=== PATIENT | female | born 1945 | race Caucasian/White ===

== ENCOUNTER 2017-08-03 21:43 | Emergency (ER) | payer MEDICARE ==
[2017-08-03] MEDS: IV NORMAL SALINE 1000ML BAG 1,000 ML IV (22:00)
[2017-08-03] MEDS: IV NORMAL SALINE 500ML BAG 500 ML IV ×2 (22:16→23:00)
[2017-08-03 22:29] LABS: ADD MAN DIFF? NO
[2017-08-03 22:31] LABS: BASO # 0.1 x10^3/uL (0.0-0.2); BASO % 1 % (0-3); EOS # 0.3 x10^3/uL (0.0-0.7); EOS % 2 % (0-3); HEMATOCRIT 39.5 % (36.0-47.0); HEMOGLOBIN 12.9 g/dL (12.0-15.5); LYMPH # 2.1 x10^3/uL (1.0-4.8); LYMPH % 16 % (24-48); MEAN CORPUSCULAR HEMOGLOBIN 28 pg (25-35); MEAN CORPUSCULAR HGB CONC 33 g/dL (31-37); MEAN CORPUSCULAR VOLUME 85 fL (79-100); MONO # 1.2 x10^3/uL (0.0-1.1); MONO % 9 % (0-9); NEUT # 9.3 x10^3uL (1.8-7.7); NEUT % 71 % (31-73); PLATELET COUNT 353 x10^3/uL (140-400); RED BLOOD COUNT 4.65 x10^6/uL (3.50-5.40); RED CELL DISTRIBUTION WIDTH 16.8 % (11.5-14.5)
[2017-08-03 22:47] LABS: ANION GAP 9 (6-14); BLOOD UREA NITROGEN 43 mg/dL (7-20); BUN/CREATININE RATIO 17 (6-20); CALCIUM 9.1 mg/dL (8.5-10.1); CARBON DIOXIDE 31 mmol/L (21-32); CHLORIDE 98 mmol/L (98-107); CREATININE 2.5 mg/dL (0.6-1.0); GLUCOSE 273 mg/dL (70-99); POTASSIUM 4.9 mmol/L (3.5-5.1); SODIUM 138 mmol/L (136-145)
[2017-08-03 22:54] LABS: ALBUMIN 3.1 g/dL (3.4-5.0); ALBUMIN/GLOBULIN RATIO 0.9 (1.0-1.7); ALK PHOS 128 U/L (46-116); ALT (SGPT) 27 U/L (14-59); AST (SGOT) 21 U/L (15-37); TOTAL BILIRUBIN 0.3 mg/dL (0.2-1.0); TOTAL PROTEIN 6.5 g/dL (6.4-8.2)
[2017-08-03 23:00] LABS: TROPONINI < 0.017 ng/mL (0.000-0.055)
[2017-08-03 23:01] LABS: NT-PRO BNP 580 pg/mL (0-124)
[2017-08-03 23:01] LABS: CKMB MASS 0.9 ng/mL (0.0-3.6); CREATINE KINASE 29 U/L (26-192)
[2017-08-03 23:43] LABS: BILIRUBIN,URINE NEGATIVE (NEG); CLARITY,URINE CLEAR; COLOR,URINE YELLOW; GLUCOSE,URINE NEGATIVE (NEG); NITRITE,URINE NEGATIVE (NEG); PROTEIN,URINE NEGATIVE (NEG-TRACE); UROBILINOGEN,URINE 0.2 mg/dL (0.2 mg/dL)
[2017-08-03 23:52] LABS: BACTERIA,URINE 0 /HPF (0-FEW); HYALINE CASTS, URINE MODERATE /HPF; RBC,URINE 0 /HPF (0-2); WBC,URINE 0 /HPF (0-4)
[2017-08-04 00:30] LABS: INFLUENZA A PATIENT NEGATIVE (NEGATIVE); INFLUENZA B PATIENT NEGATIVE (NEGATIVE); OBC FLU VALID
== END 2017-08-04 00:50 | disposition home or self-care (01) ==
LOC: ER 08-04 00:50
DX: I95.1 Orthostatic hypotension (principal); I12.9 Hypertensive chronic kidney disease with stage 1 through stage 4 chronic kidney disease, or unspecified chronic kidney disease; E11.22 Type 2 diabetes mellitus with diabetic chronic kidney disease; N18.9 Chronic kidney disease, unspecified; E78.00 Pure hypercholesterolemia, unspecified; I25.10 Atherosclerotic heart disease of native coronary artery without angina pectoris; K21.9 Gastro-esophageal reflux disease without esophagitis; E03.9 Hypothyroidism, unspecified; Z90.710 Acquired absence of both cervix and uterus; Z90.49 Acquired absence of other specified parts of digestive tract; Z88.1 Allergy status to other antibiotic agents; Z88.2 Allergy status to sulfonamides; Z88.5 Allergy status to narcotic agent; Z88.8 Allergy status to other drugs, medicaments and biological substances; Z91.011 Allergy to milk products
CPT/HCPCS: 36415; 70450; 71045; 80053; 81001; 82553; 83880; 84484; 85025; 87804; 87804-59; 93005; 96360; 96361; 99285-25; J7040

== ENCOUNTER → 2019-05-21 | Day surgery (SDC) | payer MEDICARE ==
[~2019-05-21] MED LIST: ALLO300T PO; ASPI-630 PO; ATOR20TA58 PO; BREO ELLIPTA 11 EACH IH; BUDE10.2 IH; CARV12.511 PO; CHOL200074 PO; CLON2TAB PO; CLON2TAB16 PO; CYAN10002 IJ; DESV100T8 PO; DIPH1TAB5 PO; ERYT250C8 PO; FERR240T2 PO; FOLI1TAB16 PO; INSU100C4 SQ; INSU100V13 SQ; INSU100V8 SQ; IV NORMAL SALINE 1000ML BAG 1,000 ML IV SCH; IV RINGERS,LACTATED 1000ML 1,000 ML IV SCH; LEVO75TA5 PO; LEVO80CA PO; LIDOCAINE 2% PF 5 ML VIAL. ONE; LINA5TAB PO; MAGN400C PO; MIRT15TA3 PO; NIAC10002 PO; NPH,100V5 SQ; OMEP20CA10 PO; POTA10TA17 PO; POTA10TA4 PO; PROPOFOL 40 ML IV ONE; RANI150C PO; TRAM50TA PO; UMEC62.5 IH; VERA240C2 PO
[2019-05-21 09:28] VITALS: BP 170/70
== END ==
LOC: ENDOS 07:01
PROVIDERS: ATTEND Internal Medicine Gastroenterology
DX: Z12.11 Encounter for screening for malignant neoplasm of colon (principal); K57.30 Diverticulosis of large intestine without perforation or abscess without bleeding; K64.0 First degree hemorrhoids; F32.9 Major depressive disorder, single episode, unspecified; D64.9 Anemia, unspecified; I10 Essential (primary) hypertension; K21.9 Gastro-esophageal reflux disease without esophagitis; E11.43 Type 2 diabetes mellitus with diabetic autonomic (poly)neuropathy; K31.84 Gastroparesis; Z86.010 Personal history of colon polyps; Z88.6 Allergy status to analgesic agent; Z88.3 Allergy status to other anti-infective agents; Z88.5 Allergy status to narcotic agent; Z88.8 Allergy status to other drugs, medicaments and biological substances; Z72.89 Other problems related to lifestyle; Z87.891 Personal history of nicotine dependence; Z79.82 Long term (current) use of aspirin; Z90.49 Acquired absence of other specified parts of digestive tract; Z98.890 Other specified postprocedural states; Z90.710 Acquired absence of both cervix and uterus; Z98.49 Cataract extraction status, unspecified eye; Z79.84 Long term (current) use of oral hypoglycemic drugs; Z96.1 Presence of intraocular lens
CPT/HCPCS: 82962; G0105; J2001; J2704; 45378

== ENCOUNTER 2020-02-11 15:24 | Inpatient (IN) | payer MEDICARE ==
[~2020-02-11] VITALS: Ht 162.6 cm; Wt 92.3 kg
[~2020-02-11 15:24] MED LIST changes: +ERYT250C33 PO; -ERYT250C8 PO; -IV NORMAL SALINE 1000ML BAG 1,000 ML IV SCH; -IV RINGERS,LACTATED 1000ML 1,000 ML IV SCH; -LIDOCAINE 2% PF 5 ML VIAL. ONE; -OMEP20CA10 PO; +OMEP20CA16 PO; -PROPOFOL 40 ML IV ONE
[2020-02-11 15:30] VITALS: BP 145/64
[2020-02-11] MEDS ORDERED: LEVO100T5 PO (16:05)
[2020-02-11] MEDS ORDERED: BIOT1CAP3 PO (16:05)
[2020-02-11] MEDS ORDERED: FURO-68 PO (16:05)
[2020-02-11] MEDS ORDERED: FERR236T2 PO (16:05)
[2020-02-11] MEDS ORDERED: B 6 PO (16:05)
[2020-02-11] MEDS ORDERED: ACETAMINOPHEN 650 MG/20.3 ML SOLUTION. PEG PRN (16:15)
[2020-02-11] MEDS: MORPHINE SULFATE 2 MG/ML VIAL. IV PRN (16:26)
[2020-02-11] MEDS ORDERED: traMADol 50 MG TABLET PO PRN (17:30)
[2020-02-11] MEDS ORDERED: DEXTROSE 50% 25 GM / 50ML DISP.SYRIN. IV PRN (17:30)
--- NOTE | 2020-02-11 17:32 | PDOC1 ---
History and Physical Date of Admission Date of Admission DATE: 02/11/20 TIME: 17:20 Identification/Chief Complaint Chief Complaint fall History of Present Illness History of Present Illness 74 year old hx of CAD status post cardiac catheterization, diabetes type 2, hypertension, COPD chronically on 2 liters of 02, hypercholesterolemia, chronic renal disease stage 4, prior tobacco use, hypothyroidism, breast cancer status post left mastectomy, , hysterectomy, knee replacements bilaterally, tonsillectomy, and carpal tunnel surgery who presented to [facility] after suffering a mechanical fall. no syncope or presyncope. couldn't not get up and was experiencing severe left leg pain so came to ER. imaging showed dustal femur fracture. [facility] operative [facility] patient has no complaints besides leg pain. no chest pain sob. no GI symptoms. no urinary symptoms. asking for pain meds. family at bedside. Past Medical History Cardiovascular: HTN, Hyperlipidemia GI: Constipation, GERD Heme/Onc: Anemia NOS Renal/: Chronic renal insuff Endocrine: Diabetes Past Surgical History Past Surgical History: Total knee replacement Family History Family History reviewed and denies Social History Smoke: No ALCOHOL: none Drugs: None Current Medications Current Medications Current Medications Morphine Sulfate (Morphine Sulfate) 2 mg PRN Q2HR PRN IV PAIN Last administered on 02/11/20at 16:26; Start 02/11/20 at 16:15 Acetaminophen (Tylenol) 650 mg PRN Q6HRS PRN PEG MILD PAIN / TEMP > 100.3'F; Start 02/11/20 at 16:15 Active Scripts Active Reported Lasix (Furosemide) 40 Mg Tablet 1 Tab PO DAILY 30 Days Iron (Ferrous Gluconate) 236 Mg Tablet 65 Mg PO DAILY Biotin 1 Mg Capsule 1 Cap PO DAILY 30 Days [B 6] 1 Tab PO DAILY Levothyroxine Sodium 100 Mcg Tablet 1 Tab PO DAILY Levemir (Insulin Detemir) 100 Unit/1 Ml Vial 30 Unit SQ HS Ranitidine Hcl 150 Mg Capsule 1 Cap PO BID Verapamil Er (Verapamil Hcl) 240 Mg Cap24h.pel 120 Mg PO DAILY Magnesium (Magnesium Oxide) 400 Mg Capsule 1 Cap PO DAILY 30 Days Fetzima (Levomilnacipran Hydrochloride) 80 Mg Cap.sa.24h 80 Mg PO DAILY Tramadol Hcl 50 Mg Tablet 50 Mg PO DAILY PRN Novolog (Insulin Aspart) 100 Unit/1 Ml Cartridge 2 Unit SQ BIDACLD Allopurinol 300 Mg Tablet 1 Tab PO DAILY Potassium Citrate 10 Meq Tablet.er 1 Tab PO BID Incruse Ellipta (Umeclidinium [place]) 62.5 Mcg Blst.w.dev 62.5 Mcg IH DAILY Breo Ellipta 100-25 Mcg Inh (Fluticasone/Vilanterol) 1 Each Aer.pow.ba 1 Puff IH DAILY Klonopin (Clonazepam) 2 Mg Tablet 2 Mg PO HS Mirtazapine 15 Mg Tablet 30 Mg PO HS Erythromycin (Erythromycin Base) 250 Mg Capsule.dr 250 Mg PO BID Diphenoxylate-Atropine Tablet (Diphenoxylate Hcl/Atropine) 1 Each Tablet 1 Each PO DAILY PRN Cyanocobalamin Injection (Cyanocobalamin (Vitamin B-12)) 1,000 Mcg/1 Ml Vial 1,000 Mcg IJ QMONTH Vitamin D-3 (Cholecalciferol (Vitamin D3)) 2,000 Unit Capsule 2,000 Unit PO DAILY Atorvastatin Calcium 20 Mg Tablet 20 Mg PO DAILY Aspirin 81 Mg Tab.chew 81 Mg PO DAILY Allergies Allergies: Coded Allergies: Sulfa (Sulfonamide Antibiotics) (Verified Allergy, Intermediate, Hives, 05/21/19) ciprofloxacin (Unverified Allergy, Intermediate, 05/21/19) diclofenac (Verified Allergy, Intermediate, Hives, 05/21/19) hydrochlorothiazide (Verified Allergy, Intermediate, Rash, 05/21/19) lactose (Verified Allergy, Intermediate, 05/21/19) misoprostol (Verified Allergy, Intermediate, Hives, 05/21/19) sulfamethoxazole (Verified Allergy, Intermediate, 05/21/19) trimethoprim (Verified Allergy, Intermediate, 05/21/19) codeine (Verified Adverse Reaction, Intermediate, Nausea and Vomiting, 05/21/19) ROS Review of System CONSTITUTIONAL: No fever or chills EYES: No recent changes SKIN: No rash or itching CARDIOVASCULAR: No chest pain, syncope, palpitations, or edema RESPIRATORY: No SOB or cough GASTROINTESTINAL: No nausea, vomiting or abdominal pain NEUROLOGICAL: No headaches or weakness ENDOCRINE: No cold or heat intolerance GENITOURINARY: No urgency or frequency of urination MUSCULOSKELETAL: No back pain or joint pain LYMPHATICS: No enlarged lymph nodes PSYCHIATRIC: No anxiety or depression Physical Exam Physical Exam GENERAL: No apparent distress. Alert and oriented. HEENT: Head normocephalic, atraumatic. NECK: Supple LUNGS: Clear to auscultation. HEART: RRR, S1, S2 present, pulses intact ABDOMEN: Soft, positive bowel sounds. EXTREMITIES: No cyanosis or edema. left knee immobilized. echymosis on left arm from fall NEUROLOGIC: Normal speech, normal tone PSYCHIATRIC: Normal affect, normal mood. SKIN: No ulceration. Vitals Vitals Vital Signs Date Time Temp Pulse Resp B/P (MAP) Pulse Ox O2 Delivery O2 Flow Rate FiO2 02/11/20 17:02 BiPAP/CPAP 2.0 02/11/20 15:30 97.9 85 18 145/64 (91) 97 97.9 Labs Labs Laboratory Tests Test 02/11/20 16:53 Glucose (Fingerstick) 140 mg/dL (70-99) Laboratory Tests Test 02/11/20 16:53 Glucose (Fingerstick) 140 mg/dL (70-99) VTE Prophylaxis Ordered VTE Prophylaxis Devices: Yes VTE Pharmacological Prophylaxi: Yes Assessment/Plan Assessment/Plan ASSESSMENT Left Distal Femur Fracture following Mechanical Fall CAD status post cardiac catheterization COPD Chronic Hypoxic Resp Failure on 2 liters at home Previous Tobacco Use diabetes type 2 HTN HLD, CKD stage 4 hypothyroidism breast cancer status post left mastectomy Plan admit to medical floor plan for operative intervention jillian by ortho ortho consult pain control with IV morphine baseline labs continue supplemental 02 known cardiac hx, no active chest pain or symptoms at present. med rec reviewed. hold lasix resume home insulin SSI FULL CODE DVT PPX: hold for AM prior to sx Justicifation of Admission Dx: Justifications for Admission: Justification of Admission Dx: Yes OSBALDO PAIZ MD Feb 11, 2020 17:32
[2020-02-11] MEDS: INSULIN LISPRO 300 UNITS/3 ML VIAL. SQ SCH (17:38)
[2020-02-11] MEDS: MORPHINE SULFATE 4 MG/ML VIAL. IV PRN ×2 (17:43→20:11)
--- NOTE | 2020-02-11 17:52 | PDOC2 ---
CONSULT Date of Consult Date of Consult DATE: 02/11/20 TIME: 17:47 Reason for Consult Reason for Consult: Periprosthetic femur fracture above a total knee Identification/Chief Complaint Chief Complaint Left leg pain Source Source: Chart review History of Present Illness Reason for Visit: 74 year old hx of CAD status post cardiac catheterization, diabetes type 2, hypertension, COPD chronically on 2 liters of 02, hypercholesterolemia, chronic renal disease stage 4, prior tobacco use, hypothyroidism, breast cancer status post left mastectomy, , hysterectomy, knee replacements bilaterally, tonsillectomy, and carpal tunnel surgery who presented to [facility] after suffering a mechanical fall. no syncope or presyncope. couldn't not get up and was experiencing severe left leg pain so came to ER. imaging showed distal femur fracture. sent to [facility] for operative intervention. She lives in her own home with her . She does not use a walker. She st ill drives. She had left total knee arthroplasty by Dr. Roland Altman August 08, 2016 and the total knee had been doing well. She said she does not walk with a limp and wasn't having any issues with the knee prior to the fall. The injury occurred when she was taking a quilting class, and had placed her lunch box under the table. She tripped over the lunch box strap and landed on both knees, causing the left femur fracture. She has been reasonably comfortable now in a brace and with pain medications. 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 Past Medical History Past Medical History CAD status post cardiac catheterization, diabetes type 2, hypertension, COPD chronically on 2 liters of 02, hypercholesterolemia, chronic renal disease stage 4, prior tobacco use, hypothyroidism, She is a remote smoker and quit smoking in 1991. She has CKD 4 but is not on dialysis. She says she is tries to stay hydrated but her kidney function is about 25% of normal. She reports 3 heart attacks, but says she does not have any stents. She can go up and down a flight of stairs without any severe shortness of breath. She had mastectomy in 1988, without chemotherapy or radiation, and has been disease-free from that. Cardiovascular: CAD, HTN, Hyperlipidemia Pulmonary: COPD GI: Constipation, GERD Heme/Onc: Anemia NOS Renal/: Chronic renal insuff Endocrine: Diabetes Past Surgical History Past Surgical History Both knees have been replaced. 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 Lives in her own home with her . Quit ALCOHOL: none Drugs: None Lives: with Family Current Medications Current Medications Current Medications Morphine Sulfate (Morphine Sulfate) 2 mg PRN Q2HR PRN IV PAIN Last administered on 02/11/20at 16:26; Start 02/11/20 at 16:15 Acetaminophen (Tylenol) 650 mg PRN Q6HRS PRN PEG MILD PAIN / TEMP > 100.3'F; Start 02/11/20 at 16:15 Morphine Sulfate (Morphine Sulfate) 4 mg PRN Q4HRS PRN IV PAIN Last administered on 02/11/20at 17:43; Start 02/11/20 at 17:30 Insulin Human Lispro (HumaLOG) 0-5 UNITS TIDWMEALS SQ ; Start 02/11/20 at 18:00 Dextrose (Dextrose 50%-Water Syringe) 12.5 gm PRN Q15MIN PRN IV SEE COMMENTS; Start 02/11/20 at 17:30 Sodium Chloride 1,000 ml @ 75 mls/hr [id number] IV ; Start 02/12/20 at 07:00 Allopurinol (Zyloprim) 300 mg DAILY PO ; Start 02/12/20 at 09:00 Aspirin (Aspirin Chewable) 81 mg DAILY PO ; Start 02/12/20 at 09:00 Atorvastatin Calcium (Lipitor) 20 mg QHS PO ; Start 02/11/20 at 21:00 Levothyroxine Sodium (Synthroid) 100 mcg DAILY06 PO ; Start 02/12/20 at 06:00 Mirtazapine (Remeron) 30 mg HS PO ; Start 02/11/20 at 21:00 Tramadol HCl (Ultram) 50 mg PRN DAILY PRN PO MILD PAIN 1-3; Start 02/11/20 at 17:30 Clonazepam (KlonoPIN) 2 mg QHS PO ; Start 02/11/20 at 21:00 Ferrous Sulfate (Feosol) 325 mg DAILYWBKFT PO ; Start 02/12/20 at 08:00 Non-Formulary Medication (Fluticasone/ Vilanterol (Breo Ellipta 100-25 Mcg Inh)) 1 puff DAILY IH ; Start 02/12/20 at 09:00; Status UNV Non-Formulary Medication (Insulin Aspart (Novolog)) 2 unit BIDACLD SQ ; Start 02/12/20 at 11:30; Status UNV Insulin Glargine (Lantus Syringe) 30 unit QHS SQ ; Start 02/11/20 at 21:00 Non-Formulary Medication (Levomilnacipran Hydrochloride (Fetzima)) 80 mg DAILY PO ; Start 02/12/20 at 09:00; Status UNV Magnesium Oxide (Magnesium Oxide) 400 mg DAILY PO ; Start 02/12/20 at 09:00 Non-Formulary Medication (Ranitidine Hcl ) 1 cap BID PO ; Start 02/11/20 at 21:00; Status UNV Non-Formulary Medication (Umeclidinium [place] (Incruse Ellipta)) 62.5 mcg DAILY IH ; Start 02/12/20 at 09:00; Status UNV Verapamil HCl (Calan Sr) 120 mg DAILY PO ; Start 02/12/20 at 09:00 Active Scripts Active Reported Lasix (Furosemide) 40 Mg Tablet 1 Tab PO DAILY 30 Days Iron (Ferrous Gluconate) 236 Mg Tablet 65 Mg PO DAILY Biotin 1 Mg Capsule 1 Cap PO DAILY 30 Days [B 6] 1 Tab PO DAILY Levothyroxine Sodium 100 Mcg Tablet 1 Tab PO DAILY Levemir (Insulin Detemir) 100 Unit/1 Ml Vial 30 Unit SQ HS Ranitidine Hcl 150 Mg Capsule 1 Cap PO BID Verapamil Er (Verapamil Hcl) 240 Mg Cap24h.pel 120 Mg PO DAILY Magnesium (Magnesium Oxide) 400 Mg Capsule 1 Cap PO DAILY 30 Days Fetzima (Levomilnacipran Hydrochloride) 80 Mg Cap.sa.24h 80 Mg PO DAILY Tramadol Hcl 50 Mg Tablet 50 Mg PO DAILY PRN Novolog (Insulin Aspart) 100 Unit/1 Ml Cartridge 2 Unit SQ BIDACLD Allopurinol 300 Mg Tablet 1 Tab PO DAILY Potassium Citrate 10 Meq Tablet.er 1 Tab PO BID Incruse Ellipta (Umeclidinium [place]) 62.5 Mcg Blst.w.dev 62.5 Mcg IH DAILY Breo Ellipta 100-25 Mcg Inh (Fluticasone/Vilanterol) 1 Each Aer.pow.ba 1 Puff IH DAILY Klonopin (Clonazepam) 2 Mg Tablet 2 Mg PO HS Mirtazapine 15 Mg Tablet 30 Mg PO HS Erythromycin (Erythromycin Base) 250 Mg Capsule.dr 250 Mg PO BID Diphenoxylate-Atropine Tablet (Diphenoxylate Hcl/Atropine) 1 Each Tablet 1 Each PO DAILY PRN Cyanocobalamin Injection (Cyanocobalamin (Vitamin B-12)) 1,000 Mcg/1 Ml Vial 1,000 Mcg IJ QMONTH Vitamin D-3 (Cholecalciferol (Vitamin D3)) 2,000 Unit Capsule 2,000 Unit PO DAILY Atorvastatin Calcium 20 Mg Tablet 20 Mg PO DAILY Aspirin 81 Mg Tab.chew 81 Mg PO DAILY Allergies Allergies: Coded Allergies: Sulfa (Sulfonamide Antibiotics) (Verified Allergy, Intermediate, Hives, 05/21/19) ciprofloxacin (Unverified Allergy, Intermediate, 05/21/19) diclofenac (Verified Allergy, Intermediate, Hives, 05/21/19) hydrochlorothiazide (Verified Allergy, Intermediate, Rash, 05/21/19) lactose (Verified Allergy, Intermediate, 05/21/19) misoprostol (Verified Allergy, Intermediate, Hives, 05/21/19) sulfamethoxazole (Verified Allergy, Intermediate, 05/21/19) trimethoprim (Verified Allergy, Intermediate, 05/21/19) codeine (Verified Adverse Reaction, Intermediate, Nausea and Vomiting, 05/21/19) ROS Review of System Multisystem review was obtained and was negative for shortness of breath, chest pain, melena, hematuria, seizures, headaches, cough, shortness of breath, abdominal pain. She does admit to some diabetic neuropathy but has some preservation of sensation in her feet. She had GERD symptoms while in the hospital today. General: No: Chills, Night Sweats Eyes: No Double vision HEENT: No: Heacaches Respiratory: No: Cough, Shortness of breath, SOB with excertion Cardiovascular: No Chest Pain Gastrointestinal: Yes Other (GERD symptoms today); No Nausea, No Vomiting, No Diarrhea Genitourinary: No Dysuria, No Hematuria Musculoskeletal: Yes Gait Disturbance, Yes Joint Pain Physical Exam General: Alert, Cooperative HEENT: Atraumatic Lungs: Normal air movement Heart: Regular rate Abdomen: Soft Extremities: Other (The left leg is in a knee immobilizer. There is tenderness from the mid thigh to the knee. There is quite a bit of swelling so alignment is difficult to determine but no gross malalignment on examination. The skin is intact and was reported intact. She has slight decrease sensation in the toes related to diabetic neuropathy but no acute change with the fracture. She can dorsiflex and plantarflex the foot and the capillary refill appears normal. She denies hip pain.) Neuro: Normal speech, Other (Slight decrease in both feet sensation) Psych/Mental Status: Mental status NL, Mood NL MUSCULOSKELETAL: Abnormal exam of left (Femur and knee as above. Both knees have well-healed surgical scars from total knee arthroplasty.) Vitals VITALS Vital Signs Date Time Temp Pulse Resp B/P (MAP) Pulse Ox O2 Delivery O2 Flow Rate FiO2 02/11/20 17:43 Nasal Cannula 2.0 02/11/20 15:30 97.9 85 18 145/64 (91) 97 97.9 Labs Labs Laboratory Tests Test 02/11/20 16:53 Glucose (Fingerstick) 140 mg/dL (70-99) Laboratory Tests Test 02/11/20 16:53 Glucose (Fingerstick) 140 mg/dL (70-99) Images Images Report reviewed and images independently reviewed. There is only a single view of the femur which does show a supracondylar and shaft periprosthetic femur fracture above a total knee arthroplasty. She will need additional imaging, including x-rays of the entire femur. [place] [id number] IMAGING REPORT Signed PATIENT: MÓNICA CASTELLANO ACCOUNT: [id number] : 1945 LOCATION: ER AGE: 74 SEX: F EXAM STATUS: REG ER ORD. PHYSICIAN: ESPERANZA DOUGHERTY DO REASON: fall with injury PROCEDURE: KNEE LEFT 2V KNEE LEFT 2V History: Reason: fall with injury / Spl. Instructions: ONLY 1 VIEW PER RN, PATIENT IMMOBILE / History: Technique: Lateral view of the knee. Comparison: None. Findings: Acute comminuted left distal femur fracture with posterior displacement and angulation of the distal fracture fragments. Left total knee arthroplasty. There is adjacent soft tissue swelling. Impression: 1. Acute comminuted displaced left distal femur fracture. Electronically signed by: Rehan Macario DO (02/11/2020 11:23 AM) [id number] DICTATED AND SIGNED BY: REHAN MACARIO DO DATE: 02/11/20 1123 CC: BEBE MALDONADO MD; ESPERANZA DOUGHERTY DO The additional imaging of the entire femur that I ordered is now reviewed and the report is reviewed. [facility] [address] [place] [address] IMAGING REPORT Signed PATIENT: MÓNICA CASTELLANO ACCOUNT: [id number] : 1945 LOCATION: [address] [place] [address] AGE: 74 SEX: F EXAM STATUS: ADM IN ORD. PHYSICIAN: ILSA CLEANING MD REASON: evaluate entire femur for fracture surgery planning PROCEDURE: LEFT FEMUR XRAY LEFT FEMUR XRAY 02/11/2020 12:00 AM INDICATION: Femoral fracture COMPARISON: None available. TECHNIQUE: 4 views of the left femur are provided. FINDINGS/ IMPRESSION: 1. There is a comminuted fracture of the distal femoral diaphysis with 2 large displaced fragments measuring 6.5 cm and 7.7 cm. Fracture is obliquely oriented extending from the medial distal femoral diaphyseal cortex laterally immediately superior to the left femoral condylar portion of the total knee arthroplasty. There is apex ventral angulation of the fracture with suggestion of a knee joint effusion. Extensive soft tissue swelling is present. Tibial component of the total knee arthroplasty appears intact. Fibula is intact. No proximal femoral fracture or dislocation is identified. Electronically signed by: Lori Willis MD (02/12/2020 8:55 AM) [facility] DICTATED and SIGNED BY: LORI WILLIS MD DATE: 02/12/20 0855 Assessment/Plan Assessment/Plan Surgical planning. I will order COVID testing STAT. Due to her medical comorbidities, and the timing of the COVID testing results, surgery will probably need to occur on Friday rather than Friday. I discussed her fracture and reviewed her x-rays with her in detail. I gave her copies of her x-rays, and a copy of an x-ray from the Internet showing supracondylar femur fracture above a total knee, fixated with a lateral locking plate and screws. This would be my recommendation for surgery. Nonoperative treatment is not a good consideration. I discussed the potential risks with her, and she is higher risk for complications due to her diabetes, COPD, and c hronic kidney disease. I explained that she has quite a few higher risks of poor wound healing, infection, nonunion, or other healing problems. Despite that I still recommend surgery because nonoperative treatment would be miserable and likely worse regarding bedsores, and unlikely return to walking. Assuming surgery heals without major complications, she would likely use a walk er for about 3 months and then probably can return to her usual walking status without a walker. We discussed the potential risks of surgery such as bleeding, blood clots, infection, malunion or nonunion, plate breakage, wound healing problems etc. I would hope to do most of the proximal screws percutaneously which should decrease some of those risks and preserve blood flow to the femur. I do not believe there is any evidence of loosening of the total knee, and I described with her other surgeries which are sometimes used such as distal femoral replacement if there was evidence of disruption of the total knee. All of her questions about surgery were answered. I called [facility] and her COVID testing is negative so we can proceed with surgery tomorrow morning. The surgical plan is CPT 93361 Open treatment of femoral supracondylar or trans condylar fracture without intercondylar extension, includes internal fixation, when performed for S72.452A Displaced supracondylar fracture without intracondylar extension of lower end of left femur, initial encounter for closed fracture ILSA CLEANING MD Feb 11, 2020 17:52
--- NOTE | 2020-02-11 17:59 | NUR ---
Spoke with Betty in lab. She stated pt's records say Covid swab was received at [facility].
[2020-02-11] MEDS ORDERED: oxyCODONE/APAP 5/325 1 TAB TABLET PO PRN (18:00)
[2020-02-11 19:00] VITALS: BP 140/64
[2020-02-11] MEDS: clonazePAM 0.5 MG TABLET PO SCH (20:12)
[2020-02-11] MEDS: MIRTAZAPINE 15 MG TABLET PO SCH (20:12)
[2020-02-11] MEDS: FAMOTIDINE 20 MG TABLET. PO SCH (20:12)
[2020-02-11] MEDS: ATORVASTATIN CALCIUM 20 MG TABLET PO SCH (20:12)
[2020-02-11] MEDS: IPRATRPIUM/ALBUTEROL 0.5/2.5MG 3 ML NEBU. NEB SCH ×2 (20:22→20:23)
[2020-02-11] MEDS: BUDESONIDE 0.5 MG/2 ML NEBU. NEB SCH (20:22)
[2020-02-11] MEDS: INSULIN GLARGINE SYRINGE. SQ SCH (21:44)
[2020-02-11 21:56] LABS: BASO # 0.1 x10^3/uL (0.0-0.2); BASO % 1 % (0-3); EOS # 0.2 x10^3/uL (0.0-0.7); EOS % 2 % (0-3); HEMATOCRIT 32.3 % (36.0-47.0); HEMOGLOBIN 10.6 g/dL (12.0-15.5); LYMPH # 1.6 x10^3/uL (1.0-4.8); LYMPH % 12 % (24-48); MEAN CORPUSCULAR HEMOGLOBIN 29 pg (25-35); MEAN CORPUSCULAR HGB CONC 33 g/dL (31-37); MEAN CORPUSCULAR VOLUME 88 fL (79-100); MONO # 1.5 x10^3/uL (0.0-1.1); MONO % 11 % (0-9); NEUT # 10.2 x10^3/uL (1.8-7.7); NEUT % 75 % (31-73); PLATELET COUNT 253 x10^3/uL (140-400); RED BLOOD COUNT 3.68 x10^6/uL (3.50-5.40); RED CELL DISTRIBUTION WIDTH 17.3 % (11.5-14.5); WHITE BLOOD COUNT 13.6 x10^3/uL (4.0-11.0)
[2020-02-11] MEDS: oxyCODONE/APAP 5/325 1 TAB TABLET PO PRN (21:58)
[2020-02-11 22:06] LABS: PROTHROMBIN TIME PATIENT 12.7 SEC (11.7-14.0)
[2020-02-11 22:08] LABS: CALCIUM 8.8 mg/dL (8.5-10.1); CREATININE 2.3 mg/dL (0.6-1.0); GFR 20.7; POTASSIUM 3.8 mmol/L (3.5-5.1)
--- NOTE | 2020-02-11 22:30 | NUR ---
Call to Dr. Eduardo regarding order for femur xray and Patients question on using [facility] xray. Call returned from Dr. Eduardo, per Dr. Eduardo need for further xray to evaluate surgical needs. Informed Dr. Eduardo that xray department busy and request to do xray in am. Dr. Eduardo stated xray could be done in am. Xray notified they could do in am. Patient informed on need for xray here.
[2020-02-11 23:00] VITALS: BP 99/39
[2020-02-12] MEDS: oxyCODONE/APAP 5/325 1 TAB TABLET PO PRN ×4 (01:54→19:08)
[2020-02-12 03:00] VITALS: BP 133/63
[2020-02-12] MEDS: LEVOTHYROXINE 100 MCG TABLET PO SCH (06:26)
[2020-02-12] MEDS: IV NORMAL SALINE 1000ML BAG 1,000 ML IV SCH ×2 (06:27→21:16)
[2020-02-12 07:00] VITALS: BP 95/56
[2020-02-12] MEDS: BUDESONIDE 0.5 MG/2 ML NEBU. NEB SCH ×2 (07:35→20:52)
[2020-02-12] MEDS: IPRATRPIUM/ALBUTEROL 0.5/2.5MG 3 ML NEBU. NEB SCH ×4 (07:35→20:52)
[2020-02-12] MEDS: FERROUS SULFATE 325 MG TABLET. PO SCH (08:00)
[2020-02-12] MEDS: INSULIN LISPRO 300 UNITS/3 ML VIAL. SQ SCH ×5 (08:00→17:58)
[2020-02-12] MEDS: ALLOPURINOL 300 MG TABLET. PO SCH (08:46)
[2020-02-12] MEDS: MAGNESIUM OXIDE 400 MG TABLET PO SCH (08:46)
[2020-02-12] MEDS: LEVOMILNACIPRAN 80 MG PO SCH (08:50)
[2020-02-12] MEDS: ASPIRIN CHEWABLE 81 MG TABLET. PO SCH (08:51)
[2020-02-12] MEDS: MORPHINE SULFATE 4 MG/ML VIAL. IV PRN (08:54)
--- NOTE | 2020-02-12 08:58 | RAD ---
LEFT FEMUR XRAY 02/11/2020 12:00 AM INDICATION: Femoral fracture COMPARISON: None available. TECHNIQUE: 4 views of the left femur are provided. FINDINGS/ IMPRESSION: 1. There is a comminuted fracture of the distal femoral diaphysis with 2 large displaced fragments measuring 6.5 cm and 7.7 cm. Fracture is obliquely oriented extending from the medial distal femoral diaphyseal cortex laterally immediately superior to the left femoral condylar portion of the total knee arthroplasty. There is apex ventral angulation of the fracture with suggestion of a knee joint effusion. Extensive soft tissue swelling is present. Tibial component of the total knee arthroplasty appears intact. Fibula is intact. No proximal femoral fracture or dislocation is identified. Electronically signed by: Rubi Alfaro MD (02/12/2020 8:55 AM) [facility]
[2020-02-12] MEDS ORDERED: NON FORMULARY ITEM (Fluticasone/Vilanterol (Breo Ellipta 100-25 Mcg Inh) 1 PUFF) IH SCH (09:00)
[2020-02-12] MEDS: VERAPAMIL SR 120 MG TABLET.ER. PO SCH (09:00)
[2020-02-12] MEDS ORDERED: NON FORMULARY ITEM (Umeclidinium Bromide (Incruse Ellipta) 62.5 MCG) IH SCH (09:00)
[2020-02-12 11:00] VITALS: BP 128/57
--- NOTE | 2020-02-12 12:06 | PDOC ---
PROGRESS NOTES History of Present Illness History of Present Illness VTE Prophylaxis Ordered VTE Prophylaxis Devices: Yes VTE Pharmacological Prophylaxi: Yes impression Assessment/Plan ASSESSMENT Left Distal Femur Fracture following Mechanical Fall There is a comminuted fracture of the distal femoral diaphysis with 2 large displaced fragments measuring 6.5 cm and 7.7 cm. Fracture is obliquely oriented extending from the medial distal femoral diaphyseal cortex laterally immediately superior to the left femoral condylar portion of the total knee arthroplasty. CAD status post cardiac catheterization COPD Chronic Hypoxic Resp Failure on 2 liters at home Previous Tobacco Use diabetes type 2 HTN HLD, CKD stage 4 hypothyroidism breast cancer status post left mastectomy Plan===== admit to medical floor plan for operative intervention jillian by ortho ortho consult pain control with IV morphine baseline labs continue supplemental 02 known cardiac hx, no active chest pain or symptoms at present. med rec reviewed. hold lasix resume home insulin SSI FULL CODE DVT PPX: hold for AM prior to sx D/W RN Justicifation of Admission Dx: Justicifation of Admission Dx: Justifications for Admission: Justification of Admission Dx: Yes Vitals Vitals Vital Signs Date Time Temp Pulse Resp B/P (MAP) Pulse Ox O2 Delivery O2 Flow Rate FiO2 02/12/20 11:37 94 Nasal Cannula 2.0 02/12/20 11:00 97.9 95 18 128/57 (80) 97.9 Physical Exam General: Alert, Oriented X3, Cooperative, No acute distress Heart: Regular rate, Other (GR 3/6 LAST LSB) Lungs: Clear Abdomen: Normal bowel sounds, Soft Extremities: No cyanosis Skin: No significant lesion Labs LABS LEFT FEMUR XRAY 02/11/2020 12:00 AM INDICATION: Femoral fracture COMPARISON: None available. TECHNIQUE: 4 views of the left femur are provided. FINDINGS/ IMPRESSION: 1. There is a comminuted fracture of the distal femoral diaphysis with 2 large displaced fragments measuring 6.5 cm and 7.7 cm. Fracture is obliquely oriented extending from the medial distal femoral diaphyseal cortex laterally immediately superior to the left femoral condylar portion of the total knee arthroplasty. There is apex ventral angulation of the fracture with suggestion of a knee joint effusion. Extensive soft tissue swelling is present. Tibial component of the total knee arthroplasty appears intact. Fibula is intact. No proximal femoral fracture or dislocation is identified. Electronically signed by: Lori Alfaro MD (02/12/2020 8:55 AM) [facility] DICTATED and SIGNED BY: LORI ALFARO MD Laboratory Tests Test 02/11/20 16:53 02/11/20 20:48 02/11/20 21:30 Glucose (Fingerstick) 140 mg/dL (70-99) 246 mg/dL (70-99) White Blood Count 13.6 x10^3/uL (4.0-11.0) Red Blood Count 3.68 x10^6/uL (3.50-5.40) Hemoglobin 10.6 g/dL (12.0-15.5) Hematocrit 32.3 % (36.0-47.0) Mean Corpuscular Volume 88 fL (79-100) Mean Corpuscular Hemoglobin 29 pg (25-35) Mean Corpuscular Hemoglobin Concent 33 g/dL (31-37) Red Cell Distribution Width 17.3 % (11.5-14.5) Platelet Count 253 x10^3/uL (140-400) Neutrophils (%) (Auto) 75 % (31-73) Lymphocytes (%) (Auto) 12 % (24-48) Monocytes (%) (Auto) 11 % (0-9) Eosinophils (%) (Auto) 2 % (0-3) Basophils (%) (Auto) 1 % (0-3) Neutrophils # (Auto) 10.2 x10^3/uL (1.8-7.7) Lymphocytes # (Auto) 1.6 x10^3/uL (1.0-4.8) Monocytes # (Auto) 1.5 x10^3/uL (0.0-1.1) Eosinophils # (Auto) 0.2 x10^3/uL (0.0-0.7) Basophils # (Auto) 0.1 x10^3/uL (0.0-0.2) Prothrombin Time 12.7 SEC (11.7-14.0) Prothromb Time International Ratio 1.0 (0.8-1.1) Sodium Level 140 mmol/L (136-145) Potassium Level 3.8 mmol/L (3.5-5.1) Chloride Level 100 mmol/L (98-107) Carbon Dioxide Level 35 mmol/L (21-32) Anion Gap 5 (6-14) Blood Urea Nitrogen 44 mg/dL (7-20) Creatinine 2.3 mg/dL (0.6-1.0) Estimated GFR (Cockcroft-Gault) 20.7 Glucose Level 247 mg/dL (70-99) Calcium Level 8.8 mg/dL (8.5-10.1) Comment Review of Relevant I have reviewed the following items cristian (where applicable) has been applied. Labs Laboratory Tests Test 02/11/20 16:53 02/11/20 20:48 02/11/20 21:30 Glucose (Fingerstick) 140 mg/dL (70-99) 246 mg/dL (70-99) White Blood Count 13.6 x10^3/uL (4.0-11.0) Red Blood Count 3.68 x10^6/uL (3.50-5.40) Hemoglobin 10.6 g/dL (12.0-15.5) Hematocrit 32.3 % (36.0-47.0) Mean Corpuscular Volume 88 fL (79-100) Mean Corpuscular Hemoglobin 29 pg (25-35) Mean Corpuscular Hemoglobin Concent 33 g/dL (31-37) Red Cell Distribution Width 17.3 % (11.5-14.5) Platelet Count 253 x10^3/uL (140-400) Neutrophils (%) (Auto) 75 % (31-73) Lymphocytes (%) (Auto) 12 % (24-48) Monocytes (%) (Auto) 11 % (0-9) Eosinophils (%) (Auto) 2 % (0-3) Basophils (%) (Auto) 1 % (0-3) Neutrophils # (Auto) 10.2 x10^3/uL (1.8-7.7) Lymphocytes # (Auto) 1.6 x10^3/uL (1.0-4.8) Monocytes # (Auto) 1.5 x10^3/uL (0.0-1.1) Eosinophils # (Auto) 0.2 x10^3/uL (0.0-0.7) Basophils # (Auto) 0.1 x10^3/uL (0.0-0.2) Prothrombin Time 12.7 SEC (11.7-14.0) Prothromb Time International Ratio 1.0 (0.8-1.1) Sodium Level 140 mmol/L (136-145) Potassium Level 3.8 mmol/L (3.5-5.1) Chloride Level 100 mmol/L (98-107) Carbon Dioxide Level 35 mmol/L (21-32) Anion Gap 5 (6-14) Blood Urea Nitrogen 44 mg/dL (7-20) Creatinine 2.3 mg/dL (0.6-1.0) Estimated GFR (Cockcroft-Gault) 20.7 Glucose Level 247 mg/dL (70-99) Calcium Level 8.8 mg/dL (8.5-10.1) Laboratory Tests Test 02/11/20 16:53 02/11/20 20:48 02/11/20 21:30 Glucose (Fingerstick) 140 mg/dL (70-99) 246 mg/dL (70-99) White Blood Count 13.6 x10^3/uL (4.0-11.0) Red Blood Count 3.68 x10^6/uL (3.50-5.40) Hemoglobin 10.6 g/dL (12.0-15.5) Hematocrit 32.3 % (36.0-47.0) Mean Corpuscular Volume 88 fL (79-100) Mean Corpuscular Hemoglobin 29 pg (25-35) Mean Corpuscular Hemoglobin Concent 33 g/dL (31-37) Red Cell Distribution Width 17.3 % (11.5-14.5) Platelet Count 253 x10^3/uL (140-400) Neutrophils (%) (Auto) 75 % (31-73) Lymphocytes (%) (Auto) 12 % (24-48) Monocytes (%) (Auto) 11 % (0-9) Eosinophils (%) (Auto) 2 % (0-3) Basophils (%) (Auto) 1 % (0-3) Neutrophils # (Auto) 10.2 x10^3/uL (1.8-7.7) Lymphocytes # (Auto) 1.6 x10^3/uL (1.0-4.8) Monocytes # (Auto) 1.5 x10^3/uL (0.0-1.1) Eosinophils # (Auto) 0.2 x10^3/uL (0.0-0.7) Basophils # (Auto) 0.1 x10^3/uL (0.0-0.2) Prothrombin Time 12.7 SEC (11.7-14.0) Prothromb Time International Ratio 1.0 (0.8-1.1) Sodium Level 140 mmol/L (136-145) Potassium Level 3.8 mmol/L (3.5-5.1) Chloride Level 100 mmol/L (98-107) Carbon Dioxide Level 35 mmol/L (21-32) Anion Gap 5 (6-14) Blood Urea Nitrogen 44 mg/dL (7-20) Creatinine 2.3 mg/dL (0.6-1.0) Estimated GFR (Cockcroft-Gault) 20.7 Glucose Level 247 mg/dL (70-99) Calcium Level 8.8 mg/dL (8.5-10.1) Medications Current Medications Morphine Sulfate (Morphine Sulfate) 2 mg PRN Q2HR PRN IV MODERATE PAIN Last administered on 02/11/20at 16:26; Start 02/11/20 at 16:15 Acetaminophen (Tylenol) 650 mg PRN Q6HRS PRN PEG TEMP > 100.3'F; Start at 16:15 Morphine Sulfate (Morphine Sulfate) 4 mg PRN Q4HRS PRN IV SEVERE PAIN Last administered on 02/12/20at 08:54; Start 02/11/20 at 17:30 Insulin Human Lispro (HumaLOG) 0-5 UNITS TIDWMEALS SQ ; Start 02/11/20 at 18:00 Dextrose (Dextrose 50%-Water Syringe) 12.5 gm PRN Q15MIN PRN IV SEE COMMENTS; Start 02/11/20 at 17:30 Sodium Chloride 1,000 ml @ 75 mls/hr [id number] IV Last administered on 02/12/20at 06:27; Start 02/12/20 at 07:00 Allopurinol (Zyloprim) 300 mg DAILY PO Last administered on 02/12/20at 08:46; Start 02/12/20 at 09:00 Aspirin (Aspirin Chewable) 81 mg DAILY PO ; Start 02/12/20 at 09:00 Atorvastatin Calcium (Lipitor) 20 mg QHS PO Last administered on 02/11/20at 20:12; Start 02/11/20 at 21:00 Levothyroxine Sodium (Synthroid) 100 mcg DAILY06 PO Last administered on 02/12/20at 06:26; Start 02/12/20 at 06:00 Mirtazapine (Remeron) 30 mg HS PO Last administered on 02/11/20at 20:12; Start 02/11/20 at 21:00 Tramadol HCl (Ultram) 50 mg PRN DAILY PRN PO MILD PAIN 1-3; Start 02/11/20 at 17:30 Clonazepam (KlonoPIN) 2 mg QHS PO Last administered on 02/11/20at 20:12; Start 02/11/20 at 21:00 Ferrous Sulfate (Feosol) 325 mg DAILYWBKFT PO ; Start 02/12/20 at 08:00 Non-Formulary Medication (Fluticasone/ Vilanterol (Breo Ellipta 100-25 Mcg Inh)) 1 puff DAILY IH ; Start 02/12/20 at 09:00; Stop 02/11/20 at 18:04; Status DC Insulin Human Lispro (HumaLOG) 2 units BIDACLD SQ ; Start 02/12/20 at 11:30 Insulin Glargine (Lantus Syringe) 30 unit QHS SQ Last administered on 02/11/20at 21:44; Start 02/11/20 at 21:00 Non-Formulary Medication (Levomilnacipran Hydrochloride (Fetzima)) 80 mg DAILY PO ; Start 02/12/20 at 09:00; Status UNV Magnesium Oxide (Magnesium Oxide) 400 mg DAILY PO Last administered on 02/12/20at 08:46; Start 02/12/20 at 09:00 Famotidine (Pepcid) 20 mg QHS PO Last administered on 02/11/20at 20:12; Start 02/11/20 at 21:00 Non-Formulary Medication (Umeclidinium [place] (Incruse Ellipta)) 62.5 mcg DAILY IH ; Start 02/12/20 at 09:00; Stop 02/11/20 at 18:07; Status DC Verapamil HCl (Calan Sr) 120 mg DAILY PO ; Start 02/12/20 at 09:00 Oxycodone/ Acetaminophen (Percocet 5/325) 1 tab PRN Q4HRS PRN PO MODERATE PAIN; Start 02/11/20 at 18:00 Oxycodone/ Acetaminophen (Percocet 5/325) 2 tab PRN Q4HRS PRN PO SEVERE PAIN Last administered on 02/12/20at 06:26; Start 02/11/20 at 18:00 Albuterol/ Ipratropium (Duoneb) 3 ml QID NEB Last administered on 02/12/20at 11:37; Start 02/11/20 at 20:00 Budesonide (Pulmicort) 0.5 mg BID NEB Last administered on 02/12/20at 07:35; Start 02/11/20 at 21:00 Active Scripts Active Reported Lasix (Furosemide) 40 Mg Tablet 1 Tab PO DAILY 30 Days Iron (Ferrous Gluconate) 236 Mg Tablet 65 Mg PO DAILY Biotin 1 Mg Capsule 1 Cap PO DAILY 30 Days [B 6] 1 Tab PO DAILY Levothyroxine Sodium 100 Mcg Tablet 1 Tab PO DAILY Levemir (Insulin Detemir) 100 Unit/1 Ml Vial 30 Unit SQ HS Ranitidine Hcl 150 Mg Capsule 1 Cap PO BID Verapamil Er (Verapamil Hcl) 240 Mg Cap24h.pel 120 Mg PO DAILY Magnesium (Magnesium Oxide) 400 Mg Capsule 1 Cap PO DAILY 30 Days Fetzima (Levomilnacipran Hydrochloride) 80 Mg Cap.sa.24h 80 Mg PO DAILY Tramadol Hcl 50 Mg Tablet 50 Mg PO DAILY PRN Novolog (Insulin Aspart) 100 Unit/1 Ml Cartridge 2 Unit SQ BIDACLD Allopurinol 300 Mg Tablet 1 Tab PO DAILY Potassium Citrate 10 Meq Tablet.er 1 Tab PO BID Incruse Ellipta (Umeclidinium [place]) 62.5 Mcg Blst.w.dev 62.5 Mcg IH DAILY Breo Ellipta 100-25 Mcg Inh (Fluticasone/Vilanterol) 1 Each Aer.pow.ba 1 Puff IH DAILY Klonopin (Clonazepam) 2 Mg Tablet 2 Mg PO HS Mirtazapine 15 Mg Tablet 30 Mg PO HS Erythromycin (Erythromycin Base) 250 Mg Capsule.dr 250 Mg PO BID Diphenoxylate-Atropine Tablet (Diphenoxylate Hcl/Atropine) 1 Each Tablet 1 Each PO DAILY PRN Cyanocobalamin Injection (Cyanocobalamin (Vitamin B-12)) 1,000 Mcg/1 Ml Vial 1,000 Mcg IJ QMONTH Vitamin D-3 (Cholecalciferol (Vitamin D3)) 2,000 Unit Capsule 2,000 Unit PO DAILY Atorvastatin Calcium 20 Mg Tablet 20 Mg PO DAILY Aspirin 81 Mg Tab.chew 81 Mg PO DAILY Vitals/I & O Vital Sign - Last 24 Hours 02/11/20 02/11/20 02/11/20 02/11/20 15:15 15:30 17:02 17:43 Temp 97.9 97.9 Pulse 85 Resp 18 B/P (MAP) 145/64 (91) Pulse Ox 97 O2 Delivery Nasal Cannula Room Air BiPAP/CPAP Nasal Cannula O2 Flow Rate 2.0 2.0 2.0 02/11/20 02/11/20 02/11/20 02/11/20 19:00 20:11 20:11 20:26 Temp 98.0 98.0 Pulse 97 Resp 18 18 B/P (MAP) 140/64 (89) Pulse Ox 94 94 98 O2 Delivery Nasal Cannula Nasal Cannula Nasal Cannula Nasal Cannula O2 Flow Rate 2.0 2.0 2.0 2.0 02/11/20 02/11/20 02/11/20 02/11/20 20:41 21:58 22:58 23:00 Temp 98.3 98.3 Pulse 94 Resp 18 18 18 B/P (MAP) 99/39 (59) Pulse Ox 98 95 O2 Delivery Nasal Cannula Nasal Cannula Nasal Cannula Room Air O2 Flow Rate 2.0 2.0 2.0 02/12/20 02/12/20 02/12/20 02/12/20 01:54 02:54 03:00 06:26 Temp 98.5 98.5 Pulse 91 Resp 20 18 20 B/P (MAP) 133/63 (86) Pulse Ox 95 91 91 O2 Delivery Nasal Cannula Nasal Cannula Nasal Cannula Nasal Cannula O2 Flow Rate 2.0 2.0 2.0 2.0 02/12/20 02/12/20 02/12/20 02/12/20 07:00 07:26 07:35 08:05 Temp 98.5 98.5 Pulse 98 Resp 16 B/P (MAP) 95/56 (69) Pulse Ox 94 91 96 O2 Delivery Room Air Nasal Cannula Nasal Cannula Nasal Cannula O2 Flow Rate 2.0 2.0 2.0 02/12/20 02/12/20 02/12/20 02/12/20 08:54 09:00 09:30 11:00 Temp 97.9 97.9 Pulse 98 95 Resp 18 B/P (MAP) 95/56 128/57 (80) Pulse Ox 98 O2 Delivery Nasal Cannula Nasal Cannula Room Air O2 Flow Rate 2.0 2.0 02/12/20 11:37 Pulse Ox 94 O2 Delivery Nasal Cannula O2 Flow Rate 2.0 Intake and Output 02/11/20 02/11/20 02/12/20 15:00 23:00 07:00 Output Total 1000 ml 200 ml Balance -1000 ml -200 ml Justicifation of Admission Dx: Justifications for Admission: Justification of Admission Dx: Yes MARILIA BAKER MD Feb 12, 2020 12:06
[2020-02-12 15:00] VITALS: BP 138/62
[2020-02-12] MEDS ORDERED: OMEP20CA16 PO (16:19)
--- NOTE | 2020-02-12 17:15 | EKG ---
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
[2020-02-12] MEDS: CALCIUM CARBONATE 500 MG TAB.CHEW PO PRN ×2 (17:59→21:22)
[2020-02-12 19:00] VITALS: BP 149/63
[2020-02-12] MEDS: ATORVASTATIN CALCIUM 20 MG TABLET PO SCH (20:18)
[2020-02-12] MEDS: clonazePAM 0.5 MG TABLET PO SCH (20:18)
[2020-02-12] MEDS: MIRTAZAPINE 15 MG TABLET PO SCH (20:18)
[2020-02-12] MEDS: FAMOTIDINE 20 MG TABLET. PO SCH (20:18)
[2020-02-12] MEDS: INSULIN GLARGINE SYRINGE. SQ SCH (20:23)
[2020-02-12 23:00] VITALS: BP 139/64
[2020-02-13] VITALS (14 sets, daily range): BP systolic 80–145; BP diastolic 30–74
[2020-02-13] MEDS: MORPHINE SULFATE 2 MG/ML VIAL. IV PRN ×3 (02:15→11:50)
[2020-02-13] MEDS: oxyCODONE/APAP 5/325 1 TAB TABLET PO PRN (03:37)
[2020-02-13] MEDS: CALCIUM CARBONATE 500 MG TAB.CHEW PO PRN (03:38)
[2020-02-13 03:48] LABS: BASO # 0.2 x10^3/uL (0.0-0.2); BASO % 1 % (0-3); EOS # 0.2 x10^3/uL (0.0-0.7); EOS % 1 % (0-3); HEMATOCRIT 33.5 % (36.0-47.0); HEMOGLOBIN 10.5 g/dL (12.0-15.5); LYMPH # 0.8 x10^3/uL (1.0-4.8); LYMPH % 4 % (24-48); MEAN CORPUSCULAR HEMOGLOBIN 29 pg (25-35); MEAN CORPUSCULAR HGB CONC 32 g/dL (31-37); MEAN CORPUSCULAR VOLUME 91 fL (79-100); MONO # 1.4 x10^3/uL (0.0-1.1); MONO % 7 % (0-9); NEUT # 18.1 x10^3/uL (1.8-7.7); NEUT % 88 % (31-73); PLATELET COUNT 245 x10^3/uL (140-400); RED BLOOD COUNT 3.69 x10^6/uL (3.50-5.40); RED CELL DISTRIBUTION WIDTH 17.5 % (11.5-14.5); WHITE BLOOD COUNT 20.7 x10^3/uL (4.0-11.0)
[2020-02-13 03:54] LABS: BILIRUBIN,URINE NEGATIVE (NEG); CLARITY,URINE CLOUDY; COLOR,URINE YELLOW; NITRITE,URINE NEGATIVE (NEG); PH,URINE 5.5 (<5.0-8.0); PROTEIN,URINE NEGATIVE (NEG-TRACE); UROBILINOGEN,URINE 0.2 mg/dL (0.2 mg/dL)
[2020-02-13 04:19] LABS: ALBUMIN 2.9 g/dL (3.4-5.0); ALBUMIN/GLOBULIN RATIO 0.9 (1.0-1.7); CALCIUM 9.1 mg/dL (8.5-10.1); CREATININE 2.1 mg/dL (0.6-1.0); POTASSIUM 4.3 mmol/L (3.5-5.1); TOTAL BILIRUBIN 0.8 mg/dL (0.2-1.0); TOTAL PROTEIN 6.3 g/dL (6.4-8.2)
[2020-02-13 04:29] LABS: BACTERIA,URINE MODERATE /HPF (0-FEW); RBC,URINE TNTC /HPF (0-2); SQUAMOUS EPITHELIAL CELL,UR FEW /LPF; WBC,URINE >40 /HPF (0-4)
[2020-02-13 05:32] LABS: % BANDS 7 % (0-9)
[2020-02-13 05:33] LABS: % LYMPHS 3 % (24-48); % SEGS 90 % (35-66)
[2020-02-13] MEDS ORDERED: ROPIVacaine 0.75% PF 53.3 ML, EPINEPHrine 0.6 MG, MORPHINE PF 5 MG in IV NORMAL SALINE ... INT ART ONE (06:00)
[2020-02-13] MEDS: LEVOTHYROXINE 100 MCG TABLET PO SCH (06:09)
[2020-02-13] MEDS ORDERED: HYDROmorphone 2 MG/ML VIAL IV PRN (07:00)
[2020-02-13] MEDS ORDERED: LIDOCAINE 1% PF 2 ML VIAL. ID PRN (07:00)
[2020-02-13] MEDS ORDERED: MORPHINE SULFATE 2 MG/ML VIAL. IV PRN (07:00)
[2020-02-13] MEDS ORDERED: fentaNYL PF VIAL 100 MCG/2 ML VIAL IV PRN ×2 (07:00)
[2020-02-13] MEDS ORDERED: ONDANSETRON PF 4 MG/2 ML VIAL. IV PRN (07:00)
[2020-02-13] MEDS ORDERED: PROCHLORPERAZINE 10 MG/2 ML VIAL. IV PRN (07:00)
[2020-02-13] MEDS ORDERED: IV RINGERS,LACTATED 1000ML 1,000 ML IV SCH (07:00)
[2020-02-13] MEDS ORDERED: BUPIVACAINE-EPI 0.25%-1:200000 MPF 30 ML VIAL. ONE (07:11)
[2020-02-13] MEDS: BUDESONIDE 0.5 MG/2 ML NEBU. NEB SCH ×2 (07:52→19:32)
[2020-02-13] MEDS: IPRATRPIUM/ALBUTEROL 0.5/2.5MG 3 ML NEBU. NEB SCH ×4 (07:52→19:31)
[2020-02-13 07:59] LABS: PLT ESTIMATE ADEQUATE (ADEQUATE)
[2020-02-13] MEDS: FERROUS SULFATE 325 MG TABLET. PO SCH (08:00)
[2020-02-13] MEDS: INSULIN LISPRO 300 UNITS/3 ML VIAL. SQ SCH ×5 (08:00→17:59)
[2020-02-13] MEDS ORDERED: cefTRIAXone IV Push 1 GM VIAL. IVP SCH (08:00)
[2020-02-13] MEDS: LEVOMILNACIPRAN 80 MG PO SCH (08:47)
[2020-02-13] MEDS: VERAPAMIL SR 120 MG TABLET.ER. PO SCH (08:48)
[2020-02-13] MEDS: MAGNESIUM OXIDE 400 MG TABLET PO SCH (08:48)
[2020-02-13] MEDS: ALLOPURINOL 300 MG TABLET. PO SCH (08:48)
[2020-02-13] MEDS: ASPIRIN CHEWABLE 81 MG TABLET. PO SCH (08:48)
[2020-02-13] MEDS: IV NORMAL SALINE 1000ML BAG 1,000 ML IV SCH ×2 (10:59→23:00)
--- NOTE | 2020-02-13 11:04 | PDOC ---
PROGRESS NOTES History of Present Illness History of Present Illness VTE Prophylaxis Ordered VTE Prophylaxis Devices: Yes VTE Pharmacological Prophylaxi: Yes impression Assessment/Plan ASSESSMENT Left Distal Femur Fracture following Mechanical Fall Left femur open treatment of femoral supracondylar or transcondylar fracture without intercondylar extension, includes internal fixation 02/12 There is a comminuted fracture of the distal femoral diaphysis with 2 large displaced fragments measuring 6.5 cm and 7.7 cm. Fracture is obliquely oriented extending from the medial distal femoral diaphyseal cortex laterally immediately superior to the left femoral condylar portion of the total knee arthroplasty. CAD status post cardiac catheterization COPD Chronic Hypoxic Resp Failure on 2 liters at home Previous Tobacco Use diabetes type 2 HTN HLD, CKD stage 4 hypothyroidism breast cancer status post left mastectomy echo 02/11 left ventrticular outflow obstruction with a resting velocity of 47 mmHg that does not increase with valsalva manuever. Plan===== admit to medical floor plan for operative intervention jillian by ortho ortho consult pain control with IV morphine baseline labs continue supplemental 02 known cardiac hx, no active chest pain or symptoms at present. med rec reviewed. hold lasix resume home insulin SSI FULL CODE DVT PPX: hold for AM prior to sx Check SPEP, serum free k/l chains Check MRI spin+pelvis or PET CT when patient is able to for evaluation of bone lesions 39 MIN pt exam, chart review, > 50% of time spent with exam, chart review, pt care coordination Justicifation of Admission Dx: Justicifation of Admission Dx: Justifications for Admission: Justification of Admission Dx: Yes Vitals Vitals Vital Signs Date Time Temp Pulse Resp B/P (MAP) Pulse Ox O2 Delivery O2 Flow Rate FiO2 02/13/20 08:26 Nasal Cannula 2.0 02/13/20 07:55 93 02/13/20 07:00 98.3 108 16 118/74 (89) 98.3 Physical Exam General: Alert, Cooperative Heart: Regular rate Lungs: Clear Abdomen: Soft Extremities: Other (The left leg is in a knee immobilizer. There is tenderness from the mid thigh to the knee. There is quite a bit of swelling so alignment is difficult to determine but no gross malalignment on examination. The skin is intact and was reported intact. She has slight decrease sensation in the toes related to diabetic neuropathy but no acute change with the fracture. She can dorsiflex and plantarflex the foot and the capillary refill appears normal. She denies hip pain.) Skin: No significant lesion Labs LABS Date of Procedure: February 13, 2020 Pre-Op Diagnosis: * Displaced supracondylar fracture without intracondylar extension of lower end of left femur, initial encounter for closed fracture S72.452A * Periprosthetic fracture around internal prosthetic left knee joint, initial M97.12XA Post-Op Diagnosis: * Displaced supracondylar fracture without intracondylar extension of lower end of left femur, initial encounter for closed fracture S72.452A * Periprosthetic fracture around internal prosthetic left knee joint, initial M97.12XA Procedure: Left femur open treatment of femoral supracondylar or transcondylar fracture without intercondylar extension, includes internal fixation CPT 51179 Surgeon: Edwin Eduardo MD Muffle Operator: Rohit DIAS Anesthesia: Femoral block plus spinal EBL: 200 mL Specimens Obtained: none Complications: none Drains: none Implants: [employer] Janelle-Loc Periarticular Locked Plating System 4.5 mm Distal Femur Locking Plate, 13 hole left, with 4.5 mm locking screws PATIENT: MÓNICA CASTELLANO ACCOUNT: [id number] : 1945 LOCATION: [address] [place] [address] AGE: 74 SEX: F EXAM STATUS: ADM IN ORD. PHYSICIAN: MARILIA BAKER MD REASON: VALVULAR HEART DISEASE PROCEDURE: 27532 ECHOCARDIOGRAM MR#: [id number] [facility] Date of Study: 02/13/2020 Ordering Physician: MARILIA BAKER Referring Physician: MARILIA BAKER, Tech: Rhiannon Mae RDCS APPROVED REPORT EXAM: Two-dimensional and M-mode echocardiogram with Doppler and color Doppler. Other Information Quality : Average HR: 109bpm Rhythm : NSR INDICATION RISK FACTORS Hypertension Obesity Hyperlipidemia Diabetes 2D DIMENSIONS Left Atrium(2D) 3.8 (1.6-4.0cm) IVSd 1.3 (0.7-1.1cm) LVDd 3.7 (3.9-5.9cm) PWd 1.4 (0.7-1.1cm) LA Volume 22 (18-58mL) LVEF(%) 65.0 (>50%) LEFT VENTRICLE The left ventricle is normal size. There is mild to moderate concentric left ventricular hypertrophy. The left ventricular systolic function is normal and the ejection fraction is within normal range. Ejection fraction 60-65 %. There is normal LV segmental wall motion. RIGHT VENTRICLE The right ventricle is normal size. There is normal right ventricular wall thickness. The right ventricular systolic function is normal. ATRIA The left atrium size is normal. The right atrium size is normal. The interatrial septum is intact with no evidence for an atrial septal defect or patent foramen ovale as noted on 2-D or Doppler imaging. AORTIC VALVE The aortic valve is normal in structure and function. There is a left ventrticular outflow obstruction with a resting velocity of 47 mmHg that does not increase with valsalva manuever. Doppler and Color Flow revealed no significant aortic regurgitation. There is no significant aortic valvular stenosis. MITRAL VALVE The mitral valve is mildly thickened. There is evidence of systolic anterior motion. There is no mitral valve stenosis. Doppler and Color-flow revealed mild mitral regurgitation. TRICUSPID VALVE The tricuspid valve is normal in structure and function. Doppler and Color Flow revealed no tricuspid valve regurgitation noted. PULMONIC VALVE The pulmonary valve is normal in structure and function. Doppler and Color Flow revealed no pulmonic valvular regurgitation. GREAT VESSELS The aortic root is normal in size. The IVC is normal in size and collapses >50% with inspiration. PERICARDIAL EFFUSION There is no evidence of significant pericardial effusion. Critical Notification Critical Value: No <Conclusion> The left ventricle is normal size. The left ventricular systolic function is normal and the ejection fraction is within normal range. Ejection fraction 60-65 %. There is mild to moderate concentric left ventricular hypertrophy. The aortic valve is normal in structure and function. There is a left ventrticular outflow obstruction with a resting velocity of 47 mmHg that does not increase with valsalva manuever. There is no significant aortic valvular stenosis. Doppler and Color Flow revealed no significant aortic regurgitation. Doppler and Color-flow revealed mild mitral regurgitation. Doppler and Color Flow revealed no tricuspid valve regurgitation noted. Signed by : Harshal Carney MD Electronically Approved : 02/13/2020 11:46:33 DICTATED and SIGNED BY: HARSHAL CARNEY MD DATE: 02/13/20 1101 Laboratory Tests Test 02/12/20 12:06 02/12/20 17:16 02/12/20 20:15 02/13/20 03:00 Glucose (Fingerstick) 168 mg/dL (70-99) 161 mg/dL (70-99) 169 mg/dL (70-99) White Blood Count 20.7 x10^3/uL (4.0-11.0) Red Blood Count 3.69 x10^6/uL (3.50-5.40) Hemoglobin 10.5 g/dL (12.0-15.5) Hematocrit 33.5 % (36.0-47.0) Mean Corpuscular Volume 91 fL (79-100) Mean Corpuscular Hemoglobin 29 pg (25-35) Mean Corpuscular Hemoglobin Concent 32 g/dL (31-37) Red Cell Distribution Width 17.5 % (11.5-14.5) Platelet Count 245 x10^3/uL (140-400) Neutrophils (%) (Auto) 88 % (31-73) Lymphocytes (%) (Auto) 4 % (24-48) Monocytes (%) (Auto) 7 % (0-9) Eosinophils (%) (Auto) 1 % (0-3) Basophils (%) (Auto) 1 % (0-3) Neutrophils # (Auto) 18.1 x10^3/uL (1.8-7.7) Lymphocytes # (Auto) 0.8 x10^3/uL (1.0-4.8) Monocytes # (Auto) 1.4 x10^3/uL (0.0-1.1) Eosinophils # (Auto) 0.2 x10^3/uL (0.0-0.7) Basophils # (Auto) 0.2 x10^3/uL (0.0-0.2) Segmented Neutrophils % 90 % (35-66) Band Neutrophils % 7 % (0-9) Lymphocytes % 3 % (24-48) Platelet Estimate Adequate (ADEQUATE) Macrocytosis Slight Sodium Level 138 mmol/L (136-145) Potassium Level 4.3 mmol/L (3.5-5.1) Chloride Level 99 mmol/L (98-107) Carbon Dioxide Level 33 mmol/L (21-32) Anion Gap 6 (6-14) Blood Urea Nitrogen 39 mg/dL (7-20) Creatinine 2.1 mg/dL (0.6-1.0) Estimated GFR (Cockcroft-Gault) 23.0 BUN/Creatinine Ratio 19 (6-20) Glucose Level 197 mg/dL (70-99) Calcium Level 9.1 mg/dL (8.5-10.1) Total Bilirubin 0.8 mg/dL (0.2-1.0) Aspartate Amino Transf (AST/SGOT) 38 U/L (15-37) Alanine Aminotransferase (ALT/SGPT) 64 U/L (14-59) Alkaline Phosphatase 123 U/L (46-116) Total Protein 6.3 g/dL (6.4-8.2) Albumin 2.9 g/dL (3.4-5.0) Albumin/Globulin Ratio 0.9 (1.0-1.7) Test 02/13/20 03:30 02/13/20 07:45 02/13/20 10:58 Urine Collection Type Unknown Urine Color Yellow Urine Clarity Cloudy Urine pH 5.5 (<5.0-8.0) Urine Specific Cook Sta 1.015 (1.000-1.030) Urine Protein Negative mg/dL (NEG-TRACE) Urine Glucose (UA) Negative mg/dL (NEG) Urine Ketones (Stick) Negative mg/dL (NEG) Urine Blood Large (NEG) Urine Nitrite Negative (NEG) Urine Bilirubin Negative (NEG) Urine Urobilinogen Dipstick 0.2 mg/dL (0.2 mg/dL) Urine Leukocyte Esterase Moderate (NEG) Urine RBC Tntc /HPF (0-2) Urine WBC >40 /HPF (0-4) Urine Squamous Epithelial Cells Few /LPF Urine Bacteria Moderate /HPF (0-FEW) Glucose (Fingerstick) 163 mg/dL (70-99) 159 mg/dL (70-99) Comment Review of Relevant I have reviewed the following items cristian (where applicable) has been applied. Labs Laboratory Tests Test 02/11/20 16:53 02/11/20 20:48 02/11/20 21:30 02/12/20 12:06 Glucose (Fingerstick) 140 mg/dL (70-99) 246 mg/dL (70-99) 168 mg/dL (70-99) White Blood Count 13.6 x10^3/uL (4.0-11.0) Red Blood Count 3.68 x10^6/uL (3.50-5.40) Hemoglobin 10.6 g/dL (12.0-15.5) Hematocrit 32.3 % (36.0-47.0) Mean Corpuscular Volume 88 fL (79-100) Mean Corpuscular Hemoglobin 29 pg (25-35) Mean Corpuscular Hemoglobin Concent 33 g/dL (31-37) Red Cell Distribution Width 17.3 % (11.5-14.5) Platelet Count 253 x10^3/uL (140-400) Neutrophils (%) (Auto) 75 % (31-73) Lymphocytes (%) (Auto) 12 % (24-48) Monocytes (%) (Auto) 11 % (0-9) Eosinophils (%) (Auto) 2 % (0-3) Basophils (%) (Auto) 1 % (0-3) Neutrophils # (Auto) 10.2 x10^3/uL (1.8-7.7) Lymphocytes # (Auto) 1.6 x10^3/uL (1.0-4.8) Monocytes # (Auto) 1.5 x10^3/uL (0.0-1.1) Eosinophils # (Auto) 0.2 x10^3/uL (0.0-0.7) Basophils # (Auto) 0.1 x10^3/uL (0.0-0.2) Prothrombin Time 12.7 SEC (11.7-14.0) Prothromb Time International Ratio 1.0 (0.8-1.1) Sodium Level 140 mmol/L (136-145) Potassium Level 3.8 mmol/L (3.5-5.1) Chloride Level 100 mmol/L (98-107) Carbon Dioxide Level 35 mmol/L (21-32) Anion Gap 5 (6-14) Blood Urea Nitrogen 44 mg/dL (7-20) Creatinine 2.3 mg/dL (0.6-1.0) Estimated GFR (Cockcroft-Gault) 20.7 Glucose Level 247 mg/dL (70-99) Calcium Level 8.8 mg/dL (8.5-10.1) Test 02/12/20 17:16 02/12/20 20:15 02/13/20 03:00 02/13/20 03:30 Glucose (Fingerstick) 161 mg/dL (70-99) 169 mg/dL (70-99) White Blood Count 20.7 x10^3/uL (4.0-11.0) Red Blood Count 3.69 x10^6/uL (3.50-5.40) Hemoglobin 10.5 g/dL (12.0-15.5) Hematocrit 33.5 % (36.0-47.0) Mean Corpuscular Volume 91 fL (79-100) Mean Corpuscular Hemoglobin 29 pg (25-35) Mean Corpuscular Hemoglobin Concent 32 g/dL (31-37) Red Cell Distribution Width 17.5 % (11.5-14.5) Platelet Count 245 x10^3/uL (140-400) Neutrophils (%) (Auto) 88 % (31-73) Lymphocytes (%) (Auto) 4 % (24-48) Monocytes (%) (Auto) 7 % (0-9) Eosinophils (%) (Auto) 1 % (0-3) Basophils (%) (Auto) 1 % (0-3) Neutrophils # (Auto) 18.1 x10^3/uL (1.8-7.7) Lymphocytes # (Auto) 0.8 x10^3/uL (1.0-4.8) Monocytes # (Auto) 1.4 x10^3/uL (0.0-1.1) Eosinophils # (Auto) 0.2 x10^3/uL (0.0-0.7) Basophils # (Auto) 0.2 x10^3/uL (0.0-0.2) Segmented Neutrophils % 90 % (35-66) Band Neutrophils % 7 % (0-9) Lymphocytes % 3 % (24-48) Platelet Estimate Adequate (ADEQUATE) Macrocytosis Slight Sodium Level 138 mmol/L (136-145) Potassium Level 4.3 mmol/L (3.5-5.1) Chloride Level 99 mmol/L (98-107) Carbon Dioxide Level 33 mmol/L (21-32) Anion Gap 6 (6-14) Blood Urea Nitrogen 39 mg/dL (7-20) Creatinine 2.1 mg/dL (0.6-1.0) Estimated GFR (Cockcroft-Gault) 23.0 BUN/Creatinine Ratio 19 (6-20) Glucose Level 197 mg/dL (70-99) Calcium Level 9.1 mg/dL (8.5-10.1) Total Bilirubin 0.8 mg/dL (0.2-1.0) Aspartate Amino Transf (AST/SGOT) 38 U/L (15-37) Alanine Aminotransferase (ALT/SGPT) 64 U/L (14-59) Alkaline Phosphatase 123 U/L (46-116) Total Protein 6.3 g/dL (6.4-8.2) Albumin 2.9 g/dL (3.4-5.0) Albumin/Globulin Ratio 0.9 (1.0-1.7) Urine Collection Type Unknown Urine Color Yellow Urine Clarity Cloudy Urine pH 5.5 (<5.0-8.0) Urine Specific Cook Sta 1.015 (1.000-1.030) Urine Protein Negative mg/dL (NEG-TRACE) Urine Glucose (UA) Negative mg/dL (NEG) Urine Ketones (Stick) Negative mg/dL (NEG) Urine Blood Large (NEG) Urine Nitrite Negative (NEG) Urine Bilirubin Negative (NEG) Urine Urobilinogen Dipstick 0.2 mg/dL (0.2 mg/dL) Urine Leukocyte Esterase Moderate (NEG) Urine RBC Tntc /HPF (0-2) Urine WBC >40 /HPF (0-4) Urine Squamous Epithelial Cells Few /LPF Urine Bacteria Moderate /HPF (0-FEW) Test 02/13/20 07:45 02/13/20 10:58 Glucose (Fingerstick) 163 mg/dL (70-99) 159 mg/dL (70-99) Laboratory Tests Test 02/12/20 12:06 02/12/20 17:16 02/12/20 20:15 02/13/20 03:00 Glucose (Fingerstick) 168 mg/dL (70-99) 161 mg/dL (70-99) 169 mg/dL (70-99) White Blood Count 20.7 x10^3/uL (4.0-11.0) Red Blood Count 3.69 x10^6/uL (3.50-5.40) Hemoglobin 10.5 g/dL (12.0-15.5) Hematocrit 33.5 % (36.0-47.0) Mean Corpuscular Volume 91 fL (79-100) Mean Corpuscular Hemoglobin 29 pg (25-35) Mean Corpuscular Hemoglobin Concent 32 g/dL (31-37) Red Cell Distribution Width 17.5 % (11.5-14.5) Platelet Count 245 x10^3/uL (140-400) Neutrophils (%) (Auto) 88 % (31-73) Lymphocytes (%) (Auto) 4 % (24-48) Monocytes (%) (Auto) 7 % (0-9) Eosinophils (%) (Auto) 1 % (0-3) Basophils (%) (Auto) 1 % (0-3) Neutrophils # (Auto) 18.1 x10^3/uL (1.8-7.7) Lymphocytes # (Auto) 0.8 x10^3/uL (1.0-4.8) Monocytes # (Auto) 1.4 x10^3/uL (0.0-1.1) Eosinophils # (Auto) 0.2 x10^3/uL (0.0-0.7) Basophils # (Auto) 0.2 x10^3/uL (0.0-0.2) Segmented Neutrophils % 90 % (35-66) Band Neutrophils % 7 % (0-9) Lymphocytes % 3 % (24-48) Platelet Estimate Adequate (ADEQUATE) Macrocytosis Slight Sodium Level 138 mmol/L (136-145) Potassium Level 4.3 mmol/L (3.5-5.1) Chloride Level 99 mmol/L (98-107) Carbon Dioxide Level 33 mmol/L (21-32) Anion Gap 6 (6-14) Blood Urea Nitrogen 39 mg/dL (7-20) Creatinine 2.1 mg/dL (0.6-1.0) Estimated GFR (Cockcroft-Gault) 23.0 BUN/Creatinine Ratio 19 (6-20) Glucose Level 197 mg/dL (70-99) Calcium Level 9.1 mg/dL (8.5-10.1) Total Bilirubin 0.8 mg/dL (0.2-1.0) Aspartate Amino Transf (AST/SGOT) 38 U/L (15-37) Alanine Aminotransferase (ALT/SGPT) 64 U/L (14-59) Alkaline Phosphatase 123 U/L (46-116) Total Protein 6.3 g/dL (6.4-8.2) Albumin 2.9 g/dL (3.4-5.0) Albumin/Globulin Ratio 0.9 (1.0-1.7) Test 02/13/20 03:30 02/13/20 07:45 02/13/20 10:58 Urine Collection Type Unknown Urine Color Yellow Urine Clarity Cloudy Urine pH 5.5 (<5.0-8.0) Urine Specific Cook Sta 1.015 (1.000-1.030) Urine Protein Negative mg/dL (NEG-TRACE) Urine Glucose (UA) Negative mg/dL (NEG) Urine Ketones (Stick) Negative mg/dL (NEG) Urine Blood Large (NEG) Urine Nitrite Negative (NEG) Urine Bilirubin Negative (NEG) Urine Urobilinogen Dipstick 0.2 mg/dL (0.2 mg/dL) Urine Leukocyte Esterase Moderate (NEG) Urine RBC Tntc /HPF (0-2) Urine WBC >40 /HPF (0-4) Urine Squamous Epithelial Cells Few /LPF Urine Bacteria Moderate /HPF (0-FEW) Glucose (Fingerstick) 163 mg/dL (70-99) 159 mg/dL (70-99) Medications Current Medications Morphine Sulfate (Morphine Sulfate) 2 mg PRN Q2HR PRN IV MODERATE PAIN Last administered on 02/13/20at 08:26; Start 02/11/20 at 16:15 Acetaminophen (Tylenol) 650 mg PRN Q6HRS PRN PEG TEMP > 100.3'F; Start 02/11/20 at 16:15 Morphine Sulfate (Morphine Sulfate) 4 mg PRN Q4HRS PRN IV SEVERE PAIN Last administered on 02/12/20at 08:54; Start 02/11/20 at 17:30 Insulin Human Lispro (HumaLOG) 0-5 UNITS TIDWMEALS SQ Last administered on 02/12/20at 17:58; Start 02/11/20 at 18:00 Dextrose (Dextrose 50%-Water Syringe) 12.5 gm PRN Q15MIN PRN IV SEE COMMENTS; Start 02/11/20 at 17:30 Sodium Chloride 1,000 ml @ 75 mls/hr [id number] IV Last administered on 02/13/20at 10:59; Start 02/12/20 at 07:00 Allopurinol (Zyloprim) 300 mg DAILY PO Last administered on 02/12/20at 08:46; Start 02/12/20 at 09:00 Aspirin (Aspirin Chewable) 81 mg DAILY PO ; Start 02/12/20 at 09:00 Atorvastatin Calcium (Lipitor) 20 mg QHS PO Last administered on 02/12/20at 20:18; Start 02/11/20 at 21:00 Levothyroxine Sodium (Synthroid) 100 mcg DAILY06 PO Last administered on 02/13/20at 06:09; Start 02/12/20 at 06:00 Mirtazapine (Remeron) 30 mg HS PO Last administered on 02/12/20at 20:18; Start 02/11/20 at 21:00 Tramadol HCl (Ultram) 50 mg PRN DAILY PRN PO MILD PAIN 1-3 Last administered on 02/12/20at 21:22; Start 02/11/20 at 17:30 Clonazepam (KlonoPIN) 2 mg QHS PO Last administered on 02/12/20 20:18; Start 02/11/20 at 21:00 Ferrous Sulfate (Feosol) 325 mg DAILYWBKFT PO ; Start 02/12/20 at 08:00 Non-Formulary Medication (Fluticasone/ Vilanterol (Breo Ellipta 100-25 Mcg Inh)) 1 puff DAILY IH ; Start 02/12/20 at 09:00; Stop 02/11/20 at 18:04; Status DC Insulin Human Lispro (HumaLOG) 2 units BIDACLD SQ Last administered on 02/12/20at 17:58; Start 02/12/20 at 11:30 Insulin Glargine (Lantus Syringe) 30 unit QHS SQ Last administered on 02/12/20at 20:23; Start 02/11/20 at 21:00 Non-Formulary Medication (Levomilnacipran Hydrochloride (Fetzima)) 80 mg DAILY PO ; Start 02/12/20 at 09:00 Magnesium Oxide (Magnesium Oxide) 400 mg DAILY PO Last administered on 02/12/20at 08:46; Start 02/12/20 at 09:00 Famotidine (Pepcid) 20 mg QHS PO Last administered on 02/12/20at 20:18; Start 02/11/20 at 21:00 Non-Formulary Medication (Umeclidinium [place] (Incruse Ellipta)) 62.5 mcg DAILY IH ; Start 02/12/20 at 09:00; Stop 02/11/20 at 18:07; Status DC Verapamil HCl (Calan Sr) 120 mg DAILY PO ; Start 02/12/20 at 09:00 Oxycodone/ Acetaminophen (Percocet 5/325) 1 tab PRN Q4HRS PRN PO MODERATE PAIN; Start 02/11/20 at 18:00 Oxycodone/ Acetaminophen (Percocet 5/325) 2 tab PRN Q4HRS PRN PO SEVERE PAIN Last administered on 02/13/20at 03:37; Start 02/11/20 at 18:00 Albuterol/ Ipratropium (Duoneb) 3 ml QID NEB Last administered on 02/13/20at 07:52; Start 02/11/20 at 20:00 Budesonide (Pulmicort) 0.5 mg BID NEB Last administered on 02/13/20at 07:52; Start 02/11/20 at 21:00 Calcium Carbonate/ Glycine (Tums) 500 mg PRN AFTMEALHC PRN PO INDIGESTION Last administered on 02/13/20at 03:38; Start 02/12/20 at 16:30 Ropivacaine 53.3 ml/Epinephrine HCl 0.6 mg/ Morphine Sulfate 5 mg/Sodium Chloride 100 ml @ 100 mls/hr 1X ONCE INT ART ; Start 02/13/20 at 06:00; Stop 02/13/20 at 06:59; Status DC Ondansetron HCl (Zofran) 4 mg PRN Q6HRS PRN IV NAUSEA/VOMITING Last administered on 02/13/20at 08:26; Start 02/13/20 at 07:00; Stop 02/14/20 at 06:59 Fentanyl Citrate (Fentanyl 2ml Vial) 25 mcg PRN Q5MIN PRN IV MILD PAIN 1-3; Start 02/13/20 at 07:00; Stop 02/14/20 at 06:59 Fentanyl Citrate (Fentanyl 2ml Vial) 50 mcg PRN Q5MIN PRN IV MODERATE TO SEVERE PAIN; Start 02/13/20 at 07:00; Stop 02/14/20 at 06:59 Morphine Sulfate (Morphine Sulfate) 1 mg PRN Q10MIN PRN IV SEVERE PAIN 7-10; Start 02/13/20 at 07:00; Stop 02/14/20 at 06:59 Ringer's Solution 1,000 ml @ 30 mls/hr Q24H IV ; Start 02/13/20 at 07:00; Stop 02/13/20 at 18:59 Lidocaine HCl (Xylocaine-Mpf 1% 2ml Vial) 2 ml PRN 1X PRN ID PRIOR TO IV START; Start 02/13/20 at 07:00; Stop 02/14/20 at 06:59 Hydromorphone HCl (Dilaudid) 0.5 mg PRN Q10MIN PRN IV SEV PAIN, Second choice; Start 02/13/20 at 07:00; Stop 02/14/20 at 06:59 Prochlorperazine Edisylate (Compazine) 5 mg PACU PRN PRN IV NAUSEA, MRX1; Start 02/13/20 at 07:00; Stop 02/14/20 at 06:59 Bupivacaine HCl/ Epinephrine Bitart (Sensorcaine-Epi 0.25%-1:[id number] Mpf) 30 ml STK-MED ONCE .ROUTE ; Start 02/13/20 at 07:11; Stop 02/13/20 at 07:12; Status DC Ceftriaxone Sodium (Rocephin) 1 gm Q24H IVP Last administered on 02/13/20at 08:25; Start 02/13/20 at 08:00 Active Scripts Active Reported Omeprazole 20 Mg Capsule.dr 1 Cap PO DAILY Lasix (Furosemide) 40 Mg Tablet 1 Tab PO DAILY 30 Days Iron (Ferrous Gluconate) 236 Mg Tablet 65 Mg PO DAILY Biotin 1 Mg Capsule 1 Cap PO DAILY 30 Days [B 6] 1 Tab PO DAILY Levothyroxine Sodium 100 Mcg Tablet 1 Tab PO DAILY Levemir (Insulin Detemir) 100 Unit/1 Ml Vial 30 Unit SQ HS Ranitidine Hcl 150 Mg Capsule 1 Cap PO BID Verapamil Er (Verapamil Hcl) 240 Mg Cap24h.pel 120 Mg PO DAILY Magnesium (Magnesium Oxide) 400 Mg Capsule 1 Cap PO DAILY 30 Days Fetzima (Levomilnacipran Hydrochloride) 80 Mg Cap.sa.24h 80 Mg PO DAILY Tramadol Hcl 50 Mg Tablet 50 Mg PO DAILY PRN Novolog (Insulin Aspart) 100 Unit/1 Ml Cartridge 2 Unit SQ BIDACLD Allopurinol 300 Mg Tablet 1 Tab PO DAILY Potassium Citrate 10 Meq Tablet.er 1 Tab PO BID Incruse Ellipta (Umeclidinium [place]) 62.5 Mcg Blst.w.dev 62.5 Mcg IH DAILY Breo Ellipta 100-25 Mcg Inh (Fluticasone/Vilanterol) 1 Each Aer.pow.ba 1 Puff IH DAILY Klonopin (Clonazepam) 2 Mg Tablet 2 Mg PO HS Mirtazapine 15 Mg Tablet 30 Mg PO HS Erythromycin (Erythromycin Base) 250 Mg Capsule.dr 250 Mg PO BID Diphenoxylate-Atropine Tablet (Diphenoxylate Hcl/Atropine) 1 Each Tablet 1 Each PO DAILY PRN Cyanocobalamin Injection (Cyanocobalamin (Vitamin B-12)) 1,000 Mcg/1 Ml Vial 1,000 Mcg IJ QMONTH Vitamin D-3 (Cholecalciferol (Vitamin D3)) 2,000 Unit Capsule 2,000 Unit PO DAILY Atorvastatin Calcium 20 Mg Tablet 20 Mg PO DAILY Aspirin 81 Mg Tab.chew 81 Mg PO DAILY Vitals/I & O Vital Sign - Last 24 Hours 02/12/20 02/12/20 02/12/20 02/12/20 11:37 12:18 13:30 15:00 Temp 98.8 98.8 Pulse 87 Resp 16 B/P (MAP) 138/62 (87) Pulse Ox 94 92 O2 Delivery Nasal Cannula Nasal Cannula Nasal Cannula Room Air O2 Flow Rate 2.0 2.0 2.0 02/12/20 02/12/20 02/12/20 02/12/20 15:35 19:00 19:08 20:00 Temp 98.1 98.1 Pulse 93 Resp 16 20 B/P (MAP) 149/63 (91) Pulse Ox 96 97 96 O2 Delivery Nasal Cannula Nasal Cannula Nasal Cannula Nasal Cannula O2 Flow Rate 2.0 2.0 2.0 2.0 02/12/20 02/12/20 02/12/20 02/12/20 20:08 20:53 21:22 22:22 Resp 18 20 18 Pulse Ox 96 96 96 93 O2 Delivery Nasal Cannula Nasal Cannula Nasal Cannula Nasal Cannula O2 Flow Rate 2.0 2.0 2.0 2.0 02/12/20 02/13/20 02/13/20 02/13/20 23:00 02:15 02:45 03:00 Temp 98.1 98.3 98.1 98.3 Pulse 106 106 Resp 16 16 20 16 B/P (MAP) 139/64 (89) 126/73 (90) Pulse Ox 93 93 93 90 O2 Delivery Nasal Cannula Nasal Cannula Nasal Cannula Nasal Cannula O2 Flow Rate 2.0 2.0 2.0 2.0 02/13/20 02/13/20 02/13/20 02/13/20 03:37 04:37 07:00 07:55 Temp 98.3 98.3 Pulse 108 Resp 18 18 16 B/P (MAP) 118/74 (89) Pulse Ox 93 93 90 93 O2 Delivery Nasal Cannula Nasal Cannula Room Air Nasal Cannula O2 Flow Rate 2.0 2.0 02/13/20 02/13/20 08:02 08:26 O2 Delivery Nasal Cannula Nasal Cannula O2 Flow Rate 2.0 2.0 Intake and Output 02/12/20 02/12/20 02/13/20 15:00 23:00 07:00 Intake Total 240 ml 200 ml 50 ml Output Total 300 ml 525 ml Balance 240 ml -100 ml -475 ml Justicifation of Admission Dx: Justifications for Admission: Justification of Admission Dx: Yes MARILIA BAKER MD Feb 13, 2020 11:03
--- NOTE | 2020-02-13 11:38 | PDOC ---
FOLLOW UP Brief Hem-Onc Note: Patient is a 74 year old female with hx of CAD status post cardiac catheterization, diabetes type 2, hypertension, COPD chronically on 2 liters of 02, hypercholesterolemia, chronic renal disease stage 4, prior tobacco use, hypothyroidism, breast cancer status post left mastectomy, , hysterectomy, knee replacements bilaterally, tonsillectomy, and carpal tunnel surgery who presented to [facility] after suffering a mechanical fall. She also experienced severe left leg pain and imaging showed distal femur fracture. She was transfered to [facility] [place] for surgical management. Hem-Onc has been consulted due to hx of MGUS and breast cancer. Reviewed lab studies showing Normocytic anemia, neutrophilic leucocytosis and CKD3. Reviewed radiology. No lytic lesions noted on XR A/P: MGUS Hx of breast cancer Left femur fracture Recommendations: Check SPEP, serum free k/l chains Check MRI spin+pelvis or PET CT when patient is able to for evaluation of bone lesions Full consult to follow Andrei Lopez MD Hem-Onc Ph: [phone] WESLEY LOPEZ MD Feb 13, 2020 11:38
[2020-02-13] MEDS ORDERED: PROPOFOL 10 MG/ML (20ML) VIAL. IV ONE (11:42)
[2020-02-13] MEDS ORDERED: LIDOCAINE 2% PF 5 ML VIAL. ONE (11:42)
--- NOTE | 2020-02-13 11:47 | CARD ---
MR#: [id number] Date of Study: 02/13/2020 Ordering Physician: MARILIA BAKER, Referring Physician: MARILIA BAKER Tech: Rhiannon Mae [facility] APPROVED REPORT EXAM: Two-dimensional and M-mode echocardiogram with Doppler and color Doppler. Other Information Quality : AverageHR: 109bpm Rhythm : NSR INDICATION RISK FACTORS Hypertension Obesity Hyperlipidemia Diabetes 2D DIMENSIONS Left Atrium(2D)3.8 (1.6-4.0cm)IVSd1.3 (0.7-1.1cm) LVDd3.7 (3.9-5.9cm)PWd1.4 (0.7-1.1cm) LA Bphmlv60 (18-58mL)LVEF(%)65.0 (>50%) LEFT VENTRICLE The left ventricle is normal size. There is mild to moderate concentric left ventricular hypertrophy. The left ventricular systolic function is normal and the ejection fraction is within normal range. E jection fraction 60-65 %. There is normal LV segmental wall motion. RIGHT VENTRICLE The right ventricle is normal size. There is normal right ventricular wall thickness. The right ventr icular systolic function is normal. ATRIA The left atrium size is normal. The right atrium size is normal. The interatrial septum is intact wit h no evidence for an atrial septal defect or patent foramen ovale as noted on 2-D or Doppler imaging. AORTIC VALVE The aortic valve is normal in structure and function. There is a left ventrticular outflow obstructio n with a resting velocity of 47 mmHg that does not increase with valsalva manuever. Doppler and Color Flow revealed no significant aortic regurgitation. There is no significant aortic valvular stenosis. MITRAL VALVE The mitral valve is mildly thickened. There is evidence of systolic anterior motion. There is no mitr al valve stenosis. Doppler and Color-flow revealed mild mitral regurgitation. TRICUSPID VALVE The tricuspid valve is normal in structure and function. Doppler and Color Flow revealed no tricuspid valve regurgitation noted. PULMONIC VALVE The pulmonary valve is normal in structure and function. Doppler and Color Flow revealed no pulmonic valvular regurgitation. GREAT VESSELS The aortic root is normal in size. The IVC is normal in size and collapses >50% with inspiration. PERICARDIAL EFFUSION There is no evidence of significant pericardial effusion. Critical Notification Critical Value: No <Conclusion> The left ventricle is normal size. The left ventricular systolic function is normal and the ejection fraction is within normal range. E jection fraction 60-65 %. There is mild to moderate concentric left ventricular hypertrophy. The aortic valve is normal in structure and function. There is a left ventrticular outflow obstructi on with a resting velocity of 47 mmHg that does not increase with valsalva manuever. There is no significant aortic valvular stenosis. Doppler and Color Flow revealed no significant aortic regurgitation. Doppler and Color-flow revealed mild mitral regurgitation. Doppler and Color Flow revealed no tricuspid valve regurgitation noted. Signed by : Stone Carney MD Electronically Approved : 02/13/2020 11:46:33
--- NOTE | 2020-02-13 11:59 | PDOC ---
Infectious Disease Note Vital Sign Vital Signs Vital Signs Date Time Temp Pulse Resp B/P (MAP) Pulse Ox O2 Delivery O2 Flow Rate FiO2 02/13/20 11:43 93 Nasal Cannula 2.0 02/13/20 11:00 97.9 106 18 145/61 (89) 97.9 Labs Lab Laboratory Tests Test 02/12/20 12:06 02/12/20 17:16 02/12/20 20:15 02/13/20 03:00 Glucose (Fingerstick) 168 mg/dL (70-99) 161 mg/dL (70-99) 169 mg/dL (70-99) White Blood Count 20.7 x10^3/uL (4.0-11.0) Red Blood Count 3.69 x10^6/uL (3.50-5.40) Hemoglobin 10.5 g/dL (12.0-15.5) Hematocrit 33.5 % (36.0-47.0) Mean Corpuscular Volume 91 fL (79-100) Mean Corpuscular Hemoglobin 29 pg (25-35) Mean Corpuscular Hemoglobin Concent 32 g/dL (31-37) Red Cell Distribution Width 17.5 % (11.5-14.5) Platelet Count 245 x10^3/uL (140-400) Neutrophils (%) (Auto) 88 % (31-73) Lymphocytes (%) (Auto) 4 % (24-48) Monocytes (%) (Auto) 7 % (0-9) Eosinophils (%) (Auto) 1 % (0-3) Basophils (%) (Auto) 1 % (0-3) Neutrophils # (Auto) 18.1 x10^3/uL (1.8-7.7) Lymphocytes # (Auto) 0.8 x10^3/uL (1.0-4.8) Monocytes # (Auto) 1.4 x10^3/uL (0.0-1.1) Eosinophils # (Auto) 0.2 x10^3/uL (0.0-0.7) Basophils # (Auto) 0.2 x10^3/uL (0.0-0.2) Segmented Neutrophils % 90 % (35-66) Band Neutrophils % 7 % (0-9) Lymphocytes % 3 % (24-48) Platelet Estimate Adequate (ADEQUATE) Macrocytosis Slight Sodium Level 138 mmol/L (136-145) Potassium Level 4.3 mmol/L (3.5-5.1) Chloride Level 99 mmol/L (98-107) Carbon Dioxide Level 33 mmol/L (21-32) Anion Gap 6 (6-14) Blood Urea Nitrogen 39 mg/dL (7-20) Creatinine 2.1 mg/dL (0.6-1.0) Estimated GFR (Cockcroft-Gault) 23.0 BUN/Creatinine Ratio 19 (6-20) Glucose Level 197 mg/dL (70-99) Calcium Level 9.1 mg/dL (8.5-10.1) Total Bilirubin 0.8 mg/dL (0.2-1.0) Aspartate Amino Transf (AST/SGOT) 38 U/L (15-37) Alanine Aminotransferase (ALT/SGPT) 64 U/L (14-59) Alkaline Phosphatase 123 U/L (46-116) Total Protein 6.3 g/dL (6.4-8.2) Albumin 2.9 g/dL (3.4-5.0) Albumin/Globulin Ratio 0.9 (1.0-1.7) Test 02/13/20 03:30 02/13/20 07:45 02/13/20 10:58 Urine Collection Type Unknown Urine Color Yellow Urine Clarity Cloudy Urine pH 5.5 (<5.0-8.0) Urine Specific [place] 1.015 (1.000-1.030) Urine Protein Negative mg/dL (NEG-TRACE) Urine Glucose (UA) Negative mg/dL (NEG) Urine Ketones (Stick) Negative mg/dL (NEG) Urine Blood Large (NEG) Urine Nitrite Negative (NEG) Urine Bilirubin Negative (NEG) Urine Urobilinogen Dipstick 0.2 mg/dL (0.2 mg/dL) Urine Leukocyte Esterase Moderate (NEG) Urine RBC Tntc /HPF (0-2) Urine WBC >40 /HPF (0-4) Urine Squamous Epithelial Cells Few /LPF Urine Bacteria Moderate /HPF (0-FEW) Glucose (Fingerstick) 163 mg/dL (70-99) 159 mg/dL (70-99) Objective Assessment pt seen, consult dictated Plan Plan of Care / ARY HOUSTON MD Feb 13, 2020 11:59
[2020-02-13] MEDS ORDERED: PIPERACILLIN/TAZOBACTAM 3.375 GM in IV NORMAL SALINE 50ML 50 ML IV SCH (12:00)
--- NOTE | 2020-02-13 12:10 | PDOC2 ---
CONSULT Date of Consult Date of Consult DATE: 02/13/20 TIME: 12:05 Reason for Consult Reason for Consult: Preop evaluation Referring Physician Referring Physician: Dr. Muir Identification/Chief Complaint Chief Complaint Mechanical fall and left leg pain Source Source: Chart review, Patient History of Present Illness Reason for Visit: The patient is a 74-year-old female male who suffered a mechanical fall with resulting left leg pain. Work-up is shown a distal femoral fracture which is scheduled to be repaired by the orthopedic surgery service. We have been asked to see the patient for preop evaluation. She denies any chest pain or shortness of breath. However she does have a history of coronary artery disease, hypertension and hyperlipidemia as well as diabetes COPD and chronic kidney disease. EKG shows no acute ischemic changes. Other than the patient's leg pain she is feeling well. Past Medical History Cardiovascular: CAD, HTN, Hyperlipidemia Pulmonary: COPD GI: Constipation, GERD Heme/Onc: Anemia NOS Renal/: Chronic renal insuff Endocrine: Diabetes Past Surgical History Past Surgical History: , Mastectomy, Total knee replacement, Tonsillectomy, Other (Mastectomy) Family History Family History: Hypertension Social History Quit ALCOHOL: none Drugs: None Lives: with Family Current Medications Current Medications Current Medications Morphine Sulfate (Morphine Sulfate) 2 mg PRN Q2HR PRN IV MODERATE PAIN Last administered on 02/13/20at 11:50; Start 02/11/20 at 16:15 Acetaminophen (Tylenol) 650 mg PRN Q6HRS PRN PEG TEMP > 100.3'F; Start 02/11/20 at 16:15 Morphine Sulfate (Morphine Sulfate) 4 mg PRN Q4HRS PRN IV SEVERE PAIN Last administered on 02/12/20at 08:54; Start 02/11/20 at 17:30 Insulin Human Lispro (HumaLOG) 0-5 UNITS TIDWMEALS SQ Last administered on 02/12/20at 17:58; Start 02/11/20 at 18:00 Dextrose (Dextrose 50%-Water Syringe) 12.5 gm PRN Q15MIN PRN IV SEE COMMENTS; Start 02/11/20 at 17:30 Sodium Chloride 1,000 ml @ 75 mls/hr [id number] IV Last administered on 02/13/20at 10:59; Start 02/12/20 at 07:00 Allopurinol (Zyloprim) 300 mg DAILY PO Last administered on 02/12/20 08:46; Start 02/12/20 at 09:00 Aspirin (Aspirin Chewable) 81 mg DAILY PO ; Start 02/12/20 at 09:00 Atorvastatin Calcium (Lipitor) 20 mg QHS PO Last administered on 02/12/20at 20:18; Start 02/11/20 at 21:00 Levothyroxine Sodium (Synthroid) 100 mcg DAILY06 PO Last administered on 02/13/20at 06:09; Start 02/12/20 at 06:00 Mirtazapine (Remeron) 30 mg HS PO Last administered on 02/12/20 20:18; Start 02/11/20 at 21:00 Tramadol HCl (Ultram) 50 mg PRN DAILY PRN PO MILD PAIN 1-3 Last administered on 02/12/20at 21:22; Start 02/11/20 at 17:30 Clonazepam (KlonoPIN) 2 mg QHS PO Last administered on 02/12/20 20:18; Start 02/11/20 at 21:00 Ferrous Sulfate (Feosol) 325 mg DAILYWBKFT PO ; Start 02/12/20 at 08:00 Non-Formulary Medication (Fluticasone/ Vilanterol (Breo Ellipta 100-25 Mcg Inh)) 1 puff DAILY IH ; Start 02/12/20 at 09:00; Stop 02/11/20 at 18:04; Status DC Insulin Human Lispro (HumaLOG) 2 units BIDACLD SQ Last administered on 02/12/20at 17:58; Start 02/12/20 at 11:30 Insulin Glargine (Lantus Syringe) 30 unit QHS SQ Last administered on 02/12/20at 20:23; Start 02/11/20 at 21:00 Non-Formulary Medication (Levomilnacipran Hydrochloride (Fetzima)) 80 mg DAILY PO ; Start 02/12/20 at 09:00 Magnesium Oxide (Magnesium Oxide) 400 mg DAILY PO Last administered on 02/12/20at 08:46; Start 02/12/20 at 09:00 Famotidine (Pepcid) 20 mg QHS PO Last administered on 02/12/20at 20:18; Start 02/11/20 at 21:00 Non-Formulary Medication (Umeclidinium Atlantic (Incruse Ellipta)) 62.5 mcg DAILY IH ; Start 02/12/20 at 09:00; Stop 02/11/20 at 18:07; Status DC Verapamil HCl (Calan Sr) 120 mg DAILY PO ; Start 02/12/20 at 09:00 Oxycodone/ Acetaminophen (Percocet 5/325) 1 tab PRN Q4HRS PRN PO MODERATE PAIN; Start 02/11/20 at 18:00 Oxycodone/ Acetaminophen (Percocet 5/325) 2 tab PRN Q4HRS PRN PO SEVERE PAIN Last administered on 02/13/20at 03:37; Start 02/11/20 at 18:00 Albuterol/ Ipratropium (Duoneb) 3 ml QID NEB Last administered on 02/13/20at 11:42; Start 02/11/20 at 20:00 Budesonide (Pulmicort) 0.5 mg BID NEB Last administered on 02/13/20at 07:52; Start 02/11/20 at 21:00 Calcium Carbonate/ Glycine (Tums) 500 mg PRN AFTMEALHC PRN PO INDIGESTION Last administered on 02/13/20at 03:38; Start 02/12/20 at 16:30 Ropivacaine 53.3 ml/Epinephrine HCl 0.6 mg/ Morphine Sulfate 5 mg/Sodium Chloride 100 ml @ 100 mls/hr 1X ONCE INT ART ; Start 02/13/20 at 06:00; Stop 02/13/20 at 06:59; Status DC Ondansetron HCl (Zofran) 4 mg PRN Q6HRS PRN IV NAUSEA/VOMITING Last administered on 02/13/20at 08:26; Start 02/13/20 at 07:00; Stop 02/14/20 at 06:59 Fentanyl Citrate (Fentanyl 2ml Vial) 25 mcg PRN Q5MIN PRN IV MILD PAIN 1-3; Start 02/13/20 at 07:00; Stop 02/14/20 at 06:59 Fentanyl Citrate (Fentanyl 2ml Vial) 50 mcg PRN Q5MIN PRN IV MODERATE TO SEVERE PAIN; Start 02/13/20 at 07:00; Stop 02/14/20 at 06:59 Morphine Sulfate (Morphine Sulfate) 1 mg PRN Q10MIN PRN IV SEVERE PAIN 7-10; Start 02/13/20 at 07:00; Stop 02/14/20 at 06:59 Ringer's Solution 1,000 ml @ 30 mls/hr Q24H IV ; Start 02/13/20 at 07:00; Stop 02/13/20 at 18:59 Lidocaine HCl (Xylocaine-Mpf 1% 2ml Vial) 2 ml PRN 1X PRN ID PRIOR TO IV START; Start 02/13/20 at 07:00; Stop 02/14/20 at 06:59 Hydromorphone HCl (Dilaudid) 0.5 mg PRN Q10MIN PRN IV SEV PAIN, Second choice; Start 02/13/20 at 07:00; Stop 02/14/20 at 06:59 Prochlorperazine Edisylate (Compazine) 5 mg PACU PRN PRN IV NAUSEA, MRX1; Start 02/13/20 at 07:00; Stop 02/14/20 at 06:59 Bupivacaine HCl/ Epinephrine Bitart (Sensorcaine-Epi 0.25%-1:[id number] Mpf) 30 ml STK-MED ONCE .ROUTE ; Start 02/13/20 at 07:11; Stop 02/13/20 at 07:12; Status DC Ceftriaxone Sodium (Rocephin) 1 gm Q24H IVP Last administered on 02/13/20at 08:25; Start 02/13/20 at 08:00; Stop 02/13/20 at 11:07; Status DC Piperacillin Sod/ Tazobactam Sod 3.375 gm/Sodium Chloride 50 ml @ 100 mls/hr Q6HRS IV ; Start 02/13/20 at 12:00; Status Cancel Piperacillin Sod/ Tazobactam Sod 2.25 gm/Sodium Chloride 50 ml @ 100 mls/hr Q6HRS IV ; Start 02/13/20 at 12:00 Propofol (Diprivan) 200 mg STK-MED ONCE IV ; Start 02/13/20 at 11:42; Stop 02/13/20 at 11:42; Status DC Lidocaine HCl (Lidocaine Pf 2% Vial) 5 ml STK-MED ONCE .ROUTE ; Start 02/13/20 at 11:42; Stop 02/13/20 at 11:42; Status DC Active Scripts Active Reported Omeprazole 20 Mg Capsule.dr 1 Cap PO DAILY Lasix (Furosemide) 40 Mg Tablet 1 Tab PO DAILY 30 Days Iron (Ferrous Gluconate) 236 Mg Tablet 65 Mg PO DAILY Biotin 1 Mg Capsule 1 Cap PO DAILY 30 Days [B 6] 1 Tab PO DAILY Levothyroxine Sodium 100 Mcg Tablet 1 Tab PO DAILY Levemir (Insulin Detemir) 100 Unit/1 Ml Vial 30 Unit SQ HS Ranitidine Hcl 150 Mg Capsule 1 Cap PO BID Verapamil Er (Verapamil Hcl) 240 Mg Cap24h.pel 120 Mg PO DAILY Magnesium (Magnesium Oxide) 400 Mg Capsule 1 Cap PO DAILY 30 Days Fetzima (Levomilnacipran Hydrochloride) 80 Mg Cap.sa.24h 80 Mg PO DAILY Tramadol Hcl 50 Mg Tablet 50 Mg PO DAILY PRN Novolog (Insulin Aspart) 100 Unit/1 Ml Cartridge 2 Unit SQ BIDACLD Allopurinol 300 Mg Tablet 1 Tab PO DAILY Potassium Citrate 10 Meq Tablet.er 1 Tab PO BID Incruse Ellipta (Umeclidinium Atlantic) 62.5 Mcg Blst.w.dev 62.5 Mcg IH DAILY Breo Ellipta 100-25 Mcg Inh (Fluticasone/Vilanterol) 1 Each Aer.pow.ba 1 Puff IH DAILY Klonopin (Clonazepam) 2 Mg Tablet 2 Mg PO HS Mirtazapine 15 Mg Tablet 30 Mg PO HS Erythromycin (Erythromycin Base) 250 Mg Capsule.dr 250 Mg PO BID Diphenoxylate-Atropine Tablet (Diphenoxylate Hcl/Atropine) 1 Each Tablet 1 Each PO DAILY PRN Cyanocobalamin Injection (Cyanocobalamin (Vitamin B-12)) 1,000 Mcg/1 Ml Vial 1,000 Mcg IJ QMONTH Vitamin D-3 (Cholecalciferol (Vitamin D3)) 2,000 Unit Capsule 2,000 Unit PO DAILY Atorvastatin Calcium 20 Mg Tablet 20 Mg PO DAILY Aspirin 81 Mg Tab.chew 81 Mg PO DAILY Allergies Allergies: Coded Allergies: Sulfa (Sulfonamide Antibiotics) (Verified Allergy, Intermediate, Hives, 05/21/19) ciprofloxacin (Unverified Allergy, Intermediate, 05/21/19) diclofenac (Verified Allergy, Intermediate, Hives, 05/21/19) hydrochlorothiazide (Verified Allergy, Intermediate, Rash, 05/21/19) lactose (Verified Allergy, Intermediate, 05/21/19) misoprostol (Verified Allergy, Intermediate, Hives, 05/21/19) sulfamethoxazole (Verified Allergy, Intermediate, 05/21/19) trimethoprim (Verified Allergy, Intermediate, 05/21/19) codeine (Verified Adverse Reaction, Intermediate, Nausea and Vomiting, 05/21/19) Physical Exam General: mild distress HEENT: Atraumatic Lungs: Clear to auscultation Heart: Regular rate Abdomen: Normal bowel sounds Vitals VITALS Vital Signs Date Time Temp Pulse Resp B/P (MAP) Pulse Ox O2 Delivery O2 Flow Rate FiO2 02/13/20 11:50 Nasal Cannula 2.0 02/13/20 11:43 93 02/13/20 11:00 97.9 106 18 145/61 (89) 97.9 Labs Labs Laboratory Tests Test 02/11/20 16:53 02/11/20 20:48 02/11/20 21:30 02/12/20 12:06 Glucose (Fingerstick) 140 mg/dL (70-99) 246 mg/dL (70-99) 168 mg/dL (70-99) White Blood Count 13.6 x10^3/uL (4.0-11.0) Red Blood Count 3.68 x10^6/uL (3.50-5.40) Hemoglobin 10.6 g/dL (12.0-15.5) Hematocrit 32.3 % (36.0-47.0) Mean Corpuscular Volume 88 fL (79-100) Mean Corpuscular Hemoglobin 29 pg (25-35) Mean Corpuscular Hemoglobin Concent 33 g/dL (31-37) Red Cell Distribution Width 17.3 % (11.5-14.5) Platelet Count 253 x10^3/uL (140-400) Neutrophils (%) (Auto) 75 % (31-73) Lymphocytes (%) (Auto) 12 % (24-48) Monocytes (%) (Auto) 11 % (0-9) Eosinophils (%) (Auto) 2 % (0-3) Basophils (%) (Auto) 1 % (0-3) Neutrophils # (Auto) 10.2 x10^3/uL (1.8-7.7) Lymphocytes # (Auto) 1.6 x10^3/uL (1.0-4.8) Monocytes # (Auto) 1.5 x10^3/uL (0.0-1.1) Eosinophils # (Auto) 0.2 x10^3/uL (0.0-0.7) Basophils # (Auto) 0.1 x10^3/uL (0.0-0.2) Prothrombin Time 12.7 SEC (11.7-14.0) Prothromb Time International Ratio 1.0 (0.8-1.1) Sodium Level 140 mmol/L (136-145) Potassium Level 3.8 mmol/L (3.5-5.1) Chloride Level 100 mmol/L (98-107) Carbon Dioxide Level 35 mmol/L (21-32) Anion Gap 5 (6-14) Blood Urea Nitrogen 44 mg/dL (7-20) Creatinine 2.3 mg/dL (0.6-1.0) Estimated GFR (Cockcroft-Gault) 20.7 Glucose Level 247 mg/dL (70-99) Calcium Level 8.8 mg/dL (8.5-10.1) Test 02/12/20 17:16 02/12/20 20:15 02/13/20 03:00 02/13/20 03:30 Glucose (Fingerstick) 161 mg/dL (70-99) 169 mg/dL (70-99) White Blood Count 20.7 x10^3/uL (4.0-11.0) Red Blood Count 3.69 x10^6/uL (3.50-5.40) Hemoglobin 10.5 g/dL (12.0-15.5) Hematocrit 33.5 % (36.0-47.0) Mean Corpuscular Volume 91 fL (79-100) Mean Corpuscular Hemoglobin 29 pg (25-35) Mean Corpuscular Hemoglobin Concent 32 g/dL (31-37) Red Cell Distribution Width 17.5 % (11.5-14.5) Platelet Count 245 x10^3/uL (140-400) Neutrophils (%) (Auto) 88 % (31-73) Lymphocytes (%) (Auto) 4 % (24-48) Monocytes (%) (Auto) 7 % (0-9) Eosinophils (%) (Auto) 1 % (0-3) Basophils (%) (Auto) 1 % (0-3) Neutrophils # (Auto) 18.1 x10^3/uL (1.8-7.7) Lymphocytes # (Auto) 0.8 x10^3/uL (1.0-4.8) Monocytes # (Auto) 1.4 x10^3/uL (0.0-1.1) Eosinophils # (Auto) 0.2 x10^3/uL (0.0-0.7) Basophils # (Auto) 0.2 x10^3/uL (0.0-0.2) Segmented Neutrophils % 90 % (35-66) Band Neutrophils % 7 % (0-9) Lymphocytes % 3 % (24-48) Platelet Estimate Adequate (ADEQUATE) Macrocytosis Slight Sodium Level 138 mmol/L (136-145) Potassium Level 4.3 mmol/L (3.5-5.1) Chloride Level 99 mmol/L (98-107) Carbon Dioxide Level 33 mmol/L (21-32) Anion Gap 6 (6-14) Blood Urea Nitrogen 39 mg/dL (7-20) Creatinine 2.1 mg/dL (0.6-1.0) Estimated GFR (Cockcroft-Gault) 23.0 BUN/Creatinine Ratio 19 (6-20) Glucose Level 197 mg/dL (70-99) Calcium Level 9.1 mg/dL (8.5-10.1) Total Bilirubin 0.8 mg/dL (0.2-1.0) Aspartate Amino Transf (AST/SGOT) 38 U/L (15-37) Alanine Aminotransferase (ALT/SGPT) 64 U/L (14-59) Alkaline Phosphatase 123 U/L (46-116) Total Protein 6.3 g/dL (6.4-8.2) Albumin 2.9 g/dL (3.4-5.0) Albumin/Globulin Ratio 0.9 (1.0-1.7) Urine Collection Type Unknown Urine Color Yellow Urine Clarity Cloudy Urine pH 5.5 (<5.0-8.0) Urine Specific [place] 1.015 (1.000-1.030) Urine Protein Negative mg/dL (NEG-TRACE) Urine Glucose (UA) Negative mg/dL (NEG) Urine Ketones (Stick) Negative mg/dL (NEG) Urine Blood Large (NEG) Urine Nitrite Negative (NEG) Urine Bilirubin Negative (NEG) Urine Urobilinogen Dipstick 0.2 mg/dL (0.2 mg/dL) Urine Leukocyte Esterase Moderate (NEG) Urine RBC Tntc /HPF (0-2) Urine WBC >40 /HPF (0-4) Urine Squamous Epithelial Cells Few /LPF Urine Bacteria Moderate /HPF (0-FEW) Test 02/13/20 07:45 02/13/20 10:58 Glucose (Fingerstick) 163 mg/dL (70-99) 159 mg/dL (70-99) Laboratory Tests Test 02/12/20 12:06 02/12/20 17:16 02/12/20 20:15 02/13/20 03:00 Glucose (Fingerstick) 168 mg/dL (70-99) 161 mg/dL (70-99) 169 mg/dL (70-99) White Blood Count 20.7 x10^3/uL (4.0-11.0) Red Blood Count 3.69 x10^6/uL (3.50-5.40) Hemoglobin 10.5 g/dL (12.0-15.5) Hematocrit 33.5 % (36.0-47.0) Mean Corpuscular Volume 91 fL (79-100) Mean Corpuscular Hemoglobin 29 pg (25-35) Mean Corpuscular Hemoglobin Concent 32 g/dL (31-37) Red Cell Distribution Width 17.5 % (11.5-14.5) Platelet Count 245 x10^3/uL (140-400) Neutrophils (%) (Auto) 88 % (31-73) Lymphocytes (%) (Auto) 4 % (24-48) Monocytes (%) (Auto) 7 % (0-9) Eosinophils (%) (Auto) 1 % (0-3) Basophils (%) (Auto) 1 % (0-3) Neutrophils # (Auto) 18.1 x10^3/uL (1.8-7.7) Lymphocytes # (Auto) 0.8 x10^3/uL (1.0-4.8) Monocytes # (Auto) 1.4 x10^3/uL (0.0-1.1) Eosinophils # (Auto) 0.2 x10^3/uL (0.0-0.7) Basophils # (Auto) 0.2 x10^3/uL (0.0-0.2) Segmented Neutrophils % 90 % (35-66) Band Neutrophils % 7 % (0-9) Lymphocytes % 3 % (24-48) Platelet Estimate Adequate (ADEQUATE) Macrocytosis Slight Sodium Level 138 mmol/L (136-145) Potassium Level 4.3 mmol/L (3.5-5.1) Chloride Level 99 mmol/L (98-107) Carbon Dioxide Level 33 mmol/L (21-32) Anion Gap 6 (6-14) Blood Urea Nitrogen 39 mg/dL (7-20) Creatinine 2.1 mg/dL (0.6-1.0) Estimated GFR (Cockcroft-Gault) 23.0 BUN/Creatinine Ratio 19 (6-20) Glucose Level 197 mg/dL (70-99) Calcium Level 9.1 mg/dL (8.5-10.1) Total Bilirubin 0.8 mg/dL (0.2-1.0) Aspartate Amino Transf (AST/SGOT) 38 U/L (15-37) Alanine Aminotransferase (ALT/SGPT) 64 U/L (14-59) Alkaline Phosphatase 123 U/L (46-116) Total Protein 6.3 g/dL (6.4-8.2) Albumin 2.9 g/dL (3.4-5.0) Albumin/Globulin Ratio 0.9 (1.0-1.7) Test 02/13/20 03:30 02/13/20 07:45 02/13/20 10:58 Urine Collection Type Unknown Urine Color Yellow Urine Clarity Cloudy Urine pH 5.5 (<5.0-8.0) Urine Specific [place] 1.015 (1.000-1.030) Urine Protein Negative mg/dL (NEG-TRACE) Urine Glucose (UA) Negative mg/dL (NEG) Urine Ketones (Stick) Negative mg/dL (NEG) Urine Blood Large (NEG) Urine Nitrite Negative (NEG) Urine Bilirubin Negative (NEG) Urine Urobilinogen Dipstick 0.2 mg/dL (0.2 mg/dL) Urine Leukocyte Esterase Moderate (NEG) Urine RBC Tntc /HPF (0-2) Urine WBC >40 /HPF (0-4) Urine Squamous Epithelial Cells Few /LPF Urine Bacteria Moderate /HPF (0-FEW) Glucose (Fingerstick) 163 mg/dL (70-99) 159 mg/dL (70-99) Assessment/Plan Assessment/Plan 1. Mechanical fall with left distal femoral fracture. Patient is been seen by the orthopedic surgery service and is being scheduled for repair. She has a history of coronary disease hypertension and hyperlipidemia but denies any chest pain or shortness of breath. EKG shows no acute ischemic changes. We will check an echocardiogram for LV function. In this setting pending echo report the patient would be at moderate risk for noncardiac surgery. 2. Coronary artery disease. Continue baseline medications. No chest pain. 3. Hypertension. Blood pressure under reasonable control. Continue present medications and monitor. 4. Hyperlipidemia. Continue present treatment. 5. COPD. Controlled. No wheezing. 6. Chronic kidney disease. Monitoring lab. Thank you for allowing us to participate in the care of your patient. HARSHAL HENDRIX MD Feb 13, 2020 12:10
[2020-02-13] MEDS ORDERED: MIDAZOLAM HCL/PF 2 MG/2 ML VIAL. ONE (12:19)
--- NOTE | 2020-02-13 12:45 | CONS ---
DATE OF CONSULTATION: 02/13/2020 REQUESTING PHYSICIAN: Dr. Sanchez. REASON FOR CONSULTATION: Possible sepsis. HISTORY OF PRESENT ILLNESS: This is a 74-year-old female who fell and came with pain in the left knee. The patient was found to have a left distal femur fracture. The patient also has a prosthesis there as a complicating factor. The patient denied any sickness before this fall. The patient denied any fever, chills, nausea, vomiting, diarrhea, sore throat, cough, shortness of breath, urinary symptoms at all. The patient was found to also have a white count of 13,000 and it went up to 20,000. The patient is supposed to go for surgery. She does have multiple medical problems. The patient does not have any urinary symptoms either. PAST MEDICAL HISTORY: Positive for morbid obesity, coronary artery disease, sleep apnea, has had cholecystectomy, gastroesophageal reflux disease, history of breast cancer, mastectomy done, renal insufficiency, history of kidney stones, osteoarthritis, anemia, bilateral knee replacement done in the past, and MGUS syndrome. SOCIAL HISTORY: Negative for smoking, alcohol or illicit drug use. ALLERGIES: SHE IS LISTED ALLERGIC TO CIPRO, BUT SHE IS NOT TRULY ALLERGIC. SHE HAS HAD YEAST INFECTION HENCE SHE WAS TOLD NOT TO TAKE IT. THE PATIENT ALSO IS ALLERGIC TO SULFA. CURRENT MEDICATIONS: Reviewed. The patient received Rocephin before and now she is on Zosyn with the white count elevation. REVIEW OF SYSTEMS: As per HPI, all other systems reviewed are negative. PHYSICAL EXAMINATION: GENERAL: Alert, oriented female, not in distress. VITAL SIGNS: Stable, afebrile. HEENT: Both pupils are round and reacting. No conjunctival lesion, no lesion in the mouth. NECK: Supple, no JVP, no lymphadenopathy. LUNGS: Clear. HEART: S1, S2 regular. ABDOMEN: Benign. EXTREMITIES: No edema, cyanosis. SKIN: Unremarkable. The patient has a brace in the left leg for immobilization and she just going to surgery as I also discussed with Dr. Eduardo her case. NEUROLOGIC: The patient is alert, awake and appropriate. No focal neurologic deficit. LABORATORY DATA: White count is 20.7, hemoglobin 10.5, platelets are normal. BUN and creatinine is 39 and 2.1. Her AST 38, ALT 64, alkaline phosphatase is 123. Albumin is 2.9. Urinalysis showed too numerous to count rbc's, more than 40 wbc's. Femur x-ray showed a comminuted fracture of the distal femur, a large displaced fragment. Chest x-ray is old. IMPRESSION: 1. Leukocytosis, most likely to be reactive secondary to the fracture. There is no evidence for infection other than abnormal urinalysis, although asymptomatic. 2. Status post fall with a left distal femur fracture, comminuted. 3. History of monoclonal gammopathy of undetermined significance. 4. History of breast cancer. 5. Coronary artery disease. 6. Renal insufficiency. 7. Obesity. RECOMMENDATIONS: Agree with Zosyn. The patient is not high risk for MRSA as she has not had any antibiotics for the past 6 months, other than she does take erythromycin for gastric motility. The patient's supportive care and discussion with Dr. Eduardo done as well as discussed with the patient's and son done at the bedside. Thank you very much, Dr. Sanchez, for giving me the opportunity to participate in this patient's care. ARY HOUSTON MD DR: RADHA/karlee JOB#: [id number] / [id number]
--- NOTE | 2020-02-13 13:44 | PDOC ---
PROGRESS NOTES Objective Objective Vital Signs Date Time Temp Pulse Resp B/P (MAP) Pulse Ox O2 Delivery O2 Flow Rate FiO2 02/13/20 12:08 100.0 109 16 132/56 93 Nasal Cannula 2 100.0 Intake and Output 02/13/20 07:00 Intake Total 490 ml Output Total 825 ml Balance -335 ml Intake Oral 490 ml Output Urine Total 825 ml # Voids 2 Plan Plan of Care PATENT IN OR. WILL FOLLOW UP TOMORROW. CALL IF URGENT ISSUES Comment Review of Relevant I have reviewed the following items cristian (where applicable) has been applied. Labs Laboratory Tests Test 02/11/20 16:53 02/11/20 20:48 02/11/20 21:30 02/12/20 12:06 Glucose (Fingerstick) 140 mg/dL (70-99) 246 mg/dL (70-99) 168 mg/dL (70-99) White Blood Count 13.6 x10^3/uL (4.0-11.0) Red Blood Count 3.68 x10^6/uL (3.50-5.40) Hemoglobin 10.6 g/dL (12.0-15.5) Hematocrit 32.3 % (36.0-47.0) Mean Corpuscular Volume 88 fL (79-100) Mean Corpuscular Hemoglobin 29 pg (25-35) Mean Corpuscular Hemoglobin Concent 33 g/dL (31-37) Red Cell Distribution Width 17.3 % (11.5-14.5) Platelet Count 253 x10^3/uL (140-400) Neutrophils (%) (Auto) 75 % (31-73) Lymphocytes (%) (Auto) 12 % (24-48) Monocytes (%) (Auto) 11 % (0-9) Eosinophils (%) (Auto) 2 % (0-3) Basophils (%) (Auto) 1 % (0-3) Neutrophils # (Auto) 10.2 x10^3/uL (1.8-7.7) Lymphocytes # (Auto) 1.6 x10^3/uL (1.0-4.8) Monocytes # (Auto) 1.5 x10^3/uL (0.0-1.1) Eosinophils # (Auto) 0.2 x10^3/uL (0.0-0.7) Basophils # (Auto) 0.1 x10^3/uL (0.0-0.2) Prothrombin Time 12.7 SEC (11.7-14.0) Prothromb Time International Ratio 1.0 (0.8-1.1) Sodium Level 140 mmol/L (136-145) Potassium Level 3.8 mmol/L (3.5-5.1) Chloride Level 100 mmol/L (98-107) Carbon Dioxide Level 35 mmol/L (21-32) Anion Gap 5 (6-14) Blood Urea Nitrogen 44 mg/dL (7-20) Creatinine 2.3 mg/dL (0.6-1.0) Estimated GFR (Cockcroft-Gault) 20.7 Glucose Level 247 mg/dL (70-99) Calcium Level 8.8 mg/dL (8.5-10.1) Test 02/12/20 17:16 02/12/20 20:15 02/13/20 03:00 02/13/20 03:30 Glucose (Fingerstick) 161 mg/dL (70-99) 169 mg/dL (70-99) White Blood Count 20.7 x10^3/uL (4.0-11.0) Red Blood Count 3.69 x10^6/uL (3.50-5.40) Hemoglobin 10.5 g/dL (12.0-15.5) Hematocrit 33.5 % (36.0-47.0) Mean Corpuscular Volume 91 fL (79-100) Mean Corpuscular Hemoglobin 29 pg (25-35) Mean Corpuscular Hemoglobin Concent 32 g/dL (31-37) Red Cell Distribution Width 17.5 % (11.5-14.5) Platelet Count 245 x10^3/uL (140-400) Neutrophils (%) (Auto) 88 % (31-73) Lymphocytes (%) (Auto) 4 % (24-48) Monocytes (%) (Auto) 7 % (0-9) Eosinophils (%) (Auto) 1 % (0-3) Basophils (%) (Auto) 1 % (0-3) Neutrophils # (Auto) 18.1 x10^3/uL (1.8-7.7) Lymphocytes # (Auto) 0.8 x10^3/uL (1.0-4.8) Monocytes # (Auto) 1.4 x10^3/uL (0.0-1.1) Eosinophils # (Auto) 0.2 x10^3/uL (0.0-0.7) Basophils # (Auto) 0.2 x10^3/uL (0.0-0.2) Segmented Neutrophils % 90 % (35-66) Band Neutrophils % 7 % (0-9) Lymphocytes % 3 % (24-48) Platelet Estimate Adequate (ADEQUATE) Macrocytosis Slight Sodium Level 138 mmol/L (136-145) Potassium Level 4.3 mmol/L (3.5-5.1) Chloride Level 99 mmol/L (98-107) Carbon Dioxide Level 33 mmol/L (21-32) Anion Gap 6 (6-14) Blood Urea Nitrogen 39 mg/dL (7-20) Creatinine 2.1 mg/dL (0.6-1.0) Estimated GFR (Cockcroft-Gault) 23.0 BUN/Creatinine Ratio 19 (6-20) Glucose Level 197 mg/dL (70-99) Calcium Level 9.1 mg/dL (8.5-10.1) Total Bilirubin 0.8 mg/dL (0.2-1.0) Aspartate Amino Transf (AST/SGOT) 38 U/L (15-37) Alanine Aminotransferase (ALT/SGPT) 64 U/L (14-59) Alkaline Phosphatase 123 U/L (46-116) Total Protein 6.3 g/dL (6.4-8.2) Albumin 2.9 g/dL (3.4-5.0) Albumin/Globulin Ratio 0.9 (1.0-1.7) Urine Collection Type Unknown Urine Color Yellow Urine Clarity Cloudy Urine pH 5.5 (<5.0-8.0) Urine Specific [place] 1.015 (1.000-1.030) Urine Protein Negative mg/dL (NEG-TRACE) Urine Glucose (UA) Negative mg/dL (NEG) Urine Ketones (Stick) Negative mg/dL (NEG) Urine Blood Large (NEG) Urine Nitrite Negative (NEG) Urine Bilirubin Negative (NEG) Urine Urobilinogen Dipstick 0.2 mg/dL (0.2 mg/dL) Urine Leukocyte Esterase Moderate (NEG) Urine RBC Tntc /HPF (0-2) Urine WBC >40 /HPF (0-4) Urine Squamous Epithelial Cells Few /LPF Urine Bacteria Moderate /HPF (0-FEW) Test 02/13/20 07:45 02/13/20 10:58 02/13/20 11:35 Glucose (Fingerstick) 163 mg/dL (70-99) 159 mg/dL (70-99) Lactic Acid Level 1.0 mmol/L (0.4-2.0) Laboratory Tests Test 02/12/20 17:16 02/12/20 20:15 02/13/20 03:00 02/13/20 03:30 Glucose (Fingerstick) 161 mg/dL (70-99) 169 mg/dL (70-99) White Blood Count 20.7 x10^3/uL (4.0-11.0) Red Blood Count 3.69 x10^6/uL (3.50-5.40) Hemoglobin 10.5 g/dL (12.0-15.5) Hematocrit 33.5 % (36.0-47.0) Mean Corpuscular Volume 91 fL (79-100) Mean Corpuscular Hemoglobin 29 pg (25-35) Mean Corpuscular Hemoglobin Concent 32 g/dL (31-37) Red Cell Distribution Width 17.5 % (11.5-14.5) Platelet Count 245 x10^3/uL (140-400) Neutrophils (%) (Auto) 88 % (31-73) Lymphocytes (%) (Auto) 4 % (24-48) Monocytes (%) (Auto) 7 % (0-9) Eosinophils (%) (Auto) 1 % (0-3) Basophils (%) (Auto) 1 % (0-3) Neutrophils # (Auto) 18.1 x10^3/uL (1.8-7.7) Lymphocytes # (Auto) 0.8 x10^3/uL (1.0-4.8) Monocytes # (Auto) 1.4 x10^3/uL (0.0-1.1) Eosinophils # (Auto) 0.2 x10^3/uL (0.0-0.7) Basophils # (Auto) 0.2 x10^3/uL (0.0-0.2) Segmented Neutrophils % 90 % (35-66) Band Neutrophils % 7 % (0-9) Lymphocytes % 3 % (24-48) Platelet Estimate Adequate (ADEQUATE) Macrocytosis Slight Sodium Level 138 mmol/L (136-145) Potassium Level 4.3 mmol/L (3.5-5.1) Chloride Level 99 mmol/L (98-107) Carbon Dioxide Level 33 mmol/L (21-32) Anion Gap 6 (6-14) Blood Urea Nitrogen 39 mg/dL (7-20) Creatinine 2.1 mg/dL (0.6-1.0) Estimated GFR (Cockcroft-Gault) 23.0 BUN/Creatinine Ratio 19 (6-20) Glucose Level 197 mg/dL (70-99) Calcium Level 9.1 mg/dL (8.5-10.1) Total Bilirubin 0.8 mg/dL (0.2-1.0) Aspartate Amino Transf (AST/SGOT) 38 U/L (15-37) Alanine Aminotransferase (ALT/SGPT) 64 U/L (14-59) Alkaline Phosphatase 123 U/L (46-116) Total Protein 6.3 g/dL (6.4-8.2) Albumin 2.9 g/dL (3.4-5.0) Albumin/Globulin Ratio 0.9 (1.0-1.7) Urine Collection Type Unknown Urine Color Yellow Urine Clarity Cloudy Urine pH 5.5 (<5.0-8.0) Urine Specific [place] 1.015 (1.000-1.030) Urine Protein Negative mg/dL (NEG-TRACE) Urine Glucose (UA) Negative mg/dL (NEG) Urine Ketones (Stick) Negative mg/dL (NEG) Urine Blood Large (NEG) Urine Nitrite Negative (NEG) Urine Bilirubin Negative (NEG) Urine Urobilinogen Dipstick 0.2 mg/dL (0.2 mg/dL) Urine Leukocyte Esterase Moderate (NEG) Urine RBC Tntc /HPF (0-2) Urine WBC >40 /HPF (0-4) Urine Squamous Epithelial Cells Few /LPF Urine Bacteria Moderate /HPF (0-FEW) Test 02/13/20 07:45 02/13/20 10:58 02/13/20 11:35 Glucose (Fingerstick) 163 mg/dL (70-99) 159 mg/dL (70-99) Lactic Acid Level 1.0 mmol/L (0.4-2.0) Medications Current Medications Morphine Sulfate (Morphine Sulfate) 2 mg PRN Q2HR PRN IV MODERATE PAIN Last administered on 02/13/20at 11:50; Start 02/11/20 at 16:15 Acetaminophen (Tylenol) 650 mg PRN Q6HRS PRN PEG TEMP > 100.3'F; Start 02/11/20 at 16:15 Morphine Sulfate (Morphine Sulfate) 4 mg PRN Q4HRS PRN IV SEVERE PAIN Last administered on 02/12/20at 08:54; Start 02/11/20 at 17:30 Insulin Human Lispro (HumaLOG) 0-5 UNITS TIDWMEALS SQ Last administered on at 17:58; Start 02/11/20 at 18:00 Dextrose (Dextrose 50%-Water Syringe) 12.5 gm PRN Q15MIN PRN IV SEE COMMENTS; Start 02/11/20 at 17:30 Sodium Chloride 1,000 ml @ 75 mls/hr [id number] IV Last administered on 02/13/20at 10:59; Start 02/12/20 at 07:00 Allopurinol (Zyloprim) 300 mg DAILY PO Last administered on 02/12/20at 08:46; Start 02/12/20 at 09:00 Aspirin (Aspirin Chewable) 81 mg DAILY PO ; Start 02/12/20 at 09:00 Atorvastatin Calcium (Lipitor) 20 mg QHS PO Last administered on 02/12/20at 20:18; Start 02/11/20 at 21:00 Levothyroxine Sodium (Synthroid) 100 mcg DAILY06 PO Last administered on 02/13/20at 06:09; Start 02/12/20 at 06:00 Mirtazapine (Remeron) 30 mg HS PO Last administered on 02/12/20at 20:18; Start 02/11/20 at 21:00 Tramadol HCl (Ultram) 50 mg PRN DAILY PRN PO MILD PAIN 1-3 Last administered on 02/12/20at 21:22; Start 02/11/20 at 17:30 Clonazepam (KlonoPIN) 2 mg QHS PO Last administered on 02/12/20at 20:18; Start 02/11/20 at 21:00 Ferrous Sulfate (Feosol) 325 mg DAILYWBKFT PO ; Start 02/12/20 at 08:00 Non-Formulary Medication (Fluticasone/ Vilanterol (Breo Ellipta 100-25 Mcg Inh)) 1 puff DAILY IH ; Start 02/12/20 at 09:00; Stop 02/11/20 at 18:04; Status DC Insulin Human Lispro (HumaLOG) 2 units BIDACLD SQ Last administered on 02/12/20at 17:58; Start 02/12/20 at 11:30 Insulin Glargine (Lantus Syringe) 30 unit QHS SQ Last administered on 02/12/20at 20:23; Start 02/11/20 at 21:00 Non-Formulary Medication (Levomilnacipran Hydrochloride (Fetzima)) 80 mg DAILY PO ; Start 02/12/20 at 09:00 Magnesium Oxide (Magnesium Oxide) 400 mg DAILY PO Last administered on 02/12/20at 08:46; Start 02/12/20 at 09:00 Famotidine (Pepcid) 20 mg QHS PO Last administered on 02/12/20at 20:18; Start 02/11/20 at 21:00 Non-Formulary Medication (Umeclidinium Batchelor (Incruse Ellipta)) 62.5 mcg DAILY IH ; Start 02/12/20 at 09:00; Stop 02/11/20 at 18:07; Status DC Verapamil HCl (Calan Sr) 120 mg DAILY PO ; Start 02/12/20 at 09:00 Oxycodone/ Acetaminophen (Percocet 5/325) 1 tab PRN Q4HRS PRN PO MODERATE PAIN; Start 02/11/20 at 18:00 Oxycodone/ Acetaminophen (Percocet 5/325) 2 tab PRN Q4HRS PRN PO SEVERE PAIN Last administered on 02/13/20at 03:37; Start 02/11/20 at 18:00 Albuterol/ Ipratropium (Duoneb) 3 ml QID NEB Last administered on 02/13/20at 11:42; Start 02/11/20 at 20:00 Budesonide (Pulmicort) 0.5 mg BID NEB Last administered on 02/13/20at 07:52; Start 02/11/20 at 21:00 Calcium Carbonate/ Glycine (Tums) 500 mg PRN AFTMEALHC PRN PO INDIGESTION Last administered on 02/13/20at 03:38; Start 02/12/20 at 16:30 Ropivacaine 53.3 ml/Epinephrine HCl 0.6 mg/ Morphine Sulfate 5 mg/Sodium Chloride 100 ml @ 100 mls/hr 1X ONCE INT ART ; Start 02/13/20 at 06:00; Stop 02/13/20 at 06:59; Status DC Ondansetron HCl (Zofran) 4 mg PRN Q6HRS PRN IV NAUSEA/VOMITING Last administered on 02/13/20at 08:26; Start 02/13/20 at 07:00; Stop 02/14/20 at 06:59 Fentanyl Citrate (Fentanyl 2ml Vial) 25 mcg PRN Q5MIN PRN IV MILD PAIN 1-3; Start 02/13/20 at 07:00; Stop 02/14/20 at 06:59 Fentanyl Citrate (Fentanyl 2ml Vial) 50 mcg PRN Q5MIN PRN IV MODERATE TO SEVERE PAIN; Start 02/13/20 at 07:00; Stop 02/14/20 at 06:59 Morphine Sulfate (Morphine Sulfate) 1 mg PRN Q10MIN PRN IV SEVERE PAIN 7-10; Start 02/13/20 at 07:00; Stop 02/14/20 at 06:59 Ringer's Solution 1,000 ml @ 30 mls/hr Q24H IV ; Start 02/13/20 at 07:00; Stop 02/13/20 at 18:59 Lidocaine HCl (Xylocaine-Mpf 1% 2ml Vial) 2 ml PRN 1X PRN ID PRIOR TO IV START; Start 02/13/20 at 07:00; Stop 02/14/20 at 06:59 Hydromorphone HCl (Dilaudid) 0.5 mg PRN Q10MIN PRN IV SEV PAIN, Second choice; Start 02/13/20 at 07:00; Stop 02/14/20 at 06:59 Prochlorperazine Edisylate (Compazine) 5 mg PACU PRN PRN IV NAUSEA, MRX1; Start 02/13/20 at 07:00; Stop 02/14/20 at 06:59 Bupivacaine HCl/ Epinephrine Bitart (Sensorcaine-Epi 0.25%-1:271011 Mpf) 30 ml STK-MED ONCE .ROUTE ; Start 02/13/20 at 07:11; Stop 02/13/20 at 07:12; Status DC Ceftriaxone Sodium (Rocephin) 1 gm Q24H IVP Last administered on 02/13/20at 08:25; Start 02/13/20 at 08:00; Stop 02/13/20 at 11:07; Status DC Piperacillin Sod/ Tazobactam Sod 3.375 gm/Sodium Chloride 50 ml @ 100 mls/hr Q6HRS IV ; Start 02/13/20 at 12:00; Status Cancel Piperacillin Sod/ Tazobactam Sod 2.25 gm/Sodium Chloride 50 ml @ 100 mls/hr Q6HRS IV ; Start 02/13/20 at 12:00 Propofol (Diprivan) 200 mg STK-MED ONCE IV ; Start 02/13/20 at 11:42; Stop 02/13/20 at 11:42; Status DC Lidocaine HCl (Lidocaine Pf 2% Vial) 5 ml STK-MED ONCE .ROUTE ; Start 02/13/20 at 11:42; Stop 02/13/20 at 11:42; Status DC Midazolam HCl (Versed) 2 mg STK-MED ONCE .ROUTE ; Start 02/13/20 at 12:19; Stop 02/13/20 at 12:19; Status DC Active Scripts Active Reported Omeprazole 20 Mg Capsule.dr 1 Cap PO DAILY Lasix (Furosemide) 40 Mg Tablet 1 Tab PO DAILY 30 Days Iron (Ferrous Gluconate) 236 Mg Tablet 65 Mg PO DAILY Biotin 1 Mg Capsule 1 Cap PO DAILY 30 Days [B 6] 1 Tab PO DAILY Levothyroxine Sodium 100 Mcg Tablet 1 Tab PO DAILY Levemir (Insulin Detemir) 100 Unit/1 Ml Vial 30 Unit SQ HS Ranitidine Hcl 150 Mg Capsule 1 Cap PO BID Verapamil Er (Verapamil Hcl) 240 Mg Cap24h.pel 120 Mg PO DAILY Magnesium (Magnesium Oxide) 400 Mg Capsule 1 Cap PO DAILY 30 Days Fetzima (Levomilnacipran Hydrochloride) 80 Mg Cap.sa.24h 80 Mg PO DAILY Tramadol Hcl 50 Mg Tablet 50 Mg PO DAILY PRN Novolog (Insulin Aspart) 100 Unit/1 Ml Cartridge 2 Unit SQ BIDACLD Allopurinol 300 Mg Tablet 1 Tab PO DAILY Potassium Citrate 10 Meq Tablet.er 1 Tab PO BID Incruse Ellipta (Umeclidinium Batchelor) 62.5 Mcg Blst.w.dev 62.5 Mcg IH DAILY Breo Ellipta 100-25 Mcg Inh (Fluticasone/Vilanterol) 1 Each Aer.pow.ba 1 Puff IH DAILY Klonopin (Clonazepam) 2 Mg Tablet 2 Mg PO HS Mirtazapine 15 Mg Tablet 30 Mg PO HS Erythromycin (Erythromycin Base) 250 Mg Capsule.dr 250 Mg PO BID Diphenoxylate-Atropine Tablet (Diphenoxylate Hcl/Atropine) 1 Each Tablet 1 Each PO DAILY PRN Cyanocobalamin Injection (Cyanocobalamin (Vitamin B-12)) 1,000 Mcg/1 Ml Vial 1,000 Mcg IJ QMONTH Vitamin D-3 (Cholecalciferol (Vitamin D3)) 2,000 Unit Capsule 2,000 Unit PO DAILY Atorvastatin Calcium 20 Mg Tablet 20 Mg PO DAILY Aspirin 81 Mg Tab.chew 81 Mg PO DAILY Vitals/I & O Vital Sign - Last 24 Hours 02/12/20 02/12/20 02/12/20 02/12/20 15:00 15:35 19:00 19:08 Temp 98.8 98.1 98.8 98.1 Pulse 87 93 Resp 16 16 20 B/P (MAP) 138/62 (87) 149/63 (91) Pulse Ox 92 96 97 96 O2 Delivery Room Air Nasal Cannula Nasal Cannula Nasal Cannula O2 Flow Rate 2.0 2.0 2.0 02/12/20 02/12/20 02/12/20 02/12/20 20:00 20:08 20:53 21:22 Resp 18 20 Pulse Ox 96 96 96 O2 Delivery Nasal Cannula Nasal Cannula Nasal Cannula Nasal Cannula O2 Flow Rate 2.0 2.0 2.0 2.0 02/12/20 02/12/20 02/13/20 02/13/20 22:22 23:00 02:15 02:45 Temp 98.1 98.1 Pulse 106 Resp 18 16 16 20 B/P (MAP) 139/64 (89) Pulse Ox 93 93 93 93 O2 Delivery Nasal Cannula Nasal Cannula Nasal Cannula Nasal Cannula O2 Flow Rate 2.0 2.0 2.0 2.0 02/13/20 02/13/20 02/13/20 02/13/20 03:00 03:37 04:37 07:00 Temp 98.3 98.3 98.3 98.3 Pulse 106 108 Resp 16 18 18 16 B/P (MAP) 126/73 (90) 118/74 (89) Pulse Ox 90 93 93 90 O2 Delivery Nasal Cannula Nasal Cannula Nasal Cannula Room Air O2 Flow Rate 2.0 2.0 02/13/20 02/13/20 02/13/20 02/13/20 07:55 08:02 08:26 08:56 Pulse Ox 93 O2 Delivery Nasal Cannula Nasal Cannula Nasal Cannula Nasal Cannula O2 Flow Rate 2.0 2.0 2.0 2.0 02/13/20 02/13/20 02/13/20 02/13/20 11:00 11:43 11:50 12:08 Temp 97.9 100.0 97.9 100.0 Pulse 106 109 Resp 18 16 B/P (MAP) 145/61 (89) 132/56 Pulse Ox 91 93 93 O2 Delivery Nasal Cannula Nasal Cannula Nasal Cannula Nasal Cannula O2 Flow Rate 2.0 2.0 2.0 2 Intake and Output 02/12/20 02/12/20 02/13/20 15:00 23:00 07:00 Intake Total 240 ml 200 ml 50 ml Output Total 300 ml 525 ml Balance 240 ml -100 ml -475 ml Justicifation of Admission Dx: Justifications for Admission: Justification of Admission Dx: Yes KARY BENITEZ MD Feb 13, 2020 13:44
--- NOTE | 2020-02-13 14:41 | PDOC4 ---
Operative Note Operative Note Date of Procedure: February 13, 2020 Pre-Op Diagnosis: * Displaced supracondylar fracture without intracondylar extension of lower end of left femur, initial encounter for closed fracture S72.452A * Periprosthetic fracture around internal prosthetic left knee joint, initial M97.12XA Post-Op Diagnosis: * Displaced supracondylar fracture without intracondylar extension of lower end of left femur, initial encounter for closed fracture S72.452A * Periprosthetic fracture around internal prosthetic left knee joint, initial M97.12XA Procedure: Left femur open treatment of femoral supracondylar or transcondylar fracture without intercondylar extension, includes internal fixation CPT 05796 Surgeon: Ilsa Eduardo MD Trailer Assembler: Rohit DIAS Anesthesia: Femoral block plus spinal EBL: 200 mL Specimens Obtained: none Complications: none Drains: none Implants: [employer] Janelle-Loc Periarticular Locked Plating System 4.5 mm Distal Femur Locking Plate, 13 hole left, with 4.5 mm locking screws Indications for Procedure: This patient is a 74-year-old woman who fell fracturing her left femur above her total knee arthroplasty. There is no evidence of prior underlying infection or lucency at the total knee. The total knee arthroplasty has been performed by Dr. Roland Blanc in 2017 and was functioning well until she fell. There is adequate distal femoral bone at the total knee for stabilization. I spoke to her about the risks benefits and alternatives of surgery. We discussed the alternative of intramedullary nail treatment although I feel intramedullary fixation is not as good as with a locked plate for this fracture. I did recommend surgery rather than nonoperative treatment and we discussed my reasoning. We discussed the potential risks of infection, malunion or nonunion, hardware failure, hardware removal, bleeding, blood clots, neurovascular injury, or other potential surgical or anesthetic complications. We discussed increased risks of infection, nonunion, wound healing problems, delayed healing or other complications due to her end-stage renal disease, COPD and diabetes. All of her questions about surgery were answered and she desired to proceed. Written consent was obtained. Procedure in Detail: The patient was identified in the preoperative holding area. The correct left femur was marked by me. The patient was taken to the operating room where spinal and regional block anesthesia was used. The patient was positioned supine on the operating table. Preoperative antibiotics were given intravenously, in this case Zosyn which was discussed with the Infectious Disease technology consultant Dr. Silva as adequate coverage for everything covered by Cefazolin plus coverage for additional organisms. A timeout procedure was performed. No tourniquet was used. The limb was then prepared in sterile fashion with surgical ChloraPrep solution from the hip to the toes. Sterile drapes were applied. An impervious stockinette was used over the lower limb, covering the foot and lower leg entirely. The large image intensifier was used, and the position of the fracture was confirmed. A lateral incision was used over the distal lateral femur. Sharp dissection was used. The IT band was divided. The vastus lateralis was divided. Bovie electrocautery was used for hemostasis. The fracture was reduced. My recovery assistant held the reduction with traction. A 13 hole plate was chosen for stable fixation. This was placed subcutaneously up the thigh using the radiolucent targeting device. This was provisionally attached at the distal femur using a K wire from the lateral epicondyle to the medial epicondyle. The provisional fixation proximally was with another K wire. The reduction was held by my recovery assistant, and I used nonlocking screws initially to help with additional translation reduction by bringing the plate down to the shaft of the bone I then placed locking shaft screws proximally again using the targeter and the drill sleeves. I then locked the distal cluster using the targeting drill sleeves, drilled, measured, and placed locking screws in the distal cluster. Satisfactory reduction and fixation was noted on the image intensifier. All of the images were interpreted intraoperatively by me. Copious saline irrigation was used. Ropivacaine with epinephrine and morphine was injected into the skin edges and around the fracture site. Bovie electrocautery was used for hemostasis. I repaired the vastus lateralis fascia with #0 Vicryl interrupted sutures. My recovery assistant closed the subcutaneous tissues with #2-0 Vicryl inverted interrupted sutures. He then approximated the skin with polo. Xeroform and a sterile dressing were applied. Needle and sponge counts were correct. There were no apparent complications. CC: Roland Blanc M.D. Fax to Medical Records: [phone] ILSA DEUARDO MD Feb 13, 2020 14:41
[2020-02-13] MEDS: IV 1/2 NORMAL SALINE 1,000 ML IV SCH (14:46)
--- NOTE | 2020-02-13 14:52 | RAD ---
Left femur fluoroscopy 02/13/2020 12:20 PM INDICATION: ORIF left femur COMPARISON: Left femur radiograph 02/12/2020 TECHNIQUE: 7 fluoroscopic spot views are provided. Fluoroscopy time: 1.0 minutes FINDINGS: Fluoroscopy is provided for intraoperative use. Plate and screw fixation of the distal femur is present. Left total knee arthroplasty changes are present. IMPRESSION: 1. ORIF of the left femur from distal femoral fracture. 2. Please refer to the separate operative report for further details. Electronically signed by: Rubi Alfaro MD (02/13/2020 2:49 PM) IDA
[2020-02-13] MEDS ORDERED: MORPHINE SULFATE 2 MG/ML VIAL. IVP PRN (15:00)
[2020-02-13] MEDS ORDERED: fentaNYL PF VIAL 100 MCG/2 ML VIAL IVP PRN (15:00)
[2020-02-13] MEDS ORDERED: MORPHINE SULFATE 4 MG/ML VIAL. IVP PRN (15:00)
[2020-02-13] MEDS ORDERED: HYDROcodone/APAP 7.5/325MG 1 TAB TABLET PO PRN (15:00)
[2020-02-13] MEDS ORDERED: oxyCODONE/APAP 5/325 1 TAB TABLET PO PRN (15:00)
[2020-02-13] MEDS ORDERED: POLYETHYLENE GLYCOL 3350 17 GM PACKET. PO PRN (15:00)
[2020-02-13] MEDS ORDERED: oxyCODONE IR 5 MG TABLET PO PRN (15:00)
[2020-02-13] MEDS ORDERED: ONDANSETRON PF 4 MG/2 ML VIAL. IVP PRN (15:00)
[2020-02-13] MEDS ORDERED: DEXTROSE 50% 25 GM / 50ML DISP.SYRIN. IV PRN (15:00)
[2020-02-13] MEDS ORDERED: PHENYLEPHRINE in 0.9% NACL PF 1 MG/10 ML SYRINGE. IV ONE (15:13)
[2020-02-13] MEDS ORDERED: PHENYLEPHRINE 10 MG/ML VIAL. ONE (15:14)
[2020-02-13] MEDS ORDERED: ePHEDrine PF IN SALINE 50 MG/10 ML SYRINGE. IV ONE (15:14)
--- NOTE | 2020-02-13 15:27 | RAD ---
LEFT FEMUR XRAY 02/13/2020 2:50 PM INDICATION: Postop left distal femur COMPARISON: None available. TECHNIQUE: 2 views left femur are provided. FINDINGS/ IMPRESSION: Suspect postoperative changes from open reduction and internal fixation of the femur. There is lateral plate and screw fixation with 5 proximal screws and at least 3 distal screws. There is a persistent fracture fragment which measures 6.5 cm which is moderately displaced. Electronically signed by: Rubi Alfaro MD (02/13/2020 3:24 PM) IDA
[2020-02-13] MEDS: PIPERACILLIN/TAZOBACTAM 2.25 GM in IV NORMAL SALINE 50ML 50 ML IV SCH ×2 (17:52→18:00)
[2020-02-13] MEDS: FAMOTIDINE 20 MG TABLET. PO SCH (21:00)
[2020-02-13] MEDS: ASPIRIN ENTERIC COATED 325 MG TABLET.DR. PO SCH (21:00)
[2020-02-13] MEDS: clonazePAM 0.5 MG TABLET PO SCH (21:00)
[2020-02-13] MEDS: INSULIN GLARGINE SYRINGE. SQ SCH (21:00)
[2020-02-13] MEDS: ATORVASTATIN CALCIUM 20 MG TABLET PO SCH (21:00)
[2020-02-13] MEDS: MIRTAZAPINE 15 MG TABLET PO SCH (21:00)
[2020-02-13 21:31] LABS: BASO # 0.1 x10^3/uL (0.0-0.2); BASO % 1 % (0-3); EOS % 0 % (0-3); HEMATOCRIT 26.5 % (36.0-47.0); HEMOGLOBIN 8.5 g/dL (12.0-15.5); LYMPH # 0.7 x10^3/uL (1.0-4.8); LYMPH % 4 % (24-48); MEAN CORPUSCULAR HEMOGLOBIN 29 pg (25-35); MEAN CORPUSCULAR HGB CONC 32 g/dL (31-37); MEAN CORPUSCULAR VOLUME 90 fL (79-100); MONO # 1.5 x10^3/uL (0.0-1.1); MONO % 7 % (0-9); NEUT # 18.7 x10^3/uL (1.8-7.7); NEUT % 89 % (31-73); PLATELET COUNT 209 x10^3/uL (140-400); RED BLOOD COUNT 2.94 x10^6/uL (3.50-5.40); WHITE BLOOD COUNT 21.1 x10^3/uL (4.0-11.0)
--- NOTE | 2020-02-13 21:55 | NUR ---
Rapid Response Note: Rapid response called by patient's RN for decrease Oxygen saturation and somnolence, RN states she was unable to get a saturation on patient while on 2L/NC and patient is very sleepy but does arouse to her name. Patient did have surgery today for Left Femur repair, per RN patient returned to the floor at ~1500 and had bee A/Ox4. Patient does have CPOD and SHAYLA per patient's history. Upon arrival, patient is sleeping--opens eyes to name, able to state her birthday correctly but states she is in [place] and is unable to state the date--patient immediately returns to sleep. She does again arouse and is able to follow commands--squeezing hand, moves finger, and is able to raise arms slightly after encouragement then she returns to sleep. Patient initially on 2L/NC and unable to obtain O2 sat, changed to 6L/Simple mask which did bring saturation up to 83% so patient placed on 100% Nonrebreather at 15L and saturation increased to 100% but patient remained somnolent. O2 was titrated down to 10L/Simple mask with oxygen saturation 96%. Lungs sounds coarse and decreased to auscultation anteriorly and decreased posteriorly with RR18 and shallow, Heart tones S1S2 with loud murmur/tachycardic, radial/pedal pulses +1 to palpation, patient is pale and does have generalized +2 pitting edema; Left leg in an immobilizer from hip to knee--Velcro removed to assess surgical site--dressing D/I. Initial vital signs BP 115/52, HR 105 RR 18. FSBS, ABGs and H/H obtained, FSBS 190, ABG pH 7.16, pCO2 81, pO2 205 (while on 100% NRB), H/H 8.5/26.5. Repeat vital signs at 2114 BP 126/25, HR 103, RR 18, O2 Sat 100% (on 100% NRB). Jaelyn Sanchez, returned page at [phone], notified of above and discussed transfer to [facility] for BiPap placement. Orders received to transfer to [facility] and consult Dr Pratt. Dr Terence cadet, returned page at [phone], notified of above and orders received to start BiPap I/E 16/6, rate 20 and titrate FiO2 to keep O2 saturation at 90%, Duoneb breathing treatments QID, give one now. Dr Alesha cadet, returned page at 2144, notified of above to include H/H--no further orders at this time. Vital signs prior to transfer at 2149 BP 106/30, HR 107, RR 16, O2 Sat 95% on 10L/Simple mask--O2 decreased to 6L/Simple mask. Patient notified of conversations with physicians and need to transfer to [facility], patient opened her eyes but did not respond. Patient transferred to room 201 via bed accompanied by Parag supervisor floor assembly and this RN at 2154. See vital signs, lab results and orders. Addendum: 02/13/20 at 4593 by USHA CAPELLAN RN Amended: Links added.
[2020-02-13] MEDS ORDERED: IPRATRPIUM/ALBUTEROL 0.5/2.5MG 3 ML NEBU. NEB ONE (22:00)
[2020-02-13 23:13] LABS: BASE EXCESS ABG 1 mmol/L (-3-3); HCO3 ABG 30 mmol/L (21-28); PO2 ABG 206 mmHg (65-108); SAT O2 ABG 98 % (92-99)
[2020-02-13 23:19] LABS: FIO2 ABG 100; PCO2 ABG 81 mmHg (35-46)
[2020-02-14] VITALS (16 sets, daily range): BP systolic 81–158; BP diastolic 53–76
--- NOTE | 2020-02-14 00:07 | NUR ---
O2 desaturation noted by RT prior to administration of breathing treatment at approximately 2000. Patient placed on 4L NC and O2 saturation maintained at >92%. Continuous pulse oximetry placed after RT treatment completion. Rapid response called d/t change in patient's LOC and oxygen desaturation at approximately 2100.
[2020-02-14] MEDS: PIPERACILLIN/TAZOBACTAM 2.25 GM in IV NORMAL SALINE 50ML 50 ML IV SCH ×4 (00:27→19:06)
[2020-02-14 01:08] LABS: HEMOGLOBIN A1C 6.6 % (4.8-5.6)
--- NOTE | 2020-02-14 02:19 | NUR ---
transfer from [address] [place] [address], patient arrived to unit at approx 2145. pt placed on BIPAP, pt is somnolent, but will open eye to name. Assessment complete. Bed in low locked position, call light in reach. bed alarm on. Will continue to monitor.
[2020-02-14 03:10] LABS: BASO # 0.1 x10^3/uL (0.0-0.2); BASO % 0 % (0-3); EOS % 0 % (0-3); HEMATOCRIT 24.8 % (36.0-47.0); HEMOGLOBIN 8.2 g/dL (12.0-15.5); LYMPH # 0.7 x10^3/uL (1.0-4.8); LYMPH % 3 % (24-48); MEAN CORPUSCULAR HEMOGLOBIN 29 pg (25-35); MEAN CORPUSCULAR HGB CONC 33 g/dL (31-37); MEAN CORPUSCULAR VOLUME 89 fL (79-100); MONO # 1.5 x10^3/uL (0.0-1.1); MONO % 7 % (0-9); NEUT # 17.7 x10^3/uL (1.8-7.7); NEUT % 89 % (31-73); PLATELET COUNT 216 x10^3/uL (140-400); RED BLOOD COUNT 2.78 x10^6/uL (3.50-5.40); RED CELL DISTRIBUTION WIDTH 17.1 % (11.5-14.5); WHITE BLOOD COUNT 19.9 x10^3/uL (4.0-11.0)
[2020-02-14 03:38] LABS: ALBUMIN 2.4 g/dL (3.4-5.0); ALBUMIN/GLOBULIN RATIO 0.8 (1.0-1.7); CALCIUM 9.3 mg/dL (8.5-10.1); CREATININE 2.8 mg/dL (0.6-1.0); GFR 16.5; POTASSIUM 5.1 mmol/L (3.5-5.1); TOTAL BILIRUBIN 0.6 mg/dL (0.2-1.0); TOTAL PROTEIN 5.6 g/dL (6.4-8.2)
--- NOTE | 2020-02-14 03:41 | RAD ---
EXAM: CHEST AP ONLY INDICATION: Reason: O2 DESAT RM#[id number] EXT#[id number] WITH ANY URGENT RESULTS / Spl. Instructions: / History: . TECHNIQUE: Single view COMPARISON: 08/04/2017 chest x-ray FINDINGS: The heart size is normal. The great vessels appear unremarkable. There is no hilar or mediastinal mass. The lungs are clear. There is no pleural effusion or pneumothorax. There are no significant osseous abnormalities. IMPRESSION: No active cardiopulmonary disease. Electronically signed by: Trini Noyola MD (02/14/2020 3:38 AM) [facility] [place]
[2020-02-14] MEDS: IV 1/2 NORMAL SALINE 1,000 ML IV SCH (04:06)
[2020-02-14] MEDS ORDERED: methylPREDNISolone SOD SUCC PF 125 MG/2 ML VIAL. IV ONE (05:30)
[2020-02-14 05:41] LABS: BASE EXCESS ABG 1 mmol/L (-3-3); HCO3 ABG 29 mmol/L (21-28); PO2 ABG 85 mmHg (65-108); SAT O2 ABG 94 % (92-99)
--- NOTE | 2020-02-14 05:45 | NUR ---
Patient transferred to room 103 via bed accompanied by [employer] and RN--belongings include clothing, purse, cell phone, tablet and charging cables/plug in; all left inpatient's room. Patient somnolent but does arouse to name, oriented to self only and states 'No' when asked if she is having any pain. Patient oriented to ICU routine, nursing call light, TV/Bed controls, and importance of wearing BiPap. Patient states 'OK' and returns to sleep. Patient does trigger Sepsis but it is unchanged from previous assessments, dressing to left leg with reinforcement from previous RN is D/I with immobilizer on. See Nursing assessment interventions. ABG prior to transfer resulted pH 7.23, pCO2 70, pO2 85, HCO3 28.9--Dr Pratt called, notified of results, administration of Solu Medrol prior to transfer, lung sounds, reviewed AVAP settings, and patients somnolence but easy to arouse. Orders received to keep AVAP settings, FiO2 at lowest percentage to keep O2 Sat at 90%, increase DuoNeb breathing treatments to Q4HRS.
[2020-02-14] MEDS: LEVOTHYROXINE 100 MCG TABLET PO SCH (06:00)
[2020-02-14] MEDS ORDERED: MAGNESIUM HYDROXIDE 2,400 MG/30 ML ORAL.SUSP. PO PRN (06:00)
--- NOTE | 2020-02-14 06:05 | NUR ---
transfer patient to ICU 103, report given to LEE campoverde. Belongings with patient. Called patients to update on pt status.
[2020-02-14 06:52] LABS: FIO2 ABG 35; PCO2 ABG 71 mmHg (35-46)
[2020-02-14] MEDS: IPRATRPIUM/ALBUTEROL 0.5/2.5MG 3 ML NEBU. NEB SCH ×4 (07:26→19:59)
[2020-02-14] MEDS: BUDESONIDE 0.5 MG/2 ML NEBU. NEB SCH ×2 (07:28→19:59)
[2020-02-14] MEDS: ASPIRIN CHEWABLE 81 MG TABLET. PO SCH (07:33)
[2020-02-14] MEDS: INSULIN LISPRO 300 UNITS/3 ML VIAL. SQ SCH ×5 (08:00→16:46)
[2020-02-14] MEDS ORDERED: IPRATRPIUM/ALBUTEROL 0.5/2.5MG 3 ML NEBU. NEB SCH (08:00)
--- NOTE | 2020-02-14 08:19 | PDOC ---
Infectious Disease Note Subjective: Subjective Pt had resp distress after surgery so tx to icu on bipap ROS: ROS unable to obtain Vital Signs: Vital Signs Vital Signs Date Time Temp Pulse Resp B/P (MAP) Pulse Ox O2 Delivery O2 Flow Rate FiO2 02/14/20 07:28 96 BiPAP/CPAP 02/14/20 07:00 96 22 112/61 (78) 02/14/20 05:45 98.7 98.7 02/13/20 20:00 2.0 Physical Exam: PHYSICAL EXAM GENERAL: Alert, oriented female, on bipap HEENT: Both pupils are round and reacting. No conjunctival lesion, NECK: Supple, no JVP, no lymphadenopathy. LUNGS: clear anteriorly HEART: S1, S2 regular. ABDOMEN: soft bs + nontender EXTREMITIES: trace edema, no cyanosis.Brace in the LLE SKIN: bruise on bue, NEUROLOGIC: No focal neurologic deficit. Medications: Inpatient Meds: Current Medications Medications (Trade) Dose Ordered Sig/Stan Start Time Stop Time Status Last Admin Dose Admin Acetaminophen (Tylenol) 650 mg PRN Q6HRS PRN 02/11/20 16:15 Acetaminophen/ Hydrocodone Bitart (Lortab 7.5/325) 2 tab PRN Q4HRS PRN 02/13/20 15:00 Albuterol/ Ipratropium (Duoneb) 3 ml Q4HRS 02/14/20 08:00 02/14/20 07:26 3 ML Allopurinol (Zyloprim) 300 mg DAILY 02/12/20 09:00 02/12/20 08:46 300 MG Aspirin (Aspirin Chewable) 81 mg DAILY 02/12/20 09:00 Aspirin (Ecotrin) 325 mg BID 02/13/20 21:00 Atorvastatin Calcium (Lipitor) 20 mg QHS 02/11/20 21:00 02/12/20 20:18 20 MG Bisacodyl (Dulcolax Supp) 10 mg 1X PRN PRN 02/14/20 16:00 02/15/20 15:59 Budesonide (Pulmicort) 0.5 mg BID 02/11/20 21:00 02/14/20 07:28 0.5 MG Bupivacaine HCl/ Epinephrine Bitart (Sensorcaine-Epi 0.25%-1:[id number] Mpf) 30 ml STK-MED ONCE 02/13/20 07:11 02/13/20 07:12 DC Calcium Carbonate/ Glycine (Tums) 500 mg PRN AFTMEALHC PRN 02/12/20 16:30 02/13/20 03:38 500 MG Ceftriaxone Sodium (Rocephin) 1 gm Q24H 02/13/20 08:00 02/13/20 11:07 DC 02/13/20 08:25 1 GM Clonazepam (KlonoPIN) 2 mg QHS 02/11/20 21:00 02/12/20 20:18 2 MG Dextrose (Dextrose 50%-Water Syringe) 12.5 gm PRN Q15MIN PRN 02/13/20 15:00 Ephedrine Sulfate (ePHEDrine PF IN SALINE SYRINGE) 50 mg STK-MED ONCE 02/13/20 15:14 02/13/20 15:14 DC Famotidine (Pepcid) 20 mg QHS 02/11/20 21:00 02/12/20 20:18 20 MG Fentanyl Citrate (Fentanyl 2ml Vial) 25 mcg PRN Q1HR PRN 02/13/20 15:00 Ferrous Sulfate (Feosol) 325 mg DAILYWBKFT 02/12/20 08:00 Hydromorphone HCl (Dilaudid) 0.5 mg PRN Q10MIN PRN 02/13/20 07:00 02/14/20 06:59 DC Insulin Glargine (Lantus Syringe) 30 unit QHS 02/11/20 21:00 02/12/20 20:23 30 UNIT Insulin Human Lispro (HumaLOG) 2 units BIDACLD 02/12/20 11:30 02/13/20 17:58 2 UNITS Levothyroxine Sodium (Synthroid) 100 mcg DAILY06 02/12/20 06:00 02/13/20 06:09 100 MCG Lidocaine HCl (Lidocaine Pf 2% Vial) 5 ml STK-MED ONCE 02/13/20 11:42 02/13/20 11:42 DC Lidocaine HCl (Xylocaine-Mpf 1% 2ml Vial) 2 ml PRN 1X PRN 02/13/20 07:00 02/14/20 06:59 DC Magnesium Hydroxide (Milk Of Magnesia) 2,400 mg 1X PRN PRN 02/14/20 06:00 02/15/20 05:59 Magnesium Oxide (Magnesium Oxide) 400 mg DAILY 02/12/20 09:00 02/12/20 08:46 400 MG Methylprednisolone Sodium Succinate (SOLU-Medrol 125MG VIAL) 125 mg 1X ONCE 02/14/20 05:30 02/14/20 05:31 DC 02/14/20 05:19 125 MG Midazolam HCl (Versed) 2 mg STK-MED ONCE 02/13/20 12:19 02/13/20 12:19 DC Mirtazapine (Remeron) 30 mg HS 02/11/20 21:00 02/12/20 20:18 30 MG Morphine Sulfate (Morphine Sulfate) 4 mg PRN Q2HR PRN 02/13/20 15:00 Non-Formulary Medication (Fluticasone/ Vilanterol (Breo Ellipta 100-25 Mcg Inh)) 1 puff DAILY 02/12/20 09:00 02/11/20 18:04 DC Non-Formulary Medication (Levomilnacipran Hydrochloride (Fetzima)) 80 mg DAILY 02/12/20 09:00 Non-Formulary Medication (Umeclidinium [place] (Incruse Ellipta)) 62.5 mcg DAILY 02/12/20 09:00 02/11/20 18:07 DC Ondansetron HCl (Zofran) 4 mg PRN Q4HRS PRN 02/13/20 15:00 Oxycodone HCl (Roxicodone) 5 mg PRN Q3HRS PRN 02/13/20 15:00 Oxycodone/ Acetaminophen (Percocet 5/325) 1 tab PRN Q4HRS PRN 02/13/20 15:00 Phenylephrine HCl (Flako-Synephrine Inj) 10 mg STK-MED ONCE 02/13/20 15:14 02/13/20 15:14 DC Phenylephrine HCl (PHENYLEPHRINE in 0.9% NACL PF) 1 mg STK-MED ONCE 02/13/20 15:13 02/13/20 15:14 DC Piperacillin Sod/ Tazobactam Sod 2.25 gm/Sodium Chloride 50 ml @ 100 mls/hr Q6HRS 02/13/20 12:00 02/14/20 06:15 100 MLS/HR Piperacillin Sod/ Tazobactam Sod 3.375 gm/Sodium Chloride 50 ml @ 100 mls/hr Q6HRS 02/13/20 12:00 Cancel Polyethylene Glycol (miraLAX PACKET) 17 gm PRN DAILY PRN 02/13/20 15:00 Prochlorperazine Edisylate (Compazine) 5 mg PACU PRN PRN 02/13/20 07:00 02/14/20 06:59 DC Propofol (Diprivan) 200 mg STK-MED ONCE 02/13/20 11:42 02/13/20 11:42 DC Ringer's Solution 1,000 ml @ 30 mls/hr Q24H 02/13/20 07:00 02/13/20 19:00 DC Ropivacaine 53.3 ml/Epinephrine HCl 0.6 mg/ Morphine Sulfate 5 mg/Sodium Chloride 100 ml @ 100 mls/hr 1X ONCE 02/13/20 06:00 02/13/20 06:59 DC 02/13/20 13:35 Senna/Docusate Sodium (Senna Plus) 1 tab DAILY 02/14/20 09:00 Sodium Chloride 1,000 ml @ 75 mls/hr [id number] 02/13/20 14:46 02/14/20 04:26 DC Tramadol HCl (Ultram) 50 mg PRN DAILY PRN 02/11/20 17:30 02/12/20 21:22 50 MG Verapamil HCl (Calan Sr) 120 mg DAILY 02/12/20 09:00 Vitamin D (Vitamin D3) 1,000 unit DAILY 02/14/20 09:00 Labs: Lab Laboratory Tests Test 02/13/20 10:58 02/13/20 11:35 02/13/20 15:09 02/13/20 16:50 Glucose (Fingerstick) 159 mg/dL (70-99) 173 mg/dL (70-99) 230 mg/dL (70-99) Lactic Acid Level 1.0 mmol/L (0.4-2.0) Test 02/13/20 21:00 02/13/20 21:11 02/13/20 21:20 02/14/20 03:00 Glucose (Fingerstick) 190 mg/dL (70-99) O2 Saturation 98 % (92-99) Arterial Blood pH 7.19 (7.35-7.45) Arterial Blood pCO2 at Patient Temp 81 mmHg (35-46) Arterial Blood pO2 at Patient Temp 206 mmHg (65-108) Arterial Blood HCO3 30 mmol/L (21-28) Arterial Blood Base Excess 1 mmol/L (-3-3) FiO2 100 White Blood Count 21.1 x10^3/uL (4.0-11.0) 19.9 x10^3/uL (4.0-11.0) Red Blood Count 2.94 x10^6/uL (3.50-5.40) 2.78 x10^6/uL (3.50-5.40) Hemoglobin 8.5 g/dL (12.0-15.5) 8.2 g/dL (12.0-15.5) Hematocrit 26.5 % (36.0-47.0) 24.8 % (36.0-47.0) Mean Corpuscular Volume 90 fL (79-100) 89 fL (79-100) Mean Corpuscular Hemoglobin 29 pg (25-35) 29 pg (25-35) Mean Corpuscular Hemoglobin Concent 32 g/dL (31-37) 33 g/dL (31-37) Red Cell Distribution Width 17.0 % (11.5-14.5) 17.1 % (11.5-14.5) Platelet Count 209 x10^3/uL (140-400) 216 x10^3/uL (140-400) Neutrophils (%) (Auto) 89 % (31-73) 89 % (31-73) Lymphocytes (%) (Auto) 4 % (24-48) 3 % (24-48) Monocytes (%) (Auto) 7 % (0-9) 7 % (0-9) Eosinophils (%) (Auto) 0 % (0-3) 0 % (0-3) Basophils (%) (Auto) 1 % (0-3) 0 % (0-3) Neutrophils # (Auto) 18.7 x10^3/uL (1.8-7.7) 17.7 x10^3/uL (1.8-7.7) Lymphocytes # (Auto) 0.7 x10^3/uL (1.0-4.8) 0.7 x10^3/uL (1.0-4.8) Monocytes # (Auto) 1.5 x10^3/uL (0.0-1.1) 1.5 x10^3/uL (0.0-1.1) Eosinophils # (Auto) 0.0 x10^3/uL (0.0-0.7) 0.0 x10^3/uL (0.0-0.7) Basophils # (Auto) 0.1 x10^3/uL (0.0-0.2) 0.1 x10^3/uL (0.0-0.2) Sodium Level 137 mmol/L (136-145) Potassium Level 5.1 mmol/L (3.5-5.1) Chloride Level 102 mmol/L (98-107) Carbon Dioxide Level 30 mmol/L (21-32) Anion Gap 5 (6-14) Blood Urea Nitrogen 47 mg/dL (7-20) Creatinine 2.8 mg/dL (0.6-1.0) Estimated GFR (Cockcroft-Gault) 16.5 BUN/Creatinine Ratio 17 (6-20) Glucose Level 228 mg/dL (70-99) Calcium Level 9.3 mg/dL (8.5-10.1) Total Bilirubin 0.6 mg/dL (0.2-1.0) Aspartate Amino Transf (AST/SGOT) 68 U/L (15-37) Alanine Aminotransferase (ALT/SGPT) 83 U/L (14-59) Alkaline Phosphatase 109 U/L (46-116) JA-Dxh-T-Type Natriuretic Peptide 8387 pg/mL (0-124) Total Protein 5.6 g/dL (6.4-8.2) Albumin 2.4 g/dL (3.4-5.0) Albumin/Globulin Ratio 0.8 (1.0-1.7) Test 02/14/20 05:00 O2 Saturation 94 % (92-99) Arterial Blood pH 7.23 (7.35-7.45) Arterial Blood pCO2 at Patient Temp 71 mmHg (35-46) Arterial Blood pO2 at Patient Temp 85 mmHg (65-108) Arterial Blood HCO3 29 mmol/L (21-28) Arterial Blood Base Excess 1 mmol/L (-3-3) FiO2 35 Objective: Assessment: 1. Leukocytosis, most likely to be reactive secondary to the fracture. There is no evidence for infection other than abnormal urinalysis, although asymptomatic. 2. Status post fall with Displaced supracondylar fracture without intracondylar extension of lower end of left femur, initial encounter for closed fracture S72.452A and Periprosthetic fracture around internal prosthetic left knee joint, initial M97.12XA February 13 2020 S/P Left femur open treatment of femoral supracondylar or transcondylar fracture without intercondylar extension, includes internal fixation 3. History of monoclonal gammopathy of undetermined significance. 4. History of breast cancer. 5. Coronary artery disease. 6. Renal insufficiency. 7. Obesity. Plan: Plan of Care cont zosyn on erythromycin for gastric motility f/u labs and cults cont supportive care D/W D/W ASHELY PEÑA MD Feb 14, 2020 08:19
[2020-02-14 08:45] LABS: BASE EXCESS ABG 0 mmol/L (-3-3); HCO3 ABG 27 mmol/L (21-28); PO2 ABG 67 mmHg (65-108); SAT O2 ABG 91 % (92-99)
[2020-02-14 08:53] LABS: PCO2 ABG 62 mmHg (35-46)
[2020-02-14] MEDS: LEVOMILNACIPRAN 80 MG PO SCH (09:00)
[2020-02-14] MEDS: MAGNESIUM OXIDE 400 MG TABLET PO SCH (09:00)
[2020-02-14 09:07] LABS: FIO2 ABG 30%
[2020-02-14] MEDS: ALLOPURINOL 300 MG TABLET. PO SCH (09:09)
[2020-02-14] MEDS: SENNOSIDES/DOCUSATE 8.6/50MG TABLET. PO SCH (09:09)
[2020-02-14] MEDS: ASPIRIN ENTERIC COATED 325 MG TABLET.DR. PO SCH ×2 (09:09→20:39)
[2020-02-14] MEDS: FERROUS SULFATE 325 MG TABLET. PO SCH (09:09)
[2020-02-14] MEDS: CHOLECALCIFEROL (VITAMIN D3) 1,000 UNIT TABLET PO SCH (09:09)
--- NOTE | 2020-02-14 09:21 | PDOC ---
MATILDE STEPHENS LOAN REVIEWER 02/14/20 0921: CARDIO Progress Notes Date and Time Date of Service 02/14/20 Time of Evaluation 1045 Subjective Subjective: No Chest Pain, No Palpitations, No Dizziness, Other (on BiPAP) Comments: transferred to ICU overnight due to hypoxia. Vitals Vitals Vital Signs Date Time Temp Pulse Resp B/P (MAP) Pulse Ox O2 Delivery O2 Flow Rate FiO2 02/14/20 07:28 96 BiPAP/CPAP 02/14/20 07:00 96 22 112/61 (78) 02/14/20 05:45 98.7 98.7 02/13/20 20:00 2.0 Weight Weight [ ] Input and Output Intake and Output Intake and Output 02/14/20 06:59 Intake Total 225 ml Output Total 1825 ml Balance -1600 ml Intake Oral 125 ml IV Total 100 ml Output Urine Total 1625 ml Estimated Blood Loss 200 ml # Voids 2 Laboratory Labs Laboratory Tests Test 02/13/20 10:58 02/13/20 11:35 02/13/20 15:09 02/13/20 16:50 Glucose (Fingerstick) 159 mg/dL (70-99) 173 mg/dL (70-99) 230 mg/dL (70-99) Lactic Acid Level 1.0 mmol/L (0.4-2.0) Test 02/13/20 21:00 02/13/20 21:11 02/13/20 21:20 02/14/20 03:00 Glucose (Fingerstick) 190 mg/dL (70-99) O2 Saturation 98 % (92-99) Arterial Blood pH 7.19 (7.35-7.45) Arterial Blood pCO2 at Patient Temp 81 mmHg (35-46) Arterial Blood pO2 at Patient Temp 206 mmHg (65-108) Arterial Blood HCO3 30 mmol/L (21-28) Arterial Blood Base Excess 1 mmol/L (-3-3) FiO2 100 White Blood Count 21.1 x10^3/uL (4.0-11.0) 19.9 x10^3/uL (4.0-11.0) Red Blood Count 2.94 x10^6/uL (3.50-5.40) 2.78 x10^6/uL (3.50-5.40) Hemoglobin 8.5 g/dL (12.0-15.5) 8.2 g/dL (12.0-15.5) Hematocrit 26.5 % (36.0-47.0) 24.8 % (36.0-47.0) Mean Corpuscular Volume 90 fL (79-100) 89 fL (79-100) Mean Corpuscular Hemoglobin 29 pg (25-35) 29 pg (25-35) Mean Corpuscular Hemoglobin Concent 32 g/dL (31-37) 33 g/dL (31-37) Red Cell Distribution Width 17.0 % (11.5-14.5) 17.1 % (11.5-14.5) Platelet Count 209 x10^3/uL (140-400) 216 x10^3/uL (140-400) Neutrophils (%) (Auto) 89 % (31-73) 89 % (31-73) Lymphocytes (%) (Auto) 4 % (24-48) 3 % (24-48) Monocytes (%) (Auto) 7 % (0-9) 7 % (0-9) Eosinophils (%) (Auto) 0 % (0-3) 0 % (0-3) Basophils (%) (Auto) 1 % (0-3) 0 % (0-3) Neutrophils # (Auto) 18.7 x10^3/uL (1.8-7.7) 17.7 x10^3/uL (1.8-7.7) Lymphocytes # (Auto) 0.7 x10^3/uL (1.0-4.8) 0.7 x10^3/uL (1.0-4.8) Monocytes # (Auto) 1.5 x10^3/uL (0.0-1.1) 1.5 x10^3/uL (0.0-1.1) Eosinophils # (Auto) 0.0 x10^3/uL (0.0-0.7) 0.0 x10^3/uL (0.0-0.7) Basophils # (Auto) 0.1 x10^3/uL (0.0-0.2) 0.1 x10^3/uL (0.0-0.2) Sodium Level 137 mmol/L (136-145) Potassium Level 5.1 mmol/L (3.5-5.1) Chloride Level 102 mmol/L (98-107) Carbon Dioxide Level 30 mmol/L (21-32) Anion Gap 5 (6-14) Blood Urea Nitrogen 47 mg/dL (7-20) Creatinine 2.8 mg/dL (0.6-1.0) Estimated GFR (Cockcroft-Gault) 16.5 BUN/Creatinine Ratio 17 (6-20) Glucose Level 228 mg/dL (70-99) Calcium Level 9.3 mg/dL (8.5-10.1) Total Bilirubin 0.6 mg/dL (0.2-1.0) Aspartate Amino Transf (AST/SGOT) 68 U/L (15-37) Alanine Aminotransferase (ALT/SGPT) 83 U/L (14-59) Alkaline Phosphatase 109 U/L (46-116) RU-Vkb-P-Type Natriuretic Peptide 8387 pg/mL (0-124) Total Protein 5.6 g/dL (6.4-8.2) Albumin 2.4 g/dL (3.4-5.0) Albumin/Globulin Ratio 0.8 (1.0-1.7) Test 02/14/20 05:00 02/14/20 08:40 O2 Saturation 94 % (92-99) 91 % (92-99) Arterial Blood pH 7.23 (7.35-7.45) 7.26 (7.35-7.45) Arterial Blood pCO2 at Patient Temp 71 mmHg (35-46) 62 mmHg (35-46) Arterial Blood pO2 at Patient Temp 85 mmHg (65-108) 67 mmHg (65-108) Arterial Blood HCO3 29 mmol/L (21-28) 27 mmol/L (21-28) Arterial Blood Base Excess 1 mmol/L (-3-3) 0 mmol/L (-3-3) FiO2 35 30% Physical Exam HEENT: Neck Supple W Full Motion Chest: Symmetric LUNGS: Clear to Auscultation, Other (on BiPAP) Abdomen: Soft N/T Extremities: Other (trace bilateral LE edema ) Neurology: alert, follow commands Assessment Assessment 1. Mechanical fall with left distal femoral fracture s/p surgical repair. POD#1 2. CAD; distal LAD & a distal diag occlusion, treated medically. Follows with Dr. Shana AMBROCIO. 3. Hypertension; controlled 4. Hyperlipidemia; statin 5. COPD; on BiPAP. Pulm consulted 6. OLU on CKD; 7. Leukocytosis 8. Diabetes, II 9. H/o Takotsubo cardiomyopathy with LV recovery. Echo with preserved LV systolic function 10. H/o syncope with ILR; device checks did not revealed any contributing arrhythmias. 11. HOCM; echo with moderate LVH Recommendations Continue secondary prevention measures Lung optimization as per pulmonary Avoid nephrotoxins Supportive care from a CV standpoint Justicifation of Admission Dx: Justifications for Admission: Justification of Admission Dx: Yes HARSHAL HENDRIX MD 02/14/20 1654: CARDIO Progress Notes Assessment Assessment Patient seen and examined I agree with our nurse practitioners assessment and plan. Mechanical fall with left distal femoral fracture s/p surgical repair. POD#1 CAD; distal LAD & a distal diag occlusion, treated medically. Follows with Dr. Shana AMBROCIO. COPD; on BiPAP. Pulm consulted. Still short of breath today but improved. OLU on CKD; renal following H/o Takotsubo cardiomyopathy with LV recovery. Echo with preserved LV systolic function MATILDE STEPHENS APRN Feb 14, 2020 09:21 HARSHAL HENDRIX MD Feb 14, 2020 16:54
--- NOTE | 2020-02-14 09:38 | PDOC2 ---
CONSULT Date of Consult Date of Consult DATE: 02/14/20 TIME: 09:36 Reason for Consult Reason for Consult: Recent fracture, history of MGUS Referring Physician Referring Physician: Dr. Sanchez Identification/Chief Complaint Chief Complaint Fracture Problems: (1) Monoclonal gammopathy of unknown significance (MGUS) (2) History of breast cancer Source Source: Chart review, Patient History of Present Illness Reason for Visit: Guillermina Mckeon is a 74-year-old female who has been admitted to the hospital for further evaluation and management of a left femur fracture. She does have a complex medical history of CAD status post cardiac catheterization, diabetes type 2, hypertension, COPD chronically on 2 liters of 02, hypercholesterolemia, chronic renal disease stage 4, prior tobacco use, hypothyroidism, breast cancer status post left mastectomy, , hysterectomy, knee replacements bilaterally, tonsillectomy, and carpal tunnel surgery. She reports that she tripped over a wire and fell and subsequently experienced severe left leg pain. She presented to [facility]. She was found to have a distal femur fracture and was therefore transferred to [facility] for surgical management. Patient reports that she has followed with Dr. Wan for her history of breast cancer in the 90s and monoclonal gammopathy of unknown significance. At her last visit with Dr. Wan she reports that she was told that there was no evidence of disease recurrence for breast cancer and no therapy would be needed at this time for MGUS. She is currently postop day 1 after surgical fixation of femur fracture. She was transferred to the intensive care unit following her surgery due to acute hypoxic respiratory failure and is currently on BiPAP. We have been consulted for her history of MGUS and breast cancer given recent fracture. Past Medical History Cardiovascular: CAD, HTN, Hyperlipidemia Pulmonary: COPD GI: Constipation, GERD Heme/Onc: Anemia NOS Renal/: Chronic renal insuff Endocrine: Diabetes Past Surgical History Past Surgical History: , Mastectomy, Total knee replacement, Tonsillectomy, Other (Mastectomy) Family History Family History: Hypertension Social History Quit ALCOHOL: none Drugs: None Lives: with Family Current Medications Current Medications Current Medications Morphine Sulfate (Morphine Sulfate) 2 mg PRN Q2HR PRN IV MODERATE PAIN Last administered on 02/13/20at 11:50; Start 02/11/20 at 16:15 Acetaminophen (Tylenol) 650 mg PRN Q6HRS PRN PEG TEMP > 100.3'F; Start 02/11/20 at 16:15 Morphine Sulfate (Morphine Sulfate) 4 mg PRN Q4HRS PRN IV SEVERE PAIN Last administered on 02/12/20at 08:54; Start 02/11/20 at 17:30 Insulin Human Lispro (HumaLOG) 0-5 UNITS TIDWMEALS SQ Last administered on 02/13/20at 17:59; Start 02/11/20 at 18:00 Dextrose (Dextrose 50%-Water Syringe) 12.5 gm PRN Q15MIN PRN IV SEE COMMENTS; Start 02/11/20 at 17:30 Sodium Chloride 1,000 ml @ 75 mls/hr [id number] IV Last administered on 02/13/20at 10:59; Start 02/12/20 at 07:00; Stop 02/14/20 at 04:26; Status DC Allopurinol (Zyloprim) 300 mg DAILY PO Last administered on 02/14/20at 09:09; Start 02/12/20 at 09:00 Aspirin (Aspirin Chewable) 81 mg DAILY PO ; Start 02/12/20 at 09:00 Atorvastatin Calcium (Lipitor) 20 mg QHS PO Last administered on 02/12/20 20:18; Start 02/11/20 at 21:00 Levothyroxine Sodium (Synthroid) 100 mcg DAILY06 PO Last administered on 02/13/20at 06:09; Start 02/12/20 at 06:00 Mirtazapine (Remeron) 30 mg HS PO Last administered on 02/12/20at 20:18; Start 02/11/20 at 21:00 Tramadol HCl (Ultram) 50 mg PRN DAILY PRN PO MILD PAIN 1-3 Last administered on 02/12/20at 21:22; Start 02/11/20 at 17:30 Clonazepam (KlonoPIN) 2 mg QHS PO Last administered on 02/12/20 20:18; Start 02/11/20 at 21:00 Ferrous Sulfate (Feosol) 325 mg DAILYWBKFT PO Last administered on 02/14/20at 09:09; Start 02/12/20 at 08:00 Non-Formulary Medication (Fluticasone/ Vilanterol (Breo Ellipta 100-25 Mcg Inh)) 1 puff DAILY IH ; Start 02/12/20 at 09:00; Stop 02/11/20 at 18:04; Status DC Insulin Human Lispro (HumaLOG) 2 units BIDACLD SQ Last administered on 02/13/20at 17:58; Start 02/12/20 at 11:30 Insulin Glargine (Lantus Syringe) 30 unit QHS SQ Last administered on 02/12/20at 20:23; Start 02/11/20 at 21:00 Non-Formulary Medication (Levomilnacipran Hydrochloride (Fetzima)) 80 mg DAILY PO Last administered on 02/14/20at 09:00; Start 02/12/20 at 09:00 Magnesium Oxide (Magnesium Oxide) 400 mg DAILY PO Last administered on 02/14/20at 09:00; Start 02/12/20 at 09:00 Famotidine (Pepcid) 20 mg QHS PO Last administered on 02/12/20at 20:18; Start 02/11/20 at 21:00 Non-Formulary Medication (Umeclidinium [place] (Incruse Ellipta)) 62.5 mcg DAILY IH ; Start 02/12/20 at 09:00; Stop 02/11/20 at 18:07; Status DC Verapamil HCl (Calan Sr) 120 mg DAILY PO ; Start 02/12/20 at 09:00 Oxycodone/ Acetaminophen (Percocet 5/325) 1 tab PRN Q4HRS PRN PO MODERATE PAIN; Start 02/11/20 at 18:00 Oxycodone/ Acetaminophen (Percocet 5/325) 2 tab PRN Q4HRS PRN PO SEVERE PAIN Last administered on 02/13/20at 03:37; Start 02/11/20 at 18:00 Albuterol/ Ipratropium (Duoneb) 3 ml QID NEB Last administered on 02/13/20at 19:31; Start 02/11/20 at 20:00; Stop 02/13/20 at 21:51; Status DC Budesonide (Pulmicort) 0.5 mg BID NEB Last administered on 02/14/20at 07:28; Start 02/11/20 at 21:00 Calcium Carbonate/ Glycine (Tums) 500 mg PRN AFTMEALHC PRN PO INDIGESTION Last administered on 02/13/20at 03:38; Start 02/12/20 at 16:30 Ropivacaine 53.3 ml/Epinephrine HCl 0.6 mg/ Morphine Sulfate 5 mg/Sodium Chloride 100 ml @ 100 mls/hr 1X ONCE INT ART Last administered on 02/13/20at 13:35; Start 02/13/20 at 06:00; Stop 02/13/20 at 06:59; Status DC Ondansetron HCl (Zofran) 4 mg PRN Q6HRS PRN IV NAUSEA/VOMITING Last administered on 02/13/20at 08:26; Start 02/13/20 at 07:00; Stop 02/14/20 at 06 :59; Status DC Fentanyl Citrate (Fentanyl 2ml Vial) 25 mcg PRN Q5MIN PRN IV MILD PAIN 1-3; Start 02/13/20 at 07:00; Stop 02/14/20 at 06:59; Status DC Fentanyl Citrate (Fentanyl 2ml Vial) 50 mcg PRN Q5MIN PRN IV MODERATE TO SEVERE PAIN; Start 02/13/20 at 07:00; Stop 02/14/20 at 06:59; Status DC Morphine Sulfate (Morphine Sulfate) 1 mg PRN Q10MIN PRN IV SEVERE PAIN 7-10; Start 02/13/20 at 07:00; Stop 02/14/20 at 06:59; Status DC Ringer's Solution 1,000 ml @ 30 mls/hr Q24H IV ; Start 02/13/20 at 07:00; Stop 02/13/20 at 19:00; Status DC Lidocaine HCl (Xylocaine-Mpf 1% 2ml Vial) 2 ml PRN 1X PRN ID PRIOR TO IV START; Start 02/13/20 at 07:00; Stop 02/14/20 at 06:59; Status DC Hydromorphone HCl (Dilaudid) 0.5 mg PRN Q10MIN PRN IV SEV PAIN, Second choice; Start 02/13/20 at 07:00; Stop 02/14/20 at 06:59; Status DC Prochlorperazine Edisylate (Compazine) 5 mg PACU PRN PRN IV NAUSEA, MRX1; Start 02/13/20 at 07:00; Stop 02/14/20 at 06:59; Status DC Bupivacaine HCl/ Epinephrine Bitart (Sensorcaine-Epi 0.25%-1:[id number] Mpf) 30 ml STK-MED ONCE .ROUTE ; Start 02/13/20 at 07:11; Stop 02/13/20 at 07:12; Status DC Ceftriaxone Sodium (Rocephin) 1 gm Q24H IVP Last administered on 02/13/20at 08:25; Start 02/13/20 at 08:00; Stop 02/13/20 at 11:07; Status DC Piperacillin Sod/ Tazobactam Sod 3.375 gm/Sodium Chloride 50 ml @ 100 mls/hr Q6HRS IV ; Start 02/13/20 at 12:00; Status Cancel Piperacillin Sod/ Tazobactam Sod 2.25 gm/Sodium Chloride 50 ml @ 100 mls/hr Q6HRS IV Last administered on 02/14/20at 06:15; Start 02/13/20 at 12:00 Propofol (Diprivan) 200 mg STK-MED ONCE IV ; Start 02/13/20 at 11:42; Stop 02/13/20 at 11:42; Status DC Lidocaine HCl (Lidocaine Pf 2% Vial) 5 ml STK-MED ONCE .ROUTE ; Start 02/13/20 at 11:42; Stop 02/13/20 at 11:42; Status DC Midazolam HCl (Versed) 2 mg STK-MED ONCE .ROUTE ; Start 02/13/20 at 12:19; Stop 02/13/20 at 12:19; Status DC Oxycodone HCl (Roxicodone) 5 mg PRN Q3HRS PRN PO PAIN; Start 02/13/20 at 15:00 Morphine Sulfate (Morphine Sulfate) 2 mg PRN Q1HR PRN IVP PAIN; Start 02/13/20 at 15:00 Fentanyl Citrate (Fentanyl 2ml Vial) 25 mcg PRN Q1HR PRN IVP PAIN; Start 02/13/20 at 15:00 Senna/Docusate Sodium (Senna Plus) 1 tab DAILY PO Last administered on 02/14/20at 09:09; Start 02/14/20 at 09:00 Polyethylene Glycol (miraLAX PACKET) 17 gm PRN DAILY PRN PO CONSTIPATION; Start 02/13/20 at 15:00 Vitamin D (Vitamin D3) 1,000 unit DAILY PO Last administered on 02/14/20at 09:09; Start 02/14/20 at 09:00 Sodium Chloride 1,000 ml @ 75 mls/hr [id number] IV ; Start 02/13/20 at 14:46; Stop 02/14/20 at 04:26; Status DC Ondansetron HCl (Zofran) 4 mg PRN Q4HRS PRN IVP NAUSEA/VOMITING; Start 02/13/20 at 15:00 Magnesium Hydroxide (Milk Of Magnesia) 2,400 mg 1X PRN PRN PO CONSTIPATION; Start 02/14/20 at 06:00; Stop 02/15/20 at 05:59 Bisacodyl (Dulcolax Supp) 10 mg 1X PRN PRN IA CONSTIPATION; Start 02/14/20 at 16:00; Stop 02/15/20 at 15:59 Acetaminophen/ Hydrocodone Bitart (Lortab 7.5/325) 1 tab PRN Q4HRS PRN PO PAIN; Start 02/13/20 at 15:00 Morphine Sulfate (Morphine Sulfate) 4 mg PRN Q2HR PRN IVP PAIN; Start 02/13/20 at 15:00 Acetaminophen/ Hydrocodone Bitart (Lortab 7.5/325) 2 tab PRN Q4HRS PRN PO PAIN; Start 02/13/20 at 15:00 Dextrose (Dextrose 50%-Water Syringe) 12.5 gm PRN Q15MIN PRN IV SEE COMMENTS; Start 02/13/20 at 15:00 Aspirin (Ecotrin) 325 mg BID PO Last administered on 02/14/20at 09:09; Start 02/13/20 at 21:00 Oxycodone/ Acetaminophen (Percocet 5/325) 1 tab PRN Q4HRS PRN PO MODERATE PAIN; Start 02/13/20 at 15:00 Phenylephrine HCl (PHENYLEPHRINE in 0.9% NACL PF) 1 mg STK-MED ONCE IV ; Start 02/13/20 at 15:13; Stop 02/13/20 at 15:14; Status DC Ephedrine Sulfate (ePHEDrine PF IN SALINE SYRINGE) 50 mg STK-MED ONCE IV ; St art 02/13/20 at 15:14; Stop 02/13/20 at 15:14; Status DC Phenylephrine HCl (Flako-Synephrine Inj) 10 mg STK-MED ONCE .ROUTE ; Start 02/13/20 at 15:14; Stop 02/13/20 at 15:14; Status DC Albuterol/ Ipratropium (Duoneb) 3 ml 1X ONCE NEB Last administered on 02/13/20at 22:00; Start 02/13/20 at 22:00; Stop 02/13/20 at 22:01; Status DC Albuterol/ Ipratropium (Duoneb) 3 ml RTQID NEB ; Start 02/14/20 at 08:00; Stop 02/14/20 at 06:02; Status DC Methylprednisolone Sodium Succinate (SOLU-Medrol 125MG VIAL) 125 mg 1X ONCE IV Last administered on 02/14/20at 05:19; Start 02/14/20 at 05:30; Stop 02/14/20 at 05:31; Status DC Albuterol/ Ipratropium (Duoneb) 3 ml Q4HRS NEB Last administered on 02/14/20at 07:26; Start 02/14/20 at 08:00 Active Scripts Active Reported Omeprazole 20 Mg Capsule.dr 1 Cap PO DAILY Lasix (Furosemide) 40 Mg Tablet 1 Tab PO DAILY 30 Days Iron (Ferrous Gluconate) 236 Mg Tablet 65 Mg PO DAILY Biotin 1 Mg Capsule 1 Cap PO DAILY 30 Days [B 6] 1 Tab PO DAILY Levothyroxine Sodium 100 Mcg Tablet 1 Tab PO DAILY Levemir (Insulin Detemir) 100 Unit/1 Ml Vial 30 Unit SQ HS Ranitidine Hcl 150 Mg Capsule 1 Cap PO BID Verapamil Er (Verapamil Hcl) 240 Mg Cap24h.pel 120 Mg PO DAILY Magnesium (Magnesium Oxide) 400 Mg Capsule 1 Cap PO DAILY 30 Days Fetzima (Levomilnacipran Hydrochloride) 80 Mg Cap.sa.24h 80 Mg PO DAILY Tramadol Hcl 50 Mg Tablet 50 Mg PO DAILY PRN Novolog (Insulin Aspart) 100 Unit/1 Ml Cartridge 2 Unit SQ BIDACLD Allopurinol 300 Mg Tablet 1 Tab PO DAILY Potassium Citrate 10 Meq Tablet.er 1 Tab PO BID Incruse Ellipta (Umeclidinium [place]) 62.5 Mcg Blst.w.dev 62.5 Mcg IH DAILY Breo Ellipta 100-25 Mcg Inh (Fluticasone/Vilanterol) 1 Each Aer.pow.ba 1 Puff IH DAILY Klonopin (Clonazepam) 2 Mg Tablet 2 Mg PO HS Mirtazapine 15 Mg Tablet 30 Mg PO HS Erythromycin (Erythromycin Base) 250 Mg Capsule.dr 250 Mg PO BID Diphenoxylate-Atropine Tablet (Diphenoxylate Hcl/Atropine) 1 Each Tablet 1 Each PO DAILY PRN Cyanocobalamin Injection (Cyanocobalamin (Vitamin B-12)) 1,000 Mcg/1 Ml Vial 1,000 Mcg IJ QMONTH Vitamin D-3 (Cholecalciferol (Vitamin D3)) 2,000 Unit Capsule 2,000 Unit PO DAILY Atorvastatin Calcium 20 Mg Tablet 20 Mg PO DAILY Aspirin 81 Mg Tab.chew 81 Mg PO DAILY Allergies Allergies: Coded Allergies: Sulfa (Sulfonamide Antibiotics) (Verified Allergy, Intermediate, Hives, 05/21/19) ciprofloxacin (Unverified Allergy, Intermediate, 05/21/19) diclofenac (Verified Allergy, Intermediate, Hives, 05/21/19) hydrochlorothiazide (Verified Allergy, Intermediate, Rash, 05/21/19) lactose (Verified Allergy, Intermediate, 05/21/19) misoprostol (Verified Allergy, Intermediate, Hives, 05/21/19) sulfamethoxazole (Verified Allergy, Intermediate, 05/21/19) trimethoprim (Verified Allergy, Intermediate, 05/21/19) codeine (Verified Adverse Reaction, Intermediate, Nausea and Vomiting, 05/21/19) ROS Review of System Review of systems is limited due to the patient's inability to participate secondary to use of BiPAP General: No: Chills, Night Sweats, Fatigue Hematological and Lymphatic: No: Night Sweats, Swollen Lymph Nodes Breast: No New/Changing Breast Lumps, No Nipple discharge Respiratory: No: Cough, Pleuritic Pain Genitourinary: No Dysuria, No Flank Pain Neurological: No Seizures Skin: No Rash Physical Exam General: Alert, Oriented X3, Other (Wearing BiPAP) HEENT: Atraumatic Lungs: Clear to auscultation Heart: Regular rate, No murmurs Abdomen: Normal bowel sounds, Soft Extremities: No edema Skin: No rashes Psych/Mental Status: Mental status NL MUSCULOSKELETAL: No joint tenderness Vitals VITALS Vital Signs Date Time Temp Pulse Resp B/P (MAP) Pulse Ox O2 Delivery O2 Flow Rate FiO2 02/14/20 08:00 Bi-pap 02/14/20 07:28 96 02/14/20 07:00 96 22 112/61 (78) 02/14/20 05:45 98.7 98.7 02/13/20 20:00 2.0 Labs Labs Laboratory Tests Test 02/12/20 11:55 02/12/20 12:06 02/12/20 17:16 02/12/20 20:15 Glucose (Fingerstick) 175 mg/dL (70-99) 168 mg/dL (70-99) 161 mg/dL (70-99) 169 mg/dL (70-99) Test 02/13/20 03:00 02/13/20 03:30 02/13/20 07:45 02/13/20 10:58 White Blood Count 20.7 x10^3/uL (4.0-11.0) Red Blood Count 3.69 x10^6/uL (3.50-5.40) Hemoglobin 10.5 g/dL (12.0-15.5) Hematocrit 33.5 % (36.0-47.0) Mean Corpuscular Volume 91 fL (79-100) Mean Corpuscular Hemoglobin 29 pg (25-35) Mean Corpuscular Hemoglobin Concent 32 g/dL (31-37) Red Cell Distribution Width 17.5 % (11.5-14.5) Platelet Count 245 x10^3/uL (140-400) Neutrophils (%) (Auto) 88 % (31-73) Lymphocytes (%) (Auto) 4 % (24-48) Monocytes (%) (Auto) 7 % (0-9) Eosinophils (%) (Auto) 1 % (0-3) Basophils (%) (Auto) 1 % (0-3) Neutrophils # (Auto) 18.1 x10^3/uL (1.8-7.7) Lymphocytes # (Auto) 0.8 x10^3/uL (1.0-4.8) Monocytes # (Auto) 1.4 x10^3/uL (0.0-1.1) Eosinophils # (Auto) 0.2 x10^3/uL (0.0-0.7) Basophils # (Auto) 0.2 x10^3/uL (0.0-0.2) Segmented Neutrophils % 90 % (35-66) Band Neutrophils % 7 % (0-9) Lymphocytes % 3 % (24-48) Platelet Estimate Adequate (ADEQUATE) Macrocytosis Slight Sodium Level 138 mmol/L (136-145) Potassium Level 4.3 mmol/L (3.5-5.1) Chloride Level 99 mmol/L (98-107) Carbon Dioxide Level 33 mmol/L (21-32) Anion Gap 6 (6-14) Blood Urea Nitrogen 39 mg/dL (7-20) Creatinine 2.1 mg/dL (0.6-1.0) Estimated GFR (Cockcroft-Gault) 23.0 BUN/Creatinine Ratio 19 (6-20) Glucose Level 197 mg/dL (70-99) Hemoglobin A1c 6.6 % (4.8-5.6) Calcium Level 9.1 mg/dL (8.5-10.1) Total Bilirubin 0.8 mg/dL (0.2-1.0) Aspartate Amino Transf (AST/SGOT) 38 U/L (15-37) Alanine Aminotransferase (ALT/SGPT) 64 U/L (14-59) Alkaline Phosphatase 123 U/L (46-116) Total Protein 6.3 g/dL (6.4-8.2) Albumin 2.9 g/dL (3.4-5.0) Albumin/Globulin Ratio 0.9 (1.0-1.7) Urine Collection Type Unknown Urine Color Yellow Urine Clarity Cloudy Urine pH 5.5 (<5.0-8.0) Urine Specific [place] 1.015 (1.000-1.030) Urine Protein Negative mg/dL (NEG-TRACE) Urine Glucose (UA) Negative mg/dL (NEG) Urine Ketones (Stick) Negative mg/dL (NEG) Urine Blood Large (NEG) Urine Nitrite Negative (NEG) Urine Bilirubin Negative (NEG) Urine Urobilinogen Dipstick 0.2 mg/dL (0.2 mg/dL) Urine Leukocyte Esterase Moderate (NEG) Urine RBC Tntc /HPF (0-2) Urine WBC >40 /HPF (0-4) Urine Squamous Epithelial Cells Few /LPF Urine Bacteria Moderate /HPF (0-FEW) Glucose (Fingerstick) 163 mg/dL (70-99) 159 mg/dL (70-99) Test 02/13/20 11:35 02/13/20 15:09 02/13/20 16:50 02/13/20 21:00 Lactic Acid Level 1.0 mmol/L (0.4-2.0) Glucose (Fingerstick) 173 mg/dL (70-99) 230 mg/dL (70-99) 190 mg/dL (70-99) Test 02/13/20 21:11 02/13/20 21:20 02/14/20 03:00 02/14/20 05:00 O2 Saturation 98 % (92-99) 94 % (92-99) Arterial Blood pH 7.19 (7.35-7.45) 7.23 (7.35-7.45) Arterial Blood pCO2 at Patient Temp 81 mmHg (35-46) 71 mmHg (35-46) Arterial Blood pO2 at Patient Temp 206 mmHg (65-108) 85 mmHg (65-108) Arterial Blood HCO3 30 mmol/L (21-28) 29 mmol/L (21-28) Arterial Blood Base Excess 1 mmol/L (-3-3) 1 mmol/L (-3-3) FiO2 100 35 White Blood Count 21.1 x10^3/uL (4.0-11.0) 19.9 x10^3/uL (4.0-11.0) Red Blood Count 2.94 x10^6/uL (3.50-5.40) 2.78 x10^6/uL (3.50-5.40) Hemoglobin 8.5 g/dL (12.0-15.5) 8.2 g/dL (12.0-15.5) Hematocrit 26.5 % (36.0-47.0) 24.8 % (36.0-47.0) Mean Corpuscular Volume 90 fL (79-100) 89 fL (79-100) Mean Corpuscular Hemoglobin 29 pg (25-35) 29 pg (25-35) Mean Corpuscular Hemoglobin Concent 32 g/dL (31-37) 33 g/dL (31-37) Red Cell Distribution Width 17.0 % (11.5-14.5) 17.1 % (11.5-14.5) Platelet Count 209 x10^3/uL (140-400) 216 x10^3/uL (140-400) Neutrophils (%) (Auto) 89 % (31-73) 89 % (31-73) Lymphocytes (%) (Auto) 4 % (24-48) 3 % (24-48) Monocytes (%) (Auto) 7 % (0-9) 7 % (0-9) Eosinophils (%) (Auto) 0 % (0-3) 0 % (0-3) Basophils (%) (Auto) 1 % (0-3) 0 % (0-3) Neutrophils # (Auto) 18.7 x10^3/uL (1.8-7.7) 17.7 x10^3/uL (1.8-7.7) Lymphocytes # (Auto) 0.7 x10^3/uL (1.0-4.8) 0.7 x10^3/uL (1.0-4.8) Monocytes # (Auto) 1.5 x10^3/uL (0.0-1.1) 1.5 x10^3/uL (0.0-1.1) Eosinophils # (Auto) 0.0 x10^3/uL (0.0-0.7) 0.0 x10^3/uL (0.0-0.7) Basophils # (Auto) 0.1 x10^3/uL (0.0-0.2) 0.1 x10^3/uL (0.0-0.2) Sodium Level 137 mmol/L (136-145) Potassium Level 5.1 mmol/L (3.5-5.1) Chloride Level 102 mmol/L (98-107) Carbon Dioxide Level 30 mmol/L (21-32) Anion Gap 5 (6-14) Blood Urea Nitrogen 47 mg/dL (7-20) Creatinine 2.8 mg/dL (0.6-1.0) Estimated GFR (Cockcroft-Gault) 16.5 BUN/Creatinine Ratio 17 (6-20) Glucose Level 228 mg/dL (70-99) Calcium Level 9.3 mg/dL (8.5-10.1) Total Bilirubin 0.6 mg/dL (0.2-1.0) Aspartate Amino Transf (AST/SGOT) 68 U/L (15-37) Alanine Aminotransferase (ALT/SGPT) 83 U/L (14-59) Alkaline Phosphatase 109 U/L (46-116) SI-Ygc-P-Type Natriuretic Peptide 8387 pg/mL (0-124) Total Protein 5.6 g/dL (6.4-8.2) Albumin 2.4 g/dL (3.4-5.0) Albumin/Globulin Ratio 0.8 (1.0-1.7) Test 02/14/20 08:40 O2 Saturation 91 % (92-99) Arterial Blood pH 7.26 (7.35-7.45) Arterial Blood pCO2 at Patient Temp 62 mmHg (35-46) Arterial Blood pO2 at Patient Temp 67 mmHg (65-108) Arterial Blood HCO3 27 mmol/L (21-28) Arterial Blood Base Excess 0 mmol/L (-3-3) FiO2 30% Laboratory Tests Test 02/13/20 10:58 02/13/20 11:35 02/13/20 15:09 02/13/20 16:50 Glucose (Fingerstick) 159 mg/dL (70-99) 173 mg/dL (70-99) 230 mg/dL (70-99) Lactic Acid Level 1.0 mmol/L (0.4-2.0) Test 02/13/20 21:00 02/13/20 21:11 02/13/20 21:20 02/14/20 03:00 Glucose (Fingerstick) 190 mg/dL (70-99) O2 Saturation 98 % (92-99) Arterial Blood pH 7.19 (7.35-7.45) Arterial Blood pCO2 at Patient Temp 81 mmHg (35-46) Arterial Blood pO2 at Patient Temp 206 mmHg (65-108) Arterial Blood HCO3 30 mmol/L (21-28) Arterial Blood Base Excess 1 mmol/L (-3-3) FiO2 100 White Blood Count 21.1 x10^3/uL (4.0-11.0) 19.9 x10^3/uL (4.0-11.0) Red Blood Count 2.94 x10^6/uL (3.50-5.40) 2.78 x10^6/uL (3.50-5.40) Hemoglobin 8.5 g/dL (12.0-15.5) 8.2 g/dL (12.0-15.5) Hematocrit 26.5 % (36.0-47.0) 24.8 % (36.0-47.0) Mean Corpuscular Volume 90 fL (79-100) 89 fL (79-100) Mean Corpuscular Hemoglobin 29 pg (25-35) 29 pg (25-35) Mean Corpuscular Hemoglobin Concent 32 g/dL (31-37) 33 g/dL (31-37) Red Cell Distribution Width 17.0 % (11.5-14.5) 17.1 % (11.5-14.5) Platelet Count 209 x10^3/uL (140-400) 216 x10^3/uL (140-400) Neutrophils (%) (Auto) 89 % (31-73) 89 % (31-73) Lymphocytes (%) (Auto) 4 % (24-48) 3 % (24-48) Monocytes (%) (Auto) 7 % (0-9) 7 % (0-9) Eosinophils (%) (Auto) 0 % (0-3) 0 % (0-3) Basophils (%) (Auto) 1 % (0-3) 0 % (0-3) Neutrophils # (Auto) 18.7 x10^3/uL (1.8-7.7) 17.7 x10^3/uL (1.8-7.7) Lymphocytes # (Auto) 0.7 x10^3/uL (1.0-4.8) 0.7 x10^3/uL (1.0-4.8) Monocytes # (Auto) 1.5 x10^3/uL (0.0-1.1) 1.5 x10^3/uL (0.0-1.1) Eosinophils # (Auto) 0.0 x10^3/uL (0.0-0.7) 0.0 x10^3/uL (0.0-0.7) Basophils # (Auto) 0.1 x10^3/uL (0.0-0.2) 0.1 x10^3/uL (0.0-0.2) Sodium Level 137 mmol/L (136-145) Potassium Level 5.1 mmol/L (3.5-5.1) Chloride Level 102 mmol/L (98-107) Carbon Dioxide Level 30 mmol/L (21-32) Anion Gap 5 (6-14) Blood Urea Nitrogen 47 mg/dL (7-20) Creatinine 2.8 mg/dL (0.6-1.0) Estimated GFR (Cockcroft-Gault) 16.5 BUN/Creatinine Ratio 17 (6-20) Glucose Level 228 mg/dL (70-99) Calcium Level 9.3 mg/dL (8.5-10.1) Total Bilirubin 0.6 mg/dL (0.2-1.0) Aspartate Amino Transf (AST/SGOT) 68 U/L (15-37) Alanine Aminotransferase (ALT/SGPT) 83 U/L (14-59) Alkaline Phosphatase 109 U/L (46-116) LQ-Bya-J-Type Natriuretic Peptide 8387 pg/mL (0-124) Total Protein 5.6 g/dL (6.4-8.2) Albumin 2.4 g/dL (3.4-5.0) Albumin/Globulin Ratio 0.8 (1.0-1.7) Test 02/14/20 05:00 02/14/20 08:40 O2 Saturation 94 % (92-99) 91 % (92-99) Arterial Blood pH 7.23 (7.35-7.45) 7.26 (7.35-7.45) Arterial Blood pCO2 at Patient Temp 71 mmHg (35-46) 62 mmHg (35-46) Arterial Blood pO2 at Patient Temp 85 mmHg (65-108) 67 mmHg (65-108) Arterial Blood HCO3 29 mmol/L (21-28) 27 mmol/L (21-28) Arterial Blood Base Excess 1 mmol/L (-3-3) 0 mmol/L (-3-3) FiO2 35 30% Images Images I reviewed available radiological investigations Assessment/Plan Assessment/Plan Assessment: Left femur fracture History of breast cancer in the 1990s status post mastectomy Monoclonal gammopathy of undetermined significance Normocytic anemia Leukocytosis, likely reactive Coronary artery disease Type 2 diabetes Recommendations: Recommend checking serum protein electrophoresis, serum free kappa and lambda chains Would recommend evaluating for bone lesions with skeletal survey/PET CT/MRI of the spine and pelvis once patient is clinically stable. This may be pursued on an outpatient basis as well Continue with supportive care for acute respiratory failure per ICU Continue rehabilitation efforts Will arrange for follow-up in hematology oncology clinic for continuation of care Thank you for the consult Andrei Lopez MD Medical Oncology/Hematology Ph: [phone] WESLEY LOPEZ MD Feb 14, 2020 09:38
[2020-02-14] MEDS: VERAPAMIL SR 120 MG TABLET.ER. PO SCH (09:42)
[2020-02-14] MEDS: MULTIVITAMIN I-VITE TABLET. PO SCH (12:17)
[2020-02-14] MEDS: ASCORBIC ACID 500 MG TABLET PO SCH (12:18)
--- NOTE | 2020-02-14 13:33 | NUR ---
SS following for discharge planning. SS reviewed pt chart and discussed with pt RN. Pt is from home with spouse and is currently requiring oxygen. Pt is currently on IV Zosyn. Pt had surgery on 02/13/2020. Pt needing new PT/OT orders to evaluate discharge needs. SS will continue to follow for discharge planning.
--- NOTE | 2020-02-14 14:03 | PDOC ---
[facility] [facility] PROGRESS NOTE Chief Complaint Chief Complaint Distal left femur fracture (postop day 1) Respiratory failure History of Present Illness History of Present Illness 02/14/2020 Patient seen and examined in the ICU She is on BiPAP Her is present Discussed with case management Discussed with RN Chart reviewed Vitals/I&O Vitals/I&O: Vital Signs Date Time Temp Pulse Resp B/P (MAP) Pulse Ox O2 Delivery O2 Flow Rate FiO2 02/14/20 13:00 82 20 101/56 (71) 93 BiPAP/CPAP 02/14/20 08:00 98.2 98.2 02/13/20 20:00 2.0 I & O 02/13/20 02/13/20 02/14/20 15:00 23:00 07:00 Intake Total 125 ml 100 ml Output Total 200 ml 1425 ml 200 ml Balance -200 ml -1300 ml -100 ml Physical Exam Physical Exam: GENERAL: Alert, oriented female, on bipap HEENT: Both pupils are round and reacting. No conjunctival lesion, NECK: Supple, no JVP, no lymphadenopathy. LUNGS: clear anteriorly HEART: S1, S2 regular. ABDOMEN: soft bs + nontender EXTREMITIES: trace edema, no cyanosis.Brace in the LLE SKIN: bruise on bue, NEUROLOGIC: No focal neurologic deficit. General: Alert, Oriented X3, Other (Wearing BiPAP) Heart: Regular rate, No murmurs Lungs: Clear Abdomen: Normal bowel sounds, Soft Extremities: No edema Skin: No rashes Labs Labs: Laboratory Tests Test 02/13/20 15:09 02/13/20 16:50 02/13/20 21:00 02/13/20 21:11 Glucose (Fingerstick) 173 mg/dL (70-99) 230 mg/dL (70-99) 190 mg/dL (70-99) O2 Saturation 98 % (92-99) Arterial Blood pH 7.19 (7.35-7.45) Arterial Blood pCO2 at Patient Temp 81 mmHg (35-46) Arterial Blood pO2 at Patient Temp 206 mmHg (65-108) Arterial Blood HCO3 30 mmol/L (21-28) Arterial Blood Base Excess 1 mmol/L (-3-3) FiO2 100 Test 02/13/20 21:20 02/14/20 03:00 02/14/20 05:00 02/14/20 08:40 White Blood Count 21.1 x10^3/uL (4.0-11.0) 19.9 x10^3/uL (4.0-11.0) Red Blood Count 2.94 x10^6/uL (3.50-5.40) 2.78 x10^6/uL (3.50-5.40) Hemoglobin 8.5 g/dL (12.0-15.5) 8.2 g/dL (12.0-15.5) Hematocrit 26.5 % (36.0-47.0) 24.8 % (36.0-47.0) Mean Corpuscular Volume 90 fL (79-100) 89 fL (79-100) Mean Corpuscular Hemoglobin 29 pg (25-35) 29 pg (25-35) Mean Corpuscular Hemoglobin Concent 32 g/dL (31-37) 33 g/dL (31-37) Red Cell Distribution Width 17.0 % (11.5-14.5) 17.1 % (11.5-14.5) Platelet Count 209 x10^3/uL (140-400) 216 x10^3/uL (140-400) Neutrophils (%) (Auto) 89 % (31-73) 89 % (31-73) Lymphocytes (%) (Auto) 4 % (24-48) 3 % (24-48) Monocytes (%) (Auto) 7 % (0-9) 7 % (0-9) Eosinophils (%) (Auto) 0 % (0-3) 0 % (0-3) Basophils (%) (Auto) 1 % (0-3) 0 % (0-3) Neutrophils # (Auto) 18.7 x10^3/uL (1.8-7.7) 17.7 x10^3/uL (1.8-7.7) Lymphocytes # (Auto) 0.7 x10^3/uL (1.0-4.8) 0.7 x10^3/uL (1.0-4.8) Monocytes # (Auto) 1.5 x10^3/uL (0.0-1.1) 1.5 x10^3/uL (0.0-1.1) Eosinophils # (Auto) 0.0 x10^3/uL (0.0-0.7) 0.0 x10^3/uL (0.0-0.7) Basophils # (Auto) 0.1 x10^3/uL (0.0-0.2) 0.1 x10^3/uL (0.0-0.2) Sodium Level 137 mmol/L (136-145) Potassium Level 5.1 mmol/L (3.5-5.1) Chloride Level 102 mmol/L (98-107) Carbon Dioxide Level 30 mmol/L (21-32) Anion Gap 5 (6-14) Blood Urea Nitrogen 47 mg/dL (7-20) Creatinine 2.8 mg/dL (0.6-1.0) Estimated GFR (Cockcroft-Gault) 16.5 BUN/Creatinine Ratio 17 (6-20) Glucose Level 228 mg/dL (70-99) Calcium Level 9.3 mg/dL (8.5-10.1) Total Bilirubin 0.6 mg/dL (0.2-1.0) Aspartate Amino Transf (AST/SGOT) 68 U/L (15-37) Alanine Aminotransferase (ALT/SGPT) 83 U/L (14-59) Alkaline Phosphatase 109 U/L (46-116) CA-Lvs-O-Type Natriuretic Peptide 8387 pg/mL (0-124) Total Protein 5.6 g/dL (6.4-8.2) Albumin 2.4 g/dL (3.4-5.0) Albumin/Globulin Ratio 0.8 (1.0-1.7) O2 Saturation 94 % (92-99) 91 % (92-99) Arterial Blood pH 7.23 (7.35-7.45) 7.26 (7.35-7.45) Arterial Blood pCO2 at Patient Temp 71 mmHg (35-46) 62 mmHg (35-46) Arterial Blood pO2 at Patient Temp 85 mmHg (65-108) 67 mmHg (65-108) Arterial Blood HCO3 29 mmol/L (21-28) 27 mmol/L (21-28) Arterial Blood Base Excess 1 mmol/L (-3-3) 0 mmol/L (-3-3) FiO2 35 30% Assessment and Plan Assessmemt and Plan Left Distal Femur Fracture following Mechanical Fall Left femur open treatment of femoral supracondylar or transcondylar fracture without intercondylar extension, includes internal fixation 02/12 There is a comminuted fracture of the distal femoral diaphysis with 2 large displaced fragments measuring 6.5 cm and 7.7 cm. Fracture is obliquely oriented extending from the medial distal femoral diaphyseal cortex laterally immediately superior to the left femoral condylar portion of the total knee arthroplasty. CAD status post cardiac catheterization COPD Chronic Hypoxic Resp Failure on 2 liters at home Previous Tobacco Use diabetes type 2 HTN HLD, CKD stage 4 hypothyroidism breast cancer status post left mastectomy echo 02/11 left ventrticular outflow obstruction with a resting velocity of 47 mmHg that does not increase with valsalva manuever. Plan Wound care ICU monitoring BiPAP Home meds ortho consult pain control with IV morphine baseline labs continue supplemental 02 known cardiac hx, no active chest pain or symptoms at present. med rec reviewed. hold lasix resume home insulin SSI FULL CODE DVT PPX: hold for AM prior to sx Comment Review of Relevant I have reviewed the following items cristian (where applicable) has been applied. Medications: Current Medications Medications (Trade) Dose Ordered Sig/Stan Route PRN Reason Start Time Stop Time Status Last Admin Dose Admin Senna/Docusate Sodium (Senna Plus) 1 tab DAILY PO 02/14/20 09:00 02/14/20 09:09 Vitamin D (Vitamin D3) 1,000 unit DAILY PO 02/14/20 09:00 02/14/20 09:09 Ondansetron HCl (Zofran) 4 mg PRN Q4HRS PRN IVP NAUSEA/VOMITING 02/13/20 15:00 02/14/20 10:19 Aspirin (Ecotrin) 325 mg BID PO 02/13/20 21:00 02/14/20 09:09 Albuterol/ Ipratropium (Duoneb) 3 ml 1X ONCE NEB 02/13/20 22:00 02/13/20 22:01 DC 02/13/20 22:00 Methylprednisolone Sodium Succinate (SOLU-Medrol 125MG VIAL) 125 mg 1X ONCE IV 02/14/20 05:30 02/14/20 05:31 DC 02/14/20 05:19 Albuterol/ Ipratropium (Duoneb) 3 ml Q4HRS NEB 02/14/20 08:00 02/14/20 11:24 Multivitamins/ Minerals (I-Jennifer) 1 tab DAILY PO 02/14/20 11:00 02/14/20 12:17 Ascorbic Acid (Vitamin C) 500 mg DAILY PO 02/14/20 11:00 02/14/20 12:18 Justicifation of Admission Dx: Justifications for Admission: Justification of Admission Dx: Yes RICHARD GUALLPA III DO Feb 14, 2020 14:03
--- NOTE | 2020-02-14 14:37 | CONS ---
DATE OF CONSULTATION: 02/14/2020 ATTENDING PHYSICIAN: Dr. Sy REASON FOR CONSULTATION: The patient seen in pulmonary consultation at the request of Dr. Sanchez for acute hypercapnic hypoxemic respiratory failure requiring noninvasive ventilation with BiPAP. HISTORY OF PRESENT ILLNESS: The patient is a 74-year-old with multiple comorbidities, underlying coronary artery disease, previous cardiac catheterization, type 2 diabetes, hypertension, COPD, chronic respiratory failure, hyperlipidemia, whom tripped over a wire at home subsequently experience a distal femur fracture. She underwent surgical repair on the . Yesterday, she became acutely more short of air. She underwent an arterial blood gas, which revealed a pH of 7.19, PaCO2 of 81, pO2 of 206. The patient was placed on BiPAP. This morning, arterial blood gas revealed a pH of 7.26, PaCO2 of 62, PaO2 of 67. The patient is currently awake, alert, following command. She has been on oxygen for quite some time. She has underlying COPD, no frequent acute exacerbations of COPD. There is no history of DVT or pulmonary embolism. PAST MEDICAL HISTORY: She has a history of breast cancer, monoclonal gammopathy of unknown significance, chronic respiratory failure, coronary artery disease, hypertension, hyperlipidemia, chronic renal insufficiency, tobacco dependence in remission, hyperthyroidism. PAST SURGICAL HISTORY: Previous , hysterectomy. She had a left mastectomy, knee replacement. ALLERGIES: Multiple allergies, please see the list. REVIEW OF SYSTEMS: Unobtainable secondary to the patient's condition. She has been seen by Infectious Disease Service yesterday and was started on some antibiotics for leukocytosis. SOCIAL HISTORY: She quit tobacco. Denies any alcohol intake. CURRENT MEDICATIONS: List was reviewed. PHYSICAL EXAMINATION: VITAL SIGNS: Stable. O2 saturation was greater than 92%. She is currently on BiPAP. HEENT: Eyes, the sclerae were nonicteric. NECK: Jugular venous distention was not elevated. No lymphadenopathy. CHEST: Full expansion. LUNGS: Adequate flow with no wheezes. CARDIOVASCULAR: Regular rate and rhythm with S1, S2, no S3. 3/4 systolic ejection murmur compatible with aortic stenosis. ABDOMEN: Soft, nontender, nondistended. EXTREMITIES: No clubbing, cyanosis or edema. NEUROLOGICAL: The patient was awake, alert, following commands. A detailed neuro exam was not performed. LABORATORY DATA: Reviewed. Arterial blood as indicated above. Electrolytes were noted. BUN and creatinine were elevated. White count was elevated. INR was 1.0. Chest x-ray: No acute cardiopulmonary process. IMPRESSION: 1. Acute on chronic hypoxemic hypercapnic respiratory failure in a patient with underlying chronic obstructive pulmonary disease, obesity and recent surgery. 2. Leukocytosis, per Infectious Disease. 3. Coronary artery disease. 4. Multiple drug ALLERGIES INCLUDING SULFA, CIPROFLOXACIN, CODEINE, HYDROCHLOROTHIAZIDE, SULFAMETHOXAZOLE AND TRIMETHOPRIM. 5. Morbid obesity. 6. Suspect obstructive sleep apnea. 7. Acute exacerbation of chronic obstructive pulmonary disease. 8. Hypertension. 9. Hyperlipidemia. 10. Status post repair of a distal femoral fracture. DISCUSSION: Suspect the patient's hypercapnia was multifactorial. Her underlying COPD, morbid obesity and recent surgery with the effects of anesthesia and pain medication. Chest x-ray was reviewed, no acute infiltrates, for now, we will continue support with BiPAP, empiric antibiotics, nebulized treatments, DVT and GI prophylaxis. 1. As above. BiPAP p.r.n. 2. Empiric antibiotics. 3. Follow Cardiology input. 4. DVT and GI prophylaxis. 5. Nebulized treatments. Total cumulative critical care time of 50 minutes reviewing data, chest x-ray, labs, and formulating a plan. MARY THOMAS MD DR: CORINNE/karlee JOB#: [id number] / [id number]
--- NOTE | 2020-02-14 14:47 | PDOC ---
Renal-Progress Notes Subjective Notes Notes FEELS OK History of Present Illness Hx of present illness STABLE Vitals Vitals Vital Signs Date Time Temp Pulse Resp B/P (MAP) Pulse Ox O2 Delivery O2 Flow Rate FiO2 02/14/20 14:10 98.6 82 18 104/53 (70) 92 Nasal Cannula 3.0 98.6 Weight Weight [ ] I.O. Intake and Output Intake and Output 02/14/20 07:00 Intake Total 225 ml Output Total 1825 ml Balance -1600 ml Intake Oral 125 ml IV Total 100 ml Output Urine Total 1625 ml Estimated Blood Loss 200 ml # Voids 2 Labs Labs Laboratory Tests Test 02/13/20 15:09 02/13/20 16:50 02/13/20 21:00 02/13/20 21:11 Glucose (Fingerstick) 173 mg/dL (70-99) 230 mg/dL (70-99) 190 mg/dL (70-99) O2 Saturation 98 % (92-99) Arterial Blood pH 7.19 (7.35-7.45) Arterial Blood pCO2 at Patient Temp 81 mmHg (35-46) Arterial Blood pO2 at Patient Temp 206 mmHg (65-108) Arterial Blood HCO3 30 mmol/L (21-28) Arterial Blood Base Excess 1 mmol/L (-3-3) FiO2 100 Test 02/13/20 21:20 02/14/20 03:00 02/14/20 05:00 02/14/20 08:40 White Blood Count 21.1 x10^3/uL (4.0-11.0) 19.9 x10^3/uL (4.0-11.0) Red Blood Count 2.94 x10^6/uL (3.50-5.40) 2.78 x10^6/uL (3.50-5.40) Hemoglobin 8.5 g/dL (12.0-15.5) 8.2 g/dL (12.0-15.5) Hematocrit 26.5 % (36.0-47.0) 24.8 % (36.0-47.0) Mean Corpuscular Volume 90 fL (79-100) 89 fL (79-100) Mean Corpuscular Hemoglobin 29 pg (25-35) 29 pg (25-35) Mean Corpuscular Hemoglobin Concent 32 g/dL (31-37) 33 g/dL (31-37) Red Cell Distribution Width 17.0 % (11.5-14.5) 17.1 % (11.5-14.5) Platelet Count 209 x10^3/uL (140-400) 216 x10^3/uL (140-400) Neutrophils (%) (Auto) 89 % (31-73) 89 % (31-73) Lymphocytes (%) (Auto) 4 % (24-48) 3 % (24-48) Monocytes (%) (Auto) 7 % (0-9) 7 % (0-9) Eosinophils (%) (Auto) 0 % (0-3) 0 % (0-3) Basophils (%) (Auto) 1 % (0-3) 0 % (0-3) Neutrophils # (Auto) 18.7 x10^3/uL (1.8-7.7) 17.7 x10^3/uL (1.8-7.7) Lymphocytes # (Auto) 0.7 x10^3/uL (1.0-4.8) 0.7 x10^3/uL (1.0-4.8) Monocytes # (Auto) 1.5 x10^3/uL (0.0-1.1) 1.5 x10^3/uL (0.0-1.1) Eosinophils # (Auto) 0.0 x10^3/uL (0.0-0.7) 0.0 x10^3/uL (0.0-0.7) Basophils # (Auto) 0.1 x10^3/uL (0.0-0.2) 0.1 x10^3/uL (0.0-0.2) Sodium Level 137 mmol/L (136-145) Potassium Level 5.1 mmol/L (3.5-5.1) Chloride Level 102 mmol/L (98-107) Carbon Dioxide Level 30 mmol/L (21-32) Anion Gap 5 (6-14) Blood Urea Nitrogen 47 mg/dL (7-20) Creatinine 2.8 mg/dL (0.6-1.0) Estimated GFR (Cockcroft-Gault) 16.5 BUN/Creatinine Ratio 17 (6-20) Glucose Level 228 mg/dL (70-99) Calcium Level 9.3 mg/dL (8.5-10.1) Total Bilirubin 0.6 mg/dL (0.2-1.0) Aspartate Amino Transf (AST/SGOT) 68 U/L (15-37) Alanine Aminotransferase (ALT/SGPT) 83 U/L (14-59) Alkaline Phosphatase 109 U/L (46-116) AZ-Wed-M-Type Natriuretic Peptide 8387 pg/mL (0-124) Total Protein 5.6 g/dL (6.4-8.2) Albumin 2.4 g/dL (3.4-5.0) Albumin/Globulin Ratio 0.8 (1.0-1.7) O2 Saturation 94 % (92-99) 91 % (92-99) Arterial Blood pH 7.23 (7.35-7.45) 7.26 (7.35-7.45) Arterial Blood pCO2 at Patient Temp 71 mmHg (35-46) 62 mmHg (35-46) Arterial Blood pO2 at Patient Temp 85 mmHg (65-108) 67 mmHg (65-108) Arterial Blood HCO3 29 mmol/L (21-28) 27 mmol/L (21-28) Arterial Blood Base Excess 1 mmol/L (-3-3) 0 mmol/L (-3-3) FiO2 35 30% Micro Micro Microbiology 02/13/20 Blood Culture - Preliminary, Resulted NO GROWTH AFTER 1 DAY 02/13/20 Urine Culture - Final, Complete Review of Systems Constitutional: yes: weakness, alert Ears/Nose/Throat: Yes: no symptom reported Eyes: Yes: no symptom reported Pulmonary: Yes dyspnea Cardiovascular: Yes no symptom reported Gastrointestional: Yes: constipation Genitourinary: Yes: no symptom reported Musculoskeletal: Yes: joint pain Skin: Yes no symptom reported Psychiatric/Neurological: Yes: no symptom reported Endocrine: Yes: no symptom reported Physical Exam General Appearance: no apparent distress Skin: warm Respiratory: bilateral CTA Heart: S1S2 Abdomen: soft, bowel sounds present Genitourinary: bladder flat Extremities: atrophy Neurology: alert, follow commands Assessment Assessment IMP CKD STAGE 4 WITH CR OF 2.5 ON AVG AND STABLE LEUCOCYTOSIS ANEMIA ACUTE RESP FAILURE OBESITY AND SHAYLA AECOPD S/P DISTAL FEM FX REPAIR PLAN CONT SUPPORTIVE CARE WILL FOLLOW PT HAS NOT BEEN FOLLOWING RENAL SINCE HER DOCTOR FROM [facility] SHE WILL FOLLOW UP IN OUR OFFICE ON D/C SHOSHANA MARCELO MD Feb 14, 2020 14:47
[2020-02-14] MEDS ORDERED: BISACODYL 10 MG SUPP.RECT. PR PRN (16:00)
--- NOTE | 2020-02-14 16:26 | NUR ---
Went in to take patient off of breathing treatment and she would not respond to verbal or painful stimuli. Her eyes were open and staring off, not making any eye contact. BP 87/38 HR 86, Pulse Ox 95 on 3L O2. After approximately 5 minutes patient started to blink and respond. BP 112/42 HR 90 Pulse ox 95%.
--- NOTE | 2020-02-14 16:31 | NUR ---
Dr. Paredes notified of activity appearing to be an absence seizure and tremoring throughout the day. Order for Neuro consult received.
--- NOTE | 2020-02-14 16:39 | NUR ---
Neurology on-call service notified of consult for possible seizure activity
--- NOTE | 2020-02-14 16:47 | NUR ---
Patient refusing insulin stating that "you are pulling the wool over my eyes and I don't trust you." States that she does not trust her or myself and that she will not take any food that is provided to her by us. Tried to re-orient her to situation and she denies this being true.
--- NOTE | 2020-02-14 17:28 | PDOC ---
PROGRESS NOTES Subjective Subjective Patient transferred to ICU overnight due to hypoxia. She had BiPAP up until earlier today. Oxygenation has improved, and her current O2 sat is about 94 to 95% on 3 L nasal cannula. Her said last night after surgery she had normal mentation. Today at some point she became confused and almost had what looked like an absence seizure episode. A CT scan was done stat but shows no focal findings. She is alert and talkative but she clearly has some changes in mentation, and is somewhat argumentative that her son did not visit her yesterday although he did. Her is here with her and has been with her all day. He said sometime today that her mentation has changed. Objective Vital Signs Vital Signs Date Time Temp Pulse Resp B/P (MAP) Pulse Ox O2 Delivery O2 Flow Rate FiO2 02/14/20 16:11 100 Nasal Cannula 2.0 02/14/20 14:10 98.6 82 18 104/53 (70) 98.6 Physical Exam She is alert and talkative. There is no facial droop, no focal deficits in the arms or legs, she has good active range of motion of the upper and lower extremities within the limits of the fracture. The left leg is in the knee immobilizer, and she can actively dorsiflex and plantarflex the left foot with no evidence of DVT nor neurovascular injury. Labs Laboratory Tests Test 02/12/20 20:15 02/13/20 03:00 02/13/20 03:30 02/13/20 07:45 Glucose (Fingerstick) 169 mg/dL (70-99) 163 mg/dL (70-99) White Blood Count 20.7 x10^3/uL (4.0-11.0) Red Blood Count 3.69 x10^6/uL (3.50-5.40) Hemoglobin 10.5 g/dL (12.0-15.5) Hematocrit 33.5 % (36.0-47.0) Mean Corpuscular Volume 91 fL (79-100) Mean Corpuscular Hemoglobin 29 pg (25-35) Mean Corpuscular Hemoglobin Concent 32 g/dL (31-37) Red Cell Distribution Width 17.5 % (11.5-14.5) Platelet Count 245 x10^3/uL (140-400) Neutrophils (%) (Auto) 88 % (31-73) Lymphocytes (%) (Auto) 4 % (24-48) Monocytes (%) (Auto) 7 % (0-9) Eosinophils (%) (Auto) 1 % (0-3) Basophils (%) (Auto) 1 % (0-3) Neutrophils # (Auto) 18.1 x10^3/uL (1.8-7.7) Lymphocytes # (Auto) 0.8 x10^3/uL (1.0-4.8) Monocytes # (Auto) 1.4 x10^3/uL (0.0-1.1) Eosinophils # (Auto) 0.2 x10^3/uL (0.0-0.7) Basophils # (Auto) 0.2 x10^3/uL (0.0-0.2) Segmented Neutrophils % 90 % (35-66) Band Neutrophils % 7 % (0-9) Lymphocytes % 3 % (24-48) Platelet Estimate Adequate (ADEQUATE) Macrocytosis Slight Sodium Level 138 mmol/L (136-145) Potassium Level 4.3 mmol/L (3.5-5.1) Chloride Level 99 mmol/L (98-107) Carbon Dioxide Level 33 mmol/L (21-32) Anion Gap 6 (6-14) Blood Urea Nitrogen 39 mg/dL (7-20) Creatinine 2.1 mg/dL (0.6-1.0) Estimated GFR (Cockcroft-Gault) 23.0 BUN/Creatinine Ratio 19 (6-20) Glucose Level 197 mg/dL (70-99) Hemoglobin A1c 6.6 % (4.8-5.6) Calcium Level 9.1 mg/dL (8.5-10.1) Total Bilirubin 0.8 mg/dL (0.2-1.0) Aspartate Amino Transf (AST/SGOT) 38 U/L (15-37) Alanine Aminotransferase (ALT/SGPT) 64 U/L (14-59) Alkaline Phosphatase 123 U/L (46-116) Total Protein 6.3 g/dL (6.4-8.2) Albumin 2.9 g/dL (3.4-5.0) Albumin/Globulin Ratio 0.9 (1.0-1.7) Urine Collection Type Unknown Urine Color Yellow Urine Clarity Cloudy Urine pH 5.5 (<5.0-8.0) Urine Specific [place] 1.015 (1.000-1.030) Urine Protein Negative mg/dL (NEG-TRACE) Urine Glucose (UA) Negative mg/dL (NEG) Urine Ketones (Stick) Negative mg/dL (NEG) Urine Blood Large (NEG) Urine Nitrite Negative (NEG) Urine Bilirubin Negative (NEG) Urine Urobilinogen Dipstick 0.2 mg/dL (0.2 mg/dL) Urine Leukocyte Esterase Moderate (NEG) Urine RBC Tntc /HPF (0-2) Urine WBC >40 /HPF (0-4) Urine Squamous Epithelial Cells Few /LPF Urine Bacteria Moderate /HPF (0-FEW) Test 02/13/20 10:58 02/13/20 11:35 02/13/20 15:09 02/13/20 16:50 Glucose (Fingerstick) 159 mg/dL (70-99) 173 mg/dL (70-99) 230 mg/dL (70-99) Lactic Acid Level 1.0 mmol/L (0.4-2.0) Test 02/13/20 21:00 02/13/20 21:11 02/13/20 21:20 02/14/20 03:00 Glucose (Fingerstick) 190 mg/dL (70-99) O2 Saturation 98 % (92-99) Arterial Blood pH 7.19 (7.35-7.45) Arterial Blood pCO2 at Patient Temp 81 mmHg (35-46) Arterial Blood pO2 at Patient Temp 206 mmHg (65-108) Arterial Blood HCO3 30 mmol/L (21-28) Arterial Blood Base Excess 1 mmol/L (-3-3) FiO2 100 White Blood Count 21.1 x10^3/uL (4.0-11.0) 19.9 x10^3/uL (4.0-11.0) Red Blood Count 2.94 x10^6/uL (3.50-5.40) 2.78 x10^6/uL (3.50-5.40) Hemoglobin 8.5 g/dL (12.0-15.5) 8.2 g/dL (12.0-15.5) Hematocrit 26.5 % (36.0-47.0) 24.8 % (36.0-47.0) Mean Corpuscular Volume 90 fL (79-100) 89 fL (79-100) Mean Corpuscular Hemoglobin 29 pg (25-35) 29 pg (25-35) Mean Corpuscular Hemoglobin Concent 32 g/dL (31-37) 33 g/dL (31-37) Red Cell Distribution Width 17.0 % (11.5-14.5) 17.1 % (11.5-14.5) Platelet Count 209 x10^3/uL (140-400) 216 x10^3/uL (140-400) Neutrophils (%) (Auto) 89 % (31-73) 89 % (31-73) Lymphocytes (%) (Auto) 4 % (24-48) 3 % (24-48) Monocytes (%) (Auto) 7 % (0-9) 7 % (0-9) Eosinophils (%) (Auto) 0 % (0-3) 0 % (0-3) Basophils (%) (Auto) 1 % (0-3) 0 % (0-3) Neutrophils # (Auto) 18.7 x10^3/uL (1.8-7.7) 17.7 x10^3/uL (1.8-7.7) Lymphocytes # (Auto) 0.7 x10^3/uL (1.0-4.8) 0.7 x10^3/uL (1.0-4.8) Monocytes # (Auto) 1.5 x10^3/uL (0.0-1.1) 1.5 x10^3/uL (0.0-1.1) Eosinophils # (Auto) 0.0 x10^3/uL (0.0-0.7) 0.0 x10^3/uL (0.0-0.7) Basophils # (Auto) 0.1 x10^3/uL (0.0-0.2) 0.1 x10^3/uL (0.0-0.2) Sodium Level 137 mmol/L (136-145) Potassium Level 5.1 mmol/L (3.5-5.1) Chloride Level 102 mmol/L (98-107) Carbon Dioxide Level 30 mmol/L (21-32) Anion Gap 5 (6-14) Blood Urea Nitrogen 47 mg/dL (7-20) Creatinine 2.8 mg/dL (0.6-1.0) Estimated GFR (Cockcroft-Gault) 16.5 BUN/Creatinine Ratio 17 (6-20) Glucose Level 228 mg/dL (70-99) Calcium Level 9.3 mg/dL (8.5-10.1) Total Bilirubin 0.6 mg/dL (0.2-1.0) Aspartate Amino Transf (AST/SGOT) 68 U/L (15-37) Alanine Aminotransferase (ALT/SGPT) 83 U/L (14-59) Alkaline Phosphatase 109 U/L (46-116) XJ-Bzy-G-Type Natriuretic Peptide 8387 pg/mL (0-124) Total Protein 5.6 g/dL (6.4-8.2) Albumin 2.4 g/dL (3.4-5.0) Albumin/Globulin Ratio 0.8 (1.0-1.7) Test 02/14/20 05:00 02/14/20 08:40 O2 Saturation 94 % (92-99) 91 % (92-99) Arterial Blood pH 7.23 (7.35-7.45) 7.26 (7.35-7.45) Arterial Blood pCO2 at Patient Temp 71 mmHg (35-46) 62 mmHg (35-46) Arterial Blood pO2 at Patient Temp 85 mmHg (65-108) 67 mmHg (65-108) Arterial Blood HCO3 29 mmol/L (21-28) 27 mmol/L (21-28) Arterial Blood Base Excess 1 mmol/L (-3-3) 0 mmol/L (-3-3) FiO2 35 30% Laboratory Tests Test 02/13/20 21:00 02/13/20 21:11 02/13/20 21:20 02/14/20 03:00 Glucose (Fingerstick) 190 mg/dL (70-99) O2 Saturation 98 % (92-99) Arterial Blood pH 7.19 (7.35-7.45) Arterial Blood pCO2 at Patient Temp 81 mmHg (35-46) Arterial Blood pO2 at Patient Temp 206 mmHg (65-108) Arterial Blood HCO3 30 mmol/L (21-28) Arterial Blood Base Excess 1 mmol/L (-3-3) FiO2 100 White Blood Count 21.1 x10^3/uL (4.0-11.0) 19.9 x10^3/uL (4.0-11.0) Red Blood Count 2.94 x10^6/uL (3.50-5.40) 2.78 x10^6/uL (3.50-5.40) Hemoglobin 8.5 g/dL (12.0-15.5) 8.2 g/dL (12.0-15.5) Hematocrit 26.5 % (36.0-47.0) 24.8 % (36.0-47.0) Mean Corpuscular Volume 90 fL (79-100) 89 fL (79-100) Mean Corpuscular Hemoglobin 29 pg (25-35) 29 pg (25-35) Mean Corpuscular Hemoglobin Concent 32 g/dL (31-37) 33 g/dL (31-37) Red Cell Distribution Width 17.0 % (11.5-14.5) 17.1 % (11.5-14.5) Platelet Count 209 x10^3/uL (140-400) 216 x10^3/uL (140-400) Neutrophils (%) (Auto) 89 % (31-73) 89 % (31-73) Lymphocytes (%) (Auto) 4 % (24-48) 3 % (24-48) Monocytes (%) (Auto) 7 % (0-9) 7 % (0-9) Eosinophils (%) (Auto) 0 % (0-3) 0 % (0-3) Basophils (%) (Auto) 1 % (0-3) 0 % (0-3) Neutrophils # (Auto) 18.7 x10^3/uL (1.8-7.7) 17.7 x10^3/uL (1.8-7.7) Lymphocytes # (Auto) 0.7 x10^3/uL (1.0-4.8) 0.7 x10^3/uL (1.0-4.8) Monocytes # (Auto) 1.5 x10^3/uL (0.0-1.1) 1.5 x10^3/uL (0.0-1.1) Eosinophils # (Auto) 0.0 x10^3/uL (0.0-0.7) 0.0 x10^3/uL (0.0-0.7) Basophils # (Auto) 0.1 x10^3/uL (0.0-0.2) 0.1 x10^3/uL (0.0-0.2) Sodium Level 137 mmol/L (136-145) Potassium Level 5.1 mmol/L (3.5-5.1) Chloride Level 102 mmol/L (98-107) Carbon Dioxide Level 30 mmol/L (21-32) Anion Gap 5 (6-14) Blood Urea Nitrogen 47 mg/dL (7-20) Creatinine 2.8 mg/dL (0.6-1.0) Estimated GFR (Cockcroft-Gault) 16.5 BUN/Creatinine Ratio 17 (6-20) Glucose Level 228 mg/dL (70-99) Calcium Level 9.3 mg/dL (8.5-10.1) Total Bilirubin 0.6 mg/dL (0.2-1.0) Aspartate Amino Transf (AST/SGOT) 68 U/L (15-37) Alanine Aminotransferase (ALT/SGPT) 83 U/L (14-59) Alkaline Phosphatase 109 U/L (46-116) RC-Upl-H-Type Natriuretic Peptide 8387 pg/mL (0-124) Total Protein 5.6 g/dL (6.4-8.2) Albumin 2.4 g/dL (3.4-5.0) Albumin/Globulin Ratio 0.8 (1.0-1.7) Test 02/14/20 05:00 02/14/20 08:40 O2 Saturation 94 % (92-99) 91 % (92-99) Arterial Blood pH 7.23 (7.35-7.45) 7.26 (7.35-7.45) Arterial Blood pCO2 at Patient Temp 71 mmHg (35-46) 62 mmHg (35-46) Arterial Blood pO2 at Patient Temp 85 mmHg (65-108) 67 mmHg (65-108) Arterial Blood HCO3 29 mmol/L (21-28) 27 mmol/L (21-28) Arterial Blood Base Excess 1 mmol/L (-3-3) 0 mmol/L (-3-3) FiO2 35 30% Imaging Report reviewed and images independently reviewed. Satisfactory alignment, locking plate and screw fixation appears adequate. [facility] [address] [place] [address] IMAGING REPORT Signed PATIENT: MÓNICA CASTELLANO ACCOUNT: [id number] : 1945 LOCATION: [address] [place] [address] AGE: 74 SEX: F EXAM STATUS: ADM IN ORD. PHYSICIAN: ILSA CLEANING MD REASON: postop left distal femur PROCEDURE: LEFT FEMUR XRAY LEFT FEMUR XRAY 02/13/2020 2:50 PM INDICATION: Postop left distal femur COMPARISON: None available. TECHNIQUE: 2 views left femur are provided. FINDINGS/ IMPRESSION: Suspect postoperative changes from open reduction and internal fixation of the femur. There is lateral plate and screw fixation with 5 proximal screws and at least 3 distal screws. There is a persistent fracture fragment which measures 6.5 cm which is moderately displaced. Electronically signed by: Lori Willis MD (02/13/2020 3:24 PM) [facility] DICTATED and SIGNED BY: LORI WILLIS MD DATE: 02/13/20 1524 [facility] [address] [place] [address] IMAGING REPORT Signed PATIENT: MÓNICA CASTELLANO ACCOUNT: [id number] : 1945 LOCATION: [address] [place] [address] AGE: 74 SEX: F EXAM STATUS: ADM IN ORD. PHYSICIAN: REGINA FRANZ MD REASON: temors/possible seizure activity ICU 103 PROCEDURE: CT HEAD WO CONTRAST EXAM: CT Head without IV contrast CLINICAL HISTORY: temors/possible seizure activity ICU 103 COMPARISON: None. TECHNIQUE: Routine CT of the head without contrast. Soft tissues and bone windows were reviewed. PQRS compliance statement - One or more of the following individualized dose reduction techniques were utilized for this study: 1. Automated exposure control 2. Adjustment of the mA and/or kV according to patient size 3. Use of iterative reconstruction technique FINDINGS: There is no evidence of hemorrhage, mass or extra-axial fluid collection. Guzman-white differentiation is maintained with no evidence of edema. Subcortical, periventricular as well as deep white matter hypoattenuation likely changes of chronic small vessel disease. There is no mass effect or shift of the intracranial structures. The ventricles and cerebral sulci are prominent for the patients stated age consistent with generalized cerebral volume loss. The cerebellum and brainstem are unremarkable. The calvarium demonstrates no evidence of fracture or focal lesion. There is normal aeration of the visualized paranasal sinuses and mastoid air cells. The visualized portions of the orbits are normal. IMPRESSION: 1. No evidence for acute intracranial process. 2. White matter changes, likely chronic small vessel disease. Electronically signed by: Benny Corral MD (02/14/2020 5:30 PM) [facility] DICTATED and SIGNED BY: BENNY CORRAL MD DATE: 02/14/20 0562 Assessment Assessment POD#1 after ORIF supracondylar femur fracture. She had hypoxia felt related to COPD and postop meds but it is improved. There are changes in mentation. CT scan is negative for any acute intracranial finding. Plan Plan of Care I think we should increase her anticoagulation. I had her on postoperative aspirin only, but with the intensive care unit stay and other issues I believe we should increase to Lovenox, Eliquis or Xarelto for DVT/PE prophylaxis. I will leave that preference to the hospitalist. I will order a ventilation perfusion scan due to my concern about a possible pulmonary embolus. D-dimer would not be useful in this setting since it will be elevated from the major surgery. Justicifation of Admission Dx: Justifications for Admission: Justification of Admission Dx: Yes ILSA CLEANING MD Feb 14, 2020 17:28
--- NOTE | 2020-02-14 17:33 | RAD ---
EXAM: CT Head without IV contrast CLINICAL HISTORY: temors/possible seizure activity ICU 103 COMPARISON: None. TECHNIQUE: Routine CT of the head without contrast. Soft tissues and bone windows were reviewed. PQRS compliance statement - One or more of the following individualized dose reduction techniques were utilized for this study: 1. Automated exposure control 2. Adjustment of the mA and/or kV according to patient size 3. Use of iterative reconstruction technique FINDINGS: There is no evidence of hemorrhage, mass or extra-axial fluid collection. Guzman-white differentiation is maintained with no evidence of edema. Subcortical, periventricular as well as deep white matter hypoattenuation likely changes of chronic small vessel disease. There is no mass effect or shift of the intracranial structures. The ventricles and cerebral sulci are prominent for the patients stated age consistent with generalized cerebral volume loss. The cerebellum and brainstem are unremarkable. The calvarium demonstrates no evidence of fracture or focal lesion. There is normal aeration of the visualized paranasal sinuses and mastoid air cells. The visualized portions of the orbits are normal. IMPRESSION: 1. No evidence for acute intracranial process. 2. White matter changes, likely chronic small vessel disease. Electronically signed by: Benny Nunez MD (02/14/2020 5:30 PM) NADIA
--- NOTE | 2020-02-14 18:39 | NUR ---
Patient refusing insulin dose ordered (2 Units plus sliding scale). She requests doctor be notified. Called Dr. Nathan who ordered 12 Units Lispro TID with meals plus sliding scale until eating better. Explained to patient the new orders and she states she will wait until Martin (her son) gets back because "it isn't adding up."
[2020-02-14] MEDS: LACTOBACILLUS RHAMNOSUS GG 1 CAPSULE. PO SCH (20:39)
[2020-02-14] MEDS: ATORVASTATIN CALCIUM 20 MG TABLET PO SCH (20:39)
[2020-02-14] MEDS: FAMOTIDINE 20 MG TABLET. PO SCH (20:39)
[2020-02-14] MEDS: clonazePAM 0.5 MG TABLET PO SCH (20:40)
[2020-02-14] MEDS: MIRTAZAPINE 15 MG TABLET PO SCH (20:40)
[2020-02-14] MEDS: CALCIUM CARBONATE 500 MG TAB.CHEW PO PRN (20:40)
[2020-02-14] MEDS: HEPARIN for SUB-Q USE 5,000 UNIT/ML VIAL. SQ SCH ×2 (20:41→21:32)
[2020-02-14] MEDS: INSULIN GLARGINE SYRINGE. SQ SCH (20:42)
--- NOTE | 2020-02-14 23:00 | NUR ---
Provider paged at 191, provider paged back at 192. Provider informed that pt did not want to take hospitals insulin but would rather take her own. Provider acknowledged and said this was okay, only after pharmacy verified and reviewed it. Insulin packaged in front of pt with note attached stating that insulin pen was property of pt. Insulin in bag with note sent down to pharmacy at 193. Insulin arrived to ICU at 1954. Insulin brought into room and shown to pt. Pt stated insulin pen was not hers as the pen looked different and the cap fit differently. Pt A&O x4 per orientation questions at this time. Pt then expressed concern about dayshift nurse tampering with pt's purse stating that nurse had taken phone out of purse and that action was in violation of the nursing code of ethics. This RN asked the pt if they had their phone at this time, the pt stated "I do not have the phone in my purse unless someone snuck the phone back in my purse. This RN asked pt to review contents of purse to ensure location of phone." Pt does not find phone in purse, but on lap/ in sheets. RN verified that cell phone in her left hand was her phone, pt acknowledged. Later this evening, pt claimed that her phone had been tampered with as it wasnt able to place calls. This RN supervised pt as she exited out of her game on her mobile device and was successfully able to dial number to her . Pt stated "... Well isn't that convenient...". Pt A&Ox4 per orientation questions with notable tremors bilaterally in arms and hands. Pt had travel ticketing reviewer all of pt's nightly scheduled medicines. This pt explained the medications names, the dosages and the uses for each medication. Pt refused Heparin and Culturelle. This RN explained risks of not taking heparin and what that could cause, aswell as the use of the Culturelle. Pt acknowledged and stated that she still did not want them. Pt A&Ox4 per orientation questions at this time. Pt cautious about scheduled Insulin Glargine due to it not appearing the same a she is used to. This RN reviewed label on the syringe with her. Pt removed syringe and stated that "This syringe should be labeled, there is no way to know what this medication is. This RN educated pt on importance of paying attention to medication label and not removing medication/ letting trained RN administer medications to pt. Will continue to assess and monitor.
[2020-02-15] VITALS (8 sets, daily range): BP systolic 117–155; BP diastolic 44–73
[2020-02-15] MEDS: IPRATRPIUM/ALBUTEROL 0.5/2.5MG 3 ML NEBU. NEB SCH ×6 (03:50→19:26)
[2020-02-15] MEDS: LEVOTHYROXINE 100 MCG TABLET PO SCH (06:00)
[2020-02-15] MEDS: HEPARIN for SUB-Q USE 5,000 UNIT/ML VIAL. SQ SCH ×3 (06:00→22:03)
[2020-02-15] MEDS: PIPERACILLIN/TAZOBACTAM 2.25 GM in IV NORMAL SALINE 50ML 50 ML IV SCH ×2 (06:00)
[2020-02-15] MEDS: INSULIN LISPRO SQ SCH ×5 (08:00→17:23)
[2020-02-15] MEDS ORDERED: INSULIN LISPRO 300 UNITS/3 ML VIAL. SQ SCH (08:00)
--- NOTE | 2020-02-15 08:01 | PDOC ---
Infectious Disease Note Subjective: Subjective Pt now on O2 by NC Adamantly refusing IV medications Denies fever, nausea, vomiting, diarrhea Post operative pain is under control Vital Signs: Vital Signs Vital Signs Date Time Temp Pulse Resp B/P (MAP) Pulse Ox O2 Delivery O2 Flow Rate FiO2 02/15/20 06:00 102 19 Room Air 02/15/20 04:14 95 02/15/20 00:00 97.6 97.6 02/14/20 16:11 2.0 Physical Exam: PHYSICAL EXAM GENERAL: Alert, oriented female, on bipap HEENT: Both pupils are round and reacting. No conjunctival lesion, NECK: Supple, no JVP, no lymphadenopathy. LUNGS: clear anteriorly HEART: S1, S2 regular. ABDOMEN: soft bs + nontender EXTREMITIES: trace edema, no cyanosis.Brace in the LLE SKIN: bruise on bue, NEUROLOGIC: No focal neurologic deficit. Medications: Inpatient Meds: Current Medications Medications (Trade) Dose Ordered Sig/Stan Start Time Stop Time Status Last Admin Dose Admin Acetaminophen (Tylenol) 650 mg PRN Q6HRS PRN 02/11/20 16:15 Acetaminophen/ Hydrocodone Bitart (Lortab 7.5/325) 2 tab PRN Q4HRS PRN 02/13/20 15:00 Albuterol/ Ipratropium (Duoneb) 3 ml Q4HRS 02/14/20 08:00 02/14/20 16:00 3 ML Allopurinol (Zyloprim) 300 mg DAILY 02/12/20 09:00 02/14/20 09:09 300 MG Ascorbic Acid (Vitamin C) 500 mg DAILY 02/14/20 11:00 02/14/20 12:18 500 MG Aspirin (Aspirin Chewable) 81 mg DAILY 02/12/20 09:00 Aspirin (Ecotrin) 325 mg BID 02/13/20 21:00 02/14/20 20:39 325 MG Atorvastatin Calcium (Lipitor) 20 mg QHS 02/11/20 21:00 02/14/20 20:39 20 MG Bisacodyl (Dulcolax Supp) 10 mg 1X PRN PRN 02/14/20 16:00 02/15/20 15:59 Budesonide (Pulmicort) 0.5 mg BID 02/11/20 21:00 02/14/20 07:28 0.5 MG Bupivacaine HCl/ Epinephrine Bitart (Sensorcaine-Epi 0.25%-1:201252 Mpf) 30 ml STK-MED ONCE 02/13/20 07:11 02/13/20 07:12 DC Calcium Carbonate/ Glycine (Tums) 500 mg PRN AFTMEALHC PRN 02/12/20 16:30 02/14/20 20:40 500 MG Ceftriaxone Sodium (Rocephin) 1 gm Q24H 02/13/20 08:00 02/13/20 11:07 DC 02/13/20 08:25 1 GM Clonazepam (KlonoPIN) 2 mg QHS 02/11/20 21:00 02/14/20 20:40 2 MG Dextrose (Dextrose 50%-Water Syringe) 12.5 gm PRN Q15MIN PRN 02/13/20 15:00 Cancel Ephedrine Sulfate (ePHEDrine PF IN SALINE SYRINGE) 50 mg STK-MED ONCE 02/13/20 15:14 02/13/20 15:14 DC Famotidine (Pepcid) 20 mg QHS 02/11/20 21:00 02/14/20 20:39 20 MG Fentanyl Citrate (Fentanyl 2ml Vial) 25 mcg PRN Q1HR PRN 02/13/20 15:00 Ferrous Sulfate (Feosol) 325 mg DAILYWBKFT 02/12/20 08:00 02/14/20 09:09 325 MG Heparin Sodium (Porcine) (Heparin Sodium) 5,000 unit Q8HRS 02/14/20 22:00 Hydromorphone HCl (Dilaudid) 0.5 mg PRN Q10MIN PRN 02/13/20 07:00 02/14/20 06:59 DC Insulin Glargine (Lantus Syringe) 30 unit QHS 02/11/20 21:00 02/14/20 20:42 30 UNIT Insulin Human Lispro (HumaLOG) 12 units TIDWMEALS 02/15/20 08:00 02/14/20 19:44 DC Lactobacillus Rhamnosus (Culturelle) 1 cap BID 02/14/20 21:00 02/14/20 20:39 1 CAP Levothyroxine Sodium (Synthroid) 100 mcg DAILY06 02/12/20 06:00 02/13/20 06:09 100 MCG Lidocaine HCl (Lidocaine Pf 2% Vial) 5 ml STK-MED ONCE 02/13/20 11:42 02/13/20 11:42 DC Lidocaine HCl (Xylocaine-Mpf 1% 2ml Vial) 2 ml PRN 1X PRN 02/13/20 07:00 02/14/20 06:59 DC Magnesium Hydroxide (Milk Of Magnesia) 2,400 mg 1X PRN PRN 02/14/20 06:00 02/15/20 05:59 DC Magnesium Oxide (Magnesium Oxide) 400 mg DAILY 02/12/20 09:00 02/14/20 09:00 400 MG Methylprednisolone Sodium Succinate (SOLU-Medrol 125MG VIAL) 125 mg 1X ONCE 02/14/20 05:30 02/14/20 05:31 DC 02/14/20 05:19 125 MG Midazolam HCl (Versed) 2 mg STK-MED ONCE 02/13/20 12:19 02/13/20 12:19 DC Mirtazapine (Remeron) 30 mg HS 02/11/20 21:00 02/14/20 20:40 30 MG Morphine Sulfate (Morphine Sulfate) 4 mg PRN Q2HR PRN 02/13/20 15:00 Multivitamins/ Minerals (I-Jennifer) 1 tab DAILY 02/14/20 11:00 02/14/20 12:17 1 TAB Non-Formulary Medication 1 ea TIDWMEALS 02/15/20 08:00 Non-Formulary Medication (Fluticasone/ Vilanterol (Breo Ellipta 100-25 Mcg Inh)) 1 puff DAILY 02/12/20 09:00 02/11/20 18:04 DC Non-Formulary Medication (Levomilnacipran Hydrochloride (Fetzima)) 80 mg DAILY 02/12/20 09:00 02/14/20 09:00 80 MG Non-Formulary Medication (Umeclidinium [place] (Incruse Ellipta)) 62.5 mcg DAILY 02/12/20 09:00 02/11/20 18:07 DC Ondansetron HCl (Zofran) 4 mg PRN Q4HRS PRN 02/13/20 15:00 02/14/20 10:19 4 MG Oxycodone HCl (Roxicodone) 5 mg PRN Q3HRS PRN 02/13/20 15:00 Oxycodone/ Acetaminophen (Percocet 5/325) 1 tab PRN Q4HRS PRN 02/13/20 15:00 Phenylephrine HCl (Flako-Synephrine Inj) 10 mg STK-MED ONCE 02/13/20 15:14 02/13/20 15:14 DC Phenylephrine HCl (PHENYLEPHRINE in 0.9% NACL PF) 1 mg STK-MED ONCE 02/13/20 15:13 02/13/20 15:14 DC Piperacillin Sod/ Tazobactam Sod 2.25 gm/Sodium Chloride 50 ml @ 100 mls/hr Q6HRS 02/13/20 12:00 02/14/20 19:06 100 MLS/HR Piperacillin Sod/ Tazobactam Sod 3.375 gm/Sodium Chloride 50 ml @ 100 mls/hr Q6HRS 02/13/20 12:00 Cancel Polyethylene Glycol (miraLAX PACKET) 17 gm PRN DAILY PRN 02/13/20 15:00 Prochlorperazine Edisylate (Compazine) 5 mg PACU PRN PRN 02/13/20 07:00 02/14/20 06:59 DC Propofol (Diprivan) 200 mg STK-MED ONCE 02/13/20 11:42 02/13/20 11:42 DC Ringer's Solution 1,000 ml @ 30 mls/hr Q24H 02/13/20 07:00 02/13/20 19:00 DC Ropivacaine 53.3 ml/Epinephrine HCl 0.6 mg/ Morphine Sulfate 5 mg/Sodium Chloride 100 ml @ 100 mls/hr 1X ONCE 02/13/20 06:00 02/13/20 06:59 DC 02/13/20 13:35 Senna/Docusate Sodium (Senna Plus) 1 tab DAILY 02/14/20 09:00 02/14/20 09:09 1 TAB Sodium Chloride 1,000 ml @ 75 mls/hr Q12B05H 02/13/20 14:46 02/14/20 04:26 DC Tramadol HCl (Ultram) 50 mg PRN DAILY PRN 02/11/20 17:30 02/12/20 21:22 50 MG Verapamil HCl (Calan Sr) 120 mg DAILY 02/12/20 09:00 02/14/20 09:42 120 MG Vitamin D (Vitamin D3) 1,000 unit DAILY 02/14/20 09:00 02/14/20 09:09 1,000 UNIT Labs: Lab Laboratory Tests Test 02/14/20 08:40 O2 Saturation 91 % (92-99) Arterial Blood pH 7.26 (7.35-7.45) Arterial Blood pCO2 at Patient Temp 62 mmHg (35-46) Arterial Blood pO2 at Patient Temp 67 mmHg (65-108) Arterial Blood HCO3 27 mmol/L (21-28) Arterial Blood Base Excess 0 mmol/L (-3-3) FiO2 30% Objective: Assessment: 1. Leukocytosis, most likely to be reactive secondary to the fracture. 2. Status post fall with Displaced supracondylar fracture without intracondylar extension of lower end of left femur, initial encounter for closed fracture S72.452A and Periprosthetic fracture around internal prosthetic left knee joint, initial M97.12XA February 13 2020 S/P Left femur open treatment of femoral supracondylar or transcondylar fracture without intercondylar extension, includes internal fixation 3. History of monoclonal gammopathy of undetermined significance. 4. History of breast cancer. 5. Coronary artery disease. 6. Renal insufficiency. 7. Obesity. 8. UC STAPHYLOCOCCUS LUGDUNENSIS; asymptomatic Plan: Plan of Care Patient is refusing for IV Zosyn Changed to p.o. Augmentin as urine culture with staph lugdunensis needs treatment has on erythromycin for gastric motility f/u labs and cults cont supportive care D/W D/W ASEHLY PEÑA MD Feb 15, 2020 08:01
[2020-02-15 08:25] LABS: CALCIUM 10.3 mg/dL (8.5-10.1); GFR 15.3
[2020-02-15] MEDS: BUDESONIDE 0.5 MG/2 ML NEBU. NEB SCH (08:27)
[2020-02-15] MEDS: LACTOBACILLUS RHAMNOSUS GG 1 CAPSULE. PO SCH ×2 (08:33→21:09)
[2020-02-15] MEDS: CHOLECALCIFEROL (VITAMIN D3) 1,000 UNIT TABLET PO SCH (08:33)
[2020-02-15] MEDS: SENNOSIDES/DOCUSATE 8.6/50MG TABLET. PO SCH (08:33)
[2020-02-15 08:34] LABS: BASE EXCESS ABG 2 mmol/L (-3-3); HCO3 ABG 27 mmol/L (21-28); PCO2 ABG 46 mmHg (35-46); PO2 ABG 90 mmHg (65-108); SAT O2 ABG 96 % (92-99)
[2020-02-15] MEDS: MULTIVITAMIN I-VITE TABLET. PO SCH (08:34)
[2020-02-15] MEDS: ASCORBIC ACID 500 MG TABLET PO SCH (08:34)
[2020-02-15] MEDS: FERROUS SULFATE 325 MG TABLET. PO SCH (08:34)
[2020-02-15] MEDS: VERAPAMIL SR 120 MG TABLET.ER. PO SCH (08:34)
[2020-02-15] MEDS: MAGNESIUM OXIDE 400 MG TABLET PO SCH (08:35)
[2020-02-15] MEDS: ASPIRIN ENTERIC COATED 325 MG TABLET.DR. PO SCH ×2 (08:36→21:09)
[2020-02-15] MEDS: LEVOMILNACIPRAN 80 MG PO SCH ×2 (08:38→09:12)
[2020-02-15] MEDS: ASPIRIN CHEWABLE 81 MG TABLET. PO SCH (08:39)
[2020-02-15 08:41] LABS: FIO2 ABG 5L NC
[2020-02-15] MEDS: ALLOPURINOL 300 MG TABLET. PO SCH (08:43)
[2020-02-15] MEDS: AMOXICILLIN/K CLAV 500/125MG TABLET. PO SCH ×2 (09:25→21:09)
[2020-02-15] MEDS: HYDROcodone/APAP 7.5/325MG 1 TAB TABLET PO PRN (09:45)
--- NOTE | 2020-02-15 10:19 | PDOC2 ---
NEUROLOGY CONSULT Date of Admission Date of Admission DATE: 02/15/20 TIME: 09:34 Reason for Consult Reason for Consult: AMS, tremors, possible seizures Referring Physician Referring Physician: Dr. Paredes Source Source: Caregiver (), Chart review, Patient History of Present Illness History of Present Illness The patient is a 35-ig[age]-yvjKdofb-handed female admitted for management of left femur fracture. Her says that she gets confused after surgeries and this has happened here after fracture repair on 02/12. Patient also has had worsening of her COPD and was hypoxic. Yesterday she was noted it have tremors. She has a history of tremor, but it is worse in the hospital says. This afternoon she would seem to be staring into space. The nurse contacted me. I ordered a stat head CT, negative as reviewed below. There is no history of stroke, seizure, or head injury. Past Medical History Cardiovascular: CAD, HTN, [place], Hyperlipidemia Pulmonary: Other (Sleep apnea) GI: GERD, Hemorrhoids, Other ( colonic polyps) Heme/Onc: Anemia NOS, Cancer ( breast), Other (MGUS) Psych: Depression Musculoskeletal: Osteoarthritis Renal/: Chronic renal failure, Other ( nephrolithiasis) Endocrine: Diabetes Past Surgical History Past Surgical History: Cholecystectomy, Cataract Removal, , Mastectomy, Total knee replacement, Tonsillectomy, Hysterectomy Family History Family History: CAD Social History Social History , and no longer uses alcohol or tobacco Current Medications Current Medications Current Medications Morphine Sulfate (Morphine Sulfate) 2 mg PRN Q2HR PRN IV MODERATE PAIN Last administered on 02/13/20at 11:50; Start 02/11/20 at 16:15 Acetaminophen (Tylenol) 650 mg PRN Q6HRS PRN PEG TEMP > 100.3'F; Start 02/11/20 at 16:15 Morphine Sulfate (Morphine Sulfate) 4 mg PRN Q4HRS PRN IV SEVERE PAIN Last administered on 02/12/20at 08:54; Start 02/11/20 at 17:30 Insulin Human Lispro (HumaLOG) 0-5 UNITS TIDWMEALS SQ Last administered on 02/13/20at 17:59; Start 02/11/20 at 18:00; Stop 02/14/20 at 19:43; Status DC Dextrose (Dextrose 50%-Water Syringe) 12.5 gm PRN Q15MIN PRN IV SEE COMMENTS; Start 02/11/20 at 17:30 Sodium Chloride 1,000 ml @ 75 mls/hr [id number] IV Last administered on 02/13/20at 10:59; Start 02/12/20 at 07:00; Stop 02/14/20 at 04:26; Status DC Allopurinol (Zyloprim) 300 mg DAILY PO Last administered on 02/15/20at 08:43; Start 02/12/20 at 09:00 Aspirin (Aspirin Chewable) 81 mg DAILY PO ; Start 02/12/20 at 09:00 Atorvastatin Calcium (Lipitor) 20 mg QHS PO Last administered on 02/14/20at 20:39; Start 02/11/20 at 21:00 Levothyroxine Sodium (Synthroid) 100 mcg DAILY06 PO Last administered on 02/13/20at 06:09; Start 02/12/20 at 06:00 Mirtazapine (Remeron) 30 mg HS PO Last administered on 02/14/20at 20:40; Start 02/11/20 at 21:00 Tramadol HCl (Ultram) 50 mg PRN DAILY PRN PO MILD PAIN 1-3 Last administered on 02/12/20at 21:22; Start 02/11/20 at 17:30 Clonazepam (KlonoPIN) 2 mg QHS PO Last administered on 02/14/20at 20:40; Start 02/11/20 at 21:00 Ferrous Sulfate (Feosol) 325 mg DAILYWBKFT PO Last administered on 02/15/20at 08:34; Start 02/12/20 at 08:00 Non-Formulary Medication (Fluticasone/ Vilanterol (Breo Ellipta 100-25 Mcg Inh)) 1 puff DAILY IH ; Start 02/12/20 at 09:00; Stop 02/11/20 at 18:04; Status DC Insulin Human Lispro (HumaLOG) 2 units BIDACLD SQ Last administered on 02/13/20at 17:58; Start 02/12/20 at 11:30; Stop 02/14/20 at 18:39; Status DC Insulin Glargine (Lantus Syringe) 30 unit QHS SQ Last administered on 02/14/20at 20:42; Start 02/11/20 at 21:00; Stop 02/15/20 at 09:01; Status DC Non-Formulary Medication (Levomilnacipran Hydrochloride (Fetzima)) 80 mg DAILY PO Last administered on 02/15/20at 09:12; Start 02/12/20 at 09:00 Magnesium Oxide (Magnesium Oxide) 400 mg DAILY PO Last administered on 02/15/20at 08:35; Start 02/12/20 at 09:00 Famotidine (Pepcid) 20 mg QHS PO Last administered on 02/14/20at 20:39; Start 02/11/20 at 21:00 Non-Formulary Medication (Umeclidinium [place] (Incruse Ellipta)) 62.5 mcg DAILY IH ; Start 02/12/20 at 09:00; Stop 02/11/20 at 18:07; Status DC Verapamil HCl (Calan Sr) 120 mg DAILY PO Last administered on 02/15/20at 08:34; Start 02/12/20 at 09:00 Oxycodone/ Acetaminophen (Percocet 5/325) 1 tab PRN Q4HRS PRN PO MODERATE PAIN; Start 02/11/20 at 18:00 Oxycodone/ Acetaminophen (Percocet 5/325) 2 tab PRN Q4HRS PRN PO SEVERE PAIN Last administered on 02/13/20at 03:37; Start 02/11/20 at 18:00 Albuterol/ Ipratropium (Duoneb) 3 ml QID NEB Last administered on 02/13/20at 19:31; Start 02/11/20 at 20:00; Stop 02/13/20 at 21:51; Status DC Budesonide (Pulmicort) 0.5 mg BID NEB Last administered on 02/14/20at 07:28; Start 02/11/20 at 21:00; Stop 02/15/20 at 09:10; Status DC Calcium Carbonate/ Glycine (Tums) 500 mg PRN AFTMEALHC PRN PO INDIGESTION Last administered on 02/14/20at 20:40; Start 02/12/20 at 16:30 Ropivacaine 53.3 ml/Epinephrine HCl 0.6 mg/ Morphine Sulfate 5 mg/Sodium Chloride 100 ml @ 100 mls/hr 1X ONCE INT ART Last administered on 02/13/20at 13:35; Start 02/13/20 at 06:00; Stop 02/13/20 at 06:59; Status DC Ondansetron HCl (Zofran) 4 mg PRN Q6HRS PRN IV NAUSEA/VOMITING Last administered on 02/13/20at 08:26; Start 02/13/20 at 07:00; Stop 02/14/20 at 06:59; Status DC Fentanyl Citrate (Fentanyl 2ml Vial) 25 mcg PRN Q5MIN PRN IV MILD PAIN 1-3; Start 02/13/20 at 07:00; Stop 02/14/20 at 06:59; Status DC Fentanyl Citrate (Fentanyl 2ml Vial) 50 mcg PRN Q5MIN PRN IV MODERATE TO SEVERE PAIN; Start 02/13/20 at 07:00; Stop 02/14/20 at 06:59; Status DC Morphine Sulfate (Morphine Sulfate) 1 mg PRN Q10MIN PRN IV SEVERE PAIN 7-10; Start 02/13/20 at 07:00; Stop 02/14/20 at 06:59; Status DC Ringer's Solution 1,000 ml @ 30 mls/hr Q24H IV ; Start 02/13/20 at 07:00; Stop 02/13/20 at 19:00; Status DC Lidocaine HCl (Xylocaine-Mpf 1% 2ml Vial) 2 ml PRN 1X PRN ID PRIOR TO IV START; Start 02/13/20 at 07:00; Stop 02/14/20 at 06:59; Status DC Hydromorphone HCl (Dilaudid) 0.5 mg PRN Q10MIN PRN IV SEV PAIN, Second choice; Start 02/13/20 at 07:00; Stop 02/14/20 at 06:59; Status DC Prochlorperazine Edisylate (Compazine) 5 mg PACU PRN PRN IV NAUSEA, MRX1; Start 02/13/20 at 07:00; Stop 02/14/20 at 06:59; Status DC Bupivacaine HCl/ Epinephrine Bitart (Sensorcaine-Epi 0.25%-1:[id number] Mpf) 30 ml STK-MED ONCE .ROUTE ; Start 02/13/20 at 07:11; Stop 02/13/20 at 07:12; Status DC Ceftriaxone Sodium (Rocephin) 1 gm Q24H IVP Last administered on 02/13/20at 08:25; Start 02/13/20 at 08:00; Stop 02/13/20 at 11:07; Status DC Piperacillin Sod/ Tazobactam Sod 3.375 gm/Sodium Chloride 50 ml @ 100 mls/hr Q6HRS IV ; Start 02/13/20 at 12:00; Status Cancel Piperacillin Sod/ Tazobactam Sod 2.25 gm/Sodium Chloride 50 ml @ 100 mls/hr Q6HRS IV Last administered on 02/14/20at 19:06; Start 02/13/20 at 12:00; Stop 02/15/20 at 08:55; Status DC Propofol (Diprivan) 200 mg STK-MED ONCE IV ; Start 02/13/20 at 11:42; Stop 02/13/20 at 11:42; Status DC Lidocaine HCl (Lidocaine Pf 2% Vial) 5 ml STK-MED ONCE .ROUTE ; Start 02/13/20 at 11:42; Stop 02/13/20 at 11:42; Status DC Midazolam HCl (Versed) 2 mg STK-MED ONCE .ROUTE ; Start 02/13/20 at 12:19; Stop 02/13/20 at 12:19; Status DC Oxycodone HCl (Roxicodone) 5 mg PRN Q3HRS PRN PO PAIN; Start 02/13/20 at 15:00 Morphine Sulfate (Morphine Sulfate) 2 mg PRN Q1HR PRN IVP PAIN; Start 02/13/20 at 15:00 Fentanyl Citrate (Fentanyl 2ml Vial) 25 mcg PRN Q1HR PRN IVP PAIN; Start 02/13/20 at 15:00 Senna/Docusate Sodium (Senna Plus) 1 tab DAILY PO Last administered on 02/15/20at 08:33; Start 02/14/20 at 09:00 Polyethylene Glycol (miraLAX PACKET) 17 gm PRN DAILY PRN PO CONSTIPATION; Start 02/13/20 at 15:00 Vitamin D (Vitamin D3) 1,000 unit DAILY PO Last administered on 02/15/20at 08:33; Start 02/14/20 at 09:00 Sodium Chloride 1,000 ml @ 75 mls/hr [id number] IV ; Start 02/13/20 at 14:46; Stop 02/14/20 at 04:26; Status DC Ondansetron HCl (Zofran) 4 mg PRN Q4HRS PRN IVP NAUSEA/VOMITING Last administered on 02/14/20at 10:19; Start 02/13/20 at 15:00 Magnesium Hydroxide (Milk Of Magnesia) 2,400 mg 1X PRN PRN PO CONSTIPATION; Start 02/14/20 at 06:00; Stop 02/15/20 at 05:59; Status DC Bisacodyl (Dulcolax Supp) 10 mg 1X PRN PRN MS CONSTIPATION; Start 02/14/20 at 16:00; Stop 02/15/20 at 15:59 Acetaminophen/ Hydrocodone Bitart (Lortab 7.5/325) 1 tab PRN Q4HRS PRN PO PAIN; Start 02/13/20 at 15:00 Morphine Sulfate (Morphine Sulfate) 4 mg PRN Q2HR PRN IVP PAIN; Start 02/13/20 at 15:00 Acetaminophen/ Hydrocodone Bitart (Lortab 7.5/325) 2 tab PRN Q4HRS PRN PO PAIN; Start 02/13/20 at 15:00 Dextrose (Dextrose 50%-Water Syringe) 12.5 gm PRN Q15MIN PRN IV SEE COMMENTS; Start 02/13/20 at 15:00; Status Cancel Aspirin (Ecotrin) 325 mg BID PO Last administered on 02/15/20at 08:36; Start at 21:00 Oxycodone/ Acetaminophen (Percocet 5/325) 1 tab PRN Q4HRS PRN PO MODERATE PAIN; Start 02/13/20 at 15:00 Phenylephrine HCl (PHENYLEPHRINE in 0.9% NACL PF) 1 mg STK-MED ONCE IV ; Start 02/13/20 at 15:13; Stop 02/13/20 at 15:14; Status DC Ephedrine Sulfate (ePHEDrine PF IN SALINE SYRINGE) 50 mg STK-MED ONCE IV ; Start 02/13/20 at 15:14; Stop 02/13/20 at 15:14; Status DC Phenylephrine HCl (Flako-Synephrine Inj) 10 mg STK-MED ONCE .ROUTE ; Start 02/13/20 at 15:14; Stop 02/13/20 at 15:14; Status DC Albuterol/ Ipratropium (Duoneb) 3 ml 1X ONCE NEB Last administered on 02/13/20at 22:00; Start 02/13/20 at 22:00; Stop 02/13/20 at 22:01; Status DC Albuterol/ Ipratropium (Duoneb) 3 ml RTQID NEB ; Start 02/14/20 at 08:00; Stop 02/14/20 at 06:02; Status DC Methylprednisolone Sodium Succinate (SOLU-Medrol 125MG VIAL) 125 mg 1X ONCE IV Last administered on 02/14/20at 05:19; Start 02/14/20 at 05:30; Stop 02/14/20 at 05:31; Status DC Albuterol/ Ipratropium (Duoneb) 3 ml Q4HRS NEB Last administered on 02/15/20at 08:26; Start 02/14/20 at 08:00 Lactobacillus Rhamnosus (Culturelle) 1 cap BID PO Last administered on 02/15/20at 08:33; Start 02/14/20 at 21:00 Multivitamins/ Minerals (I-Jennifer) 1 tab DAILY PO Last administered on 02/15/20at 08:34; Start 02/14/20 at 11:00 Ascorbic Acid (Vitamin C) 500 mg DAILY PO Last administered on 02/15/20at 08:34; Start 02/14/20 at 11:00 Heparin Sodium (Porcine) (Heparin Sodium) 5,000 unit Q8HRS SQ ; Start 02/14/20 at 22:00 Insulin Human Lispro (HumaLOG) 12 units TIDWMEALS SQ ; Start 02/15/20 at 08:00; Stop 02/14/20 at 19:44; Status DC Non-Formulary Medication 0-5 UNITS TIDWMEALS SQ ; Start 02/15/20 at 08:00 Non-Formulary Medication 1 ea TIDWMEALS SQ Last administered on 02/15/20at 08:00; Start 02/15/20 at 08:00 Amoxicillin/ Clavulanate Potassium (Augmentin 500/ 125mg) 1 tab BID PO Last administered on 02/15/20at 09:25; Start 02/15/20 at 09:00 Non-Formulary Medication 1 ea QHS SQ ; Start 02/15/20 at 21:00 Active Scripts Active Reported Omeprazole 20 Mg Capsule.dr 1 Cap PO DAILY Lasix (Furosemide) 40 Mg Tablet 1 Tab PO DAILY 30 Days Iron (Ferrous Gluconate) 236 Mg Tablet 65 Mg PO DAILY Biotin 1 Mg Capsule 1 Cap PO DAILY 30 Days [B 6] 1 Tab PO DAILY Levothyroxine Sodium 100 Mcg Tablet 1 Tab PO DAILY Levemir (Insulin Detemir) 100 Unit/1 Ml Vial 30 Unit SQ HS Ranitidine Hcl 150 Mg Capsule 1 Cap PO BID Verapamil Er (Verapamil Hcl) 240 Mg Cap24h.pel 120 Mg PO DAILY Magnesium (Magnesium Oxide) 400 Mg Capsule 1 Cap PO DAILY 30 Days Fetzima (Levomilnacipran Hydrochloride) 80 Mg Cap.sa.24h 80 Mg PO DAILY Tramadol Hcl 50 Mg Tablet 50 Mg PO DAILY PRN Novolog (Insulin Aspart) 100 Unit/1 Ml Cartridge 2 Unit SQ BIDACLD Allopurinol 300 Mg Tablet 1 Tab PO DAILY Potassium Citrate 10 Meq Tablet.er 1 Tab PO BID Incruse Ellipta (Umeclidinium [place]) 62.5 Mcg Blst.w.dev 62.5 Mcg IH DAILY Breo Ellipta 100-25 Mcg Inh (Fluticasone/Vilanterol) 1 Each Aer.pow.ba 1 Puff IH DAILY Klonopin (Clonazepam) 2 Mg Tablet 2 Mg PO HS Mirtazapine 15 Mg Tablet 30 Mg PO HS Erythromycin (Erythromycin Base) 250 Mg Capsule.dr 250 Mg PO BID Diphenoxylate-Atropine Tablet (Diphenoxylate Hcl/Atropine) 1 Each Tablet 1 Each PO DAILY PRN Cyanocobalamin Injection (Cyanocobalamin (Vitamin B-12)) 1,000 Mcg/1 Ml Vial 1,000 Mcg IJ QMONTH Vitamin D-3 (Cholecalciferol (Vitamin D3)) 2,000 Unit Capsule 2,000 Unit PO DAILY Atorvastatin Calcium 20 Mg Tablet 20 Mg PO DAILY Aspirin 81 Mg Tab.chew 81 Mg PO DAILY Allergies Allergies: Coded Allergies: Sulfa (Sulfonamide Antibiotics) (Verified Allergy, Intermediate, Hives, 05/21/19) ciprofloxacin (Unverified Allergy, Intermediate, 05/21/19) diclofenac (Verified Allergy, Intermediate, Hives, 05/21/19) hydrochlorothiazide (Verified Allergy, Intermediate, Rash, 05/21/19) lactose (Verified Allergy, Intermediate, 05/21/19) misoprostol (Verified Allergy, Intermediate, Hives, 05/21/19) sulfamethoxazole (Verified Allergy, Intermediate, 05/21/19) trimethoprim (Verified Allergy, Intermediate, 05/21/19) codeine (Verified Adverse Reaction, Intermediate, Nausea and Vomiting, 05/21/19) ROS Review of System Negative for fever, chills, weight loss, shortness of breath, chest pain, indigestion, hematochezia, melena, and dysuria. Full 14-point review of systems is negative. Physical Exam Physical Examination General: Well-developed, well-nourished white female in no acute distress HEENT: Normocephalic andatraumatic. Temporal arteriespulsatile and nontender. Neck: Supple without bruit, no meningismus Musculoskeletal: Stability:see neurologic. Gait exam:see neurologic. Tone:see neurologic.Strength:see neurologic. Neurological: Mental Status:orientation, memory, attention span/concentration, language, fund of knowledge: knows location, not date, somewhat defiant and uncooperative. Cranial Nerves:Pupils equal and reactive to light, extraocular movements areintact, visual hernandez are full to confrontation. Facial sensation is normal. There is no facial asymmetry. Vestibulo-ocular reflex is intact. Palate elevates and tongue protrudes in midline. All other cranial related problems are negative except as mentioned before.Reflexes:1+ and symmetric with flexor plantar responses. Motor:5/5 strength with normal tone and bulk. Coordination:Finger- nose finger and [id number] testing are normal. Rapid alternating movements and fine finger movements are intact. Gait: not tested. Sensory:Normal pinprick, vibration, light touch, proprioception. Vitals VITALS Vital Signs Date Time Temp Pulse Resp B/P (MAP) Pulse Ox O2 Delivery O2 Flow Rate FiO2 02/15/20 08:34 102 140/52 02/15/20 08:27 96 Nasal Cannula 5.0 02/15/20 06:00 19 02/15/20 00:00 97.6 97.6 Labs Labs Laboratory Tests Test 02/13/20 10:58 02/13/20 11:35 02/13/20 15:09 02/13/20 16:50 Glucose (Fingerstick) 159 mg/dL (70-99) 173 mg/dL (70-99) 230 mg/dL (70-99) Lactic Acid Level 1.0 mmol/L (0.4-2.0) Test 02/13/20 21:00 02/13/20 21:11 02/13/20 21:20 02/14/20 03:00 Glucose (Fingerstick) 190 mg/dL (70-99) O2 Saturation 98 % (92-99) Arterial Blood pH 7.19 (7.35-7.45) Arterial Blood pCO2 at Patient Temp 81 mmHg (35-46) Arterial Blood pO2 at Patient Temp 206 mmHg (65-108) Arterial Blood HCO3 30 mmol/L (21-28) Arterial Blood Base Excess 1 mmol/L (-3-3) FiO2 100 White Blood Count 21.1 x10^3/uL (4.0-11.0) 19.9 x10^3/uL (4.0-11.0) Red Blood Count 2.94 x10^6/uL (3.50-5.40) 2.78 x10^6/uL (3.50-5.40) Hemoglobin 8.5 g/dL (12.0-15.5) 8.2 g/dL (12.0-15.5) Hematocrit 26.5 % (36.0-47.0) 24.8 % (36.0-47.0) Mean Corpuscular Volume 90 fL (79-100) 89 fL (79-100) Mean Corpuscular Hemoglobin 29 pg (25-35) 29 pg (25-35) Mean Corpuscular Hemoglobin Concent 32 g/dL (31-37) 33 g/dL (31-37) Red Cell Distribution Width 17.0 % (11.5-14.5) 17.1 % (11.5-14.5) Platelet Count 209 x10^3/uL (140-400) 216 x10^3/uL (140-400) Neutrophils (%) (Auto) 89 % (31-73) 89 % (31-73) Lymphocytes (%) (Auto) 4 % (24-48) 3 % (24-48) Monocytes (%) (Auto) 7 % (0-9) 7 % (0-9) Eosinophils (%) (Auto) 0 % (0-3) 0 % (0-3) Basophils (%) (Auto) 1 % (0-3) 0 % (0-3) Neutrophils # (Auto) 18.7 x10^3/uL (1.8-7.7) 17.7 x10^3/uL (1.8-7.7) Lymphocytes # (Auto) 0.7 x10^3/uL (1.0-4.8) 0.7 x10^3/uL (1.0-4.8) Monocytes # (Auto) 1.5 x10^3/uL (0.0-1.1) 1.5 x10^3/uL (0.0-1.1) Eosinophils # (Auto) 0.0 x10^3/uL (0.0-0.7) 0.0 x10^3/uL (0.0-0.7) Basophils # (Auto) 0.1 x10^3/uL (0.0-0.2) 0.1 x10^3/uL (0.0-0.2) Sodium Level 137 mmol/L (136-145) Potassium Level 5.1 mmol/L (3.5-5.1) Chloride Level 102 mmol/L (98-107) Carbon Dioxide Level 30 mmol/L (21-32) Anion Gap 5 (6-14) Blood Urea Nitrogen 47 mg/dL (7-20) Creatinine 2.8 mg/dL (0.6-1.0) Estimated GFR (Cockcroft-Gault) 16.5 BUN/Creatinine Ratio 17 (6-20) Glucose Level 228 mg/dL (70-99) Calcium Level 9.3 mg/dL (8.5-10.1) Total Bilirubin 0.6 mg/dL (0.2-1.0) Aspartate Amino Transf (AST/SGOT) 68 U/L (15-37) Alanine Aminotransferase (ALT/SGPT) 83 U/L (14-59) Alkaline Phosphatase 109 U/L (46-116) UA-Gtl-Z-Type Natriuretic Peptide 8387 pg/mL (0-124) Total Protein 5.6 g/dL (6.4-8.2) Albumin 2.4 g/dL (3.4-5.0) Albumin/Globulin Ratio 0.8 (1.0-1.7) Test 02/14/20 05:00 02/14/20 08:40 02/15/20 07:50 02/15/20 08:30 O2 Saturation 94 % (92-99) 91 % (92-99) 96 % (92-99) Arterial Blood pH 7.23 (7.35-7.45) 7.26 (7.35-7.45) 7.39 (7.35-7.45) Arterial Blood pCO2 at Patient Temp 71 mmHg (35-46) 62 mmHg (35-46) 46 mmHg (35-46) Arterial Blood pO2 at Patient Temp 85 mmHg (65-108) 67 mmHg (65-108) 90 mmHg (65-108) Arterial Blood HCO3 29 mmol/L (21-28) 27 mmol/L (21-28) 27 mmol/L (21-28) Arterial Blood Base Excess 1 mmol/L (-3-3) 0 mmol/L (-3-3) 2 mmol/L (-3-3) FiO2 35 30% 5l nc Sodium Level 135 mmol/L (136-145) Potassium Level 4.0 mmol/L (3.5-5.1) Chloride Level 99 mmol/L (98-107) Carbon Dioxide Level 24 mmol/L (21-32) Anion Gap 12 (6-14) Blood Urea Nitrogen 76 mg/dL (7-20) Creatinine 3.0 mg/dL (0.6-1.0) Estimated GFR (Cockcroft-Gault) 15.3 Glucose Level 257 mg/dL (70-99) Calcium Level 10.3 mg/dL (8.5-10.1) Laboratory Tests Test 02/15/20 07:50 02/15/20 08:30 Sodium Level 135 mmol/L (136-145) Potassium Level 4.0 mmol/L (3.5-5.1) Chloride Level 99 mmol/L (98-107) Carbon Dioxide Level 24 mmol/L (21-32) Anion Gap 12 (6-14) Blood Urea Nitrogen 76 mg/dL (7-20) Creatinine 3.0 mg/dL (0.6-1.0) Estimated GFR (Cockcroft-Gault) 15.3 Glucose Level 257 mg/dL (70-99) Calcium Level 10.3 mg/dL (8.5-10.1) O2 Saturation 96 % (92-99) Arterial Blood pH 7.39 (7.35-7.45) Arterial Blood pCO2 at Patient Temp 46 mmHg (35-46) Arterial Blood pO2 at Patient Temp 90 mmHg (65-108) Arterial Blood HCO3 27 mmol/L (21-28) Arterial Blood Base Excess 2 mmol/L (-3-3) FiO2 5l nc Images Images CT Head without IV contrast CLINICAL HISTORY: temors/possible seizure activity ICU 103 COMPARISON: None. TECHNIQUE: Routine CT of the head without contrast. Soft tissues and bone windows were reviewed. PQRS compliance statement - One or more of the following individualized dose reduction techniques were utilized for this study: 1. Automated exposure control 2. Adjustment of the mA and/or kV according to patient size 3. Use of iterative reconstruction technique FINDINGS: There is no evidence of hemorrhage, mass or extra-axial fluid collection. Guzman-white differentiation is maintained with no evidence of edema. Subcortical, periventricular as well as deep white matter hypoattenuation likely changes of chronic small vessel disease. There is no mass effect or shift of the intracranial structures. The ventricles and cerebral sulci are prominent for the patients stated age consistent with generalized cerebral volume loss. The cerebellum and brainstem are unremarkable. The calvarium demonstrates no evidence of fracture or focal lesion. There is normal aeration of the visualized paranasal sinuses and mastoid air cells. The visualized portions of the orbits are normal. IMPRESSION: 1. No evidence for acute intracranial process. 2. White matter changes, likely chronic small vessel disease. Assessment/Plan Assessment/Plan Impression: Toxic and metabolic encephalopathy, postoperative confusion, also she has been hypoxic. Essential tremor by history, none now, this would be exacerbated by the stresses in the hospital as well as adrenergic medications. I do not think she's having active seizures either convulsive or partial-complex. Recommendations: Continue supportive care She does not need additional studies such as EEG I discussed with the patient's . Thank you for letting me help with the patient's care. REGINA FRANZ MD Feb 15, 2020 10:19
--- NOTE | 2020-02-15 11:18 | PDOC ---
Renal-Progress Notes Subjective Notes Notes NO NEW COMPLAINTS History of Present Illness Hx of present illness STABLE Vitals Vitals Vital Signs Date Time Temp Pulse Resp B/P (MAP) Pulse Ox O2 Delivery O2 Flow Rate FiO2 02/15/20 10:55 15 99 2.0 02/15/20 09:45 Nasal Cannula 02/15/20 09:00 102 153/73 (99) 02/15/20 08:00 98.7 98.7 Weight Weight [ ] I.O. Intake and Output Intake and Output 02/15/20 07:00 Intake Total 902 ml Output Total 1210 ml Balance -308 ml Intake Oral 550 ml IV Total 50 ml Other 302 ml Output Urine Total 1210 ml Labs Labs Laboratory Tests Test 02/15/20 07:50 02/15/20 08:30 Sodium Level 135 mmol/L (136-145) Potassium Level 4.0 mmol/L (3.5-5.1) Chloride Level 99 mmol/L (98-107) Carbon Dioxide Level 24 mmol/L (21-32) Anion Gap 12 (6-14) Blood Urea Nitrogen 76 mg/dL (-20) Creatinine 3.0 mg/dL (0.6-1.0) Estimated GFR (Cockcroft-Gault) 15.3 Glucose Level 257 mg/dL (70-99) Calcium Level 10.3 mg/dL (8.5-10.1) O2 Saturation 96 % (92-99) Arterial Blood pH 7.39 (7.35-7.45) Arterial Blood pCO2 at Patient Temp 46 mmHg (35-46) Arterial Blood pO2 at Patient Temp 90 mmHg (65-108) Arterial Blood HCO3 27 mmol/L (21-28) Arterial Blood Base Excess 2 mmol/L (-3-3) FiO2 5l nc Micro Micro Microbiology 02/13/20 Blood Culture - Preliminary, Resulted NO GROWTH AFTER 1 DAY 02/13/20 Urine Culture - Final, Complete Review of Systems Constitutional: yes: weakness, alert Ears/Nose/Throat: Yes: no symptom reported Eyes: Yes: no symptom reported Pulmonary: Yes dyspnea Cardiovascular: Yes no symptom reported Gastrointestional: Yes: constipation Genitourinary: Yes: no symptom reported Musculoskeletal: Yes: joint pain Skin: Yes no symptom reported Psychiatric/Neurological: Yes: no symptom reported Endocrine: Yes: no symptom reported Physical Exam General Appearance: no apparent distress Skin: warm Respiratory: bilateral CTA Heart: S1S2 Abdomen: soft, bowel sounds present Genitourinary: bladder flat Extremities: atrophy Neurology: alert, follow commands Musculoskeletal: Osteoarthritis Assessment Assessment IMP CKD STAGE 4 WITH CR OF 2.5 ON AVG BUT CR UP TO 3.0 GENERALIZED EDEMA LEUCOCYTOSIS ANEMIA ACUTE RESP FAILURE OBESITY AND SHAYLA AECOPD S/P DISTAL FEM FX REPAIR PLAN CONT SUPPORTIVE CARE RESUME HOME PRISCILLA PT HAS NOT BEEN FOLLOWING RENAL SINCE HER DOCTOR FROM [facility] LEFT SHE WILL FOLLOW UP IN OUR OFFICE ON D/C SHOSHANA MARCELO MD Feb 15, 2020 11:18
[2020-02-15] MEDS ORDERED: FUROSEMIDE 40 MG TABLET. PO ONE (11:30)
--- NOTE | 2020-02-15 12:07 | PDOC ---
MATILDE STEPHENS [employer] INSTRUCTOR 02/15/20 1207: CARDIO Progress Notes Date and Time Date of Service 02/15/20 Time of Evaluation 1200 Subjective Subjective: No Chest Pain, No Palpitations, No Dizziness, Other (SOA improved, on NC) Vitals Vitals Vital Signs Date Time Temp Pulse Resp B/P (MAP) Pulse Ox O2 Delivery O2 Flow Rate FiO2 02/15/20 11:00 97 15 155/62 (93) 97 Nasal Cannula 5.0 02/15/20 08:00 98.7 98.7 Weight Weight [ ] Input and Output Intake and Output Intake and Output 02/15/20 07:00 Intake Total 902 ml Output Total 1210 ml Balance -308 ml Intake Oral 550 ml IV Total 50 ml Other 302 ml Output Urine Total 1210 ml Laboratory Labs Laboratory Tests Test 02/15/20 07:50 02/15/20 08:30 Sodium Level 135 mmol/L (136-145) Potassium Level 4.0 mmol/L (3.5-5.1) Chloride Level 99 mmol/L (98-107) Carbon Dioxide Level 24 mmol/L (21-32) Anion Gap 12 (6-14) Blood Urea Nitrogen 76 mg/dL (7-20) Creatinine 3.0 mg/dL (0.6-1.0) Estimated GFR (Cockcroft-Gault) 15.3 Glucose Level 257 mg/dL (70-99) Calcium Level 10.3 mg/dL (8.5-10.1) O2 Saturation 96 % (92-99) Arterial Blood pH 7.39 (7.35-7.45) Arterial Blood pCO2 at Patient Temp 46 mmHg (35-46) Arterial Blood pO2 at Patient Temp 90 mmHg (65-108) Arterial Blood HCO3 27 mmol/L (21-28) Arterial Blood Base Excess 2 mmol/L (-3-3) FiO2 5l nc Microbiology Micro Microbiology 02/13/20 Blood Culture - Preliminary, Resulted NO GROWTH AFTER 2 DAYS 02/13/20 Urine Culture - Final, Complete Review of Systems Constitutional: yes: weakness, alert Ears/Nose/Throat: Yes: no symptom reported Eyes: Yes: no symptom reported Pulmonary: Yes dyspnea Cardiovascular: Yes no symptom reported Gastrointestional: Yes: constipation Genitourinary: Yes: no symptom reported Musculoskeletal: Yes: joint pain Skin: Yes no symptom reported Psychiatric/Neurological: Yes: no symptom reported Endocrine: Yes: no symptom reported Physical Exam HEENT: Neck Supple W Full Motion Chest: Symmetric LUNGS: Clear to Auscultation, Other (diminished bases ) Abdomen: Soft N/T Extremities: Other (trace bilateral LE edema ) Neurology: alert, follow commands Assessment Assessment 1. Mechanical fall with left distal femoral fracture s/p surgical repair. POD#2 2. CAD; distal LAD & a distal diag occlusion, treated medically. Follows with Dr. Shana AMBROCIO. 3. Hypertension; controlled 4. Hyperlipidemia; statin 5. AE COPD; off BiPAP. On NC 6. OLU on CKD 7. Leukocytosis 8. Diabetes, II 9. H/o Takotsubo cardiomyopathy with LV recovery. Echo with preserved LV systolic function 10. H/o syncope with ILR; device checks did not revealed any contributing arrhythmias. 11. HOCM; echo with moderate LVH Recommendations Oral Lasix therapy Secondary prevention measures Supportive care from a CV standpoint Continue postop management as per ortho Justicifation of Admission Dx: Justifications for Admission: Justification of Admission Dx: Yes HARSHAL HENDRIX MD 02/15/20 1701: CARDIO Progress Notes Assessment Assessment Patient seen and examinedAssessment Mechanical fall with left distal femoral fracture s/p surgical repair. POD#2. More alert and improved today. CAD; distal LAD & a distal diag occlusion, treated medically. Follows with Dr. Shana AMBROCIO. Hypertension; controlled AE COPD; off BiPAP. On NC OLU on CKD H/o Takotsubo cardiomyopathy with LV recovery. Echo with preserved LV systolic function MATILDE STEPHENS APRN Feb 15, 2020 12:07 HARSHAL HENDRIX MD Feb 15, 2020 17:01
--- NOTE | 2020-02-15 12:22 | RAD ---
Examination: Bilateral Lower Extremity Venous Doppler Ultrasound History: Bilateral lower extremity edema Comparison: None Procedure: Jones scale, color flow 2D and spectal waveform analysis images are obtained with and without compression in the area of the common femoral vein, superficial femoral vein - femoral vein junction, main femoral vein (superficial femoral vein) and popliteal vein. Veins of the proximal calf are also imaged. Findings: There is normal duplex flow, color flow and compressibility of all visualized vein segments. No evidence of deep venous thrombus is present. Examination due to patient body habitus and due to leg swelling. The peroneal veins could not be identified. The left popliteal vein is not well-visualized. Impression: No evidence of DVT in the visualized bilateral lower extremity venous system. . Electronically signed by: Kar Dowling MD (02/15/2020 12:19 PM) [id number]
[2020-02-15] MEDS ORDERED: ALTEPLASE 1MG SYRINGE. INT CAT ONE (12:30)
--- NOTE | 2020-02-15 12:36 | NUR ---
SS following up with discharge planning. SS reviewed pt chart and discussed with pt RN. Pt is currently requiring oxygen. PT recommended [facility] unit. SS met with pt and spouse in room and they requested referral be phoned and faxed to [facility], ; fax [phone]. SS phoned and faxed referral as requested. Pt reported that she does not want to consider [facility]. SS will await acceptance decision and will proceed accordingly with discharge planning.
--- NOTE | 2020-02-15 13:24 | PDOC ---
[facility] PROGRESS NOTE Chief Complaint Chief Complaint Distal left femur fracture (postop day 2) Respiratory failure History of Present Illness History of Present Illness 02/15/2020 Patient seen and examined in the ICU She is off BiPAP Her is present Discussed with RN Chart reviewed Vitals/I&O Vitals/I&O: Vital Signs Date Time Temp Pulse Resp B/P (MAP) Pulse Ox O2 Delivery O2 Flow Rate FiO2 02/15/20 11:00 97 15 155/62 (93) 97 Nasal Cannula 5.0 02/15/20 08:00 98.7 98.7 I & O 02/14/20 02/14/20 02/15/20 15:00 23:00 07:00 Intake Total 100 ml 802 ml Output Total 135 ml 350 ml 725 ml Balance -35 ml 452 ml -725 ml Physical Exam Physical Exam: GENERAL: Alert, oriented female HEENT: Both pupils are round and reacting. No conjunctival lesion, NECK: Supple, no JVP, no lymphadenopathy. LUNGS: clear anteriorly HEART: S1, S2 regular. ABDOMEN: soft bs + nontender EXTREMITIES: trace edema, no cyanosis.Brace in the LLE SKIN: bruise on bue, NEUROLOGIC: No focal neurologic deficit. General: Alert, Oriented X3, No acute distress (sitting up in chair ), Other Heart: Regular rate, No murmurs Lungs: Clear Extremities: No edema Skin: No rashes Labs Labs: Laboratory Tests Test 02/15/20 07:50 02/15/20 08:30 Sodium Level 135 mmol/L (136-145) Potassium Level 4.0 mmol/L (3.5-5.1) Chloride Level 99 mmol/L (98-107) Carbon Dioxide Level 24 mmol/L (21-32) Anion Gap 12 (6-14) Blood Urea Nitrogen 76 mg/dL (7-20) Creatinine 3.0 mg/dL (0.6-1.0) Estimated GFR (Cockcroft-Gault) 15.3 Glucose Level 257 mg/dL (70-99) Calcium Level 10.3 mg/dL (8.5-10.1) O2 Saturation 96 % (92-99) Arterial Blood pH 7.39 (7.35-7.45) Arterial Blood pCO2 at Patient Temp 46 mmHg (35-46) Arterial Blood pO2 at Patient Temp 90 mmHg (65-108) Arterial Blood HCO3 27 mmol/L (21-28) Arterial Blood Base Excess 2 mmol/L (-3-3) FiO2 5l nc Assessment and Plan Assessmemt and Plan Assessment: Left Distal Femur Fracture following Mechanical Fall Left femur open treatment of femoral supracondylar or transcondylar fracture without intercondylar extension, includes internal fixation 02/12 There is a comminuted fracture of the distal femoral diaphysis with 2 large displaced fragments measuring 6.5 cm and 7.7 cm. Fracture is obliquely oriented extending from the medial distal femoral diaphyseal cortex laterally immediately superior to the left femoral condylar portion of the total knee arthroplasty. CAD status post cardiac catheterization COPD Chronic Hypoxic Resp Failure on 2 liters at home Previous Tobacco Use diabetes type 2 HTN HLD, CKD stage 4 hypothyroidism breast cancer status post left mastectomy echo 02/11 left ventrticular outflow obstruction with a resting velocity of 47 mmHg that does not increase with valsalva manuever. Plan: Wound care ICU monitoring Home meds ortho consult pain control with IV morphine baseline labs continue supplemental 02 known cardiac hx, no active chest pain or symptoms at present. med rec reviewed. hold lasix resume home insulin resume home lasix SSI FULL CODE Comment Review of Relevant I have reviewed the following items cristian (where applicable) has been applied. Medications: Current Medications Medications (Trade) Dose Ordered Sig/Stan Route PRN Reason Start Time Stop Time Status Last Admin Dose Admin Lactobacillus Rhamnosus (Culturelle) 1 cap BID PO 02/14/20 21:00 02/15/20 08:33 Non-Formulary Medication 1 ea TIDWMEALS SQ 02/15/20 08:00 02/15/20 12:35 Amoxicillin/ Clavulanate Potassium (Augmentin 500/ 125mg) 1 tab BID PO 02/15/20 09:00 02/15/20 09:25 Furosemide (Lasix) 40 mg 1X ONCE PO 02/15/20 11:30 02/15/20 11:31 DC 02/15/20 12:13 Justicifation of Admission Dx: Justifications for Admission: Justification of Admission Dx: Yes RICHARD GUALLPA III DO Feb 15, 2020 13:24
--- NOTE | 2020-02-15 14:00 | NUR ---
Patient refused 1400 Heparin.
--- NOTE | 2020-02-15 14:20 | PDOC ---
PULMONARY PROGRESS NOTES Subjective Patient not more short of air, refusing treatments, not happy with the clinical situation, nothing specific Vitals Vital Signs Date Time Temp Pulse Resp B/P (MAP) Pulse Ox O2 Delivery O2 Flow Rate FiO2 02/15/20 11:00 97 15 155/62 (93) 97 Nasal Cannula 5.0 02/15/20 08:00 98.7 98.7 ROS: No Nausea, No Chest Pain, No Abdominal Pain, No Increase Cough General: Alert Lungs: Clear Cardiovascular: S1, S2 Abdomen: Soft Neuro Exam: Alert Extremities: Other (Some edema) Skin: Warm Labs Laboratory Tests Test 02/13/20 15:09 02/13/20 16:50 02/13/20 21:00 02/13/20 21:11 Glucose (Fingerstick) 173 mg/dL (70-99) 230 mg/dL (70-99) 190 mg/dL (70-99) O2 Saturation 98 % (92-99) Arterial Blood pH 7.19 (7.35-7.45) Arterial Blood pCO2 at Patient Temp 81 mmHg (35-46) Arterial Blood pO2 at Patient Temp 206 mmHg (65-108) Arterial Blood HCO3 30 mmol/L (21-28) Arterial Blood Base Excess 1 mmol/L (-3-3) FiO2 100 Test 02/13/20 21:20 02/14/20 03:00 02/14/20 05:00 02/14/20 08:40 White Blood Count 21.1 x10^3/uL (4.0-11.0) 19.9 x10^3/uL (4.0-11.0) Red Blood Count 2.94 x10^6/uL (3.50-5.40) 2.78 x10^6/uL (3.50-5.40) Hemoglobin 8.5 g/dL (12.0-15.5) 8.2 g/dL (12.0-15.5) Hematocrit 26.5 % (36.0-47.0) 24.8 % (36.0-47.0) Mean Corpuscular Volume 90 fL (79-100) 89 fL (79-100) Mean Corpuscular Hemoglobin 29 pg (25-35) 29 pg (25-35) Mean Corpuscular Hemoglobin Concent 32 g/dL (31-37) 33 g/dL (31-37) Red Cell Distribution Width 17.0 % (11.5-14.5) 17.1 % (11.5-14.5) Platelet Count 209 x10^3/uL (140-400) 216 x10^3/uL (140-400) Neutrophils (%) (Auto) 89 % (31-73) 89 % (31-73) Lymphocytes (%) (Auto) 4 % (24-48) 3 % (24-48) Monocytes (%) (Auto) 7 % (0-9) 7 % (0-9) Eosinophils (%) (Auto) 0 % (0-3) 0 % (0-3) Basophils (%) (Auto) 1 % (0-3) 0 % (0-3) Neutrophils # (Auto) 18.7 x10^3/uL (1.8-7.7) 17.7 x10^3/uL (1.8-7.7) Lymphocytes # (Auto) 0.7 x10^3/uL (1.0-4.8) 0.7 x10^3/uL (1.0-4.8) Monocytes # (Auto) 1.5 x10^3/uL (0.0-1.1) 1.5 x10^3/uL (0.0-1.1) Eosinophils # (Auto) 0.0 x10^3/uL (0.0-0.7) 0.0 x10^3/uL (0.0-0.7) Basophils # (Auto) 0.1 x10^3/uL (0.0-0.2) 0.1 x10^3/uL (0.0-0.2) Sodium Level 137 mmol/L (136-145) Potassium Level 5.1 mmol/L (3.5-5.1) Chloride Level 102 mmol/L (98-107) Carbon Dioxide Level 30 mmol/L (21-32) Anion Gap 5 (6-14) Blood Urea Nitrogen 47 mg/dL (7-20) Creatinine 2.8 mg/dL (0.6-1.0) Estimated GFR (Cockcroft-Gault) 16.5 BUN/Creatinine Ratio 17 (6-20) Glucose Level 228 mg/dL (70-99) Calcium Level 9.3 mg/dL (8.5-10.1) Total Bilirubin 0.6 mg/dL (0.2-1.0) Aspartate Amino Transf (AST/SGOT) 68 U/L (15-37) Alanine Aminotransferase (ALT/SGPT) 83 U/L (14-59) Alkaline Phosphatase 109 U/L (46-116) PP-Dfi-A-Type Natriuretic Peptide 8387 pg/mL (0-124) Total Protein 5.6 g/dL (6.4-8.2) Albumin 2.4 g/dL (3.4-5.0) Albumin/Globulin Ratio 0.8 (1.0-1.7) O2 Saturation 94 % (92-99) 91 % (92-99) Arterial Blood pH 7.23 (7.35-7.45) 7.26 (7.35-7.45) Arterial Blood pCO2 at Patient Temp 71 mmHg (35-46) 62 mmHg (35-46) Arterial Blood pO2 at Patient Temp 85 mmHg (65-108) 67 mmHg (65-108) Arterial Blood HCO3 29 mmol/L (21-28) 27 mmol/L (21-28) Arterial Blood Base Excess 1 mmol/L (-3-3) 0 mmol/L (-3-3) FiO2 35 30% Test 02/15/20 07:50 02/15/20 08:30 Sodium Level 135 mmol/L (136-145) Potassium Level 4.0 mmol/L (3.5-5.1) Chloride Level 99 mmol/L (98-107) Carbon Dioxide Level 24 mmol/L (21-32) Anion Gap 12 (6-14) Blood Urea Nitrogen 76 mg/dL (7-20) Creatinine 3.0 mg/dL (0.6-1.0) Estimated GFR (Cockcroft-Gault) 15.3 Glucose Level 257 mg/dL (70-99) Calcium Level 10.3 mg/dL (8.5-10.1) O2 Saturation 96 % (92-99) Arterial Blood pH 7.39 (7.35-7.45) Arterial Blood pCO2 at Patient Temp 46 mmHg (35-46) Arterial Blood pO2 at Patient Temp 90 mmHg (65-108) Arterial Blood HCO3 27 mmol/L (21-28) Arterial Blood Base Excess 2 mmol/L (-3-3) FiO2 5l nc Laboratory Tests Test 02/15/20 07:50 02/15/20 08:30 Sodium Level 135 mmol/L (136-145) Potassium Level 4.0 mmol/L (3.5-5.1) Chloride Level 99 mmol/L (98-107) Carbon Dioxide Level 24 mmol/L (21-32) Anion Gap 12 (6-14) Blood Urea Nitrogen 76 mg/dL (7-20) Creatinine 3.0 mg/dL (0.6-1.0) Estimated GFR (Cockcroft-Gault) 15.3 Glucose Level 257 mg/dL (70-99) Calcium Level 10.3 mg/dL (8.5-10.1) O2 Saturation 96 % (92-99) Arterial Blood pH 7.39 (7.35-7.45) Arterial Blood pCO2 at Patient Temp 46 mmHg (35-46) Arterial Blood pO2 at Patient Temp 90 mmHg (65-108) Arterial Blood HCO3 27 mmol/L (21-28) Arterial Blood Base Excess 2 mmol/L (-3-3) FiO2 5l nc Medications Active Scripts Medications Dose Route/Sig Max Daily Dose Days Date Category Omeprazole 20 Mg Capsule.dr 1 Cap PO DAILY 02/12/20 Reported Lasix (Furosemide) 40 Mg Tablet 1 Tab PO DAILY 30 02/11/20 Reported Iron (Ferrous Gluconate) 236 Mg Tablet 65 Mg PO DAILY 02/11/20 Reported Biotin 1 Mg Capsule 1 Cap PO DAILY 30 02/11/20 Reported [B 6] 1 Tab PO DAILY 02/11/20 Reported Levothyroxine Sodium 100 Mcg Tablet 1 Tab PO DAILY 02/11/20 Reported Levemir (Insulin Detemir) 100 Unit/1 Ml Vial 30 Unit SQ HS 05/21/19 Reported Ranitidine Hcl 150 Mg Capsule 1 Cap PO BID 05/21/19 Reported Verapamil Er (Verapamil Hcl) 240 Mg Cap24h.pel 120 Mg PO DAILY 05/21/19 Reported Magnesium (Magnesium Oxide) 400 Mg Capsule 1 Cap PO DAILY 30 05/21/19 Reported Fetzima (Levomilnacipran Hydrochloride) 80 Mg Cap.sa.24h 80 Mg PO DAILY 05/21/19 Reported Tramadol Hcl 50 Mg Tablet 50 Mg PO DAILY PRN 05/21/19 Reported Novolog (Insulin Aspart) 100 Unit/1 Ml Cartridge 2 Unit SQ BIDACLD 05/21/19 Reported Allopurinol 300 Mg Tablet 1 Tab PO DAILY 05/21/19 Reported Potassium Citrate 10 Meq Tablet.er 1 Tab PO BID 05/21/19 Reported Incruse Ellipta (Umeclidinium [place]) 62.5 Mcg Blst.w.dev 62.5 Mcg IH DAILY 05/21/19 Reported Breo Ellipta 100-25 Mcg Inh (Fluticasone/Vilanterol) 1 Each Aer.pow.ba 1 Puff IH DAILY 05/21/19 Reported Klonopin (Clonazepam) 2 Mg Tablet 2 Mg PO HS 07/10/17 Reported Mirtazapine 15 Mg Tablet 30 Mg PO HS 02/24/14 Reported Erythromycin (Erythromycin Base) 250 Mg Capsule.dr 250 Mg PO BID 02/24/14 Reported Diphenoxylate-Atropine Tablet (Diphenoxylate Hcl/Atropine) 1 Each Tablet 1 Each PO DAILY PRN 02/24/14 Reported Cyanocobalamin Injection (Cyanocobalamin (Vitamin B-12)) 1,000 Mcg/1 Ml Vial 1,000 Mcg IJ QMONTH 02/24/14 Reported Vitamin D-3 (Cholecalciferol (Vitamin D3)) 2,000 Unit Capsule 2,000 Unit PO DAILY 02/24/14 Reported Atorvastatin Calcium 20 Mg Tablet 20 Mg PO DAILY 02/24/14 Reported Aspirin 81 Mg Tab.chew 81 Mg PO DAILY 02/24/14 Reported Impression . IMPRESSION: 1. Acute on chronic hypoxemic hypercapnic respiratory failure in a patient with underlying chronic obstructive pulmonary disease, obesity and recent surgery. 2. Leukocytosis, per Infectious Disease. 3. Coronary artery disease. 4. Multiple drug ALLERGIES INCLUDING SULFA, CIPROFLOXACIN, CODEINE, HYDROCHLOROTHIAZIDE, SULFAMETHOXAZOLE AND TRIMETHOPRIM. 5. Morbid obesity. 6. Suspect obstructive sleep apnea. 7. Acute exacerbation of chronic obstructive pulmonary disease. 8. Hypertension. 9. Hyperlipidemia. 10. Status post repair of a distal femoral fracture. Plan . We will check venous Dopplers of the lower extremities, VQ scan would be indeterminate, my clinical suspicion for PE is low Continue current support PRN BiPAP, patient refuses Continue oxygen supplementation at baseline of 2 L Nebulized treatment The above discussed with RN and at the bedside Total cumulative critical care time of 30 minutes reviewing data, chest x-ray, labs, and formulating a plan. MARY THOMAS MD Feb 15, 2020 14:20
[2020-02-15 15:13] LABS: KAPPA FREE 58.9 mg/L (3.3-19.4); KAPPA LAMBDA RATIO 1.56 (0.26-1.65); LAMBDA FREE 37.7 mg/L (5.7-26.3)
[2020-02-15] MEDS: FUROSEMIDE 40 MG TABLET. PO SCH (16:12)
[2020-02-15] MEDS ORDERED: LANTUS INSULIN SQ SCH (21:00)
[2020-02-15] MEDS: MIRTAZAPINE 15 MG TABLET PO SCH (21:09)
[2020-02-15] MEDS: clonazePAM 0.5 MG TABLET PO SCH (21:09)
[2020-02-15] MEDS: FAMOTIDINE 20 MG TABLET. PO SCH (21:09)
[2020-02-15] MEDS: ATORVASTATIN CALCIUM 20 MG TABLET PO SCH (21:09)
[2020-02-16 03:00] VITALS: BP 142/59
[2020-02-16] MEDS: LEVOTHYROXINE 100 MCG TABLET PO SCH (06:21)
[2020-02-16] MEDS: HEPARIN for SUB-Q USE 5,000 UNIT/ML VIAL. SQ SCH ×2 (06:27→14:00)
[2020-02-16 07:42] LABS: CALCIUM 9.9 mg/dL (8.5-10.1); CREATININE 2.8 mg/dL (0.6-1.0); GFR 16.5; MAGNESIUM 2.6 mg/dL (1.8-2.4); POTASSIUM 3.6 mmol/L (3.5-5.1)
[2020-02-16 07:54] VITALS: BP 157/69
[2020-02-16] MEDS: ALLOPURINOL 300 MG TABLET. PO SCH (07:59)
[2020-02-16] MEDS: MAGNESIUM OXIDE 400 MG TABLET PO SCH (07:59)
[2020-02-16] MEDS: ASCORBIC ACID 500 MG TABLET PO SCH (07:59)
[2020-02-16] MEDS: MULTIVITAMIN I-VITE TABLET. PO SCH (07:59)
[2020-02-16] MEDS: CHOLECALCIFEROL (VITAMIN D3) 1,000 UNIT TABLET PO SCH (07:59)
[2020-02-16] MEDS: SENNOSIDES/DOCUSATE 8.6/50MG TABLET. PO SCH (07:59)
[2020-02-16] MEDS: FERROUS SULFATE 325 MG TABLET. PO SCH (07:59)
[2020-02-16] MEDS: LACTOBACILLUS RHAMNOSUS GG 1 CAPSULE. PO SCH (07:59)
[2020-02-16] MEDS: AMOXICILLIN/K CLAV 500/125MG TABLET. PO SCH (08:00)
[2020-02-16] MEDS: ASPIRIN ENTERIC COATED 325 MG TABLET.DR. PO SCH (08:00)
[2020-02-16] MEDS ORDERED: ALBUTEROL SULFATE 2.5 MG/3 ML NEBU. NEB PRN (08:00)
[2020-02-16] MEDS: VERAPAMIL SR 120 MG TABLET.ER. PO SCH (08:00)
[2020-02-16] MEDS: FUROSEMIDE 40 MG TABLET. PO SCH (08:00)
[2020-02-16] MEDS: INSULIN LISPRO SQ SCH ×2 (08:04→12:00)
[2020-02-16] MEDS: LEVOMILNACIPRAN 80 MG PO SCH (08:04)
[2020-02-16] MEDS ORDERED: IPRATRPIUM/ALBUTEROL 0.5/2.5MG 3 ML NEBU. NEB SCH (09:00)
[2020-02-16] MEDS: HYDROcodone/APAP 7.5/325MG 1 TAB TABLET PO PRN ×2 (09:18→15:25)
--- NOTE | 2020-02-16 09:28 | PDOC ---
PULMONARY PROGRESS NOTES Subjective Patient feels better, not increasingly more short of breath currently on 4 L of oxygen per nasal cannula Vitals Vital Signs Date Time Temp Pulse Resp B/P (MAP) Pulse Ox O2 Delivery O2 Flow Rate FiO2 02/16/20 09:18 16 Room Air 02/16/20 08:00 91 157/69 02/16/20 07:54 97.5 100 4.0 97.5 ROS: No Nausea, No Chest Pain, No Abdominal Pain, No Increase Cough General: Alert Lungs: Clear Cardiovascular: S1, S2 Abdomen: Soft Neuro Exam: Alert Extremities: Other (Some edema) Skin: Warm Labs Laboratory Tests Test 02/15/20 07:50 02/15/20 08:30 02/16/20 05:20 02/16/20 07:39 Sodium Level 135 mmol/L (136-145) 142 mmol/L (136-145) Potassium Level 4.0 mmol/L (3.5-5.1) 3.6 mmol/L (3.5-5.1) Chloride Level 99 mmol/L (98-107) 102 mmol/L (98-107) Carbon Dioxide Level 24 mmol/L (21-32) 32 mmol/L (21-32) Anion Gap 12 (6-14) 8 (6-14) Blood Urea Nitrogen 76 mg/dL (7-20) 76 mg/dL (7-20) Creatinine 3.0 mg/dL (0.6-1.0) 2.8 mg/dL (0.6-1.0) Estimated GFR (Cockcroft-Gault) 15.3 16.5 Glucose Level 257 mg/dL (70-99) 134 mg/dL (70-99) Calcium Level 10.3 mg/dL (8.5-10.1) 9.9 mg/dL (8.5-10.1) O2 Saturation 96 % (92-99) Arterial Blood pH 7.39 (7.35-7.45) Arterial Blood pCO2 at Patient Temp 46 mmHg (35-46) Arterial Blood pO2 at Patient Temp 90 mmHg (65-108) Arterial Blood HCO3 27 mmol/L (21-28) Arterial Blood Base Excess 2 mmol/L (-3-3) FiO2 5l nc Magnesium Level 2.6 mg/dL (1.8-2.4) Glucose (Fingerstick) 212 mg/dL (70-99) Laboratory Tests Test 02/16/20 05:20 02/16/20 07:39 Sodium Level 142 mmol/L (136-145) Potassium Level 3.6 mmol/L (3.5-5.1) Chloride Level 102 mmol/L (98-107) Carbon Dioxide Level 32 mmol/L (21-32) Anion Gap 8 (6-14) Blood Urea Nitrogen 76 mg/dL (7-20) Creatinine 2.8 mg/dL (0.6-1.0) Estimated GFR (Cockcroft-Gault) 16.5 Glucose Level 134 mg/dL (70-99) Calcium Level 9.9 mg/dL (8.5-10.1) Magnesium Level 2.6 mg/dL (1.8-2.4) Glucose (Fingerstick) 212 mg/dL (70-99) Medications Active Scripts Medications Dose Route/Sig Max Daily Dose Days Date Category Omeprazole 20 Mg Capsule.dr 1 Cap PO DAILY 02/12/20 Reported Lasix (Furosemide) 40 Mg Tablet 1 Tab PO DAILY 30 02/11/20 Reported Iron (Ferrous Gluconate) 236 Mg Tablet 65 Mg PO DAILY 02/11/20 Reported Biotin 1 Mg Capsule 1 Cap PO DAILY 30 02/11/20 Reported [B 6] 1 Tab PO DAILY 02/11/20 Reported Levothyroxine Sodium 100 Mcg Tablet 1 Tab PO DAILY 02/11/20 Reported Levemir (Insulin Detemir) 100 Unit/1 Ml Vial 30 Unit SQ HS 05/21/19 Reported Ranitidine Hcl 150 Mg Capsule 1 Cap PO BID 05/21/19 Reported Verapamil Er (Verapamil Hcl) 240 Mg Cap24h.pel 120 Mg PO DAILY 05/21/19 Reported Magnesium (Magnesium Oxide) 400 Mg Capsule 1 Cap PO DAILY 30 05/21/19 Reported Fetzima (Levomilnacipran Hydrochloride) 80 Mg Cap.sa.24h 80 Mg PO DAILY 05/21/19 Reported Tramadol Hcl 50 Mg Tablet 50 Mg PO DAILY PRN 05/21/19 Reported Novolog (Insulin Aspart) 100 Unit/1 Ml Cartridge 2 Unit SQ BIDACLD 05/21/19 Reported Allopurinol 300 Mg Tablet 1 Tab PO DAILY 05/21/19 Reported Potassium Citrate 10 Meq Tablet.er 1 Tab PO BID 05/21/19 Reported Incruse Ellipta (Umeclidinium [place]) 62.5 Mcg Blst.w.dev 62.5 Mcg IH DAILY 05/21/19 Reported Breo Ellipta 100-25 Mcg Inh (Fluticasone/Vilanterol) 1 Each Aer.pow.ba 1 Puff IH DAILY 05/21/19 Reported Klonopin (Clonazepam) 2 Mg Tablet 2 Mg PO HS 07/10/17 Reported Mirtazapine 15 Mg Tablet 30 Mg PO HS 02/24/14 Reported Erythromycin (Erythromycin Base) 250 Mg Capsule.dr 250 Mg PO BID 02/24/14 Reported Diphenoxylate-Atropine Tablet (Diphenoxylate Hcl/Atropine) 1 Each Tablet 1 Each PO DAILY PRN 02/24/14 Reported Cyanocobalamin Injection (Cyanocobalamin (Vitamin B-12)) 1,000 Mcg/1 Ml Vial 1,000 Mcg IJ QMONTH 02/24/14 Reported Vitamin D-3 (Cholecalciferol (Vitamin D3)) 2,000 Unit Capsule 2,000 Unit PO DAILY 02/24/14 Reported Atorvastatin Calcium 20 Mg Tablet 20 Mg PO DAILY 02/24/14 Reported Aspirin 81 Mg Tab.chew 81 Mg PO DAILY 02/24/14 Reported Impression . IMPRESSION: 1. Acute on chronic hypoxemic hypercapnic respiratory failure in a patient with underlying chronic obstructive pulmonary disease, obesity and recent surgery. 2. Leukocytosis, per Infectious Disease. 3. Coronary artery disease. 4. Multiple drug ALLERGIES INCLUDING SULFA, CIPROFLOXACIN, CODEINE, HYDROCHLOROTHIAZIDE, SULFAMETHOXAZOLE AND TRIMETHOPRIM. 5. Morbid obesity. 6. Suspect obstructive sleep apnea. 7. Acute exacerbation of chronic obstructive pulmonary disease. 8. Hypertension. 9. Hyperlipidemia. 10. Status post repair of a distal femoral fracture. 11. Venous Dopplers of the lower extremities negative Plan . Venous Dopplers of the lower extremities negative continue oxygen supplementation Incentive spirometer PT OT Continue oxygen supplementation at baseline of 2 L Nebulized treatment The above discussed with RN and at the bedside MARY THOMAS MD Feb 16, 2020 09:28
--- NOTE | 2020-02-16 10:04 | PDOC ---
"PROGRESS NOTES Chief Complaint Chief Complaint 1. Acute on chronic hypoxemic hypercapnic respiratory failure in a patient with underlying chronic obstructive pulmonary disease, obesity and recent surgery. 2. Leukocytosis, per Infectious Disease. 3. Coronary artery disease. 4. Multiple drug ALLERGIES INCLUDING SULFA, CIPROFLOXACIN, CODEINE, HYDROCHLOROTHIAZIDE, SULFAMETHOXAZOLE AND TRIMETHOPRIM. 5. Morbid obesity. 6. Suspect obstructive sleep apnea. 7. Acute exacerbation of chronic obstructive pulmonary disease. 8. Hypertension. 9. Hyperlipidemia. 10. Status post repair of a distal femoral fracture. Distal left femur fracture (postop day 3) 11. UTI secondary to [STAPHYLOCOCCUS LUGDUNENSIS] Plan: awaiting placement continue supporotive care encourage IS History of Present Illness History of Present Illness 02/15/2020 Patient seen and examined in the ICU She is off BiPAP Her is present Discussed with RN Chart reviewed 02/16/2020 Patient with no acut events rpeorted overnight, patient with no pain at the time of my visit. | HUsvband at bedside Awaiting SNU placement Vitals Vitals Vital Signs Date Time Temp Pulse Resp B/P (MAP) Pulse Ox O2 Delivery O2 Flow Rate FiO2 02/16/20 09:18 16 Room Air 02/16/20 08:00 91 157/69 02/16/20 07:54 97.5 100 4.0 97.5 Physical Exam Physical Exam GENERAL: Alert, oriented female HEENT: Both pupils are round and reacting. No conjunctival lesion, NECK: Supple, no JVP, no lymphadenopathy. LUNGS: clear anteriorly HEART: S1, S2 regular. ABDOMEN: soft bs + nontender EXTREMITIES: trace edema, no cyanosis.Brace in the LLE SKIN: bruise on bue, NEUROLOGIC: No focal neurologic deficit. General: Alert, Oriented X3, No acute distress (sitting up in chair ), Other Heart: Regular rate, No murmurs Lungs: Clear Extremities: No edema Skin: No rashes Labs LABS Laboratory Tests Test 02/16/20 05:20 02/16/20 07:39 Sodium Level 142 mmol/L (136-145) Potassium Level 3.6 mmol/L (3.5-5.1) Chloride Level 102 mmol/L (98-107) Carbon Dioxide Level 32 mmol/L (21-32) Anion Gap 8 (6-14) Blood Urea Nitrogen 76 mg/dL (7-20) Creatinine 2.8 mg/dL (0.6-1.0) Estimated GFR (Cockcroft-Gault) 16.5 Glucose Level 134 mg/dL (70-99) Calcium Level 9.9 mg/dL (8.5-10.1) Magnesium Level 2.6 mg/dL (1.8-2.4) Glucose (Fingerstick) 212 mg/dL (70-99) Comment Review of Relevant I have reviewed the following items cristian (where applicable) has been applied. Labs Laboratory Tests Test 02/15/20 07:50 02/15/20 08:30 02/16/20 05:20 02/16/20 07:39 Sodium Level 135 mmol/L (136-145) 142 mmol/L (136-145) Potassium Level 4.0 mmol/L (3.5-5.1) 3.6 mmol/L (3.5-5.1) Chloride Level 99 mmol/L (98-107) 102 mmol/L (98-107) Carbon Dioxide Level 24 mmol/L (21-32) 32 mmol/L (21-32) Anion Gap 12 (6-14) 8 (6-14) Blood Urea Nitrogen 76 mg/dL (7-20) 76 mg/dL (7-20) Creatinine 3.0 mg/dL (0.6-1.0) 2.8 mg/dL (0.6-1.0) Estimated GFR (Cockcroft-Gault) 15.3 16.5 Glucose Level 257 mg/dL (70-99) 134 mg/dL (70-99) Calcium Level 10.3 mg/dL (8.5-10.1) 9.9 mg/dL (8.5-10.1) O2 Saturation 96 % (92-99) Arterial Blood pH 7.39 (7.35-7.45) Arterial Blood pCO2 at Patient Temp 46 mmHg (35-46) Arterial Blood pO2 at Patient Temp 90 mmHg (65-108) Arterial Blood HCO3 27 mmol/L (21-28) Arterial Blood Base Excess 2 mmol/L (-3-3) FiO2 5l nc Magnesium Level 2.6 mg/dL (1.8-2.4) Glucose (Fingerstick) 212 mg/dL (70-99) Laboratory Tests Test 02/16/20 05:20 02/16/20 07:39 Sodium Level 142 mmol/L (136-145) Potassium Level 3.6 mmol/L (3.5-5.1) Chloride Level 102 mmol/L (98-107) Carbon Dioxide Level 32 mmol/L (21-32) Anion Gap 8 (6-14) Blood Urea Nitrogen 76 mg/dL (7-20) Creatinine 2.8 mg/dL (0.6-1.0) Estimated GFR (Cockcroft-Gault) 16.5 Glucose Level 134 mg/dL (70-99) Calcium Level 9.9 mg/dL (8.5-10.1) Magnesium Level 2.6 mg/dL (1.8-2.4) Glucose (Fingerstick) 212 mg/dL (70-99) Microbiology 02/13/20 Blood Culture - Preliminary, Resulted NO GROWTH AFTER 2 DAYS 02/13/20 Urine Culture - Final, Complete Medications Current Medications Morphine Sulfate (Morphine Sulfate) 2 mg PRN Q2HR PRN IV MODERATE PAIN Last administered on 02/13/20at 11:50; Start 02/11/20 at 16:15 Acetaminophen (Tylenol) 650 mg PRN Q6HRS PRN PEG TEMP > 100.3'F; Start 02/11/20 at 16:15 Morphine Sulfate (Morphine Sulfate) 4 mg PRN Q4HRS PRN IV SEVERE PAIN Last administered on 02/12/20at 08:54; Start 02/11/20 at 17:30 Insulin Human Lispro (HumaLOG) 0-5 UNITS TIDWMEALS SQ Last administered on at 17:59; Start 02/11/20 at 18:00; Stop 02/14/20 at 19:43; Status DC Dextrose (Dextrose 50%-Water Syringe) 12.5 gm PRN Q15MIN PRN IV SEE COMMENTS; Start 02/11/20 at 17:30 Sodium Chloride 1,000 ml @ 75 mls/hr [id number] IV Last administered on 02/13/20at 10:59; Start 02/12/20 at 07:00; Stop 02/14/20 at 04:26; Status DC Allopurinol (Zyloprim) 300 mg DAILY PO Last administered on 02/16/20at 07:59; Start 02/12/20 at 09:00 Aspirin (Aspirin Chewable) 81 mg DAILY PO ; Start 02/12/20 at 09:00; Stop 02/15/20 at 10:26; Status DC Atorvastatin Calcium (Lipitor) 20 mg QHS PO Last administered on 02/15/20at 21:09; Start 02/11/20 at 21:00 Levothyroxine Sodium (Synthroid) 100 mcg DAILY06 PO Last administered on 02/16/20at 06:21; Start 02/12/20 at 06:00 Mirtazapine (Remeron) 30 mg HS PO Last administered on 02/15/20at 21:09; Start 02/11/20 at 21:00 Tramadol HCl (Ultram) 50 mg PRN DAILY PRN PO MILD PAIN 1-3 Last administered on 02/12/20 21:22; Start 02/11/20 at 17:30 Clonazepam (KlonoPIN) 2 mg QHS PO Last administered on 02/15/20at 21:09; Start 02/11/20 at 21:00 Ferrous Sulfate (Feosol) 325 mg DAILYWBKFT PO Last administered on 02/16/20at 07:59; Start 02/12/20 at 08:00 Non-Formulary Medication (Fluticasone/ Vilanterol (Breo Ellipta 100-25 Mcg Inh)) 1 puff DAILY IH ; Start 02/12/20 at 09:00; Stop 02/11/20 at 18:04; Status DC Insulin Human Lispro (HumaLOG) 2 units BIDACLD SQ Last administered on 02/13/20at 17:58; Start 02/12/20 at 11:30; Stop 02/14/20 at 18:39; Status DC Insulin Glargine (Lantus Syringe) 30 unit QHS SQ Last administered on 02/14/20at 20:42; Start 02/11/20 at 21:00; Stop 02/15/20 at 09:01; Status DC Non-Formulary Medication (Levomilnacipran Hydrochloride (Fetzima)) 80 mg DAILY PO Last administered on 02/16/20at 08:04; Start 02/12/20 at 09:00 Magnesium Oxide (Magnesium Oxide) 400 mg DAILY PO Last administered on 02/16/20at 07:59; Start 02/12/20 at 09:00 Famotidine (Pepcid) 20 mg QHS PO Last administered on 02/15/20at 21:09; Start 02/11/20 at 21:00 Non-Formulary Medication (Umeclidinium [place] (Incruse Ellipta)) 62.5 mcg DAILY IH ; Start 02/12/20 at 09:00; Stop 02/11/20 at 18:07; Status DC Verapamil HCl (Calan Sr) 120 mg DAILY PO Last administered on 02/16/20at 08:00; Start 02/12/20 at 09:00 Oxycodone/ Acetaminophen (Percocet 5/325) 1 tab PRN Q4HRS PRN PO MODERATE PAIN; Start 02/11/20 at 18:00; Stop 02/15/20 at 16:43; Status DC Oxycodone/ Acetaminophen (Percocet 5/325) 2 tab PRN Q4HRS PRN PO SEVERE PAIN Last administered on 02/13/20at 03:37; Start 02/11/20 at 18:00 Albuterol/ Ipratropium (Duoneb) 3 ml QID NEB Last administered on 02/13/20at 19:31; Start 02/11/20 at 20:00; Stop 02/13/20 at 21:51; Status DC Budesonide (Pulmicort) 0.5 mg BID NEB Last administered on 02/14/20at 07:28; Start 02/11/20 at 21:00; Stop 02/15/20 at 09:10; Status DC Calcium Carbonate/ Glycine (Tums) 500 mg PRN AFTMEALHC PRN PO INDIGESTION Last administered on 02/14/20at 20:40; Start 02/12/20 at 16:30 Ropivacaine 53.3 ml/Epinephrine HCl 0.6 mg/ Morphine Sulfate 5 mg/Sodium Chloride 100 ml @ 100 mls/hr 1X ONCE INT ART Last administered on 02/13/20at 13:35; Start 02/13/20 at 06:00; Stop 02/13/20 at 06:59; Status DC Ondansetron HCl (Zofran) 4 mg PRN Q6HRS PRN IV NAUSEA/VOMITING Last administered on 02/13/20at 08:26; Start 02/13/20 at 07:00; Stop 02/14/20 at 06:59; Status DC Fentanyl Citrate (Fentanyl 2ml Vial) 25 mcg PRN Q5MIN PRN IV MILD PAIN 1-3; Start 02/13/20 at 07:00; Stop 02/14/20 at 06:59; Status DC Fentanyl Citrate (Fentanyl 2ml Vial) 50 mcg PRN Q5MIN PRN IV MODERATE TO SEVERE PAIN; Start 02/13/20 at 07:00; Stop 02/14/20 at 06:59; Status DC Morphine Sulfate (Morphine Sulfate) 1 mg PRN Q10MIN PRN IV SEVERE PAIN 7-10; Start 02/13/20 at 07:00; Stop 02/14/20 at 06:59; Status DC Ringer's Solution 1,000 ml @ 30 mls/hr Q24H IV ; Start 02/13/20 at 07:00; Stop 02/13/20 at 19:00; Status DC Lidocaine HCl (Xylocaine-Mpf 1% 2ml Vial) 2 ml PRN 1X PRN ID PRIOR TO IV START; Start 02/13/20 at 07:00; Stop 02/14/20 at 06:59; Status DC Hydromorphone HCl (Dilaudid) 0.5 mg PRN Q10MIN PRN IV SEV PAIN, Second choice; Start 02/13/20 at 07:00; Stop 02/14/20 at 06:59; Status DC Prochlorperazine Edisylate (Compazine) 5 mg PACU PRN PRN IV NAUSEA, MRX1; Start 02/13/20 at 07:00; Stop 02/14/20 at 06:59; Status DC Bupivacaine HCl/ Epinephrine Bitart (Sensorcaine-Epi 0.25%-1:[id number] Mpf) 30 ml STK-MED ONCE .ROUTE ; Start 02/13/20 at 07:11; Stop 02/13/20 at 07:12; Status DC Ceftriaxone Sodium (Rocephin) 1 gm Q24H IVP Last administered on 02/13/20at 08:25; Start 02/13/20 at 08:00; Stop 02/13/20 at 11:07; Status DC Piperacillin Sod/ Tazobactam Sod 3.375 gm/Sodium Chloride 50 ml @ 100 mls/hr Q6HRS IV ; Start 02/13/20 at 12:00; Status Cancel Piperacillin Sod/ Tazobactam Sod 2.25 gm/Sodium Chloride 50 ml @ 100 mls/hr Q6HRS IV Last administered on 02/14/20at 19:06; Start 02/13/20 at 12:00; Stop 02/15/20 at 08:55; Status DC Propofol (Diprivan) 200 mg STK-MED ONCE IV ; Start 02/13/20 at 11:42; Stop 02/13/20 at 11:42; Status DC Lidocaine HCl (Lidocaine Pf 2% Vial) 5 ml STK-MED ONCE .ROUTE ; Start 02/13/20 at 11:42; Stop 02/13/20 at 11:42; Status DC Midazolam HCl (Versed) 2 mg STK-MED ONCE .ROUTE ; Start 02/13/20 at 12:19; Stop 02/13/20 at 12:19; Status DC Oxycodone HCl (Roxicodone) 5 mg PRN Q3HRS PRN PO PAIN; Start 02/13/20 at 15:00 Morphine Sulfate (Morphine Sulfate) 2 mg PRN Q1HR PRN IVP PAIN; Start 02/13/20 at 15:00 Fentanyl Citrate (Fentanyl 2ml Vial) 25 mcg PRN Q1HR PRN IVP PAIN; Start 02/13/20 at 15:00 Senna/Docusate Sodium (Senna Plus) 1 tab DAILY PO Last administered on 02/16/20at 07:59; Start 02/14/20 at 09:00 Polyethylene Glycol (miraLAX PACKET) 17 gm PRN DAILY PRN PO CONSTIPATION; Start 02/13/20 at 15:00 Vitamin D (Vitamin D3) 1,000 unit DAILY PO Last administered on 02/16/20at 07:59; Start 02/14/20 at 09:00 Sodium Chloride 1,000 ml @ 75 mls/hr [id number] IV ; Start 02/13/20 at 14:46; Stop 02/14/20 at 04:26; Status DC Ondansetron HCl (Zofran) 4 mg PRN Q4HRS PRN IVP NAUSEA/VOMITING Last administered on 02/14/20at 10:19; Start 02/13/20 at 15:00 Magnesium Hydroxide (Milk Of Magnesia) 2,400 mg 1X PRN PRN PO CONSTIPATION; Start 02/14/20 at 06:00; Stop 02/15/20 at 05:59; Status DC Bisacodyl (Dulcolax Supp) 10 mg 1X PRN PRN NE CONSTIPATION; Start 02/14/20 at 16:00; Stop 02/15/20 at 15:59; Status DC Acetaminophen/ Hydrocodone Bitart (Lortab 7.5/325) 1 tab PRN Q4HRS PRN PO PAIN Last administered on 02/16/20at 09:18; Start 02/13/20 at 15:00 Morphine Sulfate (Morphine Sulfate) 4 mg PRN Q2HR PRN IVP PAIN; Start 02/13/20 at 15:00 Acetaminophen/ Hydrocodone Bitart (Lortab 7.5/325) 2 tab PRN Q4HRS PRN PO PAIN; Start 02/13/20 at 15:00 Dextrose (Dextrose 50%-Water Syringe) 12.5 gm PRN Q15MIN PRN IV SEE COMMENTS; Start 02/13/20 at 15:00; Status Cancel Aspirin (Ecotrin) 325 mg BID PO Last administered on 02/16/20at 08:00; Start 02/13/20 at 21:00 Oxycodone/ Acetaminophen (Percocet 5/325) 1 tab PRN Q4HRS PRN PO MODERATE PAIN; Start 02/13/20 at 15:00 Phenylephrine HCl (PHENYLEPHRINE in 0.9% NACL PF) 1 mg STK-MED ONCE IV ; Start 02/13/20 at 15:13; Stop 02/13/20 at 15:14; Status DC Ephedrine Sulfate (ePHEDrine PF IN SALINE SYRINGE) 50 mg STK-MED ONCE IV ; Start 02/13/20 at 15:14; Stop 02/13/20 at 15:14; Status DC Phenylephrine HCl (Flako-Synephrine Inj) 10 mg STK-MED ONCE .ROUTE ; Start 02/13/20 at 15:14; Stop 02/13/20 at 15:14; Status DC Albuterol/ Ipratropium (Duoneb) 3 ml 1X ONCE NEB Last administered on 01/25 04/16at 22:00; Start 02/13/20 at 22:00; Stop 02/13/20 at 22:01; Status DC Albuterol/ Ipratropium (Duoneb) 3 ml RTQID NEB ; Start 02/14/20 at 08:00; Stop 02/14/20 at 06:02; Status DC Methylprednisolone Sodium Succinate (SOLU-Medrol 125MG VIAL) 125 mg 1X ONCE IV Last administered on 02/14/20at 05:19; Start 02/14/20 at 05:30; Stop 02/14/20 at 05:31; Status DC Albuterol/ Ipratropium (Duoneb) 3 ml Q4HRS NEB Last administered on 02/15/20at 19:26; Start 02/14/20 at 08:00; Stop 02/15/20 at 20:13; Status DC Lactobacillus Rhamnosus (Culturelle) 1 cap BID PO Last administered on 02/16/20at 07:59; Start 02/14/20 at 21:00 Multivitamins/ Minerals (I-Jennifer) 1 tab DAILY PO Last administered on 02/16/20at 07:59; Start 02/14/20 at 11:00 Ascorbic Acid (Vitamin C) 500 mg DAILY PO Last administered on 02/16/20at 07:59; Start 02/14/20 at 11:00 Heparin Sodium (Porcine) (Heparin Sodium) 5,000 unit Q8HRS SQ Last administered on 02/16/20at 06:27; Start 02/14/20 at 22:00 Insulin Human Lispro (HumaLOG) 12 units TIDWMEALS SQ ; Start 02/15/20 at 08:00; Stop 02/14/20 at 19:44; Status DC Non-Formulary Medication 0-5 UNITS TIDWMEALS SQ ; Start 02/15/20 at 08:00; Stop 02/15/20 at 10:24; Status DC Non-Formulary Medication 1 ea TIDWMEALS SQ Last administered on 02/16/20at 08:04; Start 02/15/20 at 08:00 Amoxicillin/ Clavulanate Potassium (Augmentin 500/ 125mg) 1 tab BID PO Last administered on 02/16/20at 08:00; Start 02/15/20 at 09:00 Non-Formulary Medication 1 ea QHS SQ ; Start 02/15/20 at 21:00 Furosemide (Lasix) 40 mg [id number] PO Last administered on 02/16/20at 08:00; Start 02/15/20 at 16:00 Furosemide (Lasix) 40 mg 1X ONCE PO Last administered on 02/15/20at 12:13; Start 02/15/20 at 11:30; Stop 02/15/20 at 11:31; Status DC Alteplase, Recombinant (Cathflo For Central Catheter Clearance) 1 mg 1X ONCE INT CAT ; Start 02/15/20 at 12:30; Stop 02/15/20 at 12:31; Status Cancel Albuterol/ Ipratropium (Duoneb) 3 ml QID NEB ; Start 02/16/20 at 09:00; Stop 02/16/20 at 09:01; Status DC Albuterol Sulfate (Ventolin Neb Soln) 2.5 mg PRN Q4HRS PRN NEB SHORTNESS OF BREATH; Start 02/16/20 at 08:00 Active Scripts Active Reported Omeprazole 20 Mg Capsule. 1 Cap PO DAILY Lasix (Furosemide) 40 Mg Tablet 1 Tab PO DAILY 30 Days Iron (Ferrous Gluconate) 236 Mg Tablet 65 Mg PO DAILY Biotin 1 Mg Capsule 1 Cap PO DAILY 30 Days [B 6] 1 Tab PO DAILY Levothyroxine Sodium 100 Mcg Tablet 1 Tab PO DAILY Levemir (Insulin Detemir) 100 Unit/1 Ml Vial 30 Unit SQ HS Ranitidine Hcl 150 Mg Capsule 1 Cap PO BID Verapamil Er (Verapamil Hcl) 240 Mg Cap24h.pel 120 Mg PO DAILY Magnesium (Magnesium Oxide) 400 Mg Capsule 1 Cap PO DAILY 30 Days Fetzima (Levomilnacipran Hydrochloride) 80 Mg Cap.sa.24h 80 Mg PO DAILY Tramadol Hcl 50 Mg Tablet 50 Mg PO DAILY PRN Novolog (Insulin Aspart) 100 Unit/1 Ml Cartridge 2 Unit SQ BIDACLD Allopurinol 300 Mg Tablet 1 Tab PO DAILY Potassium Citrate 10 Meq Tablet.er 1 Tab PO BID Incruse Ellipta (Umeclidinium [place]) 62.5 Mcg Blst.w.dev 62.5 Mcg IH DAILY Breo Ellipta 100-25 Mcg Inh (Fluticasone/Vilanterol) 1 Each Aer.pow.ba 1 Puff IH DAILY Klonopin (Clonazepam) 2 Mg Tablet 2 Mg PO HS Mirtazapine 15 Mg Tablet 30 Mg PO HS Erythromycin (Erythromycin Base) 250 Mg Capsule. 250 Mg PO BID Diphenoxylate-Atropine Tablet (Diphenoxylate Hcl/Atropine) 1 Each Tablet 1 Each PO DAILY PRN Cyanocobalamin Injection (Cyanocobalamin (Vitamin B-12)) 1,000 Mcg/1 Ml Vial 1,000 Mcg IJ QMONTH Vitamin D-3 (Cholecalciferol (Vitamin D3)) 2,000 Unit Capsule 2,000 Unit PO DAILY Atorvastatin Calcium 20 Mg Tablet 20 Mg PO DAILY Aspirin 81 Mg Tab.chew 81 Mg PO DAILY Vitals/I & O Vital Sign - Last 24 Hours 02/15/20 02/15/20 02/15/20 02/15/20 10:55 11:00 15:00 19:00 Temp 97.9 98.3 97.9 98.3 Pulse 97 86 87 Resp 15 15 16 18 B/P (MAP) 155/62 (93) 144/62 (89) 145/60 (88) Pulse Ox 99 97 100 100 O2 Delivery Nasal Cannula Nasal Cannula Nasal Cannula O2 Flow Rate 2.0 5.0 5.0 4.0 02/15/20 02/15/20 02/15/20 02/16/20 19:26 20:30 23:00 03:00 Temp 98.0 97.3 98.0 97.3 Pulse 87 87 Resp 18 18 B/P (MAP) 151/66 (94) 142/59 (86) Pulse Ox 96 100 99 O2 Delivery Nasal Cannula Room Air Nasal Cannula Nasal Cannula O2 Flow Rate 4.0 4.0 4.0 02/16/20 02/16/20 02/16/20 02/16/20 07:54 08:00 08:00 09:18 Temp 97.5 97.5 Pulse 91 91 Resp 20 16 B/P (MAP) 157/69 (98) 157/69 Pulse Ox 100 O2 Delivery Nasal Cannula Room Air Room Air O2 Flow Rate 4.0 Intake and Output 02/15/20 02/15/20 02/16/20 15:00 23:00 07:00 Intake Total 650 ml 300 ml Output Total 590 ml 575 ml 2100 ml Balance 60 ml -575 ml -1800 ml Justicifation of Admission Dx: Justifications for Admission: Justification of Admission Dx: Yes SELAM MCMAHAN MD Feb 16, 2020 10:04"
--- NOTE | 2020-02-16 10:23 | NUR ---
[facility] following. Discussed with RN, per [facility] () pt accepted at [facility], just needed to be told about 14 day quarantine and no visitor policy. [facility] notified pt's , Filipe, he is agreeable. [facility] trying to reach [facility] to advise of discharge today, left message for Haley at [facility]. [facility] will continue to follow. RN notified. Addendum: 02/16/20 at 1531 by [facility] Pt discharging to [facility] between [id number]. RN, patient and family notified.
[2020-02-16 11:05] VITALS: BP 155/72
--- NOTE | 2020-02-16 11:10 | PDOC ---
Infectious Disease Note Subjective: Subjective Denies fever, nausea, vomiting, diarrhea Has left leg post operative pain is under control Vital Signs: Vital Signs Vital Signs Date Time Temp Pulse Resp B/P (MAP) Pulse Ox O2 Delivery O2 Flow Rate FiO2 02/16/20 11:05 97.6 94 155/72 (99) 99 Nasal Cannula 4.0 97.6 02/16/20 10:11 16 Physical Exam: PHYSICAL EXAM GENERAL: Alert, oriented female HEENT: Both pupils are round and reacting. No conjunctival lesion, NECK: Supple, no JVP, no lymphadenopathy. LUNGS: clear anteriorly HEART: S1, S2 regular. ABDOMEN: soft bs + nontender EXTREMITIES: trace edema, no cyanosis.Brace in the LLE SKIN: bruise on bue, NEUROLOGIC: No focal neurologic deficit. Medications: Inpatient Meds: Current Medications Medications (Trade) Dose Ordered Sig/Stan Start Time Stop Time Status Last Admin Dose Admin Acetaminophen (Tylenol) 650 mg PRN Q6HRS PRN 02/11/20 16:15 Acetaminophen/ Hydrocodone Bitart (Lortab 7.5/325) 2 tab PRN Q4HRS PRN 02/13/20 15:00 Albuterol Sulfate (Ventolin Neb Soln) 2.5 mg PRN Q4HRS PRN 02/16/20 08:00 Albuterol/ Ipratropium (Duoneb) 3 ml QID 02/16/20 09:00 02/16/20 09:01 DC Allopurinol (Zyloprim) 300 mg DAILY 02/12/20 09:00 02/16/20 07:59 300 MG Alteplase, Recombinant (Cathflo For Central Catheter Clearance) 1 mg 1X ONCE 02/15/20 12:30 02/15/20 12:31 Cancel Amoxicillin/ Clavulanate Potassium (Augmentin 500/ 125mg) 1 tab BID 02/15/20 09:00 02/16/20 08:00 1 TAB Ascorbic Acid (Vitamin C) 500 mg DAILY 02/14/20 11:00 02/16/20 07:59 500 MG Aspirin (Aspirin Chewable) 81 mg DAILY 02/12/20 09:00 02/15/20 10:26 DC Aspirin (Ecotrin) 325 mg BID 02/13/20 21:00 02/16/20 08:00 325 MG Atorvastatin Calcium (Lipitor) 20 mg QHS 02/11/20 21:00 02/15/20 21:09 20 MG Bisacodyl (Dulcolax Supp) 10 mg 1X PRN PRN 02/14/20 16:00 02/15/20 15:59 DC Budesonide (Pulmicort) 0.5 mg BID 02/11/20 21:00 02/15/20 09:10 DC 02/14/20 07:28 0.5 MG Bupivacaine HCl/ Epinephrine Bitart (Sensorcaine-Epi 0.25%-1:270920 Mpf) 30 ml STK-MED ONCE 02/13/20 07:11 02/13/20 07:12 DC Calcium Carbonate/ Glycine (Tums) 500 mg PRN AFTMEALHC PRN 02/12/20 16:30 02/14/20 20:40 500 MG Ceftriaxone Sodium (Rocephin) 1 gm Q24H 02/13/20 08:00 02/13/20 11:07 DC 02/13/20 08:25 1 GM Clonazepam (KlonoPIN) 2 mg QHS 02/11/20 21:00 02/15/20 21:09 2 MG Dextrose (Dextrose 50%-Water Syringe) 12.5 gm PRN Q15MIN PRN 02/13/20 15:00 Cancel Ephedrine Sulfate (ePHEDrine PF IN SALINE SYRINGE) 50 mg STK-MED ONCE 02/13/20 15:14 02/13/20 15:14 DC Famotidine (Pepcid) 20 mg QHS 02/11/20 21:00 02/15/20 21:09 20 MG Fentanyl Citrate (Fentanyl 2ml Vial) 25 mcg PRN Q1HR PRN 02/13/20 15:00 Ferrous Sulfate (Feosol) 325 mg DAILYWBKFT 02/12/20 08:00 02/16/20 07:59 325 MG Furosemide (Lasix) 40 mg 1X ONCE 02/15/20 11:30 02/15/20 11:31 DC 02/15/20 12:13 40 MG Heparin Sodium (Porcine) (Heparin Sodium) 5,000 unit Q8HRS 02/14/20 22:00 02/16/20 06:27 5,000 UNIT Hydromorphone HCl (Dilaudid) 0.5 mg PRN Q10MIN PRN 02/13/20 07:00 02/14/20 06:59 DC Insulin Glargine (Lantus Syringe) 30 unit QHS 02/11/20 21:00 02/15/20 09:01 DC 02/14/20 20:42 30 UNIT Insulin Human Lispro (HumaLOG) 12 units TIDWMEALS 02/15/20 08:00 02/14/20 19:44 DC Lactobacillus Rhamnosus (Culturelle) 1 cap BID 02/14/20 21:00 02/16/20 07:59 1 CAP Levothyroxine Sodium (Synthroid) 100 mcg DAILY06 02/12/20 06:00 02/16/20 06:21 100 MCG Lidocaine HCl (Lidocaine Pf 2% Vial) 5 ml STK-MED ONCE 02/13/20 11:42 02/13/20 11:42 DC Lidocaine HCl (Xylocaine-Mpf 1% 2ml Vial) 2 ml PRN 1X PRN 02/13/20 07:00 02/14/20 06:59 DC Magnesium Hydroxide (Milk Of Magnesia) 2,400 mg 1X PRN PRN 02/14/20 06:00 02/15/20 05:59 DC Magnesium Oxide (Magnesium Oxide) 400 mg DAILY 02/12/20 09:00 02/16/20 07:59 400 MG Methylprednisolone Sodium Succinate (SOLU-Medrol 125MG VIAL) 125 mg 1X ONCE 02/14/20 05:30 02/14/20 05:31 DC 02/14/20 05:19 125 MG Midazolam HCl (Versed) 2 mg STK-MED ONCE 02/13/20 12:19 02/13/20 12:19 DC Mirtazapine (Remeron) 30 mg HS 02/11/20 21:00 02/15/20 21:09 30 MG Morphine Sulfate (Morphine Sulfate) 4 mg PRN Q2HR PRN 02/13/20 15:00 Multivitamins/ Minerals (I-Jennifer) 1 tab DAILY 02/14/20 11:00 02/16/20 07:59 1 TAB Non-Formulary Medication 1 ea QHS 02/15/20 21:00 Non-Formulary Medication (Fluticasone/ Vilanterol (Breo Ellipta 100-25 Mcg Inh)) 1 puff DAILY 02/12/20 09:00 02/11/20 18:04 DC Non-Formulary Medication (Levomilnacipran Hydrochloride (Fetzima)) 80 mg DAILY 02/12/20 09:00 02/16/20 08:04 80 MG Non-Formulary Medication (Umeclidinium [place] (Incruse Ellipta)) 62.5 mcg DAILY 02/12/20 09:00 02/11/20 18:07 DC Ondansetron HCl (Zofran) 4 mg PRN Q4HRS PRN 02/13/20 15:00 02/14/20 10:19 4 MG Oxycodone HCl (Roxicodone) 5 mg PRN Q3HRS PRN 02/13/20 15:00 Oxycodone/ Acetaminophen (Percocet 5/325) 1 tab PRN Q4HRS PRN 02/13/20 15:00 Phenylephrine HCl (Flako-Synephrine Inj) 10 mg STK-MED ONCE 02/13/20 15:14 02/13/20 15:14 DC Phenylephrine HCl (PHENYLEPHRINE in 0.9% NACL PF) 1 mg STK-MED ONCE 02/13/20 15:13 02/13/20 15:14 DC Piperacillin Sod/ Tazobactam Sod 2.25 gm/Sodium Chloride 50 ml @ 100 mls/hr Q6HRS 02/13/20 12:00 02/15/20 08:55 DC 02/14/20 19:06 100 MLS/HR Piperacillin Sod/ Tazobactam Sod 3.375 gm/Sodium Chloride 50 ml @ 100 mls/hr Q6HRS 02/13/20 12:00 Cancel Polyethylene Glycol (miraLAX PACKET) 17 gm PRN DAILY PRN 02/13/20 15:00 Prochlorperazine Edisylate (Compazine) 5 mg PACU PRN PRN 02/13/20 07:00 02/14/20 06:59 DC Propofol (Diprivan) 200 mg STK-MED ONCE 02/13/20 11:42 02/13/20 11:42 DC Ringer's Solution 1,000 ml @ 30 mls/hr Q24H 02/13/20 07:00 02/13/20 19:00 DC Ropivacaine 53.3 ml/Epinephrine HCl 0.6 mg/ Morphine Sulfate 5 mg/Sodium Chloride 100 ml @ 100 mls/hr 1X ONCE 02/13/20 06:00 02/13/20 06:59 DC 02/13/20 13:35 Senna/Docusate Sodium (Senna Plus) 1 tab DAILY 02/14/20 09:00 02/16/20 07:59 1 TAB Sodium Chloride 1,000 ml @ 75 mls/hr [id number] 02/13/20 14:46 02/14/20 04:26 DC Tramadol HCl (Ultram) 50 mg PRN DAILY PRN 02/11/20 17:30 02/12/20 21:22 50 MG Verapamil HCl (Calan Sr) 120 mg DAILY 02/12/20 09:00 02/16/20 08:00 120 MG Vitamin D (Vitamin D3) 1,000 unit DAILY 02/14/20 09:00 02/16/20 07:59 1,000 UNIT Labs: Lab Laboratory Tests Test 02/16/20 05:20 02/16/20 07:39 Sodium Level 142 mmol/L (136-145) Potassium Level 3.6 mmol/L (3.5-5.1) Chloride Level 102 mmol/L (98-107) Carbon Dioxide Level 32 mmol/L (21-32) Anion Gap 8 (6-14) Blood Urea Nitrogen 76 mg/dL (-20) Creatinine 2.8 mg/dL (0.6-1.0) Estimated GFR (Cockcroft-Gault) 16.5 Glucose Level 134 mg/dL (70-99) Calcium Level 9.9 mg/dL (8.5-10.1) Magnesium Level 2.6 mg/dL (1.8-2.4) Glucose (Fingerstick) 212 mg/dL (70-99) Objective: Assessment: 1. Leukocytosis, most likely to be reactive secondary to the fracture. 2. Status post fall with Displaced supracondylar fracture without intracondylar extension of lower end of left femur, initial encounter for closed fracture S72.452A and Periprosthetic fracture around internal prosthetic left knee joint, initial M97.12XA February 13 2020 S/P Left femur open treatment of femoral supracondylar or transcondylar fracture without intercondylar extension, includes internal fixation 3. History of monoclonal gammopathy of undetermined significance. 4. History of breast cancer. 5. Coronary artery disease. 6. Renal insufficiency. 7. Obesity. 8. UC STAPHYLOCOCCUS LUGDUNENSIS; asymptomatic Plan: Plan of Care Changed to p.o. Augmentin to Keflex for 7 more days Probiotics Awaiting placement per team cont supportive care D/W ASHELY PEÑA MD Feb 16, 2020 11:10
--- NOTE | 2020-02-16 11:20 | PDOC ---
Renal-Progress Notes Subjective Notes Notes NO NEW COMPLAINTS History of Present Illness Hx of present illness STABLE Vitals Vitals Vital Signs Date Time Temp Pulse Resp B/P (MAP) Pulse Ox O2 Delivery O2 Flow Rate FiO2 02/16/20 11:05 97.6 94 155/72 (99) 99 Nasal Cannula 4.0 97.6 02/16/20 10:11 16 Weight Weight [ ] I.O. Intake and Output Intake and Output 02/16/20 07:00 Intake Total 950 ml Output Total 3265 ml Balance -2315 ml Intake Oral 900 ml IV Total 50 ml Output Urine Total 3265 ml Labs Labs Laboratory Tests Test 02/16/20 05:20 02/16/20 07:39 Sodium Level 142 mmol/L (136-145) Potassium Level 3.6 mmol/L (3.5-5.1) Chloride Level 102 mmol/L (98-107) Carbon Dioxide Level 32 mmol/L (21-32) Anion Gap 8 (6-14) Blood Urea Nitrogen 76 mg/dL (-20) Creatinine 2.8 mg/dL (0.6-1.0) Estimated GFR (Cockcroft-Gault) 16.5 Glucose Level 134 mg/dL (70-99) Calcium Level 9.9 mg/dL (8.5-10.1) Magnesium Level 2.6 mg/dL (1.8-2.4) Glucose (Fingerstick) 212 mg/dL (70-99) Micro Micro Microbiology 02/13/20 Blood Culture - Preliminary, Resulted NO GROWTH AFTER 2 DAYS 02/13/20 Urine Culture - Final, Complete Review of Systems Constitutional: yes: weakness, alert Ears/Nose/Throat: Yes: no symptom reported Eyes: Yes: no symptom reported Pulmonary: Yes dyspnea Cardiovascular: Yes no symptom reported Gastrointestional: Yes: constipation Genitourinary: Yes: no symptom reported Musculoskeletal: Yes: joint pain Skin: Yes no symptom reported Psychiatric/Neurological: Yes: no symptom reported Endocrine: Yes: no symptom reported Physical Exam General Appearance: no apparent distress Skin: warm Respiratory: bilateral CTA Heart: S1S2 Abdomen: soft, bowel sounds present Genitourinary: bladder flat Extremities: atrophy Neurology: alert, follow commands Musculoskeletal: Osteoarthritis Assessment Assessment IMP CKD STAGE 4 WITH CR OF 2.5 ON AVG BUT CR UP TO 3.0 YESTERDAY AND TODAY DOWN TO 2.8 GENERALIZED EDEMA LEUCOCYTOSIS-UTI ANEMIA ACUTE RESP FAILURE OBESITY AND SHAYLA AECOPD S/P DISTAL FEM FX REPAIR PLAN CONT SUPPORTIVE CARE CONTINUE PRISCILLA PT HAS NOT BEEN FOLLOWING RENAL SINCE HER DOCTOR FROM [facility] LEFT SHE WILL FOLLOW UP IN OUR OFFICE ON D/C SHOSHANA MARCELO MD Feb 16, 2020 11:20
--- NOTE | 2020-02-16 11:53 | PDOC ---
PROGRESS NOTES Assessment Toxic and metabolic encephalopathy, postoperative confusion, also she has been hypoxic. Back to baseline today Essential tremor by history, none now, this would be exacerbated by the stresses in the hospital as well as adrenergic medications. I do not think she's having active seizures either convulsive or partial-complex. Plan Continue supportive care She does not need additional studies such as EEG I discussed with the patient's . Subjective Left thigh hurts when she moves it Objective Vital Signs Date Time Temp Pulse Resp B/P (MAP) Pulse Ox O2 Delivery O2 Flow Rate FiO2 02/16/20 11:05 97.6 94 155/72 (99) 99 Nasal Cannula 4.0 97.6 02/16/20 10:11 16 Intake and Output 02/16/20 07:00 Intake Total 950 ml Output Total 3265 ml Balance -2315 ml Intake Oral 900 ml IV Total 50 ml Output Urine Total 3265 ml PHYSICAL EXAM Alert. Oriented to time, place and person. PERRL. EOMI. CN: no focal findings. Muscle tone: normal. Muscle strength: 5/5 except left thigh not checked DTR: 1+ Plantar reflex: flexor Gait: not examined in bed. Sensory exam: no abnormal findings. No cerebellar signs elicited. Review of Relevant I have reviewed the following items cristian (where applicable) has been applied. Labs Laboratory Tests Test 02/15/20 07:50 02/15/20 08:30 02/16/20 05:20 02/16/20 07:39 Sodium Level 135 mmol/L (136-145) 142 mmol/L (136-145) Potassium Level 4.0 mmol/L (3.5-5.1) 3.6 mmol/L (3.5-5.1) Chloride Level 99 mmol/L (98-107) 102 mmol/L (98-107) Carbon Dioxide Level 24 mmol/L (21-32) 32 mmol/L (21-32) Anion Gap 12 (6-14) 8 (6-14) Blood Urea Nitrogen 76 mg/dL (7-20) 76 mg/dL (7-20) Creatinine 3.0 mg/dL (0.6-1.0) 2.8 mg/dL (0.6-1.0) Estimated GFR (Cockcroft-Gault) 15.3 16.5 Glucose Level 257 mg/dL (70-99) 134 mg/dL (70-99) Calcium Level 10.3 mg/dL (8.5-10.1) 9.9 mg/dL (8.5-10.1) O2 Saturation 96 % (92-99) Arterial Blood pH 7.39 (7.35-7.45) Arterial Blood pCO2 at Patient Temp 46 mmHg (35-46) Arterial Blood pO2 at Patient Temp 90 mmHg (65-108) Arterial Blood HCO3 27 mmol/L (21-28) Arterial Blood Base Excess 2 mmol/L (-3-3) FiO2 5l nc Magnesium Level 2.6 mg/dL (1.8-2.4) Glucose (Fingerstick) 212 mg/dL (70-99) Test 02/16/20 11:44 Glucose (Fingerstick) 205 mg/dL (70-99) Laboratory Tests Test 02/16/20 05:20 02/16/20 07:39 02/16/20 11:44 Sodium Level 142 mmol/L (136-145) Potassium Level 3.6 mmol/L (3.5-5.1) Chloride Level 102 mmol/L (98-107) Carbon Dioxide Level 32 mmol/L (21-32) Anion Gap 8 (6-14) Blood Urea Nitrogen 76 mg/dL (-20) Creatinine 2.8 mg/dL (0.6-1.0) Estimated GFR (Cockcroft-Gault) 16.5 Glucose Level 134 mg/dL (70-99) Calcium Level 9.9 mg/dL (8.5-10.1) Magnesium Level 2.6 mg/dL (1.8-2.4) Glucose (Fingerstick) 212 mg/dL (70-99) 205 mg/dL (70-99) Microbiology 02/13/20 Blood Culture - Preliminary, Resulted NO GROWTH AFTER 3 DAYS 02/13/20 Urine Culture - Final, Complete Medications Current Medications Morphine Sulfate (Morphine Sulfate) 2 mg PRN Q2HR PRN IV MODERATE PAIN Last administered on 02/13/20at 11:50; Start 02/11/20 at 16:15; Stop 02/16/20 at 11:04; Status DC Acetaminophen (Tylenol) 650 mg PRN Q6HRS PRN PEG TEMP > 100.3'F; Start 02/11/20 at 16:15 Morphine Sulfate (Morphine Sulfate) 4 mg PRN Q4HRS PRN IV SEVERE PAIN Last administered on 02/12/20at 08:54; Start 02/11/20 at 17:30; Stop 02/16/20 at 11 :05; Status DC Insulin Human Lispro (HumaLOG) 0-5 UNITS TIDWMEALS SQ Last administered on 02/13/20at 17:59; Start 02/11/20 at 18:00; Stop 02/14/20 at 19:43; Status DC Dextrose (Dextrose 50%-Water Syringe) 12.5 gm PRN Q15MIN PRN IV SEE COMMENTS; Start 02/11/20 at 17:30 Sodium Chloride 1,000 ml @ 75 mls/hr [id number] IV Last administered on 02/13/20at 10:59; Start 02/12/20 at 07:00; Stop 02/14/20 at 04:26; Status DC Allopurinol (Zyloprim) 300 mg DAILY PO Last administered on 02/16/20at 07:59; Start 02/12/20 at 09:00 Aspirin (Aspirin Chewable) 81 mg DAILY PO ; Start 02/12/20 at 09:00; Stop 02/15/20 at 10:26; Status DC Atorvastatin Calcium (Lipitor) 20 mg QHS PO Last administered on 02/15/20at 21:09; Start 02/11/20 at 21:00 Levothyroxine Sodium (Synthroid) 100 mcg DAILY06 PO Last administered on 02/16/20at 06:21; Start 02/12/20 at 06:00 Mirtazapine (Remeron) 30 mg HS PO Last administered on 02/15/20at 21:09; Start 02/11/20 at 21:00 Tramadol HCl (Ultram) 50 mg PRN DAILY PRN PO MILD PAIN 1-3 Last administered on 02/12/20at 21:22; Start 02/11/20 at 17:30 Clonazepam (KlonoPIN) 2 mg QHS PO Last administered on 02/15/20at 21:09; Start 02/11/20 at 21:00 Ferrous Sulfate (Feosol) 325 mg DAILYWBKFT PO Last administered on 02/16/20at 07:59; Start 02/12/20 at 08:00 Non-Formulary Medication (Fluticasone/ Vilanterol (Breo Ellipta 100-25 Mcg Inh)) 1 puff DAILY IH ; Start 02/12/20 at 09:00; Stop 02/11/20 at 18:04; Status DC Insulin Human Lispro (HumaLOG) 2 units BIDACLD SQ Last administered on 02/13/20at 17:58; Start 02/12/20 at 11:30; Stop 02/14/20 at 18:39; Status DC Insulin Glargine (Lantus Syringe) 30 unit QHS SQ Last administered on 02/14/20at 20:42; Start 02/11/20 at 21:00; Stop 02/15/20 at 09:01; Status DC Non-Formulary Medication (Levomilnacipran Hydrochloride (Fetzima)) 80 mg DAILY PO Last administered on 02/16/20at 08:04; Start 02/12/20 at 09:00 Magnesium Oxide (Magnesium Oxide) 400 mg DAILY PO Last administered on 02/16/20at 07:59; Start 02/12/20 at 09:00 Famotidine (Pepcid) 20 mg QHS PO Last administered on 02/15/20at 21:09; Start 02/11/20 at 21:00 Non-Formulary Medication (Umeclidinium Conde (Incruse Ellipta)) 62.5 mcg DAILY IH ; Start 02/12/20 at 09:00; Stop 02/11/20 at 18:07; Status DC Verapamil HCl (Calan Sr) 120 mg DAILY PO Last administered on 02/16/20at 08:00; Start 02/12/20 at 09:00 Oxycodone/ Acetaminophen (Percocet 5/325) 1 tab PRN Q4HRS PRN PO MODERATE PAIN; Start 02/11/20 at 18:00; Stop 02/15/20 at 16:43; Status DC Oxycodone/ Acetaminophen (Percocet 5/325) 2 tab PRN Q4HRS PRN PO SEVERE PAIN Last administered on 02/13/20at 03:37; Start 02/11/20 at 18:00 Albuterol/ Ipratropium (Duoneb) 3 ml QID NEB Last administered on 02/13/20at 19:31; Start 02/11/20 at 20:00; Stop 02/13/20 at 21:51; Status DC Budesonide (Pulmicort) 0.5 mg BID NEB Last administered on 02/14/20at 07:28; Start 02/11/20 at 21:00; Stop 02/15/20 at 09:10; Status DC Calcium Carbonate/ Glycine (Tums) 500 mg PRN AFTMEALHC PRN PO INDIGESTION Last administered on 02/14/20at 20:40; Start 02/12/20 at 16:30 Ropivacaine 53.3 ml/Epinephrine HCl 0.6 mg/ Morphine Sulfate 5 mg/Sodium Chloride 100 ml @ 100 mls/hr 1X ONCE INT ART Last administered on 02/13/20at 13:35; Start 02/13/20 at 06:00; Stop 02/13/20 at 06:59; Status DC Ondansetron HCl (Zofran) 4 mg PRN Q6HRS PRN IV NAUSEA/VOMITING Last administ ered on 02/13/20at 08:26; Start 02/13/20 at 07:00; Stop 02/14/20 at 06:59; Status DC Fentanyl Citrate (Fentanyl 2ml Vial) 25 mcg PRN Q5MIN PRN IV MILD PAIN 1-3; Start 02/13/20 at 07:00; Stop 02/14/20 at 06:59; Status DC Fentanyl Citrate (Fentanyl 2ml Vial) 50 mcg PRN Q5MIN PRN IV MODERATE TO SEVERE PAIN; Start 02/13/20 at 07:00; Stop 02/14/20 at 06:59; Status DC Morphine Sulfate (Morphine Sulfate) 1 mg PRN Q10MIN PRN IV SEVERE PAIN 7-10; Start 02/13/20 at 07:00; Stop 02/14/20 at 06:59; Status DC Ringer's Solution 1,000 ml @ 30 mls/hr Q24H IV ; Start 02/13/20 at 07:00; Stop 02/13/20 at 19:00; Status DC Lidocaine HCl (Xylocaine-Mpf 1% 2ml Vial) 2 ml PRN 1X PRN ID PRIOR TO IV START; Start 02/13/20 at 07:00; Stop 02/14/20 at 06:59; Status DC Hydromorphone HCl (Dilaudid) 0.5 mg PRN Q10MIN PRN IV SEV PAIN, Second choice; Start 02/13/20 at 07:00; Stop 02/14/20 at 06:59; Status DC Prochlorperazine Edisylate (Compazine) 5 mg PACU PRN PRN IV NAUSEA, MRX1; Start 02/13/20 at 07:00; Stop 02/14/20 at 06:59; Status DC Bupivacaine HCl/ Epinephrine Bitart (Sensorcaine-Epi 0.25%-1:[id number] Mpf) 30 ml STK-MED ONCE .ROUTE ; Start 02/13/20 at 07:11; Stop 02/13/20 at 07:12; Status DC Ceftriaxone Sodium (Rocephin) 1 gm Q24H IVP Last administered on 02/13/20at 08:25; Start 02/13/20 at 08:00; Stop 02/13/20 at 11:07; Status DC Piperacillin Sod/ Tazobactam Sod 3.375 gm/Sodium Chloride 50 ml @ 100 mls/hr Q6HRS IV ; Start 02/13/20 at 12:00; Status Cancel Piperacillin Sod/ Tazobactam Sod 2.25 gm/Sodium Chloride 50 ml @ 100 mls/hr Q6HRS IV Last administered on 02/14/20at 19:06; Start 02/13/20 at 12:00; Stop 02/15/20 at 08:55; Status DC Propofol (Diprivan) 200 mg STK-MED ONCE IV ; Start 02/13/20 at 11:42; Stop 02/13/20 at 11:42; Status DC Lidocaine HCl (Lidocaine Pf 2% Vial) 5 ml STK-MED ONCE .ROUTE ; Start 02/13/20 at 11:42; Stop 02/13/20 at 11:42; Status DC Midazolam HCl (Versed) 2 mg STK-MED ONCE .ROUTE ; Start 02/13/20 at 12:19; Stop 02/13/20 at 12:19; Status DC Oxycodone HCl (Roxicodone) 5 mg PRN Q3HRS PRN PO PAIN; Start 02/13/20 at 15:00 Morphine Sulfate (Morphine Sulfate) 2 mg PRN Q1HR PRN IVP PAIN, 1ST CHOICE; Start 02/13/20 at 15:00 Fentanyl Citrate (Fentanyl 2ml Vial) 25 mcg PRN Q1HR PRN IVP PAIN; Start 02/13/20 at 15:00 Senna/Docusate Sodium (Senna Plus) 1 tab DAILY PO Last administered on 02/16/20at 07:59; Start 02/14/20 at 09:00 Polyethylene Glycol (miraLAX PACKET) 17 gm PRN DAILY PRN PO CONSTIPATION; Start 02/13/20 at 15:00 Vitamin D (Vitamin D3) 1,000 unit DAILY PO Last administered on 02/16/20at 07:59; Start 02/14/20 at 09:00 Sodium Chloride 1,000 ml @ 75 mls/hr [id number] IV ; Start 02/13/20 at 14:46; Stop 02/14/20 at 04:26; Status DC Ondansetron HCl (Zofran) 4 mg PRN Q4HRS PRN IVP NAUSEA/VOMITING Last administered on 02/14/20at 10:19; Start 02/13/20 at 15:00 Magnesium Hydroxide (Milk Of Magnesia) 2,400 mg 1X PRN PRN PO CONSTIPATION; Start 02/14/20 at 06:00; Stop 02/15/20 at 05:59; Status DC Bisacodyl (Dulcolax Supp) 10 mg 1X PRN PRN ND CONSTIPATION; Start 02/14/20 at 16:00; Stop 02/15/20 at 15:59; Status DC Acetaminophen/ Hydrocodone Bitart (Lortab 7.5/325) 1 tab PRN Q4HRS PRN PO PAIN Last administered on 02/16/20at 09:18; Start 02/13/20 at 15:00 Morphine Sulfate (Morphine Sulfate) 4 mg PRN Q2HR PRN IVP PAIN, 2ND CHOICE; Start 02/13/20 at 15:00 Acetaminophen/ Hydrocodone Bitart (Lortab 7.5/325) 2 tab PRN Q4HRS PRN PO PAIN; Start 02/13/20 at 15:00 Dextrose (Dextrose 50%-Water Syringe) 12.5 gm PRN Q15MIN PRN IV SEE COMMENTS; Start 02/13/20 at 15:00; Status Cancel Aspirin (Ecotrin) 325 mg BID PO Last administered on 02/16/20at 08:00; Start 02/13/20 at 21:00 Oxycodone/ Acetaminophen (Percocet 5/325) 1 tab PRN Q4HRS PRN PO MODERATE PAIN; Start 02/13/20 at 15:00 Phenylephrine HCl (PHENYLEPHRINE in 0.9% NACL PF) 1 mg STK-MED ONCE IV ; Start 02/13/20 at 15:13; Stop 02/13/20 at 15:14; Status DC Ephedrine Sulfate (ePHEDrine PF IN SALINE SYRINGE) 50 mg STK-MED ONCE IV ; Start 02/13/20 at 15:14; Stop 02/13/20 at 15:14; Status DC Phenylephrine HCl (Flako-Synephrine Inj) 10 mg STK-MED ONCE .ROUTE ; Start 02/13/20 at 15:14; Stop 02/13/20 at 15:14; Status DC Albuterol/ Ipratropium (Duoneb) 3 ml 1X ONCE NEB Last administered on 02/13/20at 22:00; Start 02/13/20 at 22:00; Stop 02/13/20 at 22:01; Status DC Albuterol/ Ipratropium (Duoneb) 3 ml RTQID NEB ; Start 02/14/20 at 08:00; Stop 02/14/20 at 06:02; Status DC Methylprednisolone Sodium Succinate (SOLU-Medrol 125MG VIAL) 125 mg 1X ONCE IV Last administered on 02/14/20at 05:19; Start 02/14/20 at 05:30; Stop 02/14/20 at 05:31; Status DC Albuterol/ Ipratropium (Duoneb) 3 ml Q4HRS NEB Last administered on 02/15/20at 19:26; Start 02/14/20 at 08:00; Stop 02/15/20 at 20:13; Status DC Lactobacillus Rhamnosus (Culturelle) 1 cap BID PO Last administered on 02/16/20at 07:59; Start 02/14/20 at 21:00 Multivitamins/ Minerals (I-Jennifer) 1 tab DAILY PO Last administered on 02/16/20at 07:59; Start 02/14/20 at 11:00 Ascorbic Acid (Vitamin C) 500 mg DAILY PO Last administered on 02/16/20at 07:59; Start 02/14/20 at 11:00 Heparin Sodium (Porcine) (Heparin Sodium) 5,000 unit Q8HRS SQ Last administered on 02/16/20at 06:27; Start 02/14/20 at 22:00 Insulin Human Lispro (HumaLOG) 12 units TIDWMEALS SQ ; Start 02/15/20 at 08:00; Stop 02/14/20 at 19:44; Status DC Non-Formulary Medication 0-5 UNITS TIDWMEALS SQ ; Start 02/15/20 at 08:00; Stop 02/15/20 at 10:24; Status DC Non-Formulary Medication 1 ea TIDWMEALS SQ Last administered on 02/16/20at 08:04; Start 02/15/20 at 08:00 Amoxicillin/ Clavulanate Potassium (Augmentin 500/ 125mg) 1 tab BID PO Last administered on 02/16/20at 08:00; Start 02/15/20 at 09:00; Stop 02/16/20 at 11:10; Status DC Non-Formulary Medication 1 ea QHS SQ ; Start 02/15/20 at 21:00 Furosemide (Lasix) 40 mg BID94 PO Last administered on 02/16/20at 08:00; Start 02/15/20 at 16:00 Furosemide (Lasix) 40 mg 1X ONCE PO Last administered on 02/15/20at 12:13; Start 02/15/20 at 11:30; Stop 02/15/20 at 11:31; Status DC Alteplase, Recombinant (Cathflo For Central Catheter Clearance) 1 mg 1X ONCE INT CAT ; Start 02/15/20 at 12:30; Stop 02/15/20 at 12:31; Status Cancel Albuterol/ Ipratropium (Duoneb) 3 ml QID NEB ; Start 02/16/20 at 09:00; Stop 02/16/20 at 09:01; Status DC Albuterol Sulfate (Ventolin Neb Soln) 2.5 mg PRN Q4HRS PRN NEB SHORTNESS OF BREATH; Start 02/16/20 at 08:00 Cephalexin HCl (Keflex) 500 mg BID PO ; Start 02/16/20 at 21:00 Active Scripts Active Reported Omeprazole 20 Mg Capsule. 1 Cap PO DAILY Lasix (Furosemide) 40 Mg Tablet 1 Tab PO DAILY 30 Days Iron (Ferrous Gluconate) 236 Mg Tablet 65 Mg PO DAILY Biotin 1 Mg Capsule 1 Cap PO DAILY 30 Days [B 6] 1 Tab PO DAILY Levothyroxine Sodium 100 Mcg Tablet 1 Tab PO DAILY Levemir (Insulin Detemir) 100 Unit/1 Ml Vial 30 Unit SQ HS Ranitidine Hcl 150 Mg Capsule 1 Cap PO BID Verapamil Er (Verapamil Hcl) 240 Mg Cap24h.pel 120 Mg PO DAILY Magnesium (Magnesium Oxide) 400 Mg Capsule 1 Cap PO DAILY 30 Days Fetzima (Levomilnacipran Hydrochloride) 80 Mg Cap.sa.24h 80 Mg PO DAILY Tramadol Hcl 50 Mg Tablet 50 Mg PO DAILY PRN Novolog (Insulin Aspart) 100 Unit/1 Ml Cartridge 2 Unit SQ BIDACLD Allopurinol 300 Mg Tablet 1 Tab PO DAILY Potassium Citrate 10 Meq Tablet.er 1 Tab PO BID Incruse Ellipta (Umeclidinium Conde) 62.5 Mcg Blst.w.dev 62.5 Mcg IH DAILY Breo Ellipta 100-25 Mcg Inh (Fluticasone/Vilanterol) 1 Each Aer.pow.ba 1 Puff IH DAILY Klonopin (Clonazepam) 2 Mg Tablet 2 Mg PO HS Mirtazapine 15 Mg Tablet 30 Mg PO HS Erythromycin (Erythromycin Base) 250 Mg Capsule.dr 250 Mg PO BID Diphenoxylate-Atropine Tablet (Diphenoxylate Hcl/Atropine) 1 Each Tablet 1 Each PO DAILY PRN Cyanocobalamin Injection (Cyanocobalamin (Vitamin B-12)) 1,000 Mcg/1 Ml Vial 1,000 Mcg IJ QMONTH Vitamin D-3 (Cholecalciferol (Vitamin D3)) 2,000 Unit Capsule 2,000 Unit PO DAILY Atorvastatin Calcium 20 Mg Tablet 20 Mg PO DAILY Aspirin 81 Mg Tab.chew 81 Mg PO DAILY Vitals/I & O Vital Sign - Last 24 Hours 02/15/20 02/15/20 02/15/20 02/15/20 15:00 19:00 19:26 20:30 Temp 97.9 98.3 97.9 98.3 Pulse 86 87 Resp 16 18 B/P (MAP) 144/62 (89) 145/60 (88) Pulse Ox 100 100 96 O2 Delivery Nasal Cannula Nasal Cannula Nasal Cannula Room Air O2 Flow Rate 5.0 4.0 4.0 02/15/20 02/16/20 02/16/20 02/16/20 23:00 03:00 07:54 08:00 Temp 98.0 97.3 97.5 98.0 97.3 97.5 Pulse 87 87 91 91 Resp 18 18 20 B/P (MAP) 151/66 (94) 142/59 (86) 157/69 (98) 157/69 Pulse Ox 100 99 100 O2 Delivery Nasal Cannula Nasal Cannula Nasal Cannula O2 Flow Rate 4.0 4.0 4.0 02/16/20 02/16/20 02/16/20 02/16/20 08:00 09:18 10:11 11:05 Temp 97.6 97.6 Pulse 94 Resp 16 16 B/P (MAP) 155/72 (99) Pulse Ox 99 O2 Delivery Room Air Room Air Room Air Nasal Cannula O2 Flow Rate 4.0 Intake and Output 02/15/20 02/15/20 02/16/20 15:00 23:00 07:00 Intake Total 650 ml 300 ml Output Total 590 ml 575 ml 2100 ml Balance 60 ml -575 ml -1800 ml Justicifation of Admission Dx: Justifications for Admission: Justification of Admission Dx: Yes REGINA FRANZ MD Feb 16, 2020 11:53
[2020-02-16] MEDS ORDERED: TRAM50TA PO (12:06)
[2020-02-16] MEDS ORDERED: HYDR-2765 PO (12:06)
[2020-02-16] MEDS ORDERED: CEPH250C PO (12:06)
--- NOTE | 2020-02-16 12:07 | SNU/HH DC ---
DISCHARGE ORDERS DISCHARGE INFORMATION: DISCHARGE DATE: Feb 16, 2020 FINAL DIAGNOSIS 1. Acute on chronic hypoxemic hypercapnic respiratory failure in a patient with underlying chronic obstructive pulmonary disease, obesity and recent surgery. 2. Leukocytosis, per Infectious Disease. 3. Coronary artery disease. 4. Multiple drug ALLERGIES INCLUDING SULFA, CIPROFLOXACIN, CODEINE, HYDROCHLOROTHIAZIDE, SULFAMETHOXAZOLE AND TRIMETHOPRIM. 5. Morbid obesity. 6. Suspect obstructive sleep apnea. 7. Acute exacerbation of chronic obstructive pulmonary disease. 8. Hypertension. 9. Hyperlipidemia. 10. Status post repair of a distal femoral fracture. Distal left femur fracture (postop day 3) 11. UTI secondary to [STAPHYLOCOCCUS LUGDUNENSIS] CONDITION ON DISCHARGE: Stable CODE STATUS: Code Status: Full SENIOR LIVING: SNF STAY <30 DAYS: Yes POST DISCHARGE ORDERS: ACTIVITY ORDERS: Activity as tolerated WEIGHT BEARING STATUS: As tolerated BATHING ORDERS: No Tub Bath until see DrLorin CHECKS AFTER DISCHARGE: CHECKS AFTER DISCHARGE: Check blood press - daily TREATMENT/EQUIPMENT ORDERS: ADAPTIVE EQUIPMENT NEEDED: None DISCHARGE MEDICATIONS: Home Meds Active Scripts Hydrocodone Bit/Acetaminophen (HYDROCODONE-APAP 7.5-325 ) 1 Tab Tablet, 1 TAB PO PRN Q4HRS PRN for PAIN for 7 Days, #28 TAB Prov:SELAM MCMAHAN MD 02/16/20 Cephalexin (CEPHALEXIN) 250 Mg Capsule, 500 MG PO BID for UTI for 7 Days, #28 CAP Prov:SELAM MCMAHAN MD 02/16/20 Tramadol Hcl (TRAMADOL HCL) 50 Mg Tablet, 50 MG PO DAILY PRN for PAIN for 7 Days, #7 TAB 0 Refills Prov:SELAM MCMAHAN MD 02/16/20 Reported Medications Omeprazole (OMEPRAZOLE) 20 Mg Capsule.dr, 1 CAP PO DAILY for GERD, #30 CAP 5 Refills 02/12/20 Furosemide (LASIX) 40 Mg Tablet, 1 TAB PO DAILY for water pill for 30 Days, #30 TAB 0 Refills 02/11/20 Ferrous Gluconate (IRON) 236 Mg Tablet, 65 MG PO DAILY for vitamin, TAB 02/11/20 Biotin (BIOTIN) 1 Mg Capsule, 1 CAP PO DAILY for supplement for 30 Days, #30 CAP 0 Refills 02/11/20 [B 6] No Conflict Check, 1 TAB PO DAILY 02/11/20 Levothyroxine Sodium (LEVOTHYROXINE SODIUM) 100 Mcg Tablet, 1 TAB PO DAILY for hypothyroidism, #30 TAB 5 Refills 02/11/20 Insulin Detemir (LEVEMIR) 100 Unit/1 Ml Vial, 30 UNIT SQ HS for DM, VIAL 05/21/19 Ranitidine Hcl (RANITIDINE HCL) 150 Mg Capsule, 1 CAP PO BID for GERD, #60 CAP 5 Refills 05/21/19 Verapamil Hcl (VERAPAMIL ER) 240 Mg Cap24h.pel, 120 MG PO DAILY for HTN, CAP.SR 05/21/19 Magnesium Oxide (MAGNESIUM) 400 Mg Capsule, 1 CAP PO DAILY for VITAMIN for 30 Days, #30 CAP 0 Refills 05/21/19 Levomilnacipran Hydrochloride (FETZIMA) 80 Mg Cap.sa.24h, 80 MG PO DAILY for DEPRESSION, CAP.SR 05/21/19 Insulin Aspart (NOVOLOG) 100 Unit/1 Ml Cartridge, 2 UNIT SQ BIDACLD for SLIDING SCALE, EACH 05/21/19 Allopurinol (ALLOPURINOL) 300 Mg Tablet, 1 TAB PO DAILY for GOUT, #30 TAB 5 Refills 05/21/19 Potassium Citrate (POTASSIUM CITRATE) 10 Meq Tablet.er, 1 TAB PO BID for NA, #90 TAB 3 Refills 05/21/19 Umeclidinium [place] (Incruse Ellipta) 62.5 Mcg Blst.w.dev, 62.5 MCG IH DAILY for COPD 05/21/19 Fluticasone/Vilanterol (BREO ELLIPTA 100-25 MCG INH) 1 Each Aer.pow.ba, 1 PUFF IH DAILY for COPD, INHALER 05/21/19 Clonazepam (KLONOPIN) 2 Mg Tablet, 2 MG PO HS, TAB 07/10/17 Mirtazapine (MIRTAZAPINE) 15 Mg Tablet, 30 MG PO HS, TAB 02/24/14 Diphenoxylate Hcl/Atropine (DIPHENOXYLATE-ATROPINE TABLET) 1 Each Tablet, 1 EACH PO DAILY PRN for DIARRHEA 02/24/14 Cyanocobalamin (Vitamin B-12) (CYANOCOBALAMIN INJECTION) 1,000 Mcg/1 Ml Vial, 1000 MCG IJ QMONTH, VIAL 02/24/14 Cholecalciferol (Vitamin D3) (VITAMIN D-3) 2,000 Unit Capsule, 2000 UNIT PO DAILY 02/24/14 Atorvastatin Calcium (ATORVASTATIN CALCIUM) 20 Mg Tablet, 20 MG PO DAILY for FOR CHOLESTEROL, #30 TAB 0 Refills 02/24/14 Aspirin (ASPIRIN) 81 Mg Tab.chew, 81 MG PO DAILY, TAB.CHEW 02/24/14 Discontinued Reported Medications Erythromycin Base (ERYTHROMYCIN) 250 Mg Capsule.dr, 250 MG PO BID 02/24/14 SELAM MCMAHAN MD Feb 16, 2020 12:07
--- NOTE | 2020-02-16 14:43 | NUR ---
Discharge instructions and follow up report given to Arya HOWARD @[facility] [phone]. Patient will be picked up @[phone].
[2020-02-16 15:00] VITALS: BP 154/70
[2020-02-16] MEDS ORDERED: CEPHALEXIN 250 MG CAPSULE. PO SCH (21:00)
[2020-02-17 14:12] LABS: IMMUNOGLOBULIN A 90 mg/dL (64-422); IMMUNOGLOBULIN G 440 mg/dL (586-1602); IMMUNOGLOBULIN M 64 mg/dL (26-217)
[2020-02-17 19:10] LABS: ALBUM 2.6 g/dL (2.9-4.4); ALPHA 1 0.4 g/dL (0.0-0.4); ALPHA 2 0.7 g/dL (0.4-1.0); BETA 0.6 g/dL (0.7-1.3); GAMMA 0.5 g/dL (0.4-1.8); PROTEIN TOTAL 4.8 g/dL (6.0-8.5); SPEP AG RATIO 1.2 (0.7-1.7)
[2020-04-14] MEDS ORDERED: DICL100G54 TP (18:56)
[2020-04-14] MEDS ORDERED: MAGN400C PO (18:56)
[2020-04-14] MEDS ORDERED: OXYC10TA46 PO (18:56)
[2020-04-14] MEDS ORDERED: LACT100C2 PO (18:56)
[2020-04-14] MEDS ORDERED: INSU100I46 SQ (18:56)
[2020-04-17] MEDS ORDERED: CEFD300C PO (10:33)
== END 2020-02-16 16:12 | DRG 480 ==
LOC: 4 NORTH 15:24 → 2 NORTH 02-13 22:22 → 1 WEST ICU 02-14 05:35 → 4 NORTH 02-15 18:10
PROVIDERS: ADMIT Internal Medicine; ATTEND Internal Medicine
PROC: 5A09357 Assistance with Respiratory Ventilation, Less than 24 Consecutive Hours, Continuous Positive Airway Pressure (ICD-10-PCS; 2020-02-11)
PROC: 5A09357 Assistance with Respiratory Ventilation, Less than 24 Consecutive Hours, Continuous Positive Airway Pressure (ICD-10-PCS; 2020-02-13)
PROC: 0QSC04Z Reposition Left Lower Femur with Internal Fixation Device, Open Approach (ICD-10-PCS; principal; 2020-02-13 12:30)
PROC: 5A09357 Assistance with Respiratory Ventilation, Less than 24 Consecutive Hours, Continuous Positive Airway Pressure (ICD-10-PCS; 2020-02-14)
PROC: 5A09357 Assistance with Respiratory Ventilation, Less than 24 Consecutive Hours, Continuous Positive Airway Pressure (ICD-10-PCS; 2020-02-15)
DX: S72.452A Displaced supracondylar fracture without intracondylar extension of lower end of left femur, initial encounter for closed fracture (principal); N18.6 End stage renal disease; G92 Toxic encephalopathy; J96.21 Acute and chronic respiratory failure with hypoxia; J96.22 Acute and chronic respiratory failure with hypercapnia; M97.12XA Periprosthetic fracture around internal prosthetic left knee joint, initial encounter; I12.0 Hypertensive chronic kidney disease with stage 5 chronic kidney disease or end stage renal disease; I42.1 Obstructive hypertrophic cardiomyopathy; J44.1 Chronic obstructive pulmonary disease with (acute) exacerbation; N17.9 Acute kidney failure, unspecified; N39.0 Urinary tract infection, site not specified; B95.8 Unspecified staphylococcus as the cause of diseases classified elsewhere; D47.2 Monoclonal gammopathy; D64.9 Anemia, unspecified; E03.9 Hypothyroidism, unspecified; E11.22 Type 2 diabetes mellitus with diabetic chronic kidney disease; E11.51 Type 2 diabetes mellitus with diabetic peripheral angiopathy without gangrene; E66.01 Morbid (severe) obesity due to excess calories; E78.00 Pure hypercholesterolemia, unspecified; E78.5 Hyperlipidemia, unspecified; G47.33 Obstructive sleep apnea (adult) (pediatric); I25.10 Atherosclerotic heart disease of native coronary artery without angina pectoris; W01.0XXA Fall on same level from slipping, tripping and stumbling without subsequent striking against object, initial encounter; Z53.20 Procedure and treatment not carried out because of patient's decision for unspecified reasons; Z79.4 Long term (current) use of insulin; Z82.49 Family history of ischemic heart disease and other diseases of the circulatory system; Z85.3 Personal history of malignant neoplasm of breast; Z87.19 Personal history of other diseases of the digestive system; Z87.442 Personal history of urinary calculi; Z87.891 Personal history of nicotine dependence; Z88.2 Allergy status to sulfonamides; Z88.5 Allergy status to narcotic agent; Z90.12 Acquired absence of left breast and nipple; Z90.49 Acquired absence of other specified parts of digestive tract; Z90.710 Acquired absence of both cervix and uterus; Z96.653 Presence of artificial knee joint, bilateral; F32.9 Major depressive disorder, single episode, unspecified; K21.9 Gastro-esophageal reflux disease without esophagitis; M19.90 Unspecified osteoarthritis, unspecified site; Z88.8 Allergy status to other drugs, medicaments and biological substances; Z79.899 Other long term (current) drug therapy; Y93.89 Activity, other specified; Y92.89 Other specified places as the place of occurrence of the external cause; Y99.8 Other external cause status
CPT/HCPCS: 36415; 36600; 70450; 71045; 73552; 76000; 80048; 80053; 81001; 82306; 82784; 82805; 82962; 83036; 83520; 83605; 83735; 83880; 84165; 85007; 85025; 85610; 86334; 86850; 86900; 86901; 87040; 87077; 87086; 93005; 93306; 93970; 94640; 94660; 94760; A7015; C1713; J0696; J1644; J1815; J2250; J2270; J2370; J2405; J2543; J2704; J2930; J3490; J7030; 97530-GO; 97530-GP; 97535-GO; G0378; J7626

== ENCOUNTER 2020-07-31 16:49 | Inpatient (IN) | payer MEDICARE ==
[~2020-07-31] VITALS: Ht 162.6 cm; Wt 84.0 kg
[~2020-07-31 16:49] MED LIST changes: +B 6 PO; +BIOT1CAP3 PO; +CEFD300C PO; +CEPH250C PO; +DICL100G54 TP; +FERR236T2 PO; +FURO-68 PO; +HYDR-2765 PO; +INSU100I46 SQ; +LACT100C2 PO; +LEVO100T5 PO; +MIRT-7 PO; -MIRT15TA3 PO; +OXYC10TA46 PO
--- NOTE | 2020-07-31 17:04 | PHYS DOC ---
Past Medical History Past Medical History: Arthritis, CAD, Cancer, Diabetes-Type II, GERD, High Cholesterol, Hypertension, Hypothyroid, AR, Renal Disease Past Surgical History: Cancer Surgery, Cholecystectomy, , Hysterectomy, Knee Replacement, Tonsillectomy, Other Additional Past Surgical Histo: L mastectomy; knees; hands; carpal tunnel; feet; cardiac cath Smoking Status: Never Smoker Alcohol Use: None Drug Use: None General Adult EDM: Chief Complaint: CHEST PAIN HPI: HPI: Patient is a 74 year old female who was brought here by EMS from home due to chest pain and dizziness. Patient was walking at home, she feels like she might pass out, so she sat down and started having chest pressure. EMS were called, they gave her treatment 324 mg aspirin on route. Her chest pain subsided upon arrival here to ER. Patient had a history of chest pain in the past, she was taken to cardiac catheterization lab, diagnosed with Takotsubo syndrome. The second time she was taken to the [facility] due to chest pain again and they found a blockage in one single blood vessel but they could not put a stent in because the vessel was small and distal. Patient has history of diabetes, hypertension, breast cancer. Patient denies any cough, no fever, no abdominal pain, no nausea vomiting. Patient denies any headache, no numbness or weakness anywhere. Review of Systems: Review of Systems: Constitutional: Denies fever or chills. [] Eyes: Denies change in visual acuity. [] HENT: Denies nasal congestion or sore throat. [] Respiratory: Denies cough or shortness of breath. [] Cardiovascular: Positive for chest pain and edema GI: Denies abdominal pain, nausea, vomiting, bloody stools or diarrhea. [] : Denies dysuria. [] Musculoskeletal: Denies back pain or joint pain. [] Integument: Denies rash. [] Neurologic: Denies headache, focal weakness or sensory changes. [] Endocrine: Denies polyuria or polydipsia. [] Lymphatic: Denies swollen glands. [] Psychiatric: Denies depression or anxiety. [] Heart Score: HEART Score for Chest Pain: HEART Score for Chest Pain Response (Comments) Value History Moderately Suspicious 1 ECG Nonspecific Repolarizatio 1 Age > 65 2 Risk Factors >3 Risk Factors or Hx CAD 2 Troponin < Normal Limit 0 Total 6 Risk Factors: Risk Factors: DM, Current or recent (<one month) smoker, HTN, HLP, family history of CAD, obesity. Risk Scores: Score 0 - 3: 2.5% MACE over next 6 weeks - Discharge Home Score 4 - 6: 20.3% MACE over next 6 weeks - Admit for Clinical Observation Score 7 - 10: 72.7% MACE over next 6 weeks - Early Invasive Strategies Allergies: Allergies: Allergies Coded Allergies Type Severity Reaction Last Updated Verified Sulfa (Sulfonamide Antibiotics) Allergy Intermediate Hives 05/21/19 Yes ciprofloxacin Allergy Intermediate 05/21/19 No diclofenac Allergy Intermediate Hives 05/21/19 Yes hydrochlorothiazide Allergy Intermediate Rash 05/21/19 Yes lactose Allergy Intermediate 05/21/19 Yes misoprostol Allergy Intermediate Hives 05/21/19 Yes sulfamethoxazole Allergy Intermediate 05/21/19 Yes trimethoprim Allergy Intermediate 05/21/19 Yes codeine Adverse Reaction Intermediate Nausea and Vomiting 05/21/19 Yes Physical Exam: PE: Constitutional: Well developed, well nourished, no acute distress, non-toxic appearance. [] HENT: Normocephalic, atraumatic, bilateral external ears normal, oropharynx moist, no oral exudates, nose normal. [] Eyes: PERRLA, EOMI, conjunctiva normal, no discharge. [] Neck: Normal range of motion, no tenderness, supple, no stridor. [] Cardiovascular:Heart rate regular rhythm, loud systolic murmur. Lungs & Thorax: Bilateral breath sounds clear to auscultation [] Abdomen: Bowel sounds normal, soft, no tenderness, no masses, no pulsatile masses. [] Skin: Warm, dry, no erythema, no rash. [] Back: No tenderness, no CVA tenderness. [] Extremities: No tenderness, no cyanosis, no clubbing, ROM intact, bilateral lower extremity edema 2+ Neurologic: Alert and oriented X 3, normal motor function, normal sensory function, no focal deficits noted. [] Psychologic: Affect normal, judgement normal, mood normal. [] EKG: EKG: EKG was done at 1654, sinus rhythm, heart rate of 64 beats per minute, no STEMI. Radiology/Procedures: Radiology/Procedures: [][facility] [address] [place] [address] IMAGING REPORT Signed PATIENT: MÓNICA CASTELLANO ACCOUNT: [id number] : 1945 LOCATION: ER AGE: 74 SEX: F EXAM STATUS: REG ER ORD. PHYSICIAN: ALEJANDRO VELEZ DO REASON: CHEST PAIN. HX OF CAD, HTN PROCEDURE: PORTABLE CHEST 1V EXAMINATION: XR CHEST 1V CLINICAL HISTORY: Chest pain EXAM DATE/TIME: 07/31/2020 5:16 PM COMPARISON: 02/14/2020 FINDINGS: Lines, Tubes, and Devices: None. Cardiomediastinal Silhouette: Normal heart size. Aortic atherosclerotic calcification. Lungs and Pleura: Minimal left basilar curvilinear subsegmental atelectasis and/or scarring. No evidence of focal airspace consolidation or pleural effusion. Pulmonary vasculature unremarkable. Bones and Soft Tissues: Remote healed lateral right sixth rib fracture deformity. IMPRESSION: No evidence of acute cardiopulmonary abnormality or significant interval change. Electronically signed by: Kannan Rushing DO (07/31/2020 5:28 PM) [facility] DICTATED and SIGNED BY: KANNAN RUSHING DO DATE: 07/31/20 [id number] 0 Course & Med Decision Making: Course & Med Decision Making Pertinent Labs and Imaging studies reviewed. (See chart for details) Patient is a 84-year-old female with history of CHF, diabetic, hypertension, kidney problems, presented to ER with chest pain. Chest x-ray did not show any acute problem, EKG showed no ST segment ovation. Her labs are pending at this time. Patient will need to be admitted to hospital for further evaluation and treatment, her care was endorsed to the incoming physician at shift change Dr. Catherine. Keo Disclaimer: Keo Disclaimer: This electronic medical record was generated, in whole or in part, using a voice recognition dictation system. Departure Departure Impression: Primary Impression: Chest pain Disposition: ADMITTED INPT THIS HOSP Admitting Physician: SUZI (DR. GARCIA) Condition: STABLE Referrals: BEBE MALDONADO MD (PCP) ALEJANDRO VELEZ DO Jul 31, 2020 17:04
--- NOTE | 2020-07-31 17:30 | RAD ---
EXAMINATION: XR CHEST 1V CLINICAL HISTORY: Chest pain EXAM DATE/TIME: 07/31/2020 5:16 PM COMPARISON: 02/14/2020 FINDINGS: Lines, Tubes, and Devices: None. Cardiomediastinal Silhouette: Normal heart size. Aortic atherosclerotic calcification. Lungs and Pleura: Minimal left basilar curvilinear subsegmental atelectasis and/or scarring. No evide nce of focal airspace consolidation or pleural effusion. Pulmonary vasculature unremarkable. Bones and Soft Tissues: Remote healed lateral right sixth rib fracture deformity. IMPRESSION: No evidence of acute cardiopulmonary abnormality or significant interval change. Electronically signed by: Kannan Corrales DO (07/31/2020 5:28 PM) [facility]
[2020-07-31 17:37] LABS: BASO # 0.1 x10^3/uL (0.0-0.2); BASO % 1 % (0-3); EOS # 0.3 x10^3/uL (0.0-0.7); EOS % 2 % (0-3); HEMATOCRIT 31.1 % (36.0-47.0); LYMPH # 1.3 x10^3/uL (1.0-4.8); LYMPH % 8 % (24-48); MEAN CORPUSCULAR HEMOGLOBIN 28 pg (25-35); MEAN CORPUSCULAR HGB CONC 32 g/dL (31-37); MEAN CORPUSCULAR VOLUME 86 fL (79-100); MONO # 1.2 x10^3/uL (0.0-1.1); MONO % 7 % (0-9); NEUT # 13.4 x10^3/uL (1.8-7.7); NEUT % 83 % (31-73); PLATELET COUNT 326 x10^3/uL (140-400); RED BLOOD COUNT 3.62 x10^6/uL (3.50-5.40); RED CELL DISTRIBUTION WIDTH 18.7 % (11.5-14.5); WHITE BLOOD COUNT 16.2 x10^3/uL (4.0-11.0)
[2020-07-31 17:51] LABS: CALCIUM 10.1 mg/dL (8.5-10.1); CREATININE 1.9 mg/dL (0.6-1.0); GFR 25.8; POTASSIUM 3.5 mmol/L (3.5-5.1)
[2020-07-31 17:56] LABS: ALBUMIN 3.3 g/dL (3.4-5.0); ALBUMIN/GLOBULIN RATIO 0.9 (1.0-1.7); MAGNESIUM 2.5 mg/dL (1.8-2.4); TOTAL BILIRUBIN 0.4 mg/dL (0.2-1.0); TOTAL PROTEIN 6.9 g/dL (6.4-8.2)
[2020-07-31] MEDS ORDERED: NITROGLYCERIN SUBLINGUAL 0.4 MG BOTTLE OF 25. SL PRN (18:30)
[2020-07-31] MEDS ORDERED: ASPIRIN CHEWABLE 81 MG TABLET. PO ONE (18:30)
[2020-07-31] MEDS ORDERED: ONDANSETRON PF 4 MG/2 ML VIAL. IV PRN (18:30)
[2020-07-31 19:32] LABS: % BANDS 1 % (0-9); % EOS 1 % (0-5); % LYMPHS 11 % (24-48); % MONOS 12 % (0-10); % SEGS 75 % (35-66); ANISOCYTOSIS SLIGHT; HYPOCHROMIA SLIGHT; PLT ESTIMATE ADEQUATE (ADEQUATE)
[2020-07-31] MEDS ORDERED: MAG HYDROX/ALUMINUM HYD/SIMETH 30 ML ORAL.SUSP PO PRN (21:00)
[2020-07-31] MEDS ORDERED: MORPHINE SULFATE 2 MG/ML VIAL. IV PRN (21:00)
[2020-07-31] MEDS ORDERED: CALCIUM CARBONATE 500 MG TAB.CHEW PO PRN (21:00)
[2020-07-31] MEDS ORDERED: MAGNESIUM HYDROXIDE 2,400 MG/30 ML ORAL.SUSP. PO PRN (21:00)
[2020-07-31] MEDS ORDERED: BISACODYL 10 MG SUPP.RECT. PR PRN (21:00)
[2020-07-31] MEDS ORDERED: fentaNYL PF VIAL 100 MCG/2 ML VIAL IVP PRN (21:00)
[2020-07-31] MEDS ORDERED: ACETAMINOPHEN 325 MG TABLET. PO PRN (21:00)
[2020-07-31] MEDS ORDERED: ZOLPIDEM 5 MG TABLET. PO PRN (21:00)
[2020-07-31] MEDS ORDERED: ONDANSETRON PF 4 MG/2 ML VIAL. IVP PRN (21:00)
--- NOTE | 2020-07-31 21:10 | PDOC1 ---
History and Physical Date of Admission Date of Admission DATE: 07/31/20 TIME: 20:58 Identification/Chief Complaint Chief Complaint Chest pain Source Source: Chart review, Patient History of Present Illness History of Present Illness Patient 74-year-old female past medical history hypertension, DM2, and Takotsubo cardiomyopathy, who presents to the ER with complaints of substernal chest pain. She reports chest pain that feels more like chest pressure, but states her symptoms do radiate to her left arm she received aspirin 324 mg in route to the ED with some improvement in her pain. She denies any associated nausea or diaphoresis. EKG upon arrival in the ER did not show any ST elevation. He does admit to a history of chronically swollen bilateral lower legs. Will admit patient for further medical management. Past Medical History Cardiovascular: CAD, HTN, SC, Hyperlipidemia Pulmonary: Other GI: GERD, Hemorrhoids, Other Heme/Onc: Anemia NOS, Cancer, Other Psych: Depression Musculoskeletal: Osteoarthritis Renal/: Chronic renal failure, Other Endocrine: Diabetes Past Surgical History Past Surgical History: Cholecystectomy, Cataract Removal, , Mastectomy, Total knee replacement, Tonsillectomy, Hysterectomy Family History Family History: Hypertension Social History Smoke: No ALCOHOL: none Drugs: None Current Problem List Problem List Problems Medical Problems: (1) Chest pain Status: Acute Current Medications Current Medications Current Medications Aspirin (Aspirin Chewable) 324 mg 1X ONCE PO ; Start 07/31/20 at 18:30; Stop 07/31/20 at 18:31; Status DC Ondansetron HCl (Zofran) 4 mg PRN Q8HRS PRN IV NAUSEA/VOMITING; Start 07/31/20 at 18:30; Stop 08/01/20 at 18:29 Nitroglycerin (Nitrostat) 0.4 mg PRN Q5MIN PRN SL CHEST PAIN; Start 07/31/20 at 18:30; Stop 08/01/20 at 18:29 Active Scripts Active Cefdinir 300 Mg Capsule 300 Mg PO DAILY 7 Days Hydrocodone-Apap 7.5-325 (Hydrocodone Bit/Acetaminophen) 1 Tab Tablet 1 Tab PO PRN Q4HRS PRN 7 Days Reported Voltaren (Diclofenac Sodium) 100 Gm Gel..gram. 1 Gm TP PRN Q6HRS PRN 30 Days apply to affected area(s) Magnesium (Magnesium Oxide) 400 Mg Capsule 1 Cap PO DAILY 30 Days Oxycontin (Oxycodone HCl) 10 Mg Tab.er.12h 1 Tab PO BID MDD 2 Tablet(s) 30 Days Insulin Lispro Kwikpen U-100 (Insulin Lispro) 100 Unit/1 Ml Insuln.pen 24 Unit SQ TIDAC Acidophilus (Lactobacillus Acidophilus) 100 Mg Capsule 1 Cap PO DAILY 30 Days Omeprazole 20 Mg Capsule.dr 1 Cap PO DAILY Lasix (Furosemide) 40 Mg Tablet 1 Tab PO DAILY 30 Days Iron (Ferrous Gluconate) 236 Mg Tablet 65 Mg PO DAILY Biotin 1 Mg Capsule 1 Cap PO DAILY 30 Days [B 6] 1 Tab PO DAILY Levothyroxine Sodium 100 Mcg Tablet 1 Tab PO DAILY Levemir (Insulin Detemir) 100 Unit/1 Ml Vial 30 Unit SQ HS Verapamil Er (Verapamil Hcl) 240 Mg Cap24h.pel 120 Mg PO DAILY Magnesium (Magnesium Oxide) 400 Mg Capsule 1 Cap PO DAILY 30 Days Fetzima (Levomilnacipran Hydrochloride) 80 Mg Cap.sa.24h 80 Mg PO DAILY Allopurinol 300 Mg Tablet 1 Tab PO DAILY Potassium Citrate 10 Meq Tablet.er 1 Tab PO BID Incruse Ellipta (Umeclidinium [place]) 62.5 Mcg Blst.w.dev 62.5 Mcg IH DAILY Breo Ellipta 100-25 Mcg Inh (Fluticasone/Vilanterol) 1 Each Aer.pow.ba 1 Puff IH DAILY Klonopin (Clonazepam) 2 Mg Tablet 2 Mg PO HS Mirtazapine 15 Mg Tablet 30 Mg PO HS Diphenoxylate-Atropine Tablet (Diphenoxylate Hcl/Atropine) 1 Each Tablet 1 Each PO DAILY PRN Cyanocobalamin Injection (Cyanocobalamin (Vitamin B-12)) 1,000 Mcg/1 Ml Vial 1,000 Mcg IJ QMONTH Vitamin D-3 (Cholecalciferol (Vitamin D3)) 2,000 Unit Capsule 2,000 Unit PO DAILY Atorvastatin Calcium 20 Mg Tablet 20 Mg PO DAILY Aspirin 81 Mg Tab.chew 81 Mg PO DAILY Allergies Allergies: Coded Allergies: Sulfa (Sulfonamide Antibiotics) (Verified Allergy, Intermediate, Hives, 05/21/19) ciprofloxacin (Unverified Allergy, Intermediate, 05/21/19) diclofenac (Verified Allergy, Intermediate, Hives, 07/31/20) Aspirin ok hydrochlorothiazide (Verified Allergy, Intermediate, Rash, 05/21/19) lactose (Verified Allergy, Intermediate, 05/21/19) misoprostol (Verified Allergy, Intermediate, Hives, 05/21/19) sulfamethoxazole (Verified Allergy, Intermediate, 05/21/19) trimethoprim (Verified Allergy, Intermediate, 05/21/19) codeine (Verified Adverse Reaction, Intermediate, Nausea and Vomiting, 05/21/19) ROS Review of System GENERAL: No history of weight change, weakness or fevers. SKIN: No bruising, hair changes or rashes. EYES: No blurred, double or loss of vision. NOSE AND THROAT: No history of nosebleeds, hoarseness or sore throat. HEART: Chest pain. Denies septations. LUNGS: Denies cough, hemoptysis, wheezing or shortness of breath. GASTROINTESTINAL: Denies nausea, vomiting, abdominal pain. GENITOURINARY: Denies dysuria, frequency, urgency, hematuria. NEUROLOGIC: Denies history of numbness, tingling, tremor or weakness. PSYCHIATRIC: Denies anxiety, denies depression. ENDOCRINE: No history of heat or cold intolerance, polyuria or polydipsia. EXTREMITIES: Denies muscle weakness, joint pain, pain on walking or stiffness. Physical Exam Physical Exam General: Alert, Oriented X3, Cooperative, No acute distress HEENT: PERRLA, EOMI Lungs: Clear to auscultation, Normal air movement Heart: RRR, no murmurs Cardiovascular: S1, S2 Abdomen: Normal bowel sounds, Soft, No tenderness Extremities: +1 edema to bilateral lower extremities. No clubbing, No cyanosis Skin: No rashes, No significant lesion Neuro: Normal speech, Normal tone, Sensation intact Psych/Mental Status: Mental status NL, Mood NL Vitals Vitals Vital Signs Date Time Temp Pulse Resp B/P (MAP) Pulse Ox O2 Delivery O2 Flow Rate FiO2 07/31/20 19:48 64 18 148/94 (112) 98 Room Air 07/31/20 16:55 98.7 3.0 98.7 Labs Labs Laboratory Tests Test 07/31/20 17:18 White Blood Count 16.2 x10^3/uL (4.0-11.0) Red Blood Count 3.62 x10^6/uL (3.50-5.40) Hemoglobin 10.0 g/dL (12.0-15.5) Hematocrit 31.1 % (36.0-47.0) Mean Corpuscular Volume 86 fL (79-100) Mean Corpuscular Hemoglobin 28 pg (25-35) Mean Corpuscular Hemoglobin Concent 32 g/dL (31-37) Red Cell Distribution Width 18.7 % (11.5-14.5) Platelet Count 326 x10^3/uL (140-400) Neutrophils (%) (Auto) 83 % (31-73) Lymphocytes (%) (Auto) 8 % (24-48) Monocytes (%) (Auto) 7 % (0-9) Eosinophils (%) (Auto) 2 % (0-3) Basophils (%) (Auto) 1 % (0-3) Neutrophils # (Auto) 13.4 x10^3/uL (1.8-7.7) Lymphocytes # (Auto) 1.3 x10^3/uL (1.0-4.8) Monocytes # (Auto) 1.2 x10^3/uL (0.0-1.1) Eosinophils # (Auto) 0.3 x10^3/uL (0.0-0.7) Basophils # (Auto) 0.1 x10^3/uL (0.0-0.2) Segmented Neutrophils % 75 % (35-66) Band Neutrophils % 1 % (0-9) Lymphocytes % 11 % (24-48) Monocytes % 12 % (0-10) Eosinophils % 1 % (0-5) Platelet Estimate Adequate (ADEQUATE) Hypochromasia Slight Anisocytosis Slight Sodium Level 137 mmol/L (136-145) Potassium Level 3.5 mmol/L (3.5-5.1) Chloride Level 96 mmol/L (98-107) Carbon Dioxide Level 33 mmol/L (21-32) Anion Gap 8 (6-14) Blood Urea Nitrogen 44 mg/dL (7-20) Creatinine 1.9 mg/dL (0.6-1.0) Estimated GFR (Cockcroft-Gault) 25.8 BUN/Creatinine Ratio 23 (6-20) Glucose Level 118 mg/dL (70-99) Calcium Level 10.1 mg/dL (8.5-10.1) Magnesium Level 2.5 mg/dL (1.8-2.4) Total Bilirubin 0.4 mg/dL (0.2-1.0) Aspartate Amino Transf (AST/SGOT) 28 U/L (15-37) Alanine Aminotransferase (ALT/SGPT) 41 U/L (14-59) Alkaline Phosphatase 180 U/L (46-116) Troponin I Quantitative 0.026 ng/mL (0.000-0.055) XI-Ywx-U-Type Natriuretic Peptide 711 pg/mL (0-124) Total Protein 6.9 g/dL (6.4-8.2) Albumin 3.3 g/dL (3.4-5.0) Albumin/Globulin Ratio 0.9 (1.0-1.7) Lipase 117 U/L (73-393) Laboratory Tests Test 07/31/20 17:18 White Blood Count 16.2 x10^3/uL (4.0-11.0) Red Blood Count 3.62 x10^6/uL (3.50-5.40) Hemoglobin 10.0 g/dL (12.0-15.5) Hematocrit 31.1 % (36.0-47.0) Mean Corpuscular Volume 86 fL (79-100) Mean Corpuscular Hemoglobin 28 pg (25-35) Mean Corpuscular Hemoglobin Concent 32 g/dL (31-37) Red Cell Distribution Width 18.7 % (11.5-14.5) Platelet Count 326 x10^3/uL (140-400) Neutrophils (%) (Auto) 83 % (31-73) Lymphocytes (%) (Auto) 8 % (24-48) Monocytes (%) (Auto) 7 % (0-9) Eosinophils (%) (Auto) 2 % (0-3) Basophils (%) (Auto) 1 % (0-3) Neutrophils # (Auto) 13.4 x10^3/uL (1.8-7.7) Lymphocytes # (Auto) 1.3 x10^3/uL (1.0-4.8) Monocytes # (Auto) 1.2 x10^3/uL (0.0-1.1) Eosinophils # (Auto) 0.3 x10^3/uL (0.0-0.7) Basophils # (Auto) 0.1 x10^3/uL (0.0-0.2) Segmented Neutrophils % 75 % (35-66) Band Neutrophils % 1 % (0-9) Lymphocytes % 11 % (24-48) Monocytes % 12 % (0-10) Eosinophils % 1 % (0-5) Platelet Estimate Adequate (ADEQUATE) Hypochromasia Slight Anisocytosis Slight Sodium Level 137 mmol/L (136-145) Potassium Level 3.5 mmol/L (3.5-5.1) Chloride Level 96 mmol/L (98-107) Carbon Dioxide Level 33 mmol/L (21-32) Anion Gap 8 (6-14) Blood Urea Nitrogen 44 mg/dL (7-20) Creatinine 1.9 mg/dL (0.6-1.0) Estimated GFR (Cockcroft-Gault) 25.8 BUN/Creatinine Ratio 23 (6-20) Glucose Level 118 mg/dL (70-99) Calcium Level 10.1 mg/dL (8.5-10.1) Magnesium Level 2.5 mg/dL (1.8-2.4) Total Bilirubin 0.4 mg/dL (0.2-1.0) Aspartate Amino Transf (AST/SGOT) 28 U/L (15-37) Alanine Aminotransferase (ALT/SGPT) 41 U/L (14-59) Alkaline Phosphatase 180 U/L (46-116) Troponin I Quantitative 0.026 ng/mL (0.000-0.055) SI-Sju-H-Type Natriuretic Peptide 711 pg/mL (0-124) Total Protein 6.9 g/dL (6.4-8.2) Albumin 3.3 g/dL (3.4-5.0) Albumin/Globulin Ratio 0.9 (1.0-1.7) Lipase 117 U/L (73-393) Images Images EXAMINATION: XR CHEST 1V CLINICAL HISTORY: Chest pain EXAM DATE/TIME: 07/31/2020 5:16 PM COMPARISON: 02/14/2020 FINDINGS: Lines, Tubes, and Devices: None. Cardiomediastinal Silhouette: Normal heart size. Aortic atherosclerotic calcification. Lungs and Pleura: Minimal left basilar curvilinear subsegmental atelectasis and/or scarring. No evidence of focal airspace consolidation or pleural effusion. Pulmonary vasculature unremarkable. Bones and Soft Tissues: Remote healed lateral right sixth rib fracture deformity. IMPRESSION: No evidence of acute cardiopulmonary abnormality or significant interval change. VTE Prophylaxis Ordered VTE Prophylaxis Devices: Contraindicated VTE Pharmacological Prophylaxi: Yes Assessment/Plan Assessment/Plan Unstable angina Leukocytosis Dehydration OLU Vasomotor nephropathy Plan: Continue trend troponins. Initial troponin elevated at 0.026. Consult placed to cardiology. Patient has history of Takotsubo cardiomyopathy. Will obtain echocardiogram. History of CKD with baseline creatinine around 1.7; provide IV hydration Continue home medications FEN - Cardiac diet PPX - Heparin FULL CODE Dispo - observation for above Justifications for Admission Other Justification MILVIA ORTEGA MD Jul 31, 2020 21:10
[2020-07-31] MEDS ORDERED: IV NORMAL SALINE 1000ML BAG 1,000 ML IV ONE (21:30)
[2020-07-31] MEDS: HEPARIN for SUB-Q USE 5,000 UNIT/ML VIAL. SQ SCH (22:29)
[2020-07-31] MEDS ORDERED: clonazePAM 0.5 MG TABLET PO PRN (23:00)
[2020-07-31] MEDS ORDERED: DEXTROSE 50% 25 GM / 50ML DISP.SYRIN. IV PRN (23:00)
[2020-07-31] MEDS ORDERED: MIRTAZAPINE 15 MG TABLET PO SCH (23:30)
[2020-07-31] MEDS ORDERED: INSULIN GLARGINE SYRINGE. SQ SCH (23:30)
[2020-07-31] MEDS: INSULIN LISPRO 300 UNITS/3 ML VIAL. SQ SCH (23:49)
[2020-08-01 00:16] LABS: BILIRUBIN,URINE NEGATIVE (NEG); CLARITY,URINE CLEAR; COLOR,URINE YELLOW; NITRITE,URINE NEGATIVE (NEG); PH,URINE 6.5 (<5.0-8.0); PROTEIN,URINE NEGATIVE (NEG-TRACE); UROBILINOGEN,URINE 0.2 mg/dL (0.2 mg/dL)
[2020-08-01 00:26] LABS: BACTERIA,URINE 0 /HPF (0-FEW); RBC,URINE OCC /HPF (0-2)
[2020-08-01 07:07] LABS: BASO # 0.1 x10^3/uL (0.0-0.2); BASO % 1 % (0-3); EOS # 0.3 x10^3/uL (0.0-0.7); EOS % 2 % (0-3); HEMATOCRIT 28.6 % (36.0-47.0); HEMOGLOBIN 8.9 g/dL (12.0-15.5); LYMPH # 1.2 x10^3/uL (1.0-4.8); LYMPH % 9 % (24-48); MEAN CORPUSCULAR HEMOGLOBIN 27 pg (25-35); MEAN CORPUSCULAR HGB CONC 31 g/dL (31-37); MEAN CORPUSCULAR VOLUME 86 fL (79-100); MONO # 1.3 x10^3/uL (0.0-1.1); MONO % 9 % (0-9); NEUT # 10.8 x10^3/uL (1.8-7.7); NEUT % 79 % (31-73); PLATELET COUNT 288 x10^3/uL (140-400); RED BLOOD COUNT 3.31 x10^6/uL (3.50-5.40); RED CELL DISTRIBUTION WIDTH 18.7 % (11.5-14.5); WHITE BLOOD COUNT 13.7 x10^3/uL (4.0-11.0)
[2020-08-01 07:10] LABS: CALCIUM 9.2 mg/dL (8.5-10.1); CREATININE 1.9 mg/dL (0.6-1.0); GFR 25.8; POTASSIUM 3.9 mmol/L (3.5-5.1)
--- NOTE | 2020-08-01 08:11 | PDOC ---
[employer] PROGRESS NOTE Date of Service DOS: DATE: 08/01/20 TIME: 08:08 Chief Complaint Chief Complaint A/P: Unstable angina - more likely GERD, esophageal stricture related Leukocytosis - no clear infectious source, coming downward CKD - stable HTN - cont meds DM2 - cont meds Takotsubos - stable FEN - Cardiac diet PPX - heparin FULL CODE Dispo - ok for d/c home History of Present Illness History of Present Illness Ms Mckeon is a 74-year-old female past medical history hypertension, DM2, and Takotsubo cardiomyopathy, who presents to the ER with complaints of substernal chest pain. She reports chest pain that feels more like chest pressure, but st ates her symptoms do radiate to her left arm she received aspirin 324 mg in route to the ED with some improvement in her pain. She denies any associated nausea or diaphoresis. EKG upon arrival in the ER did not show any ST elevation. Overnight no further pain. Had echo cardiogram this morning. Afebrile, no shortness of breath. WBC trended downward to 13.7 troponin peaked at 0.059 came down to 0.054. Creatinine stable at 1.9 which is consistent with her history. Discussed likelihood of this being GI related she notes she does have outpatient follow-up with her PCP tomorrow and with Dr. Harrington as well. Vitals/I&O Vitals/I&O: Vital Signs Date Time Temp Pulse Resp B/P (MAP) Pulse Ox O2 Delivery O2 Flow Rate FiO2 08/01/20 06:00 78 24 128/58 (81) 100 Room Air 07/31/20 16:55 98.7 3.0 98.7 Physical Exam Lungs: Clear Labs Labs: Laboratory Tests Test 07/31/20 17:18 07/31/20 22:11 07/31/20 22:15 07/31/20 23:39 White Blood Count 16.2 x10^3/uL (4.0-11.0) Red Blood Count 3.62 x10^6/uL (3.50-5.40) Hemoglobin 10.0 g/dL (12.0-15.5) Hematocrit 31.1 % (36.0-47.0) Mean Corpuscular Volume 86 fL (79-100) Mean Corpuscular Hemoglobin 28 pg (25-35) Mean Corpuscular Hemoglobin Concent 32 g/dL (31-37) Red Cell Distribution Width 18.7 % (11.5-14.5) Platelet Count 326 x10^3/uL (140-400) Neutrophils (%) (Auto) 83 % (31-73) Lymphocytes (%) (Auto) 8 % (24-48) Monocytes (%) (Auto) 7 % (0-9) Eosinophils (%) (Auto) 2 % (0-3) Basophils (%) (Auto) 1 % (0-3) Neutrophils # (Auto) 13.4 x10^3/uL (1.8-7.7) Lymphocytes # (Auto) 1.3 x10^3/uL (1.0-4.8) Monocytes # (Auto) 1.2 x10^3/uL (0.0-1.1) Eosinophils # (Auto) 0.3 x10^3/uL (0.0-0.7) Basophils # (Auto) 0.1 x10^3/uL (0.0-0.2) Segmented Neutrophils % 75 % (35-66) Band Neutrophils % 1 % (0-9) Lymphocytes % 11 % (24-48) Monocytes % 12 % (0-10) Eosinophils % 1 % (0-5) Platelet Estimate Adequate (ADEQUATE) Hypochromasia Slight Anisocytosis Slight Sodium Level 137 mmol/L (136-145) Potassium Level 3.5 mmol/L (3.5-5.1) Chloride Level 96 mmol/L (98-107) Carbon Dioxide Level 33 mmol/L (21-32) Anion Gap 8 (6-14) Blood Urea Nitrogen 44 mg/dL (7-20) Creatinine 1.9 mg/dL (0.6-1.0) Estimated GFR (Cockcroft-Gault) 25.8 BUN/Creatinine Ratio 23 (6-20) Glucose Level 118 mg/dL (70-99) Calcium Level 10.1 mg/dL (8.5-10.1) Magnesium Level 2.5 mg/dL (1.8-2.4) Total Bilirubin 0.4 mg/dL (0.2-1.0) Aspartate Amino Transf (AST/SGOT) 28 U/L (15-37) Alanine Aminotransferase (ALT/SGPT) 41 U/L (14-59) Alkaline Phosphatase 180 U/L (46-116) Troponin I Quantitative 0.026 ng/mL (0.000-0.055) 0.059 ng/mL (0.000-0.055) WK-Qfd-J-Type Natriuretic Peptide 711 pg/mL (0-124) Total Protein 6.9 g/dL (6.4-8.2) Albumin 3.3 g/dL (3.4-5.0) Albumin/Globulin Ratio 0.9 (1.0-1.7) Lipase 117 U/L (73-393) Glucose (Fingerstick) 228 mg/dL (70-99) 263 mg/dL (70-99) Test 08/01/20 00:10 08/01/20 01:20 08/01/20 06:55 Urine Collection Type Unknown Urine Color Yellow Urine Clarity Clear Urine pH 6.5 (<5.0-8.0) Urine Specific [place] 1.010 (1.000-1.030) Urine Protein Negative mg/dL (NEG-TRACE) Urine Glucose (UA) Negative mg/dL (NEG) Urine Ketones (Stick) Negative mg/dL (NEG) Urine Blood Negative (NEG) Urine Nitrite Negative (NEG) Urine Bilirubin Negative (NEG) Urine Urobilinogen Dipstick 0.2 mg/dL (0.2 mg/dL) Urine Leukocyte Esterase Trace (NEG) Urine RBC Occ /HPF (0-2) Urine WBC 1-4 /HPF (0-4) Urine Squamous Epithelial Cells Few /LPF Urine Bacteria 0 /HPF (0-FEW) Urine Mucus Slight /LPF Troponin I Quantitative 0.054 ng/mL (0.000-0.055) White Blood Count 13.7 x10^3/uL (4.0-11.0) Red Blood Count 3.31 x10^6/uL (3.50-5.40) Hemoglobin 8.9 g/dL (12.0-15.5) Hematocrit 28.6 % (36.0-47.0) Mean Corpuscular Volume 86 fL (79-100) Mean Corpuscular Hemoglobin 27 pg (25-35) Mean Corpuscular Hemoglobin Concent 31 g/dL (31-37) Red Cell Distribution Width 18.7 % (11.5-14.5) Platelet Count 288 x10^3/uL (140-400) Neutrophils (%) (Auto) 79 % (31-73) Lymphocytes (%) (Auto) 9 % (24-48) Monocytes (%) (Auto) 9 % (0-9) Eosinophils (%) (Auto) 2 % (0-3) Basophils (%) (Auto) 1 % (0-3) Neutrophils # (Auto) 10.8 x10^3/uL (1.8-7.7) Lymphocytes # (Auto) 1.2 x10^3/uL (1.0-4.8) Monocytes # (Auto) 1.3 x10^3/uL (0.0-1.1) Eosinophils # (Auto) 0.3 x10^3/uL (0.0-0.7) Basophils # (Auto) 0.1 x10^3/uL (0.0-0.2) Sodium Level 143 mmol/L (136-145) Potassium Level 3.9 mmol/L (3.5-5.1) Chloride Level 104 mmol/L (98-107) Carbon Dioxide Level 36 mmol/L (21-32) Anion Gap 3 (6-14) Blood Urea Nitrogen 44 mg/dL (7-20) Creatinine 1.9 mg/dL (0.6-1.0) Estimated GFR (Cockcroft-Gault) 25.8 Glucose Level 84 mg/dL (70-99) Calcium Level 9.2 mg/dL (8.5-10.1) Assessment and Plan Assessmemt and Plan Problems Medical Problems: (1) Chest pain Status: Acute Comment Review of Relevant I have reviewed the following items cristian (where applicable) has been applied. Medications: Current Medications Medications (Trade) Dose Ordered Sig/Stan Route PRN Reason Start Time Stop Time Status Last Admin Dose Admin Heparin Sodium (Porcine) (Heparin Sodium) 5,000 unit Q12HR SQ 07/31/20 21:00 07/31/20 22:29 Sodium Chloride 1,000 ml @ 75 mls/hr 1X ONCE IV 07/31/20 21:30 08/01/20 10:49 07/31/20 22:29 Insulin Glargine (Lantus Syringe) 30 unit QHS SQ 07/31/20 23:30 07/31/20 23:43 Insulin Human Lispro (HumaLOG) 0-7 UNITS TIDPCHC SQ 07/31/20 23:00 07/31/20 23:49 Clonazepam (KlonoPIN) 2 mg PRN QHS PRN PO ANXIETY / AGITATION 07/31/20 23:00 07/31/20 23:41 Mirtazapine (Remeron) 30 mg QHS PO 07/31/20 23:30 07/31/20 23:41 Justifications for Admission Other Justification BURTON GARCIA MD Aug 01, 2020 08:11
[2020-08-01] MEDS: INSULIN LISPRO 300 UNITS/3 ML VIAL. SQ SCH (08:34)
--- NOTE | 2020-08-01 09:54 | PDOC3 ---
Discharge Summary Visit Information Date of Admission: Jul 31, 2020 Date of Discharge: Aug 01, 2020 Admitting Diagnosis: Chest pain Final Diagnosis Problems Medical Problems: (1) Chest pain Status: Acute Brief Hospital Course Allergies Allergies Coded Allergies Type Severity Reaction Last Updated Verified Sulfa (Sulfonamide Antibiotics) Allergy Intermediate Hives 05/21/19 Yes ciprofloxacin Allergy Intermediate 05/21/19 No diclofenac Allergy Intermediate Hives 07/31/20 Yes hydrochlorothiazide Allergy Intermediate Rash 05/21/19 Yes lactose Allergy Intermediate 05/21/19 Yes misoprostol Allergy Intermediate Hives 05/21/19 Yes sulfamethoxazole Allergy Intermediate 05/21/19 Yes trimethoprim Allergy Intermediate 05/21/19 Yes codeine Adverse Reaction Intermediate Nausea and Vomiting 05/21/19 Yes Vital Signs Vital Signs Date Time Temp Pulse Resp B/P (MAP) Pulse Ox O2 Delivery O2 Flow Rate FiO2 08/01/20 06:00 78 24 128/58 (81) 100 Room Air 07/31/20 16:55 98.7 3.0 98.7 Lab Results Laboratory Tests Test 07/31/20 17:18 07/31/20 22:11 07/31/20 22:15 07/31/20 23:39 White Blood Count 16.2 x10^3/uL (4.0-11.0) Red Blood Count 3.62 x10^6/uL (3.50-5.40) Hemoglobin 10.0 g/dL (12.0-15.5) Hematocrit 31.1 % (36.0-47.0) Mean Corpuscular Volume 86 fL (79-100) Mean Corpuscular Hemoglobin 28 pg (25-35) Mean Corpuscular Hemoglobin Concent 32 g/dL (31-37) Red Cell Distribution Width 18.7 % (11.5-14.5) Platelet Count 326 x10^3/uL (140-400) Neutrophils (%) (Auto) 83 % (31-73) Lymphocytes (%) (Auto) 8 % (24-48) Monocytes (%) (Auto) 7 % (0-9) Eosinophils (%) (Auto) 2 % (0-3) Basophils (%) (Auto) 1 % (0-3) Neutrophils # (Auto) 13.4 x10^3/uL (1.8-7.7) Lymphocytes # (Auto) 1.3 x10^3/uL (1.0-4.8) Monocytes # (Auto) 1.2 x10^3/uL (0.0-1.1) Eosinophils # (Auto) 0.3 x10^3/uL (0.0-0.7) Basophils # (Auto) 0.1 x10^3/uL (0.0-0.2) Segmented Neutrophils % 75 % (35-66) Band Neutrophils % 1 % (0-9) Lymphocytes % 11 % (24-48) Monocytes % 12 % (0-10) Eosinophils % 1 % (0-5) Platelet Estimate Adequate (ADEQUATE) Hypochromasia Slight Anisocytosis Slight Sodium Level 137 mmol/L (136-145) Potassium Level 3.5 mmol/L (3.5-5.1) Chloride Level 96 mmol/L (98-107) Carbon Dioxide Level 33 mmol/L (21-32) Anion Gap 8 (6-14) Blood Urea Nitrogen 44 mg/dL (7-20) Creatinine 1.9 mg/dL (0.6-1.0) Estimated GFR (Cockcroft-Gault) 25.8 BUN/Creatinine Ratio 23 (6-20) Glucose Level 118 mg/dL (70-99) Calcium Level 10.1 mg/dL (8.5-10.1) Magnesium Level 2.5 mg/dL (1.8-2.4) Total Bilirubin 0.4 mg/dL (0.2-1.0) Aspartate Amino Transf (AST/SGOT) 28 U/L (15-37) Alanine Aminotransferase (ALT/SGPT) 41 U/L (14-59) Alkaline Phosphatase 180 U/L (46-116) Troponin I Quantitative 0.026 ng/mL (0.000-0.055) 0.059 ng/mL (0.000-0.055) RU-Ocq-V-Type Natriuretic Peptide 711 pg/mL (0-124) Total Protein 6.9 g/dL (6.4-8.2) Albumin 3.3 g/dL (3.4-5.0) Albumin/Globulin Ratio 0.9 (1.0-1.7) Lipase 117 U/L (73-393) Glucose (Fingerstick) 228 mg/dL (70-99) 263 mg/dL (70-99) Test 08/01/20 00:10 08/01/20 01:20 08/01/20 06:55 08/01/20 08:34 Urine Collection Type Unknown Urine Color Yellow Urine Clarity Clear Urine pH 6.5 (<5.0-8.0) Urine Specific [place] 1.010 (1.000-1.030) Urine Protein Negative mg/dL (NEG-TRACE) Urine Glucose (UA) Negative mg/dL (NEG) Urine Ketones (Stick) Negative mg/dL (NEG) Urine Blood Negative (NEG) Urine Nitrite Negative (NEG) Urine Bilirubin Negative (NEG) Urine Urobilinogen Dipstick 0.2 mg/dL (0.2 mg/dL) Urine Leukocyte Esterase Trace (NEG) Urine RBC Occ /HPF (0-2) Urine WBC 1-4 /HPF (0-4) Urine Squamous Epithelial Cells Few /LPF Urine Bacteria 0 /HPF (0-FEW) Urine Mucus Slight /LPF Troponin I Quantitative 0.054 ng/mL (0.000-0.055) White Blood Count 13.7 x10^3/uL (4.0-11.0) Red Blood Count 3.31 x10^6/uL (3.50-5.40) Hemoglobin 8.9 g/dL (12.0-15.5) Hematocrit 28.6 % (36.0-47.0) Mean Corpuscular Volume 86 fL (79-100) Mean Corpuscular Hemoglobin 27 pg (25-35) Mean Corpuscular Hemoglobin Concent 31 g/dL (31-37) Red Cell Distribution Width 18.7 % (11.5-14.5) Platelet Count 288 x10^3/uL (140-400) Neutrophils (%) (Auto) 79 % (31-73) Lymphocytes (%) (Auto) 9 % (24-48) Monocytes (%) (Auto) 9 % (0-9) Eosinophils (%) (Auto) 2 % (0-3) Basophils (%) (Auto) 1 % (0-3) Neutrophils # (Auto) 10.8 x10^3/uL (1.8-7.7) Lymphocytes # (Auto) 1.2 x10^3/uL (1.0-4.8) Monocytes # (Auto) 1.3 x10^3/uL (0.0-1.1) Eosinophils # (Auto) 0.3 x10^3/uL (0.0-0.7) Basophils # (Auto) 0.1 x10^3/uL (0.0-0.2) Sodium Level 143 mmol/L (136-145) Potassium Level 3.9 mmol/L (3.5-5.1) Chloride Level 104 mmol/L (98-107) Carbon Dioxide Level 36 mmol/L (21-32) Anion Gap 3 (6-14) Blood Urea Nitrogen 44 mg/dL (7-20) Creatinine 1.9 mg/dL (0.6-1.0) Estimated GFR (Cockcroft-Gault) 25.8 Glucose Level 84 mg/dL (70-99) Calcium Level 9.2 mg/dL (8.5-10.1) Glucose (Fingerstick) 88 mg/dL (70-99) Laboratory Tests Test 07/31/20 17:18 07/31/20 22:11 07/31/20 22:15 07/31/20 23:39 White Blood Count 16.2 x10^3/uL (4.0-11.0) Red Blood Count 3.62 x10^6/uL (3.50-5.40) Hemoglobin 10.0 g/dL (12.0-15.5) Hematocrit 31.1 % (36.0-47.0) Mean Corpuscular Volume 86 fL (79-100) Mean Corpuscular Hemoglobin 28 pg (25-35) Mean Corpuscular Hemoglobin Concent 32 g/dL (31-37) Red Cell Distribution Width 18.7 % (11.5-14.5) Platelet Count 326 x10^3/uL (140-400) Neutrophils (%) (Auto) 83 % (31-73) Lymphocytes (%) (Auto) 8 % (24-48) Monocytes (%) (Auto) 7 % (0-9) Eosinophils (%) (Auto) 2 % (0-3) Basophils (%) (Auto) 1 % (0-3) Neutrophils # (Auto) 13.4 x10^3/uL (1.8-7.7) Lymphocytes # (Auto) 1.3 x10^3/uL (1.0-4.8) Monocytes # (Auto) 1.2 x10^3/uL (0.0-1.1) Eosinophils # (Auto) 0.3 x10^3/uL (0.0-0.7) Basophils # (Auto) 0.1 x10^3/uL (0.0-0.2) Segmented Neutrophils % 75 % (35-66) Band Neutrophils % 1 % (0-9) Lymphocytes % 11 % (24-48) Monocytes % 12 % (0-10) Eosinophils % 1 % (0-5) Platelet Estimate Adequate (ADEQUATE) Hypochromasia Slight Anisocytosis Slight Sodium Level 137 mmol/L (136-145) Potassium Level 3.5 mmol/L (3.5-5.1) Chloride Level 96 mmol/L (98-107) Carbon Dioxide Level 33 mmol/L (21-32) Anion Gap 8 (6-14) Blood Urea Nitrogen 44 mg/dL (7-20) Creatinine 1.9 mg/dL (0.6-1.0) Estimated GFR (Cockcroft-Gault) 25.8 BUN/Creatinine Ratio 23 (6-20) Glucose Level 118 mg/dL (70-99) Calcium Level 10.1 mg/dL (8.5-10.1) Magnesium Level 2.5 mg/dL (1.8-2.4) Total Bilirubin 0.4 mg/dL (0.2-1.0) Aspartate Amino Transf (AST/SGOT) 28 U/L (15-37) Alanine Aminotransferase (ALT/SGPT) 41 U/L (14-59) Alkaline Phosphatase 180 U/L (46-116) Troponin I Quantitative 0.026 ng/mL (0.000-0.055) 0.059 ng/mL (0.000-0.055) JS-Axp-F-Type Natriuretic Peptide 711 pg/mL (0-124) Total Protein 6.9 g/dL (6.4-8.2) Albumin 3.3 g/dL (3.4-5.0) Albumin/Globulin Ratio 0.9 (1.0-1.7) Lipase 117 U/L (73-393) Glucose (Fingerstick) 228 mg/dL (70-99) 263 mg/dL (70-99) Test 08/01/20 00:10 1/5/21 01:20 08/01/20 06:55 08/01/20 08:34 Urine Collection Type Unknown Urine Color Yellow Urine Clarity Clear Urine pH 6.5 (<5.0-8.0) Urine Specific [place] 1.010 (1.000-1.030) Urine Protein Negative mg/dL (NEG-TRACE) Urine Glucose (UA) Negative mg/dL (NEG) Urine Ketones (Stick) Negative mg/dL (NEG) Urine Blood Negative (NEG) Urine Nitrite Negative (NEG) Urine Bilirubin Negative (NEG) Urine Urobilinogen Dipstick 0.2 mg/dL (0.2 mg/dL) Urine Leukocyte Esterase Trace (NEG) Urine RBC Occ /HPF (0-2) Urine WBC 1-4 /HPF (0-4) Urine Squamous Epithelial Cells Few /LPF Urine Bacteria 0 /HPF (0-FEW) Urine Mucus Slight /LPF Troponin I Quantitative 0.054 ng/mL (0.000-0.055) White Blood Count 13.7 x10^3/uL (4.0-11.0) Red Blood Count 3.31 x10^6/uL (3.50-5.40) Hemoglobin 8.9 g/dL (12.0-15.5) Hematocrit 28.6 % (36.0-47.0) Mean Corpuscular Volume 86 fL (79-100) Mean Corpuscular Hemoglobin 27 pg (25-35) Mean Corpuscular Hemoglobin Concent 31 g/dL (31-37) Red Cell Distribution Width 18.7 % (11.5-14.5) Platelet Count 288 x10^3/uL (140-400) Neutrophils (%) (Auto) 79 % (31-73) Lymphocytes (%) (Auto) 9 % (24-48) Monocytes (%) (Auto) 9 % (0-9) Eosinophils (%) (Auto) 2 % (0-3) Basophils (%) (Auto) 1 % (0-3) Neutrophils # (Auto) 10.8 x10^3/uL (1.8-7.7) Lymphocytes # (Auto) 1.2 x10^3/uL (1.0-4.8) Monocytes # (Auto) 1.3 x10^3/uL (0.0-1.1) Eosinophils # (Auto) 0.3 x10^3/uL (0.0-0.7) Basophils # (Auto) 0.1 x10^3/uL (0.0-0.2) Sodium Level 143 mmol/L (136-145) Potassium Level 3.9 mmol/L (3.5-5.1) Chloride Level 104 mmol/L (98-107) Carbon Dioxide Level 36 mmol/L (21-32) Anion Gap 3 (6-14) Blood Urea Nitrogen 44 mg/dL (7-20) Creatinine 1.9 mg/dL (0.6-1.0) Estimated GFR (Cockcroft-Gault) 25.8 Glucose Level 84 mg/dL (70-99) Calcium Level 9.2 mg/dL (8.5-10.1) Glucose (Fingerstick) 88 mg/dL (70-99) Brief Hospital Course Ms Mckeon is a 74-year-old female past medical history hypertension, DM2, and Takotsubo cardiomyopathy, who presents to the ER with complaints of substernal chest pain. She reports chest pain that feels more like chest pressure, but states her symptoms do radiate to her left arm she received aspirin 324 mg in route to the ED with some improvement in her pain. She denies any associated nausea or diaphoresis. EKG upon arrival in the ER did not show any ST elevation. Overnight no further pain. Had echo cardiogram this morning. Afebrile, no shortness of breath. WBC trended downward to 13.7 troponin peaked at 0.059 came down to 0.054. Creatinine stable at 1.9 which is consistent with her history. Discussed likelihood of this being GI related she notes she does have outpatient follow-up with her PCP tomorrow and with Dr. Harrington as well. Consults: Cardiology Problem list: Unstable angina - more likely GERD, esophageal stricture related Leukocytosis - no clear infectious source, coming downward CKD - stable HTN - cont meds DM2 - cont meds Anemia MGUS HTN urgency HOCM - on verapamil 120 SR Mild trop elevation peaked at 0.059 demand mediated Severe LVH Severe COPD CAD - 205 U angina- distal LAD & a distal diag occlusion, LV apex akinetic, no hx of arrhyth ia normal MPI on 04/2016 follow with Shana Greater than 30 minutes spent on d/c Discharge Information Condition at Discharge: Improved Follow Up: Weeks Disposition/Orders: D/C to Home Scheduled Allopurinol (Allopurinol) 300 Mg Tablet, 1 TAB PO DAILY for GOUT, #30 Ref 5 (Reported) Entered as Reported by: DINO CORTES on 05/21/19738 Aspirin (Aspirin) 81 Mg Tab.chew, 81 MG PO DAILY, (Reported) Entered as Reported by: CASEY BENSON on 02/24/14726 Atorvastatin Calcium (Atorvastatin Calcium) 20 Mg Tablet, 20 MG PO DAILY for FOR CHOLESTEROL, #30 Ref 0 (Reported) Entered as Reported by: CASEY BENSON on 02/24/14726 Biotin (Biotin) 1 Mg Capsule, 1 CAP PO DAILY for supplement for 30 Days, #30 Ref 0 (Reported) Entered as Reported by: CAROL GÓMEZ on 02/11/20 160 Cholecalciferol (Vitamin D3) (Vitamin D-3) 2,000 Unit Capsule, 2,000 UNIT PO DAILY, (Reported) Entered as Reported by: CASEY BENSON on 02/24/14726 Clonazepam (Klonopin) 2 Mg Tablet, 2 MG PO HS, (Reported) Entered as Reported by: JORGE HILLS on 07/10/17 0033 Cyanocobalamin (Vitamin B-12) (Cyanocobalamin Injection) 1,000 Mcg/1 Ml Vial, 1,000 MCG IJ QMONTH, (Reported) Entered as Reported by: CASEY BENSON on 02/24/14726 Ferrous Gluconate (Iron) 236 Mg Tablet, 65 MG PO DAILY for vitamin, (Reported) Entered as Reported by: CAROL GÓMEZ on 02/11/20 160 Fluticasone/Vilanterol (Breo Ellipta 100-25 Mcg Inh) 1 Each Aer.pow.ba, 1 PUFF IH DAILY for COPD, (Reported) Entered as Reported by: DINO CORTES on 05/21/19738 Furosemide (Lasix) 40 Mg Tablet, 1 TAB PO DAILY for water pill for 30 Days, #30 Ref 0 (Reported) Entered as Reported by: CAROL GÓMEZ on 02/11/20 160 Insulin Detemir (Levemir) 100 Unit/1 Ml Vial, 30 UNIT SQ HS for DM, (Reported) Entered as Reported by: DINO CORTES on 10/25/19 0742 Insulin Lispro (Insulin Lispro Kwikpen U-100) 100 Unit/1 Ml Insuln.pen, 24 UNIT SQ TIDAC for DM, (Reported) Entered as Reported by: YOVANI MATTHEWS on 04/14/20 185 Lactobacillus Acidophilus (Acidophilus) 100 Mg Capsule, 1 CAP PO DAILY for supplement for 30 Days, #30 Ref 0 (Reported) Entered as Reported by: YOVANI MATTHEWS on 04/14/201855 Levomilnacipran Hydrochloride (Fetzima) 80 Mg Cap.sa.24h, 80 MG PO DAILY for DEPRESSION, (Reported) Entered as Reported by: DINO CORTES on 05/21/19 07 Levothyroxine Sodium (Levothyroxine Sodium) 100 Mcg Tablet, 1 TAB PO DAILY for hypothyroidism, #30 Ref 5 (Reported) Entered as Reported by: CAROL GÓMEZ on 02/11/20 1605 Mirtazapine (Mirtazapine) 15 Mg Tablet, 30 MG PO HS, (Reported) Entered as Reported by: CASEY BENSON on 02/24/14 0727 Omeprazole (Omeprazole) 20 Mg Capsule.dr, 1 CAP PO DAILY for GERD, #30 Ref 5 (Reported) Entered as Reported by: MEGAN VILLAREAL on 02/12/20 1619 Oxycodone HCl (Oxycontin) 10 Mg Tab.er.12h, 1 TAB PO BID for pain MDD 2 Tablet(s) for 30 Days, #60 Ref 0 (Reported) Entered as Reported by: YOVANI MATTHEWS on 04/14/201855 Potassium Citrate (Potassium Citrate) 10 Meq Tablet.er, 1 TAB PO BID for NA, #90 Ref 3 (Reported) Entered as Reported by: DINO CORTES on 05/21/19738 Umeclidinium [place] (Incruse Ellipta) 62.5 Mcg Blst.w.dev, 62.5 MCG IH DAILY for COPD, (Reported) Entered as Reported by: DINO CORTES on 05/21/19738 Verapamil Hcl (Verapamil Er) 240 Mg Cap24h.pel, 120 MG PO DAILY for HTN, (Reported) Entered as Reported by: DINO CORTES on 05/21/19 07 [B 6] , 1 TAB PO DAILY, (Reported) Entered as Reported by: CAROL GÓMEZ on 02/11/20 1605 Scheduled PRN Diclofenac Sodium (Voltaren) 100 Gm Gel..gram., 1 GM TP PRN Q6HRS PRN for PAIN for 30 Days, #1 Ref 0 (Reported) apply to affected area(s) Entered as Reported by: YOVANI MATTHEWS on 04/14/20 1856 Diphenoxylate Hcl/Atropine (Diphenoxylate-Atropine Tablet) 1 Each Tablet, 1 EACH PO DAILY PRN for DIARRHEA, (Reported) Entered as Reported by: CASEY BENSON on 02/24/14 0727 Discontinued Medications Cefdinir (Cefdinir) 300 Mg Capsule, 300 MG PO DAILY for cellulitis for 7 Days, #7 Ref 0 Prescribed by: CARMELINA PATE on 04/17/20 1033 Hydrocodone Bit/Acetaminophen (Hydrocodone-Apap 7.5-325 ) 1 Tab Tablet, 1 TAB PO PRN Q4HRS PRN for PAIN for 7 Days, #28 Prescribed by: SELAM MCMAHAN MD on 02/16/20 1206 Magnesium Oxide (Magnesium) 400 Mg Capsule, 1 CAP PO DAILY for VITAMIN for 30 Days, #30 Ref 0 (Reported) Entered as Reported by: DINO CORTES on 05/21/19 0739 Magnesium Oxide (Magnesium) 400 Mg Capsule, 1 CAP PO DAILY for supplement for 30 Days, #30 Ref 0 (Reported) Entered as Reported by: YOVANI MATTHEWS on 04/14/20 1856 Justicifation of Admission Dx: Justifications for Admission: Justification of Admission Dx: Yes BURTON GARCIA MD Aug 01, 2020 09:54
--- NOTE | 2020-08-01 11:15 | PDOC2 ---
CARDIAC CONSULT DATE OF CONSULT Date of Consult DATE: 08/01/20 TIME: 11:00 REASON FOR CONSULT Reason for Consult: Chest pain REFERRING PHYSICIAN Referring Physician: Dorene SOURCE Source: Chart review, Patient HISTORY OF PRESENT ILLNESS HISTORY OF PRESENT ILLNESS This is a pleasant 74 yo female admitted for complains of chest pain. Reports this occurred yesterday left upper chest pressure to left sternal region lasting about 30 minutes which has not recurred since then. There was no associated ROTH, nausea or SOA. No diaphoresis or palpitations. She did not check her BP at that time but she is known for HOCM with labile BP. She did have some dizziness associated with her chest discomfort but she has had extensive workup in terms of presyncope and syncope and no associated arrhythmias. She hydrates her self well drinking about 5-6 16 oz a day of water and has been compliant with her medications. Her last stress test was 2015 and her last LHC was 2013. 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 Her verapamil was going to be increased at that time but did not happen due to issues of dizziness. Her COPD is controlled and uses O2 at 2-3 LPM continuously. No fever, chills or cough. PAST MEDICAL HISTORY Past Medical History Cardiovascular: CAD, HTN, Hyperlipidemia, HOCM Pulmonary: COPD GI: Constipation, GERD Heme/Onc: Anemia NOS Renal/: Chronic renal insuff Endocrine: Diabetes PAST SURGICAL HISTORY Past Surgical History , Mastectomy, Total knee replacement, Tonsillectomy, Other (Mastectomy) , LHC, left knee fracture repair FAMILY HISTORY Family History: Hypertension SOCIAL HISTORY Smoke: Quit ALCOHOL: none Drugs: None Lives: with Family CURRENT MEDICATIONS CURRENT MEDICATIONS Current Medications Medications (Trade) Dose Ordered Sig/Stan Route PRN Reason Start Time Stop Time Status Last Admin Dose Admin Heparin Sodium (Porcine) (Heparin Sodium) 5,000 unit Q12HR SQ 07/31/20 21:00 07/31/20 22:29 Sodium Chloride 1,000 ml @ 75 mls/hr 1X ONCE IV 07/31/20 21:30 08/01/20 10:49 DC 07/31/20 22:29 Insulin Glargine (Lantus Syringe) 30 unit QHS SQ 07/31/20 23:30 07/31/20 23:43 Insulin Human Lispro (HumaLOG) 0-7 UNITS TIDPCHC SQ 07/31/20 23:00 07/31/20 23:49 Clonazepam (KlonoPIN) 2 mg PRN QHS PRN PO ANXIETY / AGITATION 07/31/20 23:00 07/31/20 23:41 Mirtazapine (Remeron) 30 mg QHS PO 07/31/20 23:30 07/31/20 23:41 ALLERGIES ALLERGIES: Coded Allergies: Sulfa (Sulfonamide Antibiotics) (Verified Allergy, Intermediate, Hives, 05/21/19) ciprofloxacin (Unverified Allergy, Intermediate, 05/21/19) diclofenac (Verified Allergy, Intermediate, Hives, 07/31/20) Aspirin ok hydrochlorothiazide (Verified Allergy, Intermediate, Rash, 05/21/19) lactose (Verified Allergy, Intermediate, 05/21/19) misoprostol (Verified Allergy, Intermediate, Hives, 05/21/19) sulfamethoxazole (Verified Allergy, Intermediate, 05/21/19) trimethoprim (Verified Allergy, Intermediate, 05/21/19) codeine (Verified Adverse Reaction, Intermediate, Nausea and Vomiting, 05/21/19) ROS Review of System 14 point ROS evaluated with pertinent positives noted per HPI PHYSICAL EXAM General: Alert, Oriented X3, Cooperative, No acute distress HEENT: Atraumatic, Mucous membr. moist/pink Lungs: Other (Diminished bases) Heart: Regular rate (SR), Normal S1, Normal S2, Other (S4, 3-4 systolic murmur to apex) Abdomen: Soft, No tenderness Extremities: No cyanosis, Other (trace to 1+ bilateral LE pitting edema) Skin: No breakdown, No significant lesion Neuro: Normal speech, Sensation intact Psych/Mental Status: Mental status NL, Mood NL MUSCULOSKELETAL: Osteoarthritic changes both hands VITALS/I&O VITALS/I&O: Vital Signs Date Time Temp Pulse Resp B/P (MAP) Pulse Ox O2 Delivery O2 Flow Rate FiO2 08/01/20 06:00 78 24 128/58 (81) 100 Room Air 07/31/20 16:55 98.7 3.0 98.7 LABS Lab: Laboratory Tests Test 07/31/20 17:18 07/31/20 22:11 07/31/20 22:15 07/31/20 23:39 White Blood Count 16.2 x10^3/uL (4.0-11.0) H Red Blood Count 3.62 x10^6/uL (3.50-5.40) Hemoglobin 10.0 g/dL (12.0-15.5) L Hematocrit 31.1 % (36.0-47.0) L Mean Corpuscular Volume 86 fL (79-100) Mean Corpuscular Hemoglobin 28 pg (25-35) Mean Corpuscular Hemoglobin Concent 32 g/dL (31-37) Red Cell Distribution Width 18.7 % (11.5-14.5) H Platelet Count 326 x10^3/uL (140-400) Neutrophils (%) (Auto) 83 % (31-73) H Lymphocytes (%) (Auto) 8 % (24-48) L Monocytes (%) (Auto) 7 % (0-9) Eosinophils (%) (Auto) 2 % (0-3) Basophils (%) (Auto) 1 % (0-3) Neutrophils # (Auto) 13.4 x10^3/uL (1.8-7.7) H Lymphocytes # (Auto) 1.3 x10^3/uL (1.0-4.8) Monocytes # (Auto) 1.2 x10^3/uL (0.0-1.1) H Eosinophils # (Auto) 0.3 x10^3/uL (0.0-0.7) Basophils # (Auto) 0.1 x10^3/uL (0.0-0.2) Segmented Neutrophils % 75 % (35-66) H Band Neutrophils % 1 % (0-9) Lymphocytes % 11 % (24-48) L Monocytes % 12 % (0-10) H Eosinophils % 1 % (0-5) Platelet Estimate Adequate (ADEQUATE) Hypochromasia Slight Anisocytosis Slight Sodium Level 137 mmol/L (136-145) Potassium Level 3.5 mmol/L (3.5-5.1) Chloride Level 96 mmol/L (98-107) L Carbon Dioxide Level 33 mmol/L (21-32) H Anion Gap 8 (6-14) Blood Urea Nitrogen 44 mg/dL (7-20) H Creatinine 1.9 mg/dL (0.6-1.0) H Estimated GFR (Cockcroft-Gault) 25.8 BUN/Creatinine Ratio 23 (6-20) H Glucose Level 118 mg/dL (70-99) H Calcium Level 10.1 mg/dL (8.5-10.1) Magnesium Level 2.5 mg/dL (1.8-2.4) H Total Bilirubin 0.4 mg/dL (0.2-1.0) Aspartate Amino Transferase (AST) 28 U/L (15-37) Alanine Aminotransferase (ALT) 41 U/L (14-59) Alkaline Phosphatase 180 U/L (46-116) H Troponin I Quantitative 0.026 ng/mL (0.000-0.055) 0.059 ng/mL (0.000-0.055) SM-Isj-J-Type Natriuretic Peptide 711 pg/mL (0-124) H Total Protein 6.9 g/dL (6.4-8.2) Albumin 3.3 g/dL (3.4-5.0) L Albumin/Globulin Ratio 0.9 (1.0-1.7) L Lipase 117 U/L (73-393) Glucose (Fingerstick) 228 mg/dL (70-99) H 263 mg/dL (70-99) H Test 08/01/20 00:10 08/01/20 01:20 08/01/20 06:55 08/01/20 08:34 Urine Collection Type Unknown Urine Color Yellow Urine Clarity Clear Urine pH 6.5 (<5.0-8.0) Urine Specific [place] 1.010 (1.000-1.030) Urine Protein Negative mg/dL (NEG-TRACE) Urine Glucose (UA) Negative mg/dL (NEG) Urine Ketones (Stick) Negative mg/dL (NEG) Urine Blood Negative (NEG) Urine Nitrite Negative (NEG) Urine Bilirubin Negative (NEG) Urine Urobilinogen Dipstick 0.2 mg/dL (0.2 mg/dL) Urine Leukocyte Esterase Trace (NEG) Urine RBC Occ /HPF (0-2) Urine WBC 1-4 /HPF (0-4) Urine Squamous Epithelial Cells Few /LPF Urine Bacteria 0 /HPF (0-FEW) Urine Mucus Slight /LPF Troponin I Quantitative 0.054 ng/mL (0.000-0.055) White Blood Count 13.7 x10^3/uL (4.0-11.0) H Red Blood Count 3.31 x10^6/uL (3.50-5.40) L Hemoglobin 8.9 g/dL (12.0-15.5) L Hematocrit 28.6 % (36.0-47.0) L Mean Corpuscular Volume 86 fL (79-100) Mean Corpuscular Hemoglobin 27 pg (25-35) Mean Corpuscular Hemoglobin Concent 31 g/dL (31-37) Red Cell Distribution Width 18.7 % (11.5-14.5) H Platelet Count 288 x10^3/uL (140-400) Neutrophils (%) (Auto) 79 % (31-73) H Lymphocytes (%) (Auto) 9 % (24-48) L Monocytes (%) (Auto) 9 % (0-9) Eosinophils (%) (Auto) 2 % (0-3) Basophils (%) (Auto) 1 % (0-3) Neutrophils # (Auto) 10.8 x10^3/uL (1.8-7.7) H Lymphocytes # (Auto) 1.2 x10^3/uL (1.0-4.8) Monocytes # (Auto) 1.3 x10^3/uL (0.0-1.1) H Eosinophils # (Auto) 0.3 x10^3/uL (0.0-0.7) Basophils # (Auto) 0.1 x10^3/uL (0.0-0.2) Sodium Level 143 mmol/L (136-145) Potassium Level 3.9 mmol/L (3.5-5.1) Chloride Level 104 mmol/L (98-107) Carbon Dioxide Level 36 mmol/L (21-32) H Anion Gap 3 (6-14) L Blood Urea Nitrogen 44 mg/dL (7-20) H Creatinine 1.9 mg/dL (0.6-1.0) H Estimated GFR (Cockcroft-Gault) 25.8 Glucose Level 84 mg/dL (70-99) Calcium Level 9.2 mg/dL (8.5-10.1) Glucose (Fingerstick) 88 mg/dL (70-99) Laboratory Tests 07/31/20 17:18 08/01/20 06:55 Laboratory Tests 07/31/20 17:18 08/01/20 06:55 ECHOCARDIOGRAM ECHOCARDIOGRAM <Conclusion> The left ventricle is normal size. The left ventricular systolic function is normal and the ejection fraction is within normal range. Ejection fraction 60-65 %. There is mild to moderate concentric left ventricular hypertrophy. The aortic valve is normal in structure and function. There is a left ventrticular outflow obstruction with a resting velocity of 47 mmHg that does not increase with valsalva manuever. There is no significant aortic valvular stenosis. Doppler and Color Flow revealed no significant aortic regurgitation. Doppler and Color-flow revealed mild mitral regurgitation. Doppler and Color Flow revealed no tricuspid valve regurgitation noted. DATE: 02/13/20 1103 ASSESSMENT/PLAN ASSESSMENT/PLAN 1. Chest pain: suspect due to high BP and HOCM, no further recurrence 2. Leukocytosis: per PCP 3. Anemia with hx of MGUS 4. HTN urgency: better 5. Known for HOCM: on verapamil 120 SR daily at home 6. Mild trop elevation peaked at 0.059 suspect demand mediated, no acute EKG changes 7. Suspect CKD3: Cr appears within baseline at 1.9 8. Severe COPD 9. CAD: hx of distal LAD & a distal diag occlusion 10. DM2 Recommendations 1. Discussed HBPM and hydration adequacy. 2. May DC per cardiac standpoint. Follow up with Dr. Saldana her harness maker and will defer outpt MPI to him 3. Continue home verapamil and secondary prevention measures. AURELIO ISAAC APRN Aug 01, 2020 11:15
[2020-08-01 11:37] VITALS: BP 149/65
--- NOTE | 2020-08-01 11:45 | EKG ---
[facility] [address] [place] [address] Test Date: 2020-07-31 Test Time: 16:54:29 Pat Name: MÓNICA CASTELLANO Department: Room: ED HOLD 13 Gender: F Emblem Drawer In: : 1945 Requested By: ALEJANDRO VELEZ Order Number: [id number] Reading MD: Dany Whitney Measurements Intervals [place] Rate: 64 P: 40 MA: 170 QRS: -39 QRSD: 88 T: 147 QT: 460 QTc: 479 Interpretive Statements SINUS RHYTHM ABNORMAL LEFT AXIS DEVIATION LEFT ANTERIOR FASCICULAR BLOCK LVH WITH REPOLARIZATION ABNORMALITY QRS(T) CONTOUR ABNORMALITY CONSIDER ANTEROSEPTAL MYOCARDIAL DAMAGE PROLONGED QT ABNORMAL ECG Electronically Signed On 08-01-2020 13:38:17 ACCOUNTING/FINANCE TUTOR by Dany Whitney
[2020-08-01] MEDS: HEPARIN for SUB-Q USE 5,000 UNIT/ML VIAL. SQ SCH (13:22)
--- NOTE | 2020-08-01 18:26 | CARD ---
MR#: [id number] Date of Study: 08/01/2020 Ordering Physician: MILVIA ORTEGA, Referring Physician: MILVIA ORTEGA, Tech: Rhiannon Mae [facility] APPROVED REPORT EXAM: Two-dimensional and M-mode echocardiogram with Doppler and color Doppler. Other Information Quality : AverageHR: 80bpm Rhythm : NSR INDICATION Dyspnea CAD RISK FACTORS Hypertension Obesity Hyperlipidemia Diabetes 2D DIMENSIONS RVDd2.7 (2.9-3.5cm)Left Atrium(2D)3.7 (1.6-4.0cm) IVSd1.7 (0.7-1.1cm)Aortic Root(2D)3.4 (2.0-3.7cm) LVDd3.6 (3.9-5.9cm)LVOT Diameter2.0 (1.8-2.4cm) PWd1.6 (0.7-1.1cm)LVDs2.2 (2.5-4.0cm) FS (%) 39.6 %SV38.4 ml Aortic Valve AoV Peak Aron.234.7cm/sAoV VTI49.9cm AO Peak GR.22.0mmHgAO Mean GR.11mmHg Mitral Valve MV E Npgsoebi85.3cm/sMV DECEL FGLB940lk MV A Xjxvhhjo303.7cm/sE/A Ratio0.7 Pulmonary Valve PV Peak Bfflamgl694.3cm/s Pulmonary Vein S1 Giuyepoz405.6cm/sD2 Twvntdkg468.8cm/s LEFT VENTRICLE The left ventricle is normal size. There is moderate to moderate severe concentric left ventricular h ypertrophy. The left ventricular systolic function is normal and the ejection fraction is within norm al range. Ejection fraction 65-70%. There is normal LV segmental wall motion. RIGHT VENTRICLE The right ventricle is normal size. The right ventricle is mildly hypertrophied. The right ventricula r systolic function is normal. ATRIA The left atrium size is normal. The right atrium size is normal. The interatrial septum is intact wit h no evidence for an atrial septal defect or patent foramen ovale as noted on 2-D or Doppler imaging. AORTIC VALVE The aortic valve is normal in structure and function. Doppler and Color Flow revealed no significant aortic regurgitation. There is no significant aortic valvular stenosis. MITRAL VALVE Mitral annular calcification is mild. There is no evidence of mitral valve prolapse. There is no mitr al valve stenosis. Doppler and Color-flow revealed mild to moderate mitral regurgitation. TRICUSPID VALVE The tricuspid valve is normal in structure and function. Doppler and Color Flow revealed trace tricus pid valve regurgitation. PULMONIC VALVE The pulmonary valve is normal in structure and function. Doppler and Color Flow revealed mild pulmoni c valvular regurgitation. GREAT VESSELS The aortic root is normal in size. The ascending aorta is normal in size. The IVC is normal in size a nd collapses >50% with inspiration. PERICARDIAL EFFUSION There is no evidence of significant pericardial effusion. Critical Notification Critical Value: No <Conclusion> The left ventricle is normal size. The left ventricular systolic function is normal and the ejection fraction is within normal range. Ejection fraction 65-70%. There is moderate to moderate severe concentric left ventricular hypertrophy. Doppler and Color Flow revealed no significant aortic regurgitation. There is no significant aortic valvular stenosis. Doppler and Color-flow revealed mild to moderate mitral regurgitation. Doppler and Color Flow revealed trace tricuspid valve regurgitation. Signed by : Stone Carney MD Electronically Approved : 08/01/2020 18:25:29
== END 2020-08-01 14:48 | disposition home or self-care (01) | DRG 391 ==
LOC: ER 16:49 → ED HOLD 08-01 05:05
PROVIDERS: ADMIT Family Medicine; ATTEND Family Medicine
DX: K22.2 Esophageal obstruction (principal); N17.0 Acute kidney failure with tubular necrosis; I24.8 Other forms of acute ischemic heart disease; I25.110 Atherosclerotic heart disease of native coronary artery with unstable angina pectoris; I42.1 Obstructive hypertrophic cardiomyopathy; I51.81 Takotsubo syndrome; K21.9 Gastro-esophageal reflux disease without esophagitis; D47.2 Monoclonal gammopathy; D64.9 Anemia, unspecified; D72.829 Elevated white blood cell count, unspecified; E03.9 Hypothyroidism, unspecified; E11.22 Type 2 diabetes mellitus with diabetic chronic kidney disease; E78.00 Pure hypercholesterolemia, unspecified; E78.5 Hyperlipidemia, unspecified; E86.0 Dehydration; I12.9 Hypertensive chronic kidney disease with stage 1 through stage 4 chronic kidney disease, or unspecified chronic kidney disease; I16.0 Hypertensive urgency; J44.9 Chronic obstructive pulmonary disease, unspecified; N18.9 Chronic kidney disease, unspecified; Z82.49 Family history of ischemic heart disease and other diseases of the circulatory system; Z85.3 Personal history of malignant neoplasm of breast; Z90.12 Acquired absence of left breast and nipple; Z90.710 Acquired absence of both cervix and uterus; Z96.659 Presence of unspecified artificial knee joint; F32.9 Major depressive disorder, single episode, unspecified; M19.90 Unspecified osteoarthritis, unspecified site
CPT/HCPCS: 36415; 71045; 80048; 80053; 81001; 82962; 83690; 83735; 83880; 84484; 85007; 85025; 87086; 93005; 93306; 99285; J1644; J1815; J7030; G0378